=== PATIENT | male | born 1955 | race Caucasian/White ===

== ENCOUNTER 2019-02-07 18:39 | Inpatient (IN) ==
[2019-02-07 19:17] LABS: BASO# 0.02 X1000 (0.0-0.2); BASO% 0.2 % (0.0-0.8); HEMATOCRIT 42.1 % (42.0-52.0); HEMOGLOBIN 15.2 g/dL (14.0-18.0); IMM GRAN# 0.03 X1000 (0.0-0.04); IMM GRAN% 0.3 % (0.0-0.5); LYMPH# 0.82 X1000 (1.2-3.4); LYMPH% 8.9 % (20.5-51.1); MCH 29.1 PG (27-31); MCHC 36.1 g/dL (33-37); MCV 80.7 FL (81-99); MONO# 0.88 X1000 (0.11-0.59); MONO% 9.5 % (1.7-9.3); MPV 10.7 FL (7.4-10.4); NEUT# 7.51 X1000 (1.4-6.5); NEUT% 81.1 % (42.2-75.2); PLT 193 X1000 (130-400); RBC 5.22 XMIL (4.7-6.1); WBC 9.26 X1000 (4.8-10.8)
--- NOTE | 2019-02-07 19:37 | Diag Imaging Result Doc PS360 ---
CHEST-1 VIEW - 02/07/2019 INDICATION: sepsis COMPARISON: None FINDINGS: Heart size is borderline enlarged. No infiltrates or edema. No pneumothorax or pleural effusion. IMPRESSION: Borderline cardiomegaly. Electronically signed by Gordy Mayberry 02/07/2019 7:35 PM
[2019-02-07 19:38] LABS: ALBUMIN 3.9 g/dL (3.5-5.0); CALCIUM 8.1 mg/dL (8.8-10.2); CREATININE 2.3 mg/dL (0.7-1.2); POTASSIUM 3.7 mmol/L (3.5-5.1); TOTAL BILIRUBIN 0.3 mg/dL (0.20-1.00); TOTAL PROTEIN 7.2 g/dL (6.3-8.3)
[2019-02-07 19:43] LABS: PROTIME 13.7 Seconds (11.0-16.0)
[2019-02-07 19:44] LABS: PTT 31.8 Seconds (22.3-41.8)
[2019-02-07] MEDS ORDERED: NS 1,000 ML IV ONE ×2 (19:48→20:49)
[2019-02-07] MEDS ORDERED: TORADOL IV ONE (19:48)
[2019-02-07 20:07] LABS: CK INDEX 0.3 (0.0-2.5); CK-MB 19.73 ng/mL (0.0-5.0)
[2019-02-07 20:37] LABS: BILIRUBIN URINE NEGATIVE (NEGATIVE); BLOOD URINE 4+ (NEGATIVE); CLARITY VERY CLOUDY (CLEAR); COLOR YELLOW; GLUCOSE URINE NEGATIVE (NEGATIVE); KETONE URINE 1+(Small) mg/dL (NEGATIVE); LEUKOCYTES URINE TRACE (NEGATIVE); NITRITE URINE NEGATIVE (NEGATIVE); PROTEIN URINE 2+(100 mg/dL) mg/dL (NEGATIVE); UROBILINOGEN URINE NORMAL
[2019-02-07 20:44] LABS: URINE BACTERIA 3+ /HFP; URINE EPITHELIAL CELLS >10 /HPF (<10)
[2019-02-07 20:45] LABS: URINE CAST GRANULAR PRESENT /LPF; URINE CRYSTAL NONE SEEN /HPF; URINE SOURCE CLEAN CATCH; URINE YEAST NONE SEEN /HPF
[2019-02-07] MEDS ORDERED: MORPHINE IV PRN (20:49)
[2019-02-07] MEDS ORDERED: ZOFRAN IV PRN (20:49)
[2019-02-07] MEDS ORDERED: HEPARIN 25,000 UNITS/D5W 25,000 UNIT/250 ML IV.SOLN IV SCH (21:00)
[2019-02-08] MEDS ORDERED: NS 1,000 ML IV ONE ×2 (00:09→01:15)
[2019-02-08] MEDS: D5 NS 1,000 ML IV SCH ×3 (00:37→10:14)
[2019-02-08] MEDS ORDERED: D50W SYRINGE IV ONE ×2 (00:41→05:21)
[2019-02-08 01:07] LABS: UR PROT RANDOM 156.4 mg/dL
[2019-02-08] MEDS ORDERED: NS 500 ML IV ONE (01:16)
[2019-02-08 01:24] LABS: UR CREAT RANDOM 357.8 mg/dL (14-26)
[2019-02-08] MEDS: ZOSYN 2.25 GM in NS 50 ML IV SCH ×6 (04:54→23:45)
[2019-02-08] MEDS: SYNTHROID PO SCH ×2 (04:54→07:19)
--- NOTE | 2019-02-08 05:00 | HISTORY AND PHYSICAL ---
ADDENDUM 1. Per the patient, patient's he came in with nausea, vomiting. He has not really been able to eat because of nausea, abdominal distention for the last 4 days. No bowel movement either. He has had an appendectomy in the past. The last 24 hours he has developed fever, which he had a fever of 102.9 when he came in, with no clear source. He has a significant amount of abdominal distention. He was initially seen at [facility] and then sent over here because he had positive troponin's. His troponin is up to 1.5. He denies any chest pain, but he is visibly dyspneic and unclear what the etiology is. Again, no evidence of creatinine bump, but he meets criteria for sepsis, and he is tachycardic, he is febrile. He has no white count. Lactate was normal but he has symptoms of hypoperfusion and I am suspicious there may be an underlying infection either in chest and abdomen. We started piperacillin, I do not think he has had anything else, until we can get some more clear information back. He has had a bad tooth that was extracted, so he could be bacteremic, but we will continue to follow. 2. Elevated troponin, which may be related to hypoperfusion. He has no evidence of CAD at this point. We will continue to trend enzymes and get a Cardiology opinion and echo. 3. Hypoglycemia, which is also probably related to poor p.o. intake. We will continue to monitor that. I am going to start some D5 and see if we can try to get blood sugars up because they have been persistently low. Again, I am suspicious that is a combination of infection, sepsis, and poor p.o. intake. He does take diabetic medications, although I do not think he takes insulin. 4. Elevated troponin. Again, as described. 5. Acute kidney injury. Again, would suggest likely related to kidney dysfunction. We are getting CT imaging without contrast of his kidneys and urine electrolytes, and continue hydration and follow. I am going to give him another L of fluids. We will continue to monitor. Ct scans show pneumonia which is likely the cause of his sepsis, also has duodenitis which may explain his gi symptoms. Will start PPI and follow may need gi consult when more stable; pt has developed SVT, will start lopressor; and will also need pulmonary toilet, cardiology has already been consulted. cc: MD Majo Slater CRNP MTDD
[2019-02-08 05:04] LABS: ALLEN TEST YES; BE -2.7 mmoll (-3.0-3.0); BLOOD TYPE ARTERIAL; HCO3-(ACT) 22.7 mmoll (20.0-26.0); METHB 0.5 % (0.0-1.5); MODALITY CANNULA; O2(CT) 16.7 mL/dL (15.0-23.0); O2HB 90.9 % (95.0-99.0); PCO2(98.6) 29 mmHg (35-45); PO2(98.6) 54 mmHg (60-100); SAMPLE BLOOD; SAO2 93.4 % (95.0-100.0); THB 13.1 g/dL (11.5-17.4); pH(98.6) 7.45 (7.35-7.45)
[2019-02-08] MEDS ORDERED: OFIRMEV 1000 MG/ISOTONIC SOLN 1,000 MG/100 ML BOTTLE IV ONE ×2 (05:55→13:30)
[2019-02-08] MEDS ORDERED: CARDIZEM IV ONE (05:56)
[2019-02-08] MEDS ORDERED: CARDIZEM 125 MG/D5W 125 MG/125 ML IVPB IV SCH (06:00)
[2019-02-08 06:01] LABS: BASO# 0.04 X1000 (0.0-0.2); BASO% 0.6 % (0.0-0.8); HEMATOCRIT 38.2 % (42.0-52.0); HEMOGLOBIN 13.4 g/dL (14.0-18.0); LYMPH# 0.87 X1000 (1.2-3.4); LYMPH% 12.7 % (20.5-51.1); MCH 29.3 PG (27-31); MCHC 35.1 g/dL (33-37); MCV 83.6 FL (81-99); MONO# 0.51 X1000 (0.11-0.59); MONO% 7.4 % (1.7-9.3); MPV 10.7 FL (7.4-10.4); NEUT# 5.43 X1000 (1.4-6.5); NEUT% 79.3 % (42.2-75.2); PLT 147 X1000 (130-400); RBC 4.57 XMIL (4.7-6.1); RDW 13.3 % (11.5-14.5); WBC 6.85 X1000 (4.8-10.8)
[2019-02-08 06:16] LABS: ALB/GLOB RATIO 0.9; ALBUMIN 2.7 g/dL (3.5-5.0); CREATININE 1.7 mg/dL (0.7-1.2); MAGNESIUM 1.6 mg/dL (1.5-2.7); POTASSIUM 3.4 mmol/L (3.5-5.1); TOTAL BILIRUBIN 0.3 mg/dL (0.20-1.00); TOTAL PROTEIN 5.6 g/dL (6.3-8.3)
[2019-02-08 06:32] LABS: CALCIUM 6.9 mg/dL (8.8-10.2)
[2019-02-08] MEDS ORDERED: CALCIUM GLUCONATE 1 GM in NS 50 ML IV ONE (06:40)
[2019-02-08 06:48] LABS: CK INDEX 0.3 (0.0-2.5); CK-MB 16.66 ng/mL (0.0-5.0)
[2019-02-08] MEDS ORDERED: NS NEB INH SCH (07:00)
[2019-02-08] MEDS ORDERED: HUMULIN R SUBQ SCH (07:00)
[2019-02-08] MEDS ORDERED: PRILOSEC PO ONE (07:01)
[2019-02-08] MEDS ORDERED: ZANTAC IV SCH (07:15)
[2019-02-08] MEDS ORDERED: KLOR-CON POWDER PACKET PO ONE (07:24)
[2019-02-08] MEDS ORDERED: LEVAQUIN 750 MG/D5W 750 MG/150 ML IVPB IV ONE (08:15)
--- NOTE | 2019-02-08 09:05 | Diag Imaging Result Doc PS360 ---
CT HEAD W/O CONTRAST - 02/08/2019 INDICATION: encephalopathy COMPARISON: None FINDINGS: The ventricles and sulci are normal in size and contour. There is a small old lacunar in the left thalamus and in the right basal ganglia. There is some mild patchy cerebral white matter lucency compatible with chronic microvascular disease. No intracranial mass or hemorrhage. The skull is intact. The sinuses are clear. There is advanced vascular calcification of the carotid siphons bilaterally. The intracranial vertebral arteries are also affected. IMPRESSION: Chronic ischemic changes of the brain. No acute process. This exam was performed using automated exposure control, adjustment of mA or kV according to patient size, and/or use of iterative reconstruction technique Electronically signed by Gordy Mayberry 02/08/2019 9:02 AM
[2019-02-08] MEDS: LOPRESSOR PO SCH ×3 (09:24→19:55)
[2019-02-08] MEDS: ZANTAC 50 MG in NS 50 ML IV SCH ×3 (09:25→23:45)
[2019-02-08] MEDS: ZYVOX 600 MG/D5W 600 MG/300 ML IVPB IV SCH ×2 (09:25→20:52)
--- NOTE | 2019-02-08 10:08 | Diag Imaging Result Doc PS360 ---
CT THORAX W/O CONTRAST - 02/08/2019 INDICATION: pneumonia COMPARISON: Previous chest x-ray FINDINGS: There is borderline cardiomegaly. There is mild diffuse use Tylenol lymphadenopathy. Upper abdominal images are normal. There are dense focal infiltrate in the lower lobes bilaterally compatible with pneumonia. The major airways are clear. No pneumothorax or significant pleural effusion. There are moderate degenerative changes of the spine. No acute or suspicious bony lesion. IMPRESSION: 1. Bilateral lower lobe pneumonia. 2. Cardiomegaly. 3. Mild nonspecific mediastinal lymphadenopathy. This exam was performed using automated exposure control, adjustment of mA or kV according to patient size, and/or use of iterative reconstruction technique Electronically signed by Gordy Mayberry 02/08/2019 10:05 AM
--- NOTE | 2019-02-08 10:13 | Diag Imaging Result Doc PS360 ---
CT NECK W/O CONTRAST - 02/08/2019 INDICATION: SOB,Poss. Sepsis,Recent dental abscess COMPARISON: None FINDINGS: There is opacification versus a mucosal retention cyst in a couple of the posterior right ethmoid sinuses. The other sinuses, mastoids, and middle ears are clear. No significant dental abscess or erosion. No mass or adenopathy. No fluid collections. Moderate spondylosis throughout the cervical spine. IMPRESSION: Minimal ethmoid sinusitis on the right versus a mucosal retention cyst. No substantial abnormality. This exam was performed using automated exposure control, adjustment of mA or kV according to patient size, and/or use of iterative reconstruction technique Electronically signed by Gordy Mayberry 02/08/2019 10:11 AM
[2019-02-08] MEDS ORDERED: DULCOLAX PR ONE (10:21)
--- NOTE | 2019-02-08 10:21 | Diag Imaging Result Doc PS360 ---
CT ABD/PELVIS W/ORAL CONT ONLY - 02/08/2019 INDICATION: pain COMPARISON: None FINDINGS: There is some edema surrounding the descending duodenum as well as mild wall thickening. This may suggest duodenitis. No free air or free fluid. No bowel obstruction. There are two small nonobstructing left renal stones measuring up to 4 mm. No hydronephrosis or hydroureter. Stratton catheter in the urinary bladder. Prostate and rectum are normal. Average quantity of stool. There are moderate degenerative changes of the spine. No acute or suspicious bony lesion. IMPRESSION: 1. Edema about the descending duodenum consistent with duodenitis. No perforation or obstruction. 2. Small nonobstructing left renal stones. This exam was performed using automated exposure control, adjustment of mA or kV according to patient size, and/or use of iterative reconstruction technique Electronically signed by Gordy Mayberry 02/08/2019 10:19 AM
[2019-02-08] MEDS: KCL IV SCH ×2 (11:35→20:54)
[2019-02-08] MEDS: POTASSIUM CHLORIDE IV SCH ×2 (11:35→20:54)
[2019-02-08] MEDS: D5 NS IV SCH ×2 (11:35→20:54)
[2019-02-08] MEDS: XOPENEX NEB INH SCH ×3 (12:04→21:00)
[2019-02-08] MEDS: ATROVENT NEB INH SCH ×4 (12:04→23:31)
--- NOTE | 2019-02-08 12:29 | CARDIOLOGY CONSULTATION ---
DATE: 02/08/2019 REASON FOR CONSULTATION: The patient is admitted with pneumonia, has SVT in sinus rhythm, abnormal cardiac enzymes. HISTORY OF PRESENT ILLNESS: Mr. Demetrius Chavez is a 63-year-old gentleman who has not been feeling well for the last 2 week or so. Has noticed low-grade fevers and significant weakness and shortness of breath. Denies any chest pain or palpitations. He has had shortness of breath and weakness. He was seen by his [employer] inspector who suggested he go to the emergency room. He came to the emergency room and was subsequently admitted. There is no history of palpitations. There is no dysuria. He complains of having nausea and some abdominal distention in the last 4 days as well. REVIEW OF SYSTEMS: A 14-point review of systems was done. Gastrointestinal: As above. Cardiovascular: Denies chest pain. No previous cardiac history. Central nervous system: No focal weakness to suggest a CVA, TIA. PAST MEDICAL HISTORY: Hypertension, diabetes, hyperlipidemia, hypothyroidism. HOME MEDICATIONS: Glyburide 2.5 mg a day, gabapentin 800 mg p.o. t.i.d., metformin 1000 mg p.o. b.i.d., levothyroxine 50 mcg a day, lovastatin 20, lisinopril 20, Zyvox, and levofloxacin, in addition to omeprazole. ALLERGIES: The patient is not known to be allergic to any medication. PHYSICAL EXAMINATION: Vital Signs: Blood pressure was 165/65. At the time of my examination, blood pressure was 129/98. Heart: First and 2nd heart sounds were heard. There was no S3 gallop. Respiratory system: Revealed scattered expiratory wheeze. Abdomen: Soft. Mildly distended. Bowel sounds were heard. There was no obvious tenderness. Central nervous system: Alert, oriented. Was moving all 4 extremities. Extremities: Examination of his extremities revealed mild pedal edema. HEENT: Atraumatic, normocephalic. Pupils were equal and reacting to light. Vital signs: His temperature was 100 degrees. Pulse rate 109. LABORATORY EXAMINATION: WBC 6.85, hemoglobin 13.4, hematocrit 38.2, platelet count of 147,000. Chemistry: Sodium 129, potassium 3.7, BUN 35, creatinine 2.3. Creatine kinase 5922 with a CK-MB of 19.3. Creatine kinase of 0.3. Abnormal troponin at 1.5, 1.3, and last troponin was 1.350. Subsequent laboratory examination revealed improvement in his BUN and creatinine at BUN of 36 and a creatinine of 1.7. He has hypocalcemia of 6.9. Magnesium was 1.6. His liver function tests were abnormal at AST 244, ALT 65. Total bilirubin was normal. Plasma lactate 1.7. IMAGING STUDIES: CT scan of the abdomen with oral contrast revealed edema around the duodenum, consistent with duodenitis. Small, nonobstructive renal stones were noted. CT of the chest revealed bilateral lower lobe pneumonia, cardiomegaly, lymphadenopathy. ASSESSMENT AND PLAN: Mr. Demetrius Chavez is a 63-year-old gentleman with history of hypertension, diabetes, hyperlipidemia, obesity, and hypothyroidism, who comes with complaints of not feeling well, having fevers for the last week or so, with significant weakness. 1. The patient has pneumonia. He is on multiple antibiotics. 2. Diabetes. Continue with his current medications. 3. From a cardiac standpoint, his admission electrocardiogram revealed supraventricular tachycardia. Currently, he is in sinus rhythm. We will get an electrocardiogram. We will get an echocardiogram to assess cardiac and valvular function. As far as his cardiac enzymes are concerned, his troponin is abnormal. That is probably secondary to his acute renal insufficiency, and he is also septic with bilateral pneumonia. His blood cultures are all pending. He has no evidence of coronary artery disease. With IV heparin which was started, he had hematuria which was probably traumatic. IV heparin was discontinued. We would recommend continuing with enteric-coated aspirin 81 mg a day. 4. Acute kidney injury, probably secondary to dehydration. Improved with IV fluids. Thank you for the consult. We will follow hospital course. cc: Toño Brown MD
--- NOTE | 2019-02-08 13:24 | PROGRESS NOTE ---
DATE: 02/08/2019 SUBJECTIVE: This patient is completely alert and oriented x3. As per the patient, he was not able to talk properly last night. He is short of breath. He is not complaining of chest pain. He has also been having abdominal distention for the past few days. I checked his CT scan of the chest and it looks like he has a bilateral infiltrate of the lungs, which is more extensive on the left side. Also, his CT of the abdomen showed a lot of stools at the level of the sigmoid and rectal area. This patient was started on Zosyn but I will add Zyvox and levofloxacin, renally dosed since he has kidney dysfunction. As per the patient, he does not have any past medical history of cardiac issues but x-ray and CT scan showed cardiomegaly. He does have hypertension, diabetes and dyslipidemia, also obesity. He seems to be in respiratory distress, he is septic. He is able to tolerate food by mouth. The patient was evaluated and because of an elevated troponin, Cardiology Department was consulted and he was started on heparin drip which I will hold for now, I do believe this is a troponin leak due to sepsis and acute kidney injury, but again, Cardiology Department will evaluate this patient and they will decide if this patient needs to continue with that or not, but I believe he is not having an acute coronary syndrome at this moment, again he is septic. Also, he has a kidney injury which I do not know if this is new or old. OBJECTIVE: Vital Signs: Temperature 97.8 degrees, pulse 109, respiratory rate 20, blood pressure 129/98, respiratory rate 20, oxygen saturation 95% on 4 L of nasal cannula. HEENT: Head normocephalic, no trauma. PERRLA. Neck: Supple. No JVD. No masses. Central trachea. Chest: Decreased breath sounds with crepitus and rhonchi at the bases, scattered wheezing bilaterally. Abdomen: Soft, distended. Positive bowel sounds but decreased. Slightly tympanic to percussion. Extremities: No edema, no clubbing, no cyanosis. Neurological: At this moment this patient is alert and oriented x3. No focal neurological deficit. LABORATORY DATA: WBC 6.8, hemoglobin 13.4, hematocrit 38.2, platelets 147,000. Sodium 128, potassium 3.4, chloride 93, bicarbonate 19, BUN 36, creatinine 1.7, glucose 58, calcium 6.9, magnesium 1.6. AST 244, ALT 65, alkaline phosphatase 59. CK 6280. Troponin of 1.5. Albumin 2.7. Plasma lactate 1.7. ASSESSMENT AND PLAN: 1. Sepsis, secondary to bilateral pneumonia, lower lobe. We have placed this patient on broad- spectrum antibiotics, Zosyn, Zyvox and levofloxacin, which is renally dosed. Also there is evidence of duodenitis in the CT scan. Will continue with IV fluids. We will continue with breathing treatment and oxygen supplementation, depending on the evolution, we will consult Pulmonary Department to evaluate this patient. 2. Bilateral lower lobe pneumonia, as above, continue with broad spectrum antibiotics, oxygen and breathing treatment. We will continue to monitor this patient closely. 3. Elevated troponin. At this point I do not believe that this patient has an acute coronary syndrome, likely this is related to a troponin leak due to sepsis and also this patient has a kidney injury which probably is acute, I do not have any previous records. So, for now I will hold the heparin drip. Cardiology Department will evaluate this patient. Troponins were elevated but stable, at 1.5, 1.3 and 1.5. He is not complaining of chest pain. He does have a past medical history of hypertension, diabetes, and dyslipidemia, obesity that are a high risk factor for acute coronary syndrome, but at this moment, I believe this is a troponin leak. Again, Cardiology Department will evaluate this patient. 4. Kidney injury, likely this is related to acute tubular necrosis due to dehydration. His creatinine is better compared with yesterday. BUN about the same. Also, this patient has an elevated CK level. We will continue with the IV fluids. He received multiple boluses, more than 3 L of IV fluids upon admission. 5. Hypoglycemia, we will continue with D5 normal saline for now, blood sugar seems to be better at this moment. 6. Hypokalemia. I will add potassium to his IV fluids and I will monitor this closely. 7. Severe dehydration with rhabdomyolysis, continue with IV fluids. We will check the CK level on a daily basis. 8. Hypertension, stable. For now we are holding any kind of blood pressure medication. At home he is on lisinopril. 9. Hypothyroidism. Continue with levothyroxine. We will check a TSH in the morning. 10. Elevated liver enzymes, probably this is related to sepsis, AST greater than ALT. Will monitor for now. 11. Kidney injury. I am not sure if this is new or chronic. Continue with IV fluids. Compared with yesterday, today the creatinine seems to be better. 12. Hematuria, likely traumatic. I will continue with IV fluids. I am holding the heparin drip at this moment. 13. Duodenitis, there is a evidence of duodenitis on the CT scan, no perforation or obstruction. We will continue with the same management. He has been placed on ranitidine, IV fluids and antibiotics. He is not complaining of abdominal pain but the abdomen seems to be distended. 14. Abdominal distention, he is having positive bowel sounds. CT scan showed also the possibility of constipation, there is a lot of stools at the level of the sigmoid and rectal area. I will go ahead and treat this patient with a suppository. 15. Hypoxemic respiratory failure, likely secondary to pneumonia. Initial ABGs showed a PO2 of 54. We will continue with oxygen supplementation. 16. Hypocalcemia. I will ask for ionized calcium and I will replace it if this is low. cc: Harris Guevara MD
--- NOTE | 2019-02-08 13:38 | HISTORY AND PHYSICAL ---
PRIMARY CARE PROVIDER: SARMAD Zaldivar. DATE AND TIME: 02/08/2019 at 0030. CHIEF COMPLAINT: Weakness and shortness of breath. HISTORY OF PRESENT ILLNESS: Mr. Chavez is a 63-year-old, male with a past medical history most notable for hypertension, hyperlipidemia, diabetes mellitus type 2 and hypothyroidism. According to the ER note from [facility] physician, as well as the patient, the patient states that since Sunday he has not been feeling well. He states that he has had fever, body aches, and chills. Throughout the week, he progressively began to feel worse, having worsening weakness, fatigue, as well as shortness of breath and cough. The patient states that he did have an infected tooth with what sounds to be an abscess on the right lower side that he did go ahead and have pulled yesterday on February 06. The patient states that he does feel a little foggy. The patient is altered; he is only oriented to person at this time. It was difficult to obtain a complete history of present illness, as well as past medical history due to this. At the time of my examination, there was not any family present at bedside. He denies any chest pain at present or previously in the ER at [facility] or throughout the week. He is reporting shortness of breath and stating that he feels as though he is have having trouble breathing because his throat feels funny as well. Upon examination, the patient did not have any stridor or respiratory distress noted, though he did appear to be slightly tachypneic and mildly dyspneic. The patient is reporting that his abdomen does feel distended, though he is denying any abdominal pain. He has been reporting some nausea. The patient denied any vomiting to me. He apparently had reported that he had a vomiting episode possibly in the ER at [facility] or prior to his ER arrival. He denies any dysuria or urinary frequency. Extremities have no cyanosis, clubbing or edema noted. Prior to Sunday, the patient denies recently being sick or not feeling well. Upon evaluation in the ER, the patient did not have any leukocytosis. He was noted to have a fever that was documented to be 102.9. He was tachycardic as well and did have a room air oxygen saturation of 92%. The chest x-ray did not reveal any acute abnormality, although there was borderline cardiomegaly. The patient did appear to be in septic appearance. He also does have an acute kidney injury with a creatinine of 2.3, BUN 35, and GFR of 29. He has no previous labs for comparison. He has also been hypoglycemic and is requiring at times D 50 IV push, as well as maintenance fluid of D5 NS. He also has had elevated CK and troponins, though his EKG did not show any acute ST elevation, but there does appear to be some possible ST depression in V 5. We do not have any comparison EKGs. The patient is denying any chest pain. He also did have elevated lactate. He did have some trace white blood cells and some bacteria noted in his urine. The patient is asymptomatic. Once he arrived at [facility], upon further evaluation the patient did have some crackles noted in bilateral lung bases, as well as he did have some diminished lung sounds. He also did have a distended abdomen, reported nausea and vomiting. Given this, we did perform CT of neck, thorax, abdomen and pelvis without IV contrast which did show him to have bilateral consolidations consistent with pneumonia. He also had duodenal wall thickening and adjacent fat stranding with duodenitis, as well as he did have esophageal wall thickening suggestive of esophagitis. We did perform an ABG which did show the patient had a slightly low PO2, though did have O2 saturation of 93 percent. We have increased his oxygen since then. Given these findings, blood cultures have been obtained, as well as sputum culture. We have placed the patient with antibiotic coverage of Zosyn. Given that he does appear to be septic in appearance, we have gone ahead given him the recommended IV fluid resuscitation with normal saline. He did receive a total of 4000 mL of normal saline. The patient has been placed on CIC for close monitoring. The only pending diagnostic study at this time is a CT of the head without contrast. REVIEW OF SYSTEMS: A 14 system complete review of systems was unable to be completely reviewed with the patient. He is confused at this time. He is only alert and oriented to person, but please see above HPI for reported symptoms by the patient. PAST MEDICAL HISTORY: 1. Hypertension. 2. Hyperlipidemia. 3. Diabetes mellitus type 2. 4. Hypothyroidism. PAST SURGICAL HISTORY: 1. Reported possible left lung surgery as a child. The patient could not give an explanation for this. 2. There was questionable appendectomy. It looks on the CT that they did note that the appendix was not visualized, and it may have been surgically absent. SOCIAL HISTORY: The patient denies any tobacco, alcohol or illicit drug use. FAMILY HISTORY: This is unable to be obtained at this time. The patient is confused and only alert and oriented x1. ALLERGIES: Patient has no known allergies. HOME MEDICATION: 1. Gabapentin 800 mg p.o. t.i.d. 2. Glyburide 2.5 mg p.o. daily. 3. Synthroid 50 mcg p.o. daily. 4. Lisinopril 40 mg p.o. daily. 5. Lovastatin 20 mg p.o. at bedtime. 6. Metformin 1000 mg p.o. b.i.d. DIAGNOSTIC DATA: 1. White blood cell count is 9260, hemoglobin 15.2, hematocrit 42.1, platelet count is 193. PT 13.7, INR 152, PTT 31.8. Sodium 129, potassium 3.7, chloride 97, bicarbonate is 23. BUN 35, creatinine 2.3 with a GFR of 29. Glucose is 59, though since initial, he has been given something to eat, as well as D 50 IV and D5 NS infusion, and his glucose has improved. 2. Calcium 8.1. Liver function tests within normal limits, except for AST is elevated at 262, ALT is elevated at 69. CK is 5922, CK index 0.3, CK-MB is 19.73. Troponin is 1.510. Plasma lactate is 1.2. Urinalysis obtained via clean-catch was positive for protein, ketones, trace white blood cells, and bacteria. It was otherwise negative for blood, nitrites or yeast. 1. Initial chest x-ray did not show any acute abnormality, except for borderline cardiomegaly. 2. CT of the neck without contrast showed opacification of the posterior right ethmoid air cell was noted, though the adjacent sphenoid sinus was clear. This is probably a chronic finding. 3. CT thorax without contrast showed bilateral consolidation consistent with pneumonia/pneumonitis. There was a mildly enlarged mediastinal lymph node, which may be reactive, moderate cardiomegaly and esophageal wall thickening suggestive of esophagitis. 4. CT of the abdomen and pelvis with oral contrast only showed duodenal wall thickening and adjacent fat stranding, possible duodenitis. No ulcer specifically identified. No bowel perforation or obstruction. There were small nonobstructing left renal stones. PHYSICAL EXAMINATION: VITAL SIGNS: Temperature 97.7 degrees, heart rate 102, respirations 22, blood pressure is 145/65, oxygen saturation is 94% nasal cannula at 2 L. GENERAL: Mr. Chavez is a pleasantly confused, 63-year-old male resting in the [facility] bed. He was in no acute distress. He was awake and alert, though he was only oriented to person. HEENT: Head is atraumatic, normocephalic. Pupils are equal, round, reactive to light and 3 mm bilaterally and brisk. Oral mucosa moist. Oropharynx is clear. NECK: Supple. Trachea is midline. CARDIOVASCULAR: The patient had S1, S2 present. No murmurs or gallops or rubs appreciated. The patient does have a slightly tachycardic rate that is regular. PULMONARY: The patient has symmetrical chest expansion bilaterally. Lung sounds in bilateral lower lung cook were slightly diminished, and did have some slight crackles noted. ABDOMEN: Soft, non-tender, though does appear to be distended, although the patient has a protuberant abdomen noted. Bowel sounds are present in all 4 quadrants and normoactive. EXTREMITIES: No cyanosis or edema noted. Pulse, motor and sensory were intact in all extremities. Radial pulses and pedal pulses were 2+ bilaterally. INTEGUMENTARY: The patient's skin is pink, warm and dry. NEUROLOGIC: The patient is only alert and oriented to person. He is able to move all extremities and does appear to have some generalized weakness. He does not appear to have any focal neurological deficits noted. ASSESSMENT AND PLAN: 1. Possible sepsis. The patient does appear to be septic. Although he does not have any leukocytosis, he does have fever. He has had reported fever, body aches and chills prior to arrival. He does have an elevated lactate, and now does have a known source of infection which is bilateral pneumonia. We have obtained blood culture, sputum culture. He has been placed on empiric antibiotics. He has also been volume resuscitated with a total of 4000 mL normal saline. There was a possible esophagitis and duodenitis noted on his CT. Also, the patient did report that he recently had a tooth pulled on his right lower side of his mouth secondary to infection. It does not appear at this time the patient has an abscess or anything noted in this area. CT neck was negative for any other abnormalities as well. 2. Bilateral pneumonia. We will continue with treatment as mentioned above for #1. He has been placed on antibiotics of Zosyn. We will continue with scheduled nebulizer treatments, incentive spirometry, frequent turn, cough, deep breathing, and supplemental oxygen. 3. Duodenitis/esophagitis. We have placed the patient on a proton pump inhibitor. 4. Elevated troponins. The patient has had elevated troponins. He is not complaining of any chest pain. His EKG did not show any acute ST elevation. He did appear to have some very, very slight ST depression noted in V 5, though we have no previous EKGs for comparison. We have placed a cardiology consult with . The ER physician did previously speak with Dr. Brown in the ER at [facility]; he is aware of the patient. He has since been placed on a heparin drip. We will continue with the series of cardiac enzymes. We will continue to follow closely. Also, the patient did have a very brief episode of supraventricular tachycardia with a heart rate in the 200s that lasted approximately 10 minutes, though did subside spontaneously without treatment. He is in sinus tachycardia now in the 110s, we have place an order for metoprolol 25 mg p.o. q. 6 hours. We will await Cardiology's evaluation and further recommendations. We will continue to follow closely.. 5. Hypoglycemia. The patient has continued to have problems with hypoglycemia. We will continue to monitor this closely. He has been placed on a q. 4 hour fingerstick blood sugar. He did have to receive some D 50 intravenous, as well as he is on a D 5 normal saline drip at this time. Since that time his glucose levels have begun to improve. We will continue to monitor. 6. Encephalopathy. This could be multifactorial. The patient does appear to be septic. This could be related to infection. He has been hypoglycemic as well. He is slightly hypoxic, though ABGs did not reveal any hypercapnia that could be contributing to his confusion. We are awaiting a CT head without contrast to rule out any further intracranial abnormalities. Unfortunately, at this time the patient is only alert and oriented to person, though is awake and can answer simple questions and follow commands. 7. Deep vein thrombosis prophylaxis being provided with previously mentioned heparin drip. The patient has been placed on CIC with telemetry. He will have vital signs q. 4 hours, do strict intake and output. Further orders and recommendations pending hospital course, diagnostic studies, and physician evaluation. Critical care time with this patient was 80 minutes. Dictated by SARMAD Wolf for Isaiah Cheng MD cc: Isaiah Cheng MD [facility]
[2019-02-08] MEDS ORDERED: ATIVAN IV ONE (13:44)
[2019-02-08] MEDS ORDERED: DIPRIVAN 1% 1,000 MG/100 ML BOTTLE ONE (13:53)
[2019-02-08] MEDS ORDERED: QUELICIN ONE (14:03)
[2019-02-08] MEDS ORDERED: NORCURON ONE (14:15)
[2019-02-08] MEDS ORDERED: STERILE WATER INJ. ONE (14:16)
[2019-02-08] MEDS ORDERED: NORCURON IV ONE (14:20)
[2019-02-08] MEDS ORDERED: XYLOCAINE 2% VISCOUS ONE (14:29)
--- NOTE | 2019-02-08 14:43 | Diag Imaging Result Doc PS360 ---
CHEST-PORTABLE - 02/08/2019 INDICATION: respiratory distress COMPARISON: 02/07/2019 FINDINGS: There is an endotracheal tube in good position at T3-T4. The nasogastric tube extends into the stomach in good position. There is also an esophageal temperature probe in the mid esophagus. There are patchy bibasilar infiltrates that are somewhat difficult to perceive as they're largely obscured by the heart shadow. There is cardiomegaly and pulmonary vascular congestion. IMPRESSION: No complication from support tube placement. Electronically signed by Gordy Mayberry 02/08/2019 2:41 PM
[2019-02-08] MEDS: FENTANYL 1,000 MICROGM in NS 80 ML IV SCH (14:46)
[2019-02-08] MEDS ORDERED: CALCIUM GLUCONATE 4.65 MEQ in NS 50 ML IV ONE (14:53)
[2019-02-08] MEDS: NIMBEX 80 MG in NS 160 ML IV SCH ×2 (15:04→21:24)
[2019-02-08 15:07] LABS: ALLEN TEST YES; BE -9.5 mmoll (-3.0-3.0); BLOOD TYPE ARTERIAL; HCO3-(ACT) 17.5 mmoll (20.0-26.0); METHB 1.1 % (0.0-1.5); O2(CT) 14.9 mL/dL (15.0-23.0); O2HB 94.4 % (95.0-99.0); PCO2(98.6) 20 mmHg (35-45); PO2(98.6) 68 mmHg (60-100); SAMPLE BLOOD; SAO2 96.3 % (95.0-100.0); SRATE 28 BPM; THB 11.2 g/dL (11.5-17.4); TVOL 700 mL; pH(98.6) 7.42 (7.35-7.45)
[2019-02-08 15:08] LABS: MODALITY VENTILATOR
[2019-02-08] MEDS ORDERED: DIPRIVAN 1% IV ONE (15:29)
[2019-02-08 15:44] LABS: BASO# 0.01 X1000 (0.0-0.2); BASO% 0.2 % (0.0-0.8); EOS# 0.01 X1000 (0.0-0.7); EOS% 0.2 % (0.0-10.0); HEMATOCRIT 31.7 % (42.0-52.0); IMM GRAN# 0.02 X1000 (0.0-0.04); IMM GRAN% 0.3 % (0.0-0.5); LYMPH# 0.34 X1000 (1.2-3.4); LYMPH% 5.9 % (20.5-51.1); MCH 28.5 PG (27-31); MCHC 34.7 g/dL (33-37); MCV 82.1 FL (81-99); MONO# 0.14 X1000 (0.11-0.59); MONO% 2.4 % (1.7-9.3); MPV 11.1 FL (7.4-10.4); NEUT# 5.23 X1000 (1.4-6.5); PLT 139 X1000 (130-400); RBC 3.86 XMIL (4.7-6.1); WBC 5.75 X1000 (4.8-10.8)
[2019-02-08 15:52] LABS: ALBUMIN 2.3 g/dL (3.5-5.0); CREATININE 2.1 mg/dL (0.7-1.2); POTASSIUM 3.4 mmol/L (3.5-5.1); TOTAL BILIRUBIN 0.52 mg/dL (0.20-1.00); TOTAL PROTEIN 4.6 g/dL (6.3-8.3)
[2019-02-08 15:55] LABS: CALCIUM 6.1 mg/dL (8.8-10.2)
[2019-02-08] MEDS ORDERED: EPINEPHRINE SYRINGE IV ONE (15:57)
[2019-02-08 16:51] LABS: BANDS 5 % (0-1); LARGE PLATELETS OCCASIONAL; LYMPHS 3 % (21-51); MONO 4 % (1-9); SEGS 87 % (42-75)
[2019-02-08 16:52] LABS: BURR CELLS OCCASIONAL
[2019-02-08] MEDS ORDERED: SODIUM BICARBONATE 8.4% 150 MEQ in D5W 1,000 ML IV SCH (17:00)
--- NOTE | 2019-02-08 17:14 | PROGRESS NOTE ---
DATE: 02/08/2019 The patient has been re-evaluated in the ICU. He was previously transferred from [facility] to the ICU to monitor this patient closely. The patient was feeling a little bit better during the transportation. Once in the ICU, he started having more respiratory distress, elevated temperature up to 104 and hypoxemia. We immediately called the respiratory team, and they were located at the bedside. He was having basically shallow breathing, and he was not moving too much air. During the intubation process, this patient had a TEA that was around 1400. He received a first dose of epinephrine and we started with chest compression immediately. The critical care doctor/information technology program manager at the bedside, and actually intubated the patient. We did continue chest compression, and we supplied this patient with oxygen through the [facility]. We provided high oxygenation to this patient through bagging him. He received a second dose of epinephrine at 14:03, and we regained spontaneous circulation at 14:04. Patient was monitored by the Cardiology Department, Pulmonary Department and myself during the whole process. We are providing more IV fluids. We will continue with antibiotics. Because of the high temperature that it was up to 106, we are giving him some cold measures. He received a dose of acetaminophen as well. I had a large conversation with the family. I showed them some of the results including images. I told the family that he was remarkably seek, but also we will do everything for him. We will continue monitoring this patient in the ICU with aggressive treatment, continue with mechanical ventilation. I discussed the resuscitation status with the family, and they want this patient to be full code. At this moment the oxygen saturation on the monitor is 96 and pulse 121. He seems to be a little bit more stable at this point, but again, he is remarkably sick. CRITICAL CARE TIME: 1-1/2 hours. cc: Harris Guevara MD
[2019-02-08] MEDS ORDERED: DIPRIVAN 1% IV PRN (19:57)
[2019-02-08] MEDS: DULCOLAX PR SCH (20:40)
[2019-02-08] MEDS: MEVACOR PO SCH (20:41)
[2019-02-08] MEDS: DIPRIVAN 1% 1,000 MG/100 ML BOTTLE IV SCH (21:28)
--- NOTE | 2019-02-08 22:31 | PULMONOLOGY CONSULTATION ---
DATE: 02/08/2019 PULMONARY/CRITICAL CARE CONSULTATION: HISTORY OF PRESENT ILLNESS: I was called by the nursing staff that Mr. Chavez had a pneumonia and was being emergently intubated after acute decompensation. Upon my arrival, his oxygen saturation was in the 60s. Sedation was being achieved. Respiratory Therapy was at the bedside and made an initial attempt for intubation, but this was unsuccessful due to the patient's thick neck and lack of full sedation. The patient received additional propofol, and I emergently intubated the patient with a GlideScope on the 1st pass. There was good CO2 retention. The patient was being ventilated when he became pulseless. CPR was initiated, and the patient went through at least 2 rounds of CPR and epinephrine with pulse regained. The patient began making respiratory effort. He was placed on mechanical ventilation. He received additional fluid bolus along with a paralytic to aid in ventilation. PAST MEDICAL HISTORY/PROBLEM LIST: 1. Diabetes mellitus. 2. Hypertension. 3. Dyslipidemia. 4. Hypothyroidism. PAST SURGICAL HISTORY: 1. Remote history of lung surgery as a child for unknown reason. 2. Possible appendectomy. SOCIAL HISTORY: The patient is a never smoker. No alcohol use. He does take multiple supplements, including bovine colostrum. PHYSICAL EXAMINATION: General: Reveals a morbidly obese male on mechanical ventilation. Vital signs: Blood pressure 122/70, heart rate 89, respiratory rate 28, oxygen saturation 98%. HEENT: Pupils are midpoint and weakly reactive. Oropharynx appears clear. Neck: Supple. Chest: Reveals diffuse rhonchi bilaterally. Cardiac Exam: S1, S2. Abdomen: Obese and soft. Extremities: Reveal cyanosis but improving. LABORATORIES AND IMAGING STUDIES: Arterial blood gas following intubation and mechanical ventilation: pH 7.42, pCO2 of 20, pO2 of 68, with a lactate of 3.9. Sodium 129, potassium 3.4, chloride 101, bicarbonate 14, BUN 42, creatinine 2.1. White blood count 5.75, hemoglobin 11.0, platelet count 139,000. CT scan of the abdomen and pelvis early this morning reveals edema of the descending duodenum consistent with duodenitis. CT scan of the chest reveals bibasilar pneumonia with cardiomegaly. CT scan of the neck reveals minimal sinusitis. CT scan of the head reveals chronic ischemic changes. CPK on presentation was elevated along with troponin. IMPRESSION: A 63-year-old with: 1. Pneumonia. 2. Duodenitis. 3. Acute renal insufficiency. 4. Diabetes mellitus. 5. Acute hypoxemic respiratory failure. 6. Lactic acidosis. 7. Status post cardiopulmonary arrest. RECOMMENDATIONS: 1. Continue full ventilatory support. 2. Hydration and vasopressors as needed to support blood pressure. 3. Routine bronchodilators. 4. Gastric acid suppression. 5. Cardiology followup for elevated troponin. 6. Overall prognosis is guarded. The family is aware, and they were at the bedside shortly after his cardiac arrest. Time spent in critical care management: 90 minutes cc: Yury Rodriguez MD MTDD
[2019-02-09] MEDS: DIPRIVAN 1% 1,000 MG/100 ML BOTTLE IV SCH ×11 (00:07→22:55)
[2019-02-09] MEDS ORDERED: HUMULIN R SUBQ ONE (01:53)
[2019-02-09] MEDS: LOPRESSOR PO SCH ×4 (02:10→20:15)
[2019-02-09] MEDS: NS + KCL 20 MEQ 1,000 ML IV SCH ×3 (02:14→22:50)
[2019-02-09] MEDS: LEVOPHED 8 MG in D5 1/2 NS 250 ML IV SCH ×2 (02:35→14:49)
[2019-02-09] MEDS: FENTANYL 1,000 MICROGM in NS 80 ML IV SCH ×3 (02:36→16:10)
[2019-02-09] MEDS: ATROVENT NEB INH SCH ×6 (03:08→23:03)
[2019-02-09] MEDS: NIMBEX 80 MG in NS 160 ML IV SCH (04:01)
[2019-02-09] MEDS: ZOSYN 2.25 GM in NS 50 ML IV SCH ×4 (04:05→22:50)
[2019-02-09 04:51] LABS: ALLEN TEST YES; BE -4.5 mmoll (-3.0-3.0); BLOOD TYPE ARTERIAL; HCO3-(ACT) 21.5 mmoll (20.0-26.0); PCO2(98.6) 23 mmHg (35-45); PO2(98.6) 153 mmHg (60-100); SAMPLE BLOOD; SRATE 25 BPM; TVOL 700 mL; pH(98.6) 7.48 (7.35-7.45)
[2019-02-09 04:53] LABS: MODALITY VENTILATOR
[2019-02-09] MEDS: PRILOSEC PO SCH (06:08)
[2019-02-09] MEDS: SYNTHROID PO SCH (06:09)
[2019-02-09 06:39] LABS: BASO# 0.02 X1000 (0.0-0.2); BASO% 0.2 % (0.0-0.8); HEMATOCRIT 31.7 % (42.0-52.0); HEMOGLOBIN 11.4 g/dL (14.0-18.0); IMM GRAN# 0.03 X1000 (0.0-0.04); IMM GRAN% 0.3 % (0.0-0.5); LYMPH# 0.75 X1000 (1.2-3.4); MCH 29.2 PG (27-31); MCV 81.3 FL (81-99); MONO# 0.29 X1000 (0.11-0.59); MONO% 3.1 % (1.7-9.3); MPV 11.1 FL (7.4-10.4); NEUT% 88.4 % (42.2-75.2); PLT 151 X1000 (130-400); RDW 13.1 % (11.5-14.5); WBC 9.39 X1000 (4.8-10.8)
[2019-02-09 06:50] LABS: MAGNESIUM 1.5 mg/dL (1.5-2.7); PHOSPHORUS 2.6 mg/dL (2.7-4.5)
[2019-02-09 06:52] LABS: HEMOGLOBIN A1C 7.8 % (4.8-6.0)
[2019-02-09 06:56] LABS: ALB/GLOB RATIO 0.9; ALBUMIN 2.1 g/dL (3.5-5.0); CREATININE 2.3 mg/dL (0.7-1.2); POTASSIUM 3.6 mmol/L (3.5-5.1); TOTAL BILIRUBIN 0.37 mg/dL (0.20-1.00); TOTAL PROTEIN 4.4 g/dL (6.3-8.3)
[2019-02-09] MEDS ORDERED: HUMULIN R SUBQ SCH (07:00)
[2019-02-09 07:14] LABS: CALCIUM 6.1 mg/dL (8.8-10.2)
[2019-02-09 07:25] LABS: CK INDEX 0.3 (0.0-2.5)
[2019-02-09] MEDS ORDERED: CALCIUM GLUCONATE 4.65 MEQ in NS 50 ML IV ONE (07:42)
[2019-02-09] MEDS ORDERED: SODIUM PHOSPHATE 15 MMOL in NS 250 ML IV ONE (07:43)
--- NOTE | 2019-02-09 07:45 | Diag Imaging Result Doc PS360 ---
CHEST-PORTABLE - 02/09/2019 INDICATION: respiratory failure COMPARISON: 02/08/2019 FINDINGS: Support lines and tubes are stable. Stable cardiomegaly and pulmonary vascular congestion. There is slight worsening in the ill-defined bibasilar infiltrates, worst at the left hilum. No pneumothorax or large pleural effusion. IMPRESSION: Slight worsening bibasilar infiltrates. Significant cardiomegaly and pulmonary vascular congestion. Electronically signed by Gordy Mayberry 02/09/2019 7:43 AM
[2019-02-09] MEDS ORDERED: LANTUS INSULIN SUBQ ONE (07:46)
[2019-02-09] MEDS: ZYVOX 600 MG/D5W 600 MG/300 ML IVPB IV SCH ×2 (08:16→20:26)
[2019-02-09] MEDS: ZANTAC 50 MG in NS 50 ML IV SCH ×2 (08:16→16:14)
--- NOTE | 2019-02-09 08:20 | PROGRESS NOTE ---
DATE: 02/09/2019 SUBJECTIVE: This patient is still on mechanical ventilation and sedated. No acute events overnight. He is not on pressors. Glucose level is elevated. He will receive a dose of Lantus today. We will continue with sliding scale. The D5 NS has been stopped and placed only on NS. Overall prognosis is guarded but we will continue with aggressive measures. OBJECTIVE: Vital Signs: Temperature 98.2 degrees, pulse 87, respiratory rate 25, blood pressure 122/64, oxygen saturation 99 on mechanical ventilation. HEENT: Head normocephalic. No trauma. PERRLA. Neck: Supple. No JVD. No masses. Central trachea. Chest: Coarse breath sounds bilaterally with rhonchi and crepitus at the bases. Decreased breath sounds globally as well. Abdomen: Soft, protuberant, moderately distended. Positive bowel sounds. Extremities: Trace edema. No clubbing. No cyanosis. Neurological Examination: This patient is on mechanical ventilation and sedated. Laboratory: WBC 9.3, hemoglobin 11.4, hematocrit 31.7, platelets 151,000. Sodium 124, potassium 3.6, chloride 91, bicarbonate 16, BUN 43, creatinine 2.3, glucose 399, calcium 6.1. AST 194, ALT 81, alkaline phosphatase 86. Troponin 1.4. Albumin 2.1. ASSESSMENT AND PLAN: 1. Acute hypoxemic respiratory failure, likely secondary to bilateral pneumonia. This patient has been placed on mechanical ventilation. Continue with broad spectrum antibiotics, breathing treatments. Pulmonary department is following this patient closely. 2. Bilateral lower lobe pneumonia. Pending a sputum culture. Blood culture so far negative. We will continue with broad spectrum antibiotics. We will continue with the same management for now. Continue with ventilatory support. 3. Status post cardiopulmonary arrest. Continue intravenous hydration, full ventilatory support, and vasopressors as needed to support the blood pressure. Cardiology department and pulmonary department on board. No events overnight. 4. Sepsis secondary to bilateral pneumonia. Continue with the same management. Continue with hydration. 5. Elevated troponin, likely secondary to troponin leak and recent cardiopulmonary arrest. For now, we will monitor. Cardiology on board. 6. Acute kidney injury, likely related to acute tubular necrosis due to severe dehydration and now status post cardiopulmonary arrest. BUN and creatinine increased a little bit compared with yesterday. We have a positive balance of 7.3 L and he is still getting fluids. We have a urine output of 670. We will monitor for now but probably, if the kidney function does not improve, we will need to consult nephrology department for evaluation. 7. Hypoglycemia, resolved. Actually, this patient now is hyperglycemic. 8. Hypokalemia, within normal limits today. 9. Hyponatremia. For now, we will continue with fluid resuscitation and monitoring this patient closely. 10. Hypophosphatemia. I will replace. 11. Hypertension. He is not on any blood pressure medication and actually his blood pressure at the beginning was borderline low. We will use vasopressors as needed. 12. Hypothyroidism. TSH level within normal limits. I will switch the levothyroxine by mouth 50 mcg daily to intravenous 25 mcg daily. 13. Hematuria, likely traumatic. 14. Elevated liver enzymes, likely related to sepsis and/or fatty liver. 15. Duodenitis. There is evidence of duodenitis on the CT scan. No perforation or obstruction. We will continue with the same management. He has been placed on ranitidine, intravenous fluids, and antibiotics. He is not complaining of abdominal pain but the abdomen seems to be a little bit distended. 16. Abdominal distention. He is having positive bowel sounds. CT scan showed also the possibility of constipation but he has been having bowel movements after placing him on suppositories. 17. Hypocalcemia. I will replace the calcium. 18. Critical care time, 50 minutes. Resuscitation status has been discussed with the family and for now, this patient is Full Code. 19. Type 2 diabetes. Hemoglobin A1c 7.3. For now, we will continue with the sliding scale insulin and pattern of blood sugar. I will give him a dose of Lantus 15 and I will monitor. Critical care time: 40 minutes cc: Harris Guevara MD MTDD
[2019-02-09] MEDS: XOPENEX NEB INH SCH ×3 (09:42→21:00)
[2019-02-09] MEDS: SODIUM BICARBONATE 8.4% IV PUSH SCH ×3 (10:40→17:36)
--- NOTE | 2019-02-09 11:09 | ECHO REPORT ---
ORDER DATE: 02/08/2019 ECHOCARDIOGRAPHIC MEASUREMENTS: 1. Interventricular septum 1.4 2. Left ventricular posterior wall 1.5. Diastolic diameter 5.5. Left atrium 4.2. 3. Aorta 3.6. Technically suboptimal study. 4. Aortic valve leaflets are sclerosed, trileaflet. 5. Mitral valve leaflets, the anterior mitral leaflet was calcified. There was mitral annular calcification. 6. Tricuspid valve was normal. SUMMARY OF 2-DIMENSIONAL IMAGIN. Pulmonic valve not well visualized. Peak velocity across the aortic valve less than 2 m/sec. There is no aortic stenosis. There is mild aortic regurgitation. 2. Mild tricuspid regurgitation. Peak velocity across the tricuspid valve was less than 2 m/sec. There is mild mitral regurgitation. 3. Definity was used to assess left ventricular systolic function. Normal left ventricular cavity size. Estimated ejection fraction of 55%. There is left ventricular hypertrophy. 4. There is no pericardial effusion. cc: Toño Brown MD MTDD
--- NOTE | 2019-02-09 11:28 | PULMONOLOGY PROGRESS NOTE ---
DATE: 02/09/2019 SUBJECTIVE: The patient is sedated and paralyzed. PHYSICAL EXAMINATION: Maximum temperature in the last 24 hours was 106 degrees, current temperature 100.2 degrees. HEENT: Pupils are midpoint and slightly reactive. Oropharynx appears clear. Neck is supple. Chest reveals coarse rhonchi bilaterally. Cardiac Examination: Regular rate, normal S1, normal S2. Abdomen: Obese and soft. Extremities are cool to the touch. LABORATORIES: Chest x-ray reveals cardiomegaly, pulmonary vascular congestion with increased bibasilar infiltrates. Microbiology reveals no new data. Sputum cultures are pending. White blood count 9.39, hemoglobin 11.4, platelet count 151,000. Sodium 124, potassium 3.6, chloride 91, bicarbonate 16, BUN 43, creatinine 2.3, glucose 345. CPK 4217. Arterial blood gas with pH 7.48, pCO2 of 23, PO2 of 153. IMPRESSION: A 63-year-old with: 1. Pneumonia. 2. Duodenitis. 3. Acute renal failure. 4. Diabetes mellitus. 5. Status post cardiopulmonary arrest. 6. Acute hypoxemic respiratory failure. 7. Resolving lactic acidosis. PLAN: 1. Discontinue paralytic. 2. Ventilatory adjustments for alkalemia. 3. Sodium bicarbonate infusion for acidemia. 4. Continue antibiotics. 5. Prognosis is guarded. TIME SPENT: Critical care 30 plus minutes. cc: Yury Rodriguez MD
[2019-02-09] MEDS: HUMULIN R SUBQ SCH ×3 (11:33→20:46)
[2019-02-09] MEDS ORDERED: OFIRMEV 1000 MG/ISOTONIC SOLN 1,000 MG/100 ML BOTTLE IV ONE (11:45)
[2019-02-09] MEDS: ASPIRIN PO SCH (13:22)
--- NOTE | 2019-02-09 14:20 | Diag Imaging Result Doc PS360 ---
CHEST-PORTABLE - 02/09/2019 1:51 PM INDICATION: central line placement COMPARISON: 5:32 AM FINDINGS: There is a new right internal jugular central line in good position with the catheter tip at the mid SVC. Otherwise no changes from prior. IMPRESSION: No complication from central line placement. Electronically signed by Gordy Mayberry 02/09/2019 2:18 PM
--- NOTE | 2019-02-09 14:43 | OPERATIVE NOTE ---
PROCEDURE DATE: 02/09/2019 TIME: 1:45 p.m. DESCRIPTION OF PROCEDURE: Asked to place a central venous line. Mr. Chavez was placed in Trendelenburg. The right side of the neck was prepped and draped in a sterile fashion. We imaged the internal jugular vein and made a stab incision and accessed the vein under ultrasound guidance. We then passed the guidewire without difficulty. We then dilated the tract and passed the triple-lumen catheter to the extent that it would go. We were able to draw back blood from each lumen and flushed each lumen with saline. We placed a Biostep patch at the exit site and then secured the flange to the skin with silk contained within the tray. A sterile OpSite was applied. He tolerated it well. A chest x-ray was ordered. cc: Jarad Rouse MD
[2019-02-09] MEDS: MORPHINE IV PRN ×2 (15:42→20:38)
[2019-02-09] MEDS: DULCOLAX PR SCH (20:15)
[2019-02-09] MEDS: MEVACOR PO SCH (21:12)
[2019-02-09] MEDS: TYLENOL PO PRN (21:12)
[2019-02-10] MEDS: HUMULIN R SUBQ SCH ×6 (00:47→20:03)
[2019-02-10] MEDS: ZANTAC 50 MG in NS 50 ML IV SCH ×3 (00:48→15:10)
[2019-02-10] MEDS: DIPRIVAN 1% 1,000 MG/100 ML BOTTLE IV SCH ×12 (01:19→23:30)
[2019-02-10] MEDS: LOPRESSOR PO SCH ×4 (02:48→20:04)
[2019-02-10] MEDS: ATROVENT NEB INH SCH ×6 (03:04→23:22)
[2019-02-10] MEDS: ZOSYN 2.25 GM in NS 50 ML IV SCH ×2 (04:01→10:39)
[2019-02-10] MEDS: FENTANYL 1,000 MICROGM in NS 80 ML IV SCH ×3 (04:02→21:40)
[2019-02-10 04:31] LABS: ALLEN TEST YES; BLOOD TYPE ARTERIAL; HCO3-(ACT) 21.8 mmoll (20.0-26.0); METHB 1.3 % (0.0-1.5); O2(CT) 17.1 mL/dL (15.0-23.0); O2HB 96.7 % (95.0-99.0); PCO2(98.6) 24 mmHg (35-45); PO2(98.6) 101 mmHg (60-100); SAMPLE BLOOD; SAO2 99.1 % (95.0-100.0); SRATE 20 BPM; THB 12.5 g/dL (11.5-17.4); TVOL 700 mL; pH(98.6) 7.48 (7.35-7.45)
[2019-02-10 04:32] LABS: MODALITY VENTILATOR
[2019-02-10 05:37] LABS: BASO# 0.04 X1000 (0.0-0.2); BASO% 0.4 % (0.0-0.8); HEMATOCRIT 29.5 % (42.0-52.0); HEMOGLOBIN 10.8 g/dL (14.0-18.0); IMM GRAN# 0.06 X1000 (0.0-0.04); IMM GRAN% 0.7 % (0.0-0.5); LYMPH# 1.02 X1000 (1.2-3.4); LYMPH% 11.1 % (20.5-51.1); MCH 30.3 PG (27-31); MCHC 36.6 g/dL (33-37); MCV 82.9 FL (81-99); MONO# 0.27 X1000 (0.11-0.59); MONO% 2.9 % (1.7-9.3); MPV 11.4 FL (7.4-10.4); NEUT# 7.84 X1000 (1.4-6.5); NEUT% 84.9 % (42.2-75.2); PLT 189 X1000 (130-400); RBC 3.56 XMIL (4.7-6.1); RDW 13.8 % (11.5-14.5); WBC 9.23 X1000 (4.8-10.8)
[2019-02-10 06:28] LABS: ALB/GLOB RATIO 0.5; ALBUMIN 1.5 g/dL (3.5-5.0); CREATININE 2.6 mg/dL (0.7-1.2); POTASSIUM 3.8 mmol/L (3.5-5.1); TOTAL BILIRUBIN 0.43 mg/dL (0.20-1.00); TOTAL PROTEIN 4.4 g/dL (6.3-8.3)
[2019-02-10 06:37] LABS: CALCIUM 6.2 mg/dL (8.8-10.2)
--- NOTE | 2019-02-10 06:55 | Diag Imaging Result Doc PS360 ---
CHEST-PORTABLE - 02/10/2019 INDICATION: respiratory failure COMPARISON: 02/09/2019 FINDINGS: Support lines and tubes are stable. Stable cardiomegaly and pulmonary vascular congestion. There is worsening bilateral central lower lobe infiltrate with loss of the hemidiaphragms. IMPRESSION: Significant worsening airspace consolidation of the central and lower lung zones bilaterally. Cardiomegaly and pulmonary vascular congestion. Electronically signed by Gordy Mayberry 02/10/2019 6:52 AM
--- NOTE | 2019-02-10 06:58 | EKG Report ---
Test Performed on : 02/08/2019 12:20:27 PM Test Reason : rhythm evaluation Blood Pressure : / mmHG Vent. Rate : 104 BPM Atrial Rate : 104 BPM P-R Int : 128 ms QRS Dur : 084 ms QT Int : 338 ms P-R-T Axes : 059 028 119 degrees QTc Int : 444 ms Sinus tachycardia. Cannot rule out Anterior infarct , age undetermined Abnormal ECG When compared with ECG of 08-FEB-2019 05:49, (Unconfirmed) Vent. rate has decreased BY [address] no longer depressed in Anterior leads Confirmed by Columba LEE, Obdulio Bueno ([id number]) on 02/12/2019 9:38:47 AM
--- NOTE | 2019-02-10 06:59 | EKG Report ---
Test Performed on : 02/08/2019 05:49:09 AM Test Reason : possible svt Blood Pressure : / mmHG Vent. Rate : 205 BPM Atrial Rate : 202 BPM P-R Int : 000 ms QRS Dur : 080 ms QT Int : 188 ms P-R-T Axes : 000 -02 239 degrees QTc Int : [address] & T wave abnormality, consider lateral ischemia Abnormal ECG When compared with ECG of 07-FEB-2019 20:01, (Unconfirmed) Vent. rate has increased BY [address] now depressed in Anterior leads Confirmed by Columba LEE, Obdulio Bueno ([id number]) on 02/12/2019 9:37:35 AM
[2019-02-10] MEDS ORDERED: CALCIUM GLUCONATE 4.65 MEQ in NS 50 ML IV ONE (07:11)
[2019-02-10 07:15] LABS: CK INDEX 0.2 (0.0-2.5); CK-MB 5.42 ng/mL (0.0-5.0)
[2019-02-10] MEDS: PRILOSEC PO SCH (07:20)
[2019-02-10] MEDS: SYNTHROID IV SCH (07:21)
[2019-02-10] MEDS: SODIUM CHLORIDE 0.9% INJ PRN (07:22)
[2019-02-10] MEDS: LEVOPHED 8 MG in D5 1/2 NS 250 ML IV SCH ×2 (07:54→20:45)
--- NOTE | 2019-02-10 08:03 | PROGRESS NOTE ---
DATE: 02/10/2019 SUBJECTIVE: This patient is still on mechanical ventilation and sedated. He is on pressors. Glucose level looks better. He received a dose of Lantus yesterday. I will continue with just sliding scale insulin and pattern of blood sugar. I will start nutrition today. I have requested an evaluation by Infectious Disease Department since this patient is still having fever, and Nephrology Department since the BUN and creatinine are slightly worse compared with yesterday, but he is having a decent output through the Stratton catheter. OBJECTIVE: Vital Signs: Temperature 98.2 degrees, pulse 76, respiratory rate 20, blood pressure 100/56, oxygen saturation 98 on the BiPAP machine. HEENT: Head normocephalic. No trauma. PERRLA. Neck: Supple. No JVD. No masses. Central trachea. Chest: Coarse breath sounds bilaterally with rhonchi and crepitus at the bases. Decreased breath sounds globally as well. Abdomen: Soft, protuberant. Positive bowel sounds. Slightly distended. Extremities: Trace edema. No clubbing. No cyanosis. Neurological: This patient is on mechanical ventilation and sedated. LABORATORY DATA: WBC 9.2, hemoglobin 10.8, hematocrit 29.5, platelets 183,000. Sodium 129, potassium 3.8, chloride 99, bicarbonate 16, BUN 44, creatinine 2.6, glucose 86, calcium 6.2. AST 118, ALT 64, alkaline phosphatase 118. CK level 2293. Albumin 1.5. ASSESSMENT AND PLAN: 1. Acute hypoxemic respiratory failure, likely secondary to bilateral pneumonia. This patient has been placed on mechanical ventilation. Continue broad-spectrum antibiotics, breathing treatments. Pulmonary Department following this patient. 2. Septic shock, likely secondary to pneumonia. Also, there is evidence of duodenitis. Continue with vasopressors, intravenous fluids, broad-spectrum antibiotics. I have requested an evaluation by Infectious Disease Department since this patient is still having some fever. 3. Bilateral lower lobe pneumonia. Sputum cultures so far is negative. Continue with broad- spectrum antibiotics. Pulmonary Department on board. 4. Status post cardiopulmonary arrest. Continue with general support, intravenous hydration, ventilatory support, vasopressors. Cardiology Department on board. 5. Elevated troponin, likely secondary to troponin leak and recent cardiopulmonary arrest. For now, will monitor. 6. Acute kidney injury. BUN and creatinine are a little bit worse compared with yesterday, but he is having a decent urine output. I have requested an evaluation by Nephrology Department since this patient is still critically sick. Hopefully, we will not need any kind of intervention. 7. Hypoglycemia, resolved. 8. Hypokalemia. Within normal limits today. 9. Hyponatremia. Continue with intravenous fluids. 10. Hypophosphatemia. That was replaced yesterday. We will monitor. We will get new lab work in the morning. 11. History of hypertension. Aware. 12. Hypothyroidism. Continue with intravenous levothyroxine. 13. Hematuria, likely traumatic, is looking much better today. 14. Elevated liver enzymes, likely secondary to septic shock, shock liver. This is getting better. 15. Duodenitis. There is evidence of duodenitis on the CT scan. No perforation or obstruction. We will continue with the same management. He has been placed on ranitidine, intravenous fluids, and antibiotics. He was distended upon admission. He has been having multiple bowel movements. 16. Hypocalcemia. I will replace the calcium again, and I will recheck the calcium level in the afternoon as well. 17. Type 2 diabetes. Hemoglobin A1c 7.3. For now, will continue with sliding scale insulin and pattern of blood sugar. 18. Nutritional status. Today, I have requested an evaluation by the salt washer. We will start tube feeds on this patient. CRITICAL CARE TIME: 45 minutes. cc: Harris Guevara MD
[2019-02-10] MEDS ORDERED: LEVAQUIN 500 MG/D5W 500 MG/100 ML IVPB IV SCH (08:15)
[2019-02-10] MEDS: ZYVOX 600 MG/D5W 600 MG/300 ML IVPB IV SCH ×2 (08:48→20:04)
[2019-02-10] MEDS: ASPIRIN PO SCH (08:48)
[2019-02-10] MEDS: NS + KCL 20 MEQ 1,000 ML IV SCH ×2 (08:48→17:45)
[2019-02-10] MEDS: ALBUMIN 25% IV SCH ×4 (10:18→21:58)
[2019-02-10] MEDS: SODIUM BICARBONATE 8.4% IV PUSH SCH ×3 (10:18→17:44)
--- NOTE | 2019-02-10 10:33 | NEPHROLOGY CONSULTATION ---
DATE: 02/10/2019 REASON FOR ADMISSION: Nausea, vomiting, abdominal distention, fever, sepsis. REASON FOR CONSULTATION: Acute on chronic kidney disease. HISTORY OF PRESENT ILLNESS: This is a 63-year-old gentleman who came into [facility] ER after not feeling well with general aches and chills, fever, fatigue, shortness of breath, cough. The patient has some abdominal pain, decreased intake. He also had an abscess on the right mandible with a tooth that had to be pulled on 02/06. In the ER, he was found to be febrile with a fever of 102.9. He had a creatinine of 2.3. The patient was transferred over to [facility]. He was found to have pneumonia bilateral bases. Patient then had decreased respiratory status and required emergent intervention in the form of intubation. Again, his initial creatinine was 2.3. He improved slightly with fluid resuscitation to 1.7. However, on the 02/09 and 02/10, he has had multiple episodes of significant hypotension with blood pressures down even into the 60s. He remains on pressor support. Today his creatinine is 2.6. He is slightly hyponatremic with a sodium of 129. He has been pretty much this level since admission. He has a CO2 of 16. His calcium is extremely low at 6.2 and a low albumin of 1.5 today as well. The patient had an elevated CK-MB of 5.4 this morning. Patient currently sedated and mechanically ventilated. Information is obtained from the chart. PAST MEDICAL HISTORY: Hypertension, hyperlipidemia, diabetes type 2, hypothyroidism. PAST SURGICAL HISTORY: Left lung surgery as a child. No further details. Appendectomy. ALLERGIES: None. HOME MEDICATIONS: Listed as glyburide, gabapentin, metformin, Synthroid, lovastatin, lisinopril. FAMILY HISTORY: Noncontributory. SOCIAL HISTORY: Chart indicates no ETOH, tobacco or illicit drug use. REVIEW OF SYSTEMS: Unobtainable. PHYSICAL EXAMINATION: Vital Signs: Temperature 99 degrees, pulse 77, respiratory rate 20, blood pressure 103/61, with pressor support. General: This is an acutely, critically ill-appearing gentleman currently sedated and mechanically ventilated. HEENT: Normocephalic, atraumatic. His pupils are constricted, but reactive. He is orally intubated. Neck: Thick. Unable to determine JVD. Cardiovascular: Tachy rate, regular rhythm. Pulmonary: He has rales bilaterally, he is mechanically ventilated. Abdomen: Obese, with hypoactive bowel sounds. : He has a Stratton catheter. Extremities: He has trace to 1+ edema. Integumentary: Skin is pale, warm, and dry. Neurologic: Sedated. INPUT AND OUTPUT: Intake 5.7 L. Output 1.1 L. LABORATORY DATA: WBC 9.2, hemoglobin 10.8. Sodium 129, potassium 3.8, CO2 16, BUN 44, creatinine 2.6, albumin 1.5, calcium 6.2. He had a urine sodium of 10 and a urine random creatinine of 357. IMAGING: CT of the abdomen on 02/08 indicated no hydronephrosis. ASSESSMENT AND PLAN: Acute kidney injury in the setting of sepsis, hypotension. The patient's urine output remains adequate. His urine electrolyte studies were done on 02/08. He has received fluid resuscitation since that time. The patient has continued with significant episodes of hypotension, even within the last 12 hours systolic in the 80s. Patient does not have an absolute indication for dialysis at this time. We would continue with supportive measures with pressor support. He already has albumin ordered to help mobilize fluid. The patient also has antibiotics, Levaquin, Zyvox, piperacillin, tazobactam all ordered in appropriate doses and no changes are needed. We will continue to follow along. Dictated by SARMAD Moss for Daniel Li MD Face to face encounter, data reviewed, discussed with Alfredo Mckenzie on 02/10/19. I agree with the above assessment and plan of care. cc: Daniel Li MD [facility]
--- NOTE | 2019-02-10 10:44 | EKG Report ---
Test Performed on : 02/07/2019 8:01:33 PM Test Reason : CP Blood Pressure : / mmHG Vent. Rate : 108 BPM Atrial Rate : 108 BPM P-R Int : 130 ms QRS Dur : 086 ms QT Int : 318 ms P-R-T Axes : 050 008 151 degrees QTc Int : 426 ms Sinus tachycardia. Possible Left atrial enlargement Possible Anterior infarct , age undetermined ST & T wave abnormality, consider lateral ischemia Abnormal ECG No previous ECGs available Unconfirmed Result
[2019-02-10] MEDS: MERREM 1 GM in NS 50 ML IV SCH ×2 (11:46→23:30)
[2019-02-10] MEDS: XOPENEX NEB INH SCH ×3 (11:52→23:22)
--- NOTE | 2019-02-10 12:13 | INFECTIOUS DISEASE CONSULT REP ---
DATE: 02/10/2019 CONCLUSION: The patient has a bilateral pneumonia, most likely due to aspiration. RECOMMENDATIONS: I agree with continuing treatment with Levaquin and Zyvox. I have discontinued Zosyn and placed the patient on meropenem. The dose of meropenem has been decreased because he is in acute renal failure. DISCUSSION: The patient is unable provide a history. He is on a ventilator. History came from the patient's . The patient approximately 2 weeks ago started intermittently coughing. He recently has had an abscessed tooth pulled also and then patient has developed about a week ago becoming weak and had an altered mental status. He also had fever and chills. He also did not want to eat. LABORATORY STUDIES: Thus far, show a CBC with a white count of 9230, hemoglobin 10.8, platelet count is 189,000. Blood gases show a pH of 7.48, a PO2 of 101, a pCO2 of 24, creatinine is 2.6. GFR is 25. CK is 2293, AST is 118. Blood and urine cultures are negative. Sputum culture is pending. Swab for influenza was negative. Chest x-ray shows pulmonary venous congestion and worsening airspace consolidation bilaterally for the central and lower lung zones. REVIEW OF SYSTEMS: I was unable to get that from the patient. According to the patient's , her can see and hear okay. He did about 2 weeks ago start having a cough. He was not having chest pain at home. He did not have any nausea, vomiting or diarrhea. He did, however, become anorectic. His vision was decreased because he has cataracts. His hearing according to his is okay. The patient's also told me that the patient was not having any joint pains or muscle aching. 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 The patient since admission had a cardiopulmonary arrest. INFECTIOUS DISEASE HISTORY: Negative for pneumonia and UTI. FAMILY HISTORY: Positive for diabetes mellitus and dementia. SOCIAL HISTORY: The patient is . He lives in [place]. He is a addiction social worker. They have a cat as a pet. He has, according to his , been all over the [place]. ALLERGIES: The patient has no known drug allergies. HOME MEDICATIONS: Include gabapentin, glyburide, Synthroid, lisinopril, lovastatin and metformin. PHYSICAL EXAMINATION: Vital Signs: Temperature was earlier 102, now it is 99, the pulse is 79, respirations 14, blood pressure is 98/59. The patient is 5 feet 7 inches tall, weighs 270 pounds. General: This is an obese, elderly male. He is intubated and sedated. Head, Eyes, Ears, Nose and Throat: As mentioned above, the patient is intubated. He does not have any drainage from his nose or ears. Neck: No meningismus. The patient has bilateral jugular vein catheters in place. Thorax: No increased AP diameter of the chest. Lungs: Clear to auscultation. Cardiovascular: Heart rate is regular. Abdomen: Soft and not tender. Neurologic: The patient is intubated and sedated. He did not follow requests to move his extremities. There is no tremor. Thank you for the consult. cc: Brian Murdock MD [facility]
[2019-02-10] MEDS: MORPHINE IV PRN (12:58)
[2019-02-10 18:58] LABS: ALB/GLOB RATIO 0.8; ALBUMIN 2.2 g/dL (3.5-5.0); CALCIUM 6.5 mg/dL (8.8-10.2); CREATININE 2.7 mg/dL (0.7-1.2); POTASSIUM 3.9 mmol/L (3.5-5.1); TOTAL BILIRUBIN 0.84 mg/dL (0.20-1.00); TOTAL PROTEIN 4.9 g/dL (6.3-8.3)
[2019-02-10] MEDS ORDERED: CALCIUM GLUCONATE 1 GM in NS 50 ML IV ONE (19:01)
--- NOTE | 2019-02-10 19:23 | PULMONOLOGY PROGRESS NOTE ---
DATE: 02/10/2019 SUBJECTIVE: The patient is sedated. With the propofol discontinued, he does raise both his arms toward his endotracheal tube. OBJECTIVE: Vital Signs: Maximum temperature in the last 24 hours 102.1 degrees. Blood pressure 113/65, heart rate 81, respiratory rate 14, oxygen saturation 96%. HEENT: Pupils are equal and reactive. Oropharynx appears clear. Neck: Supple. Chest: Reveals coarse rhonchi bilaterally. Cardiac exam: S1, S2. Abdomen: Mildly distended with diminished bowel sounds. Extremities: Reveal mild coolness with 1+ peripheral edema. LABORATORIES: Chest x-ray reveals increased bilateral infiltrates and cardiomegaly with vascular congestion. Sputum and blood cultures are pending. White blood count 9.23, hemoglobin 10.8, platelet count 189,000. Arterial blood gas reveals a pH 7.48, pCO2 of 24, pO2 of 101. Sodium 129, potassium 3.8, chloride 99, bicarbonate 16, BUN 44, creatinine 2.6, albumin 1.5. IMPRESSION: A 53-year-old with: 1. Pneumonia. 2. Duodenitis. 3. Rhabdomyolysis. 4. Acute renal failure. 5. Diabetes mellitus. 6. Acute hypoxemic respiratory failure. 7. Status post cardiopulmonary arrest. RECOMMENDATIONS: 1. Continue full ventilatory support. 2. Continue antibiotics per Infectious Disease. 3. Additional sodium bicarbonate given metabolic acidosis. 4. Ventilator adjustments for alkalemia. 5. Continue vasopressors for septic shock. 6. Prognosis remains guarded. Time spent in critical care management: 30+ minutes cc: Yury Rodriguez MD [facility]PITALBray[facility]
[2019-02-10] MEDS: MEVACOR PO SCH (20:04)
[2019-02-10] MEDS: DULCOLAX PR SCH (21:40)
[2019-02-11] MEDS: HUMULIN R SUBQ SCH ×6 (00:15→20:10)
[2019-02-11] MEDS: ZANTAC 50 MG in NS 50 ML IV SCH ×3 (00:15→15:27)
[2019-02-11] MEDS: D50W SYRINGE IV PRN ×3 (00:41→07:50)
[2019-02-11] MEDS: DIPRIVAN 1% 1,000 MG/100 ML BOTTLE IV SCH ×12 (01:25→22:59)
[2019-02-11] MEDS: LOPRESSOR PO SCH ×4 (01:27→20:11)
[2019-02-11] MEDS: ATROVENT NEB INH SCH ×6 (04:19→23:09)
[2019-02-11 04:54] LABS: ALLEN TEST YES; BE -6.4 mmoll (-3.0-3.0); BLOOD TYPE ARTERIAL; HCO3-(ACT) 19.9 mmoll (20.0-26.0); METHB 1.4 % (0.0-1.5); O2(CT) 13.1 mL/dL (15.0-23.0); O2HB 95.1 % (95.0-99.0); PCO2(98.6) 37 mmHg (35-45); PO2(98.6) 79 mmHg (60-100); SAMPLE BLOOD; SAO2 97.1 % (95.0-100.0); SRATE 14 BPM; THB 9.7 g/dL (11.5-17.4); TVOL 700 mL; pH(98.6) 7.32 (7.35-7.45)
[2019-02-11 04:55] LABS: MODALITY VENTILATOR
[2019-02-11 05:17] LABS: BASO# 0.05 X1000 (0.0-0.2); BASO% 0.5 % (0.0-0.8); EOS# 0.01 X1000 (0.0-0.7); EOS% 0.1 % (0.0-10.0); HEMATOCRIT 28.5 % (42.0-52.0); HEMOGLOBIN 10.4 g/dL (14.0-18.0); IMM GRAN# 0.09 X1000 (0.0-0.04); LYMPH# 1.35 X1000 (1.2-3.4); LYMPH% 14.8 % (20.5-51.1); MCH 31.2 PG (27-31); MCHC 36.5 g/dL (33-37); MCV 85.6 FL (81-99); MONO# 0.37 X1000 (0.11-0.59); MONO% 4.1 % (1.7-9.3); NEUT# 7.26 X1000 (1.4-6.5); NEUT% 79.5 % (42.2-75.2); PLT 204 X1000 (130-400); RBC 3.33 XMIL (4.7-6.1); RDW 14.3 % (11.5-14.5); WBC 9.13 X1000 (4.8-10.8)
[2019-02-11 05:42] LABS: MAGNESIUM 1.7 mg/dL (1.5-2.7); PHOSPHORUS 4.2 mg/dL (2.7-4.5)
[2019-02-11 06:03] LABS: ALBUMIN 2.4 g/dL (3.5-5.0); CREATININE 3.3 mg/dL (0.7-1.2); TOTAL BILIRUBIN 1.06 mg/dL (0.20-1.00); TOTAL PROTEIN 4.8 g/dL (6.3-8.3)
[2019-02-11 06:04] LABS: CALCIUM 6.5 mg/dL (8.8-10.2)
[2019-02-11] MEDS ORDERED: CALCIUM GLUCONATE 1 GM in NS 50 ML IV ONE (06:13)
[2019-02-11 06:27] LABS: CK INDEX 0.3 (0.0-2.5); CK-MB 2.37 ng/mL (0.0-5.0); PREALBUMIN 10.9 mg/dL (20-40)
[2019-02-11] MEDS: FENTANYL 1,000 MICROGM in NS 80 ML IV SCH ×2 (06:28→18:20)
--- NOTE | 2019-02-11 06:36 | Diag Imaging Result Doc PS360 ---
EXAM: CHEST-PORTABLE HISTORY: respiratory failure TECHNIQUE: Portable chest single view COMPARISON: 02/10/2019 FINDINGS: Endotracheal and nasogastric tubes remain in good position. No change in the right jugular line. Heart is enlarged and there is pulmonary edema. Small pleural effusions. There is basilar atelectasis and there may be underlying infiltrates. The overall appearance is fairly similar to the prior study. IMPRESSION: No interval improvement. Electronically signed by Alex Denney 02/11/2019 6:34 AM
[2019-02-11] MEDS: PRILOSEC PO SCH (07:10)
[2019-02-11] MEDS: SYNTHROID IV SCH (07:11)
[2019-02-11] MEDS ORDERED: LASIX IV SCH (07:15)
[2019-02-11] MEDS: ZYVOX 600 MG/D5W 600 MG/300 ML IVPB IV SCH ×2 (07:50→20:11)
[2019-02-11] MEDS: ASPIRIN PO SCH (08:04)
--- NOTE | 2019-02-11 08:20 | NEPHROLOGY PROGRESS NOTE ---
DATE: 02/11/2019 SUBJECTIVE: Sedated, on the ventilator. OBJECTIVE: Vital Signs: Blood pressure 103/56 on Levophed, heart rate 75, respirations 14, T-max 100.0 degrees. Intake 6 L, output 700 mL, net positive 17 L. Physical Examination: General: Sedated, on the ventilator. Skin: Warm and dry. HEENT: Conjunctivae are pink. Oropharynx is clear, dry. Neck: Supple. Neck veins are not appreciated. Heart: Regular. No gallops. Lungs: Have equal breath sounds, coarse, with scattered crackles. Abdomen: Soft, nontender. Decreased bowel sounds but present. Extremities: There is 2+ edema. No clubbing or cyanosis. IMPRESSION: Acute kidney injury. Urine output is acceptable but low. Creatinine continues to rise. I will begin furosemide 200 mg intravenous every 12 hours and observe his response. If no response, he will likely need sustained low-efficiency dialysis for volume and management of his electrolytes/renal function. cc: Daniel Li MD
[2019-02-11] MEDS: LASIX 200 MG in NS 25 ML IV SCH ×2 (08:31→20:17)
[2019-02-11] MEDS: XOPENEX NEB INH SCH ×3 (09:11→23:09)
[2019-02-11] MEDS: SODIUM BICARBONATE 8.4% IV PUSH SCH ×3 (09:48→17:25)
--- NOTE | 2019-02-11 10:19 | INFECTIOUS DISEASE PROGRESS NO ---
DATE: 02/11/2019 PRESENT ILLNESS: The patient has a bilateral aspiration pneumonia. MEDICATIONS: The patient is on a combination of Levaquin, Zyvox, and meropenem. This is day 3 of treatment with antibiotics for the patient's pneumonia. PHYSICAL EXAMINATION: Vital Signs: Temperature is 99.3 degrees, pulse 73, respirations 14, blood pressure 103/56. General: This is a somewhat ill-appearing, obese, elderly male. He is intubated. He is obtunded. He does not appear to be in any acute distress. HEENT: He has an orotracheal tube in place and a nasogastric tube in place. There is no drainage from the nose or ears. Neck: Supple. The patient also has bilateral jugular vein catheters in place. Lungs: Clear to auscultation. Cardiovascular: Heart rate is regular. Abdomen: Soft and nontender. Neurologic: As mentioned above, the patient is obtunded. He did not respond to verbal stimuli. There was no tremor. IMAGING AND LABORATORY DATA: CBC for today shows a white count of 9130, hemoglobin 10.4, and platelet count 204,000. The patient's blood gases show a pH of 7.32, a PO2 of 79, and a pCO2 of 37. Creatinine is 3.3. GFR is 19. Alkaline phosphatase is 293. Sputum cultures are growing normal divya. Blood and urine cultures are sterile. Chest x-ray shows a bilateral basilar atelectasis/pneumonia. ASSESSMENT AND PLAN: The patient has an aspiration pneumonia. My plan is to continue with his current antibiotics. COMORBIDITIES: Diabetes mellitus, obesity. cc: Brian Murdock MD MTDD
[2019-02-11] MEDS: MERREM 1 GM in NS 50 ML IV SCH (11:12)
--- NOTE | 2019-02-11 17:09 | PROGRESS NOTE ---
DATE: 02/11/2019 INTERVAL HISTORY: Patient remains intubated and sedated. Still requiring pressors, although at slightly lower rate. No glenn fever, but mildly elevated temperature at 100 degrees overnight. No other acute events. REVIEW OF SYSTEMS: Unable to obtain secondary to patient intubation and sedation. LABORATORIES: WBC 9.1, hemoglobin 10.4, hematocrit 28.5, platelets 204,000. ABG with pH 7.3, pCO2 of 37, PO2 of 79, O2 saturation is 95 on ventilator. Sodium 129, potassium 4, bicarbonate 18, BUN 45, creatinine 3.3, glucose 148, calcium 6.5, ionized calcium 1.08, total bilirubin 1.06, AST 177, ALT 95, alkaline phosphatase 293. CK 743. Albumin 2.4, pre-albumin 10.9. IMAGING: Chest x-ray essentially unchanged from previous with basal atelectasis, pulmonary edema. VITALS: Temperature maximum 100.0 degrees, pulse 65, respirations 14, blood pressure 108/60, O2 saturation 98% on ventilator. PHYSICAL EXAMINATION: General: No acute distress, intubated and sedated, ill appearing. Vitals: As above. HEENT: Normocephalic, atraumatic. Moist mucous membranes. No cervical adenopathy. Cardiovascular: Regular rate and rhythm. No murmurs noted. Pulmonary: Diffuse rhonchi. Bibasilar crackles. Mildly decreased air entry throughout. No wheezing noted. Abdomen: Soft, nontender, nondistended. Bowel sounds positive. Obese. Extremities: Peripheral pulses intact. Trace lower extremity edema bilaterally. Neurologic: Exam limited by sedation. Withdraws to noxious stimuli. Pupils equal, round, reactive to light. Psychiatric: Limited by sedation. Responds only to noxious stimuli. Skin: No new rashes or lesions identified. ASSESSMENT AND PLAN: 1. Acute hypoxemic respiratory failure, pneumonia. Patient on antibiotics with Merrem, Zyvox, and Levaquin. Pulmonology following and assisting with ventilator. Oxygen somewhat improved. I have been able to wean oxygen somewhat. Remains critically ill. Continue monitor closely. 2. Septic shock, likely secondary to pneumonia as above. I have been able to wean pressors slightly, but still requiring pressor support. Continue antibiotics as above. 3. Status post cardiopulmonary arrest, likely secondary to septic shock as above. He did have elevated troponin, but this was favored to represent demand ischemia/type 2 [place] from his septic shock. Cardiology was consulted, but no plans for acute intervention at this time. 4. Acute kidney injury. Creatinine continuing to trend up. Still no urgent need for dialysis, but may be required in the next 24 to 48 hours if his creatinine continues to trend up. Continue gentle fluids and supportive care. Nephrology following. 5. Hypoglycemia, resolved. 6. Hyponatremia, slightly improved from previous, but it is fairly stable overall. Continue to monitor, but no need for acute intervention this time. 7. Hypokalemia, improved now, and no need for further replacement at this time. 8. Hypocalcemia. Remains low despite repletion. We will give further calcium IV and monitor. 9. Hypothyroidism. Continue IV Synthroid. 10. Hypertension. Holding home antihypertensives in the setting of septic shock. 11. Diabetes. Overall, reasonable control. 12. Fluids, electrolytes, nutrition. Starting tube feeds. 13. Questionable duodenitis. Possible duodenitis identified on CT scan. No reported nausea/vomiting or diarrhea. May have been an incidental finding. Monitor. CRITICAL CARE TIME SPENT: 40 minutes.
--- NOTE | 2019-02-11 17:52 | PULMONOLOGY PROGRESS NOTE ---
DATE: 02/11/2019 SUBJECTIVE: The patient is sedated but does respond to painful stimuli. OBJECTIVE: The patient remains on Levophed. Blood pressure 108/60, heart rate 65, respiration rate 14, oxygen saturation 98.HEENT: Pupils are equal and reactive. Oropharynx appears clear. Neck is supple. Chest reveals coarse rhonchi bilaterally. Cardiac: Regular rate, normal S1, normal S2. Abdomen: Soft with diminished bowel sounds. Extremities reveal 2+ peripheral edema. DIAGNOSTIC STUDIES: White blood count 9.13, hemoglobin 10.4, platelet count 204,000. Sodium 129, potassium 4.0, chloride 97, bicarbonate 18, BUN 45, creatinine 3.3. Pre-albumin 10.9. Creatine kinase 743. Chest x-ray reveals enlarged heart, small effusions with bibasilar infiltrate. Arterial blood gas reveals a pH of 7.32, pCO2 of 37, PO2 of 79. IMPRESSION: A 53-year-old with: 1. Pneumoniae. 2. Duodenitis on CT scan of the abdomen and pelvis. 3. Resolving rhabdomyolysis. 4. Acute renal failure. 5. Diabetes mellitus. 6. Acute hypoxemic respiratory failure. 7. Status post cardiopulmonary arrest. RECOMMENDATIONS: 1. Continue ventilatory support. He is not yet a candidate for weaning. 2. Continue antibiotics per Infectious Disease. 3. Continue sodium bicarbonate for metabolic acidosis. 4. Continue vasopressors for septic shock. 5. Consider follow-up CT scan of the abdomen and pelvis tomorrow if his vasopressors remain elevated. Time Spent in critical care management: 30+ minutes cc: Yury Rodriguez MD [facility] SYSTEM[facility]raydon
[2019-02-11] MEDS: DULCOLAX PR SCH (20:11)
[2019-02-11] MEDS: MEVACOR PO SCH (20:11)
[2019-02-11] MEDS: LEVOPHED 8 MG in D5 1/2 NS 250 ML IV SCH (20:57)
[2019-02-12] MEDS: DIPRIVAN 1% 1,000 MG/100 ML BOTTLE IV SCH ×5 (00:38→08:33)
[2019-02-12] MEDS: MERREM 1 GM in NS 50 ML IV SCH ×3 (00:41→22:43)
[2019-02-12] MEDS: ZANTAC 50 MG in NS 50 ML IV SCH ×4 (00:43→23:06)
[2019-02-12] MEDS: HUMULIN R SUBQ SCH ×7 (00:44→23:27)
[2019-02-12] MEDS: FENTANYL 1,000 MICROGM in NS 80 ML IV SCH ×2 (01:43→21:55)
[2019-02-12] MEDS: LOPRESSOR PO SCH ×4 (01:51→20:14)
[2019-02-12] MEDS: ATROVENT NEB INH SCH ×6 (03:03→23:37)
[2019-02-12 04:43] LABS: ALLEN TEST YES; BE -5.3 mmoll (-3.0-3.0); BLOOD TYPE ARTERIAL; HCO3-(ACT) 20.8 mmoll (20.0-26.0); METHB 1.2 % (0.0-1.5); O2(CT) 12.6 mL/dL (15.0-23.0); O2HB 96.1 % (95.0-99.0); PCO2(98.6) 41 mmHg (35-45); PO2(98.6) 84 mmHg (60-100); SAMPLE BLOOD; SAO2 98.3 % (95.0-100.0); SRATE 14 BPM; THB 9.2 g/dL (11.5-17.4); TVOL 700 mL; pH(98.6) 7.31 (7.35-7.45)
[2019-02-12 04:44] LABS: MODALITY VENTILATOR
[2019-02-12] MEDS: PRILOSEC PO SCH (06:08)
[2019-02-12] MEDS: SYNTHROID IV SCH (06:08)
[2019-02-12 07:37] LABS: ALB/GLOB RATIO 0.5; ALBUMIN 1.7 g/dL (3.5-5.0); POTASSIUM 4.5 mmol/L (3.5-5.1); TOTAL BILIRUBIN 1.05 mg/dL (0.20-1.00); TOTAL PROTEIN 4.9 g/dL (6.3-8.3)
[2019-02-12 08:06] LABS: CALCIUM 6.5 mg/dL (8.8-10.2)
--- NOTE | 2019-02-12 08:06 | Diag Imaging Result Doc PS360 ---
EXAM: CHEST-PORTABLE INDICATION: respiratory failure TECHNIQUE: One view COMPARISON: 02/11/2019 FINDINGS: Support tubes and lines are in stable positions. Inspiration is suboptimal. Pulmonary edema and pulmonary venous congestion is approximately stable. No new consolidation is identified. Cardiac silhouette is stable. IMPRESSION: Stable chest. Electronically signed by Nitin Godwin 02/12/2019 8:04 AM
[2019-02-12] MEDS: ASPIRIN PO SCH (08:08)
[2019-02-12] MEDS: LASIX 200 MG in NS 25 ML IV SCH (08:08)
[2019-02-12] MEDS: ZYVOX 600 MG/D5W 600 MG/300 ML IVPB IV SCH ×2 (08:35→20:14)
[2019-02-12] MEDS ORDERED: LEVAQUIN 250 MG/D5W 250 MG/50 ML IVPB IV SCH (09:30)
[2019-02-12] MEDS: LEVAQUIN 250 MG/D5W 250 MG/50 ML IVPB IV SCH (09:48)
[2019-02-12] MEDS: XOPENEX NEB INH SCH ×3 (09:52→21:40)
--- NOTE | 2019-02-12 11:44 | INFECTIOUS DISEASE PROGRESS NO ---
DATE: 02/12/2019 PRESENT ILLNESS: Mr. Chavez is being treated for bilateral aspiration pneumonia. He is currently intubated on the mechanical ventilator. MEDICATION: Today is day 4 of treatment of Zyvox 600 mg IV every 12 hours, meropenem 1 g IV every 12 hours, and Levaquin 500 mg IV every 48 hours. PHYSICAL EXAMINATION: Vital Signs: Temperature is 97 degrees, pulse rate 84, respiratory rate 15, blood pressure 150/59, O2 saturation is 93% on a 60% FiO2 on the mechanical ventilator. General: This is an acutely ill-appearing, elderly gentleman. He is lying in the bed, currently off of sedation for the last 30 minutes and unresponsive at this time. HEENT: Atraumatic, normocephalic. Oral mucous membranes are difficult to visualize. Oral ET tube is in place, as well as an NG tube. Cardiovascular: Heart rate and rhythm are regular. Normal sinus rhythm on the monitor. Generalized edema noted. Respiratory: Lungs have coarse ventilator sounds in the upper lobes; diminished bilaterally. He is breathing over the set rate on the ventilator. Abdomen: Firm, obese. Bowel sounds are hypoactive. Integumentary: There is a right intrajugular central line in place, with site free of edema, erythema, or drainage. Neurologic: The patient is not responding to sternal rub or following commands at this time. DIAGNOSTIC STUDIES: No CBC available today. However, his white count has been normal on this admission. Blood gas this morning on a 60% FiO2 on the mechanical ventilator showed a pH of 7.31, pCO2 of 41, PO2 of 84, HCO3 of 20.8. Creatinine 4, GFR 15, total bilirubin 1.05, AST 208, ALT 137, alkaline phosphatase 439. Sputum, urine, and blood cultures have all shown no pathogenic growth on this admission. Chest x-ray today shows stable chest with pulmonary edema and pulmonary venous congestion. No new consolidation. ASSESSMENT AND PLAN: Mr. Chavez is being treated for bilateral aspiration pneumonia. He is receiving Levaquin, Zyvox, and meropenem which we will continue. Unfortunately, his renal function continues to decline, and his GFR is down to 15, so we will decrease the Levaquin to 250 mg IV every 48 hours. Meropenem is appropriately dosed for the patient's GFR. Since white counts are normal, and the patient has been afebrile for the last 24 hours, with pulmonary edema on the chest x-ray, we will go ahead and order a procalcitonin. These plans have been discussed with and recommended by Dr. Murdock. COMORBIDITIES: For Mr. Chavez include morbid obesity and diabetes mellitus. Dictated by SARMAD Montana for Brian Murdock MD cc: Brian Murdock MD [facility]
[2019-02-12] MEDS ORDERED: CALCIUM GLUCONATE 2 GM in NS 100 ML IV ONE (12:00)
--- NOTE | 2019-02-12 12:18 | Diag Imaging Result Doc PS360 ---
EXAM: KUB ABDOMEN 02/12/2019 HISTORY: SBO TECHNIQUE: KUB COMMENT: There is an NG tube with its tip in the left upper quadrant presumably in the stomach. There is some contrast in the colon. There is no definite evidence of bowel obstruction. There is no evidence of organomegaly or mass. IMPRESSION: Nonspecific abdomen. Electronically signed by Abelino Leon 02/12/2019 12:16 PM
--- NOTE | 2019-02-12 16:26 | PROGRESS NOTE ---
DATE: 02/12/2019 INTERVAL HISTORY: The patient remains intubated. Off sedation for the last couple hours, but still essentially unresponsive. Off pressors this morning and appears to be maintaining blood pressure so far. Remains afebrile overnight. Slightly improved urine output. No acute events overnight. REVIEW OF SYSTEMS: Unable to obtain secondary to patient's mental status. LABORATORIES: ABG with pH 7.3, pCO2 of 41, PO2 of 84, O2 saturation is 98 on 68% FiO2 via ventilator. Sodium 126, potassium 4.5, bicarbonate 18, BUN 47, creatinine 4.0, glucose 155, calcium 6.5, phosphorus 4.6, total bilirubin 1.05, AST 208, ALT 137, alkaline phosphatase 439. IMAGING: Abdominal x-ray with no acute process. Chest x-ray essentially stable with edema and venous congestion. VITALS: Temperature maximum 99.1 degrees, pulse 71, respirations 14, blood pressure 156/69, O2 saturation 95% on ventilator. PHYSICAL EXAMINATION: General: No acute distress. Vitals: As above. Remains intubated and sedated. HEENT: Normocephalic, atraumatic. Moist mucous membranes. Neck: No cervical adenopathy. Cardiovascular: Regular rate and rhythm. No murmurs noted. Pulmonary: Still with diffuse rhonchi and bibasilar crackles. Mildly decreased air entry throughout. No wheezing noted. Abdomen: Moderately distended, somewhat tympanic. Bowel sounds decreased, but present. Nontender. Obese. Extremities: Peripheral pulses intact. Trace lower ext bilaterally. Neurological: Exam limited by mental status. Withdraws to noxious stimuli. Pupils equal, round, and reactive to light. No clear focal deficits. Psychiatric: Off sedation for approximately 3 hours, but reactive only to noxious stimuli. Skin: No new rashes or lesions identified. ASSESSMENT AND PLAN: 1. Acute hypoxemic respiratory failure, pneumonia. The patient on antibiotics with Merrem, Zyvox, and Levaquin. Infectious Disease following and plan on continuing these. Pulmonology following and assisting with ventilator. Oxygenation is somewhat improved with some more room to wean. Not waking up well off sedation so far, but early yet. No obvious neurologic deficits. Continue to monitor closely in ICU. 2. Septic shock, likely secondary to pneumonia as above. Pressors weaned off entirely this morning and appears to be maintaining adequate blood pressure since then. Hopefully, essentially resolved at this point. Continuing antibiotics. 3. Status post cardiopulmonary arrest. Likely secondary to septic shock above. Did have elevated troponin, but this was favored to represent demand ischemia/type 2 [place] related to septic shock rather than acute coronary syndrome. Cardiology was consulted, but has no plans for acute intervention at this time. 4. Acute kidney injury. Creatinine continuing to trend up. Urine output slightly improved. No acute need for dialysis, but potassium does appear to be trending up as well, and he does have some upper extremity edema so could need dialysis in the next 24 to 48 hours if he does not began showing signs of recovery. 5. Hypoglycemia, resolved. 6. Hyponatremia, roughly stable over the course of the hospitalization. Monitor for now, but may have to consider decreasing fluids if it worsens. 7. Hypocalcemia, still low. We will further replete and monitor. 8. Hypothyroidism. Continue IV Synthroid. 9. Hypertension. Holding home antihypertensives in the setting of septic shock. Blood pressure is starting to come up. If it continues to elevate, may have to restart some of his home medications in the next 24 hours. 10. Diabetes. Reasonable control overall. Continue to monitor. 11. Fluids, electrolytes, nutrition. Started tube feeds, but patient had markedly elevated residuals and tube feeds had to be stopped. Abdominal x-ray is showing no overt obstruction. Considered Reglan, but this could potentially interact with his Zyvox. We will start on some MiraLAX and monitor closely.
[2019-02-12] MEDS: MORPHINE IV PRN ×2 (17:08→21:05)
--- NOTE | 2019-02-12 17:56 | NEPHROLOGY PROGRESS NOTE ---
DATE: 02/12/2019 SUBJECTIVE: He remains sedated on the ventilator. OBJECTIVE: Vital Signs: Blood pressure 156/69, heart rate 71, respirations 14, afebrile. Intake 3.2 L, output 800 mL. PHYSICAL EXAMINATION: General: Sedated, no distress. Skin: Warm and dry. Conjunctivae are pink. Neck: Neck veins are not appreciated. Heart: Regular. No gallops. Lungs: Equal. No crackles. Abdomen: Soft. Bowel sounds present. Nontender. Extremities: With 3+ edema. No clubbing or cyanosis. IMPRESSION: Acute kidney injury. Will likely need to initiate dialysis tomorrow. He has not responded to diuretic therapy, so I will discontinue this. No other changes. cc: Daniel Li MD
[2019-02-12] MEDS: APRESOLINE IV PRN (19:49)
[2019-02-12] MEDS: MEVACOR PO SCH (20:14)
[2019-02-12] MEDS: DULCOLAX PR SCH (20:14)
[2019-02-12] MEDS: MIRALAX PO SCH (20:14)
--- NOTE | 2019-02-12 21:50 | PULMONOLOGY PROGRESS NOTE ---
DATE: 02/12/2019 SUBJECTIVE: The patient is sedated. He remains on vasopressors, but these are being weaned off. OBJECTIVE: The patient has been afebrile for the last 24 hours, and was actually mildly hypothermic yesterday evening. BP 145/59, heart rate 75, respiratory rate 16, oxygen saturation 96%. HEENT: Pupils are equal and reactive. Oropharynx appears clear. Neck is supple. Chest reveals coarse rhonchi bilaterally. Cardiac exam: S1, S2. Abdomen is obese and soft, with decreased bowel sounds. Extremities reveal 1 to 2+ edema of upper and lower extremities. DIAGNOSTIC DATA: Chest x-ray reveals bilateral pulmonary infiltrate/edema. KUB of the abdomen reveals nonspecific gas pattern. LABORATORY DATA: Arterial blood gas reveals a pH of 7.31, pCO2 of 41, pO2 of 84 on mechanical ventilation. Chemistries: Sodium 126, potassium 4.5, chloride 91, bicarbonate 18, BUN 47, creatinine 4.0, albumin 1.7. IMPRESSION: A 63-year-old with: 1. Bilateral pneumonia. 2. Duodenitis on CT scan of the abdomen. 3. Resolving rhabdomyolysis. 4. Acute renal failure. 5. Diabetes mellitus. 6. Acute hypoxemic respiratory failure. 7. Status post cardiopulmonary arrest. DISCUSSION: A 63-year-old with problems outlined above. His sedation is currently on hold. He is being weaned from vasopressors, but his urine output is inadequate. I will initiate a diuretic, but anticipate the need for dialysis tomorrow. PLAN: 1. Continue ventilatory support. 2. Continue antibiotics. 3. Continue diuretics as tolerated. 4. Wean vasopressors as tolerated. 5. Anticipate the need for dialysis in the next 24-48 hours. Time Spent in Critical Care Management: 30+ minutes cc: Yury Rodriguez MD [facility]
[2019-02-12] MEDS: NS IV SCH (22:06)
[2019-02-12] MEDS: LASIX IV SCH (22:06)
[2019-02-13] MEDS: LOPRESSOR PO SCH ×4 (02:13→20:17)
[2019-02-13] MEDS: LASIX IV SCH ×5 (02:13→23:55)
[2019-02-13] MEDS: NS IV SCH ×5 (02:13→23:55)
[2019-02-13] MEDS: ATROVENT NEB INH SCH ×6 (03:12→23:28)
[2019-02-13] MEDS: HUMULIN R SUBQ SCH ×6 (03:59→23:36)
[2019-02-13 04:21] LABS: ALLEN TEST YES; BE -4.9 mmoll (-3.0-3.0); BLOOD TYPE ARTERIAL; HCO3-(ACT) 21.1 mmoll (20.0-26.0); METHB 1.2 % (0.0-1.5); O2HB 96.9 % (95.0-99.0); PCO2(98.6) 33 mmHg (35-45); PO2(98.6) 119 mmHg (60-100); SAMPLE BLOOD; SAO2 98.6 % (95.0-100.0); SRATE 12 BPM; THB 10.1 g/dL (11.5-17.4); TVOL 700 mL; pH(98.6) 7.38 (7.35-7.45)
[2019-02-13 04:22] LABS: MODALITY VENTILATOR
[2019-02-13 05:38] LABS: BASO# 0.02 X1000 (0.0-0.2); BASO% 0.3 % (0.0-0.8); EOS# 0.09 X1000 (0.0-0.7); EOS% 1.3 % (0.0-10.0); HEMATOCRIT 29.1 % (42.0-52.0); HEMOGLOBIN 10.6 g/dL (14.0-18.0); IMM GRAN# 0.33 X1000 (0.0-0.04); IMM GRAN% 4.6 % (0.0-0.5); LYMPH# 0.65 X1000 (1.2-3.4); LYMPH% 9.1 % (20.5-51.1); MCH 29.9 PG (27-31); MCHC 36.4 g/dL (33-37); MCV 82.2 FL (81-99); MONO# 0.78 X1000 (0.11-0.59); MONO% 10.9 % (1.7-9.3); MPV 10.8 FL (7.4-10.4); NEUT# 5.27 X1000 (1.4-6.5); NEUT% 73.8 % (42.2-75.2); PLT 259 X1000 (130-400); RBC 3.54 XMIL (4.7-6.1); RDW 13.6 % (11.5-14.5); WBC 7.14 X1000 (4.8-10.8)
[2019-02-13] MEDS: SYNTHROID IV SCH (06:05)
[2019-02-13] MEDS: PRILOSEC PO SCH (06:05)
[2019-02-13] MEDS: SODIUM CHLORIDE 0.9% INJ PRN (06:05)
[2019-02-13 06:24] LABS: ALB/GLOB RATIO 0.6; CALCIUM 7.2 mg/dL (8.8-10.2); CREATININE 3.9 mg/dL (0.7-1.2); POTASSIUM 4.5 mmol/L (3.5-5.1); TOTAL BILIRUBIN 0.76 mg/dL (0.20-1.00); TOTAL PROTEIN 5.5 g/dL (6.3-8.3)
[2019-02-13 06:46] LABS: CK INDEX 1.2 (0.0-2.5); CK-MB 3.49 ng/mL (0.0-5.0)
--- NOTE | 2019-02-13 07:11 | Diag Imaging Result Doc PS360 ---
EXAM: CHEST-PORTABLE 02/13/2019 HISTORY: respiratory failure TECHNIQUE: AP portable at 0509 COMMENT: There is an endotracheal tube with its tip at the thoracic inlet. There is hazy pulmonary edema bilaterally. There is cardiomegaly. Compared to 02/12/2019 the inspiration is slightly better but otherwise are has been no significant change. IMPRESSION: Pulmonary edema plus minus pneumonia. Electronically signed by Abelino Leon 02/13/2019 7:08 AM
[2019-02-13] MEDS: ZANTAC 50 MG in NS 50 ML IV SCH ×3 (07:45→23:51)
[2019-02-13] MEDS: ZYVOX 600 MG/D5W 600 MG/300 ML IVPB IV SCH ×2 (07:45→20:17)
[2019-02-13] MEDS: MIRALAX PO SCH ×3 (07:45→20:17)
[2019-02-13] MEDS: ASPIRIN PO SCH ×2 (07:45→08:17)
[2019-02-13] MEDS: XOPENEX NEB INH SCH ×4 (08:20→19:27)
--- NOTE | 2019-02-13 10:24 | INFECTIOUS DISEASE PROGRESS NO ---
DATE: 02/13/2019 PRESENT ILLNESS: The patient is being treated for a bilateral aspiration pneumonia. MEDICATIONS: This is the 5th day of antibiotics. He is currently on Zyvox, meropenem and Levaquin. PHYSICAL EXAMINATION: Vital Signs: Temperature is 98 degrees, pulse 83, respirations 16, blood pressure is 119/45. General: This is an ill-appearing elderly male. He is in no acute distress. He is intubated and sedated. Head/eyes/ears/nose/throat: He has an orotracheal tube in place as well as an NG tube in place. There is no drainage from the nose or ears. Cardiovascular: Heart rate is regular. Lungs: Clear to auscultation. Abdomen: Firm and somewhat protuberant. Neurologic: The patient is obtunded. There is no tremor. LAB AND X-RAY: Chest x-ray shows pulmonary edema plus or minus pneumonia. The patient's sputum grew normal divya and yeast. Alkaline phosphatase is 448. The patient's CBC shows a white count of 7140, hemoglobin 10.6, and platelet count 259,000. The arterial blood gases show a pH of 7.38, a PO2 of 119, pCO2 of 33. Creatinine is 3.9 GFR is 16. ASSESSMENT AND PLAN: The patient has bilateral aspiration pneumonia. I plan to continue with the current antibiotics, the doses of which have been decreased because of the patient's renal failure. COMORBIDITIES: Patient has morbid obesity and diabetes mellitus. cc: Brian Murdock MD
[2019-02-13] MEDS: MERREM 1 GM in NS 50 ML IV SCH ×2 (11:26→23:18)
--- NOTE | 2019-02-13 13:20 | NEPHROLOGY PROGRESS NOTE ---
DATE: 02/13/2019 SUBJECTIVE: He remains sedated on the ventilator. OBJECTIVE: Vital Signs: Blood pressure 157/51, heart rate 88, respirations 17, afebrile. Intake 2 L, output 2.9 L. General: Sedated, unresponsive. Skin: Warm and dry. HEENT: Conjunctivae are pink. Lungs: Poor air movement overall. No crackles. Abdomen: Soft, nontender. Bowel sounds present. Extremities: There is 2+ edema. No clubbing or cyanosis. IMPRESSION: Acute kidney injury. BUN and creatinine have stabilized in the last 24 hours. He remains volume overloaded. Electrolytes and acid-base are acceptable, though not within target. I discussed the case directly with Dr. Rodriguez. Continue Lasix. No dialysis today. cc: Daniel Li MD
[2019-02-13] MEDS: MORPHINE IV PRN ×2 (13:52→23:18)
[2019-02-13] MEDS ORDERED: CALCIUM GLUCONATE 2 GM in NS 100 ML IV ONE (15:53)
--- NOTE | 2019-02-13 16:46 | PROGRESS NOTE ---
DATE: 02/13/2019 INTERVAL HISTORY: The patient remains intubated. Off sedation. Remains responsive only to noxious stimuli, but has occasional nonpurposeful movement which is more than he was doing yesterday. Remains off pressors. Remains afebrile. No acute events overnight. REVIEW OF SYSTEMS: Unable to obtain secondary to patient mental status. LABORATORIES: WBC 7.1, hemoglobin 10.6, hematocrit 29.1, platelets 229,000. ABG with pH 7.3, pCO2 of 33, PO2 of 119. Sodium 132, potassium 4.5, bicarbonate 49, creatinine 0.9, glucose 156, total bilirubin 0.7, AST 55, ALT 53, alkaline phosphatase 448. CK 298. IMAGING: Chest x-ray with largely stable pulmonary edema, plus/minus pneumonia. VITALS: Temperature maximum 98.6 degrees, pulse 82, respirations 17, blood pressure 155/56, O2 saturation is 97% on ventilator. PHYSICAL EXAMINATION: General: No acute distress. Intubated. Vitals: As above. HEENT: Normocephalic, atraumatic. Moist mucous membranes. Neck: No cervical adenopathy. Cardiovascular: Regular rate and rhythm with no murmurs noted. Pulmonary: Diffuse rhonchi, bibasilar crackles, largely unchanged. Abdomen: Soft. Nontender. Distention stable. Bowel sounds decreased, but present. Extremities: Peripheral pulses intact. Trace edema bilaterally. Neurologic: Limited by mental status. Withdraws to noxious stimuli. Resist opening eyes. Occasional nonpurposeful movement. Pupils equal, round, and reactive to light. Psychiatric: Remains off sedation, but reactive mostly to noxious stimuli. Skin: No new rashes or lesions identified. ASSESSMENT AND PLAN: 1. Acute hypoxemic respiratory failure, pneumonia. Patient on antibiotics with Merrem, Zyvox, and Levaquin. Infectious Disease following and plans to continue these. Pulmonology following and assisting with ventilator. Oxygenation improving slowly. Waking up very, very slowly off sedation. No obvious neurologic deficits. Continue to monitor closely in the ICU. 2. Septic shock, likely secondary to pneumonia above. Now resolved. Off pressors greater than 24 hours. 3. Status post cardiopulmonary arrest, likely secondary to septic shock as above. Did have elevated troponin, but favored to represent demand ischemia/type 2 [place]. No acute event intervention at this time. 4. Metabolic encephalopathy. The patient off sedation for almost 48 hours at this point has had very slight improvement in mental status, but less than I would like. If he continues to not come around, then may have to consider brain imaging in the near future. 5. Acute kidney injury. Creatinine essentially unchanged today. This is the first day it has not increased. Kidney function may be starting to turn around, but still may need dialysis in the near future if it does not improve a fair bit. 6. Hypoglycemia, resolved. 7. Hyponatremia, largely stable to slightly improved. Continue to monitor. 8. Hypothyroidism. IV Synthroid. 9. Hypocalcemia, somewhat improved, but still low. We will give further repletion and monitor. 10. Hypertension. Holding home antihypertensives in the setting of recent septic shock. Did have some fairly significant elevations in blood pressure overnight, only modestly elevated now. We will monitor and consider restarting some home antihypertensive if his blood pressure continues to remain consistently elevated. 11. Diabetes. Reasonable control. Continue to monitor. 12. Fluids, electrolytes, nutrition. Started tube feeds a couple days ago, but the patient with markedly elevated residuals and tube feeds had to be stopped. X-ray without any overt obstruction. Considered Reglan, but it could interact with Zyvox. Started on bowel regimen and monitoring, but still with some residuals. May have to consider erythromycin as a prokinetic agent. [facility]
[2019-02-13] MEDS: FENTANYL 1,000 MICROGM in NS 80 ML IV SCH (17:06)
[2019-02-13] MEDS: DULCOLAX PR SCH (20:17)
[2019-02-13] MEDS: MEVACOR PO SCH (20:17)
[2019-02-13] MEDS: PERICOLACE NG PRN (20:17)
--- NOTE | 2019-02-13 23:58 | PULMONOLOGY PROGRESS NOTE ---
DATE: 02/13/2019 SUBJECTIVE: The patient is sedated and responds to pain. OBJECTIVE: The patient remains off vasopressors. He is on a Lasix drip. Vital Signs: Blood pressure 143/54, heart rate 88, respiratory rate 15, oxygen saturation 96 percent. HEENT: Pupils are equal. Oropharynx appears clear. Neck: Supple. Chest: Reveals coarse rhonchi bilaterally. Cardiac: Regular rate with normal S1, normal S2. Abdomen: Soft with diminished bowel sounds. Extremities: Reveal generalized edema. LABORATORIES: Chest x-ray reveals bilateral pulmonary infiltrates with cardiomegaly and no change from 02/12/2019. Sodium 132, potassium 4.5, chloride 94, bicarbonate 17, BUN 49, creatinine 3.9. Glucose 138. White blood count 7.14, hemoglobin 10.6, platelet count 259,000. Arterial blood gas reveals a pH of 7.38, pCO2 of 33, PO2 of 119. IMPRESSION: A 63-year-old with 1. Bilateral pneumonia. 2. Duodenitis on CT scan. 3. Diabetes mellitus. 4. Acute renal failure with resolution of oliguria. 5. Acute hypoxemic respiratory failure. 6. Status post cardiopulmonary arrest. PLAN: 1. Continue ventilatory support. 2. Continue antibiotics. 3. Continue Lasix drip, but I will decrease the dose from 40 mg/h to 20 mg/h given good urine output. 4. Weaning as tolerated. 5. Diuresis if urine output is not maintained. TIME SPENT: Critical care management 30+ minutes. cc: Yury Rodriguez MD
[2019-02-14] MEDS: LOPRESSOR PO SCH ×4 (02:26→20:05)
[2019-02-14] MEDS: MORPHINE IV PRN (03:16)
[2019-02-14] MEDS: HUMULIN R SUBQ SCH ×6 (03:40→23:10)
[2019-02-14 04:30] LABS: ALLEN TEST YES; BE 0.4 mmoll (-3.0-3.0); BLOOD TYPE ARTERIAL; HCO3-(ACT) 25.2 mmoll (20.0-26.0); METHB 1.3 % (0.0-1.5); O2(CT) 11.8 mL/dL (15.0-23.0); O2HB 95.9 % (95.0-99.0); PCO2(98.6) 37 mmHg (35-45); PO2(98.6) 93 mmHg (60-100); SAMPLE BLOOD; SAO2 98.4 % (95.0-100.0); SRATE 12 BPM; THB 8.6 g/dL (11.5-17.4); TVOL 700 mL; pH(98.6) 7.43 (7.35-7.45)
[2019-02-14 04:32] LABS: MODALITY VENTILATOR
[2019-02-14 05:18] LABS: BASO# 0.02 X1000 (0.0-0.2); BASO% 0.3 % (0.0-0.8); EOS# 0.07 X1000 (0.0-0.7); EOS% 1.1 % (0.0-10.0); HEMATOCRIT 28.5 % (42.0-52.0); HEMOGLOBIN 10.1 g/dL (14.0-18.0); IMM GRAN# 0.33 X1000 (0.0-0.04); IMM GRAN% 5.1 % (0.0-0.5); LYMPH# 0.61 X1000 (1.2-3.4); LYMPH% 9.5 % (20.5-51.1); MCH 28.8 PG (27-31); MCHC 35.4 g/dL (33-37); MCV 81.2 FL (81-99); MONO# 0.98 X1000 (0.11-0.59); MONO% 15.2 % (1.7-9.3); MPV 10.3 FL (7.4-10.4); NEUT# 4.42 X1000 (1.4-6.5); NEUT% 68.8 % (42.2-75.2); PLT 309 X1000 (130-400); RBC 3.51 XMIL (4.7-6.1); RDW 13.6 % (11.5-14.5); WBC 6.43 X1000 (4.8-10.8)
[2019-02-14 05:50] LABS: ALB/GLOB RATIO 0.7; ALBUMIN 2.3 g/dL (3.5-5.0); CALCIUM 7.4 mg/dL (8.8-10.2); CREATININE 4.2 mg/dL (0.7-1.2); POTASSIUM 4.4 mmol/L (3.5-5.1); TOTAL BILIRUBIN 0.73 mg/dL (0.20-1.00); TOTAL PROTEIN 5.8 g/dL (6.3-8.3)
[2019-02-14] MEDS: SODIUM CHLORIDE 0.9% INJ PRN (06:05)
[2019-02-14] MEDS: SYNTHROID IV SCH (06:05)
[2019-02-14] MEDS: PRILOSEC PO SCH (06:06)
[2019-02-14 06:11] LABS: MAGNESIUM 1.8 mg/dL (1.5-2.7); PHOSPHORUS 7.9 mg/dL (2.7-4.5)
--- NOTE | 2019-02-14 07:17 | Diag Imaging Result Doc PS360 ---
EXAM: CHEST-PORTABLE 02/14/2019 HISTORY: respiratory failure TECHNIQUE: AP portable at 0519 COMMENT: There is an endotracheal tube with its tip at thoracic inlet and an NG tube which appears to pass below the diaphragm. There is a right internal jugular central venous catheter with its tip just above the right atrium. There is diffuse interstitial and alveolar opacity consistent with pulmonary edema. The hemidiaphragms are less visible on today's study than on the previous examination of 02/13/2019. IMPRESSION: Slightly worsened pulmonary edema. Electronically signed by Abelino Leon 02/14/2019 7:15 AM
[2019-02-14 07:50] LABS: BANDS 4 % (0-1); LYMPHS 6 % (21-51); MONO 4 % (1-9); SEGS 80 % (42-75)
[2019-02-14] MEDS: ATROVENT NEB INH SCH ×6 (08:02→23:30)
[2019-02-14] MEDS: XOPENEX NEB INH SCH ×4 (08:03→19:35)
[2019-02-14] MEDS: ZANTAC 50 MG in NS 50 ML IV SCH ×3 (08:29→23:03)
[2019-02-14] MEDS: ASPIRIN PO SCH (08:29)
[2019-02-14] MEDS: MIRALAX PO SCH ×2 (08:29→20:04)
[2019-02-14] MEDS: LEVAQUIN 250 MG/D5W 250 MG/50 ML IVPB IV SCH (08:29)
[2019-02-14] MEDS: ZYVOX 600 MG/D5W 600 MG/300 ML IVPB IV SCH ×2 (08:29→20:05)
[2019-02-14] MEDS ORDERED: CALCIUM GLUCONATE 2 GM in NS 100 ML IV ONE (09:01)
[2019-02-14] MEDS: LASIX IV SCH ×2 (11:02→18:18)
[2019-02-14] MEDS: NS IV SCH ×2 (11:02→18:18)
[2019-02-14] MEDS: MERREM 1 GM in NS 50 ML IV SCH ×2 (12:30→23:03)
--- NOTE | 2019-02-14 12:55 | NEPHROLOGY PROGRESS NOTE ---
DATE: 02/14/2019 SUBJECTIVE: He has his eyes open today, but minimally interactive. OBJECTIVE: Vital Signs: Blood pressure 163/56, heart rate 89, respirations 13, afebrile. Intake 2.1 L. Output 7.1 L. General: No acute distress. Skin: Warm and dry. HEENT: Oropharynx is dry. Neck: Neck veins are not appreciated. Heart: Regular. No gallops. Lungs: Equal. A few scattered crackles. Abdomen: Soft, nontender. Bowel sounds present. Extremities: 3+ edema. No clubbing or cyanosis. IMPRESSION: Acute kidney injury. BUN and creatinine continue to rise. Polyuric. His diuretic dosing has been decreased by 50% for today. He has no acute indications for dialysis. cc: Daniel Li MD
[2019-02-14] MEDS: FENTANYL 1,000 MICROGM in NS 80 ML IV SCH (13:25)
--- NOTE | 2019-02-14 14:34 | CARDIOLOGY PROGRESS NOTE ---
DATE: 02/14/2019 SUBJECTIVE: Patient remains intubated, off sedation, responding to stimuli. OBJECTIVE: Vital signs: Blood pressure 168/65, patient is afebrile, respiratory rate 16. Cardiovascular: First and second heart sounds were heard. There is a faint murmur. Respiratory: Decreased breath sounds and wheeze at the bases. Abdomen: Soft. Intake and output negative 4985. Prior to that, negative 880. LABORATORY EXAMINATION: Sodium 136, potassium 4.4, BUN 52, creatinine 4.2. PROBLEM LIST: 1. Bilateral pneumonia. 2. Duodenitis. 3. Respiratory failure. 4. Cardiac arrest and supraventricular tachycardia during this hospitalization. 5. Acute hypoxic respiratory failure. 6. Abnormal cardiac enzymes. 7. Preserved left ventricular systolic function. RECOMMENDATIONS: 1. Patient's urine output has significantly improved since IV Lasix was started. He is on a Lasix drip. 2. From a cardiac standpoint, he is on aspirin and beta-blockers. I have not made any changes. 3. He has bilateral pneumonia, he is on multiple antibiotics. Would recommend continuing current management. cc: Toño Brown MD
--- NOTE | 2019-02-14 17:47 | PROGRESS NOTE ---
DATE: 02/14/2019 INTERVAL HISTORY: The patient is largely stable. Remains intubated but off sedation. Mental status with modest improvement but largely stable. No acute events overnight. REVIEW OF SYSTEMS: Unable to obtain secondary to patient mental status. LABORATORY DATA: WBC 6.4, hemoglobin 10.1, hematocrit 28.5, platelets 309. ABG with pH 7.4, pCO2 37, pO2 93 on vent. Sodium 136, potassium 4.4, bicarb 22, BUN 52, creatinine 4.2, glucose 170 to 222. AST 60, ALT 76, alkaline phosphatase 390, bilirubin 0.7. IMAGING: Chest x-ray with largely stable pulmonary edema, possibly slight worsening. OBJECTIVE: Vitals: T-max 98.4 degrees, pulse 83, respirations 18, blood pressure 159/56, O2 saturation 94% on vent. General: No acute distress, intubated off sedation. HEENT: Normocephalic, atraumatic. Moist mucous membranes. ET tube in place. No cervical adenopathy. Nasogastric tube to suction. Cardiovascular: Regular rate and rhythm. A 3/6 right upper sternal border murmur noted. Pulmonary: Diffuse rhonchi, bibasilar crackles, fairly stable. Abdomen: Soft, nontender, slightly less distended. Bowel sounds remain quite decreased. Extremities: Peripheral pulses intact. Trace edema bilaterally. Neurologic: Limited by mental status. Withdraws to noxious stimuli. Opens eyes for a period to gentle stimuli. Tracks with eyes slightly. Does not follow any commands. Pupils are equal, round, reactive to light. Psychiatric: Remains off sedation. Reactivity and arousal slightly improved but still no cooperation. Skin: No new rashes or lesions identified. ASSESSMENT AND PLAN: 1. Acute hypoxemic respiratory failure, pneumonia. Patient on antibiotics with Merrem, Zyvox and Levaquin. Infectious Disease following. Pulmonology following and assisting with ventilator. Oxygenation does appear to be improving slowly. Waking up very, very slowly since sedation was stopped approximately 3 days ago. No obvious focal neurologic deficit. Continue to monitor closely in ICU. 2. Septic shock, likely secondary to pneumonia above, now resolved, off pressors for several days now. 3. Status post cardiopulmonary arrest likely secondary to septic shock as above. Did have elevated troponin, but favored to represent demand ischemia/type 2 myocardial infarction. 4. Metabolic encephalopathy. Patient is off sedation for approximately 3 days with slight but very slow improvement in mental status. 5. Acute kidney injury. Creatinine essentially unchanged over the last couple of days. On Lasix drip and does have some improved urine output with that. No acute indication for dialysis but certainly could need dialysis in the near future if kidney function does not improve. 6. Hyponatremia, hypocalcemia. Hyponatremia resolved, hypocalcemia still present. We will further replete and monitor. 7. Hypertension. Holding home antihypertensives in the setting of recent septic shock. Has been pretty consistently elevated over the last few days. P.r.n.s available. We will see if Lasix drip brings it down any, and if not, we will consider adding some Norvasc by NG tube in the morning. 8. Diabetes, reasonable control. Continue to monitor. 9. Nutrition. Attempted to start tube feeds, but patient had markedly elevated residuals. Tube feeds had to be stopped. X-ray was without any overt obstruction. Consider Reglan but could interact with Zyvox. Placed NG tube to suction with improvement in abdominal distention, but still having fairly significant output. We will try patient on some erythromycin as a prokinetic agent and may try to restart tube feeds tomorrow.
[2019-02-14] MEDS: DULCOLAX PR SCH (20:04)
[2019-02-14] MEDS: PERICOLACE NG PRN (20:05)
[2019-02-14] MEDS: E.E.S. 200 SUSPENSION NG SCH (20:05)
--- NOTE | 2019-02-14 20:26 | INFECTIOUS DISEASE PROGRESS NO ---
DATE: 02/14/2019 PRESENT ILLNESS: The patient is being treated for a presumed bilateral aspiration pneumonia. His procalcitonin of 51 certainly supports that diagnosis. The radiologist has read the most recent chest x-ray as worsening pulmonary edema. MEDICATIONS: This is the 6th day of treatment with Zyvox, meropenem, and Levaquin. PHYSICAL EXAMINATION: Vital Signs: Temperature is 98.4 degrees, pulse 83, respirations 14, blood pressure 159/56. General: This is an ill-appearing male. He is in no acute distress, and he seems to be a little more awake today. Seemed like he was tracking with his eyes. Neck: No meningismus. Lungs: They were clear to auscultation. Cardiovascular: Heart rate is regular. Abdomen: Somewhat protuberant, but it is not tender. Neurologic: As mentioned above, the patient does seem a little more alert today. He was tracking with his eyes. Integument: No rash. LAB AND X-RAY: Chest x-ray, as mentioned above, was read as showing worsening pulmonary edema. However, the procalcitonin level was very high at 51. Sputum grew a normal divya. Blood and urine cultures are pending. Blood gases show a pH of 7.43, a PO2 of 93, a pCO2 of 37. Creatinine is 4.2, GFR is 14. CBC shows a white count of 6430, hemoglobin 10.1, and platelet count 309,000. ASSESSMENT AND PLAN: The patient has bilateral aspiration pneumonia. The patient is being treated for a bilateral aspiration pneumonia. There may be a component of pulmonary venous congestion as well. COMORBIDITIES: He is morbidly obese, and he is a diabetic. cc: Brian Murdock MD
[2019-02-14] MEDS ORDERED: ERYTHROMYCIN 500 MG in NS 250 ML IV SCH (21:00)
[2019-02-15] MEDS: LOPRESSOR PO SCH ×4 (02:55→20:57)
[2019-02-15] MEDS: ATROVENT NEB INH SCH ×6 (03:17→23:30)
[2019-02-15] MEDS: HUMULIN R SUBQ SCH ×5 (03:51→21:00)
[2019-02-15] MEDS: E.E.S. 200 SUSPENSION NG SCH ×3 (04:53→20:58)
[2019-02-15 05:02] LABS: HEMOGLOBIN 10.4 g/dL (14.0-18.0); RBC 3.65 XMIL (4.7-6.1); WBC 6.58 X1000 (4.8-10.8)
[2019-02-15 05:03] LABS: BASO# 0.02 X1000 (0.0-0.2); BASO% 0.3 % (0.0-0.8); EOS# 0.12 X1000 (0.0-0.7); EOS% 1.8 % (0.0-10.0); IMM GRAN# 0.28 X1000 (0.0-0.04); IMM GRAN% 4.3 % (0.0-0.5); LYMPH# 0.64 X1000 (1.2-3.4); LYMPH% 9.7 % (20.5-51.1); MCH 28.5 PG (27-31); MCHC 34.7 g/dL (33-37); MCV 82.2 FL (81-99); MONO# 1.22 X1000 (0.11-0.59); MONO% 18.5 % (1.7-9.3); MPV 9.8 FL (7.4-10.4); NEUT% 65.4 % (42.2-75.2); PLT 321 X1000 (130-400); RDW 13.9 % (11.5-14.5)
[2019-02-15 05:09] LABS: ALLEN TEST YES; BE 1.6 mmoll (-3.0-3.0); BLOOD TYPE ARTERIAL; HCO3-(ACT) 26.1 mmoll (20.0-26.0); METHB 1.3 % (0.0-1.5); O2(CT) 15.6 mL/dL (15.0-23.0); O2HB 95.6 % (95.0-99.0); PCO2(98.6) 38 mmHg (35-45); PO2(98.6) 94 mmHg (60-100); SAMPLE BLOOD; SAO2 98.1 % (95.0-100.0); SRATE 12 BPM; THB 11.5 g/dL (11.5-17.4); TVOL 700 mL; pH(98.6) 7.44 (7.35-7.45)
[2019-02-15 05:11] LABS: MODALITY VENTILATOR
[2019-02-15 05:30] LABS: ALB/GLOB RATIO 0.7; ALBUMIN 2.4 g/dL (3.5-5.0); CALCIUM 7.7 mg/dL (8.8-10.2); CREATININE 3.5 mg/dL (0.7-1.2); POTASSIUM 3.6 mmol/L (3.5-5.1); TOTAL BILIRUBIN 0.75 mg/dL (0.20-1.00); TOTAL PROTEIN 5.8 g/dL (6.3-8.3)
[2019-02-15] MEDS: PRILOSEC PO SCH ×2 (05:55→05:59)
[2019-02-15] MEDS: SODIUM CHLORIDE 0.9% INJ PRN (05:55)
[2019-02-15] MEDS: SYNTHROID IV SCH ×2 (05:55→05:59)
[2019-02-15] MEDS: LASIX IV SCH (07:40)
[2019-02-15] MEDS: NS IV SCH (07:40)
--- NOTE | 2019-02-15 08:05 | Diag Imaging Result Doc PS360 ---
EXAM: CHEST-PORTABLE INDICATION: respiratory failure TECHNIQUE: One view COMPARISON: 02/14/2019 FINDINGS: Support tubes and lines are in stable positions. Bilateral diffuse interstitial and airspace infiltrates with a basilar predominance are approximately stable consistent with pulmonary edema. No new consolidation is identified. Cardiac silhouette is stable. IMPRESSION: Stable chest. Electronically signed by Nitin Godwin 02/15/2019 8:02 AM
[2019-02-15] MEDS: ZANTAC 50 MG in NS 50 ML IV SCH ×2 (08:57→16:29)
[2019-02-15] MEDS: ASPIRIN PO SCH (08:57)
[2019-02-15] MEDS: ZYVOX 600 MG/D5W 600 MG/300 ML IVPB IV SCH ×2 (08:57→20:57)
[2019-02-15] MEDS: MIRALAX PO SCH ×2 (08:57→20:56)
[2019-02-15] MEDS: FENTANYL 1,000 MICROGM in NS 80 ML IV SCH (09:00)
[2019-02-15] MEDS: XOPENEX NEB INH SCH ×3 (09:36→19:14)
--- NOTE | 2019-02-15 10:43 | CARDIOLOGY PROGRESS NOTE ---
DATE: 02/15/2019 CHIEF COMPLAINT: Shortness of breath. Respiratory failure. Tachycardia. SUBJECTIVE: Mr. Chavez remains intubated. There has been no recurrent supraventricular tachycardia. He opens his eyes. He is not following any commands. He is legally blind. OBJECTIVE: Vital Signs: Today blood pressure is 158/56, pulse 84, and respirations 17. Temperature is 98.6. General: As I said, he opens his eyes. He is not following any commands at this time. HEENT: Otherwise, unremarkable. Chest: Symmetrically decreased breath sounds. Cardiac: Heart sounds are not tachycardic but regular and rhythmic. Abdomen: The abdomen is slightly distended. Extremities: The extremities show good pulses. Trace edema. Neurological: He is not following commands. BLOOD WORK: White cell count is 6,580 and hemoglobin 10.4. Sodium is 136, potassium 3.6, BUN 60, and creatinine 3.5. IMPRESSION: 1. Patient who presented chiefly with nausea, vomiting, and acute kidney injury. The patient was very short of breath and has developed pneumonia. The most recent chest x-ray shows bilateral diffuse interstitial and air space infiltrates. 2. Supraventricular tachycardia. There has been no recurrence. 3. Status post cardiopulmonary arrest. 4. Renal insufficiency, acute probably on chronic. 5. Suspected aspiration pneumonia. 6. History of hypertension. 7. History of diabetes mellitus type 2. RECOMMENDATIONS: At this time we will continue the present management. The patient at some point had elevation of troponins. The significance of that is unclear. His rhythm right now is sinus rhythm and he is not requiring any pressors. We will just follow his clinical course. His echocardiogram of note that was done on 02/08/[address] Brown indicated that his ejection fraction was normal. cc: Dung Duckworth MD
[2019-02-15] MEDS: MERREM 1 GM in NS 50 ML IV SCH (13:03)
[2019-02-15 13:38] LABS: BE 2.5 mmoll (-3.0-3.0); BLOOD TYPE ARTERIAL; HCO3-(ACT) 26.9 mmoll (20.0-26.0); METHB 1.2 % (0.0-1.5); O2(CT) 12.7 mL/dL (15.0-23.0); O2HB 95.3 % (95.0-99.0); PCO2(98.6) 36 mmHg (35-45); PO2(98.6) 78 mmHg (60-100); SAMPLE BLOOD; SAO2 97.9 % (95.0-100.0); THB 9.4 g/dL (11.5-17.4); pH(98.6) 7.47 (7.35-7.45)
[2019-02-15 13:40] LABS: MODALITY VENTILATOR
[2019-02-15 13:41] LABS: ALLEN TEST YES
[2019-02-15] MEDS: APRESOLINE NG SCH (16:28)
--- NOTE | 2019-02-15 17:18 | PROGRESS NOTE ---
DATE: 02/15/2019 INTERVAL HISTORY: The patient remains intubated and sedated. Significantly less output from the NG tube. Mental status approximately the same to minimally improved. REVIEW OF SYSTEMS: Unable to obtain secondary to the patient's mental status. LABORATORY DATA: WBC 6.5, hemoglobin 10.4, hematocrit 30.0, platelets 321,000. ABG essentially stable from previous. Sodium 136, potassium 3.6, bicarbonate 24, BUN 60, creatinine 3.5, glucose 176 to 224, calcium 7.7, AST 38, ALT 57, alkaline phosphatase 334. DIAGNOSTIC DATA: Chest x-ray still with diffuse interstitial infiltrates. OBJECTIVE: Vital signs: T-max 99.0 degrees, pulse 86, respirations 15, blood pressure 187/96, O2 saturation 92% on ventilator. General: No acute distress, intubated but off sedation.HEENT: Normocephalic, atraumatic. Moist mucous membranes. ET and NG tubes in place. No cervical adenopathy. Cardiovascular: Regular rate and rhythm, 3/6 right upper sternal border murmur, unchanged. Pulmonary: Still with diffuse rhonchi. Abdomen: Soft, nontender. Distention somewhat improved. Bowel sounds somewhat decreased but improved from previous. Extremities: Peripheral pulses intact. Trace edema bilaterally. Neurologic: Exam limited by mental status, but does open eyes to gentle stimuli. Tracks motion fairly well. Still does not follow any commands. Pupils equal, round and reactive to light. Psychiatric: Remains off sedation, but noncooperative and nonverbal. Skin: No new rashes or lesions identified. ASSESSMENT AND PLAN: 1. Acute hypoxemic respiratory failure, pneumonia, edema. The patient is on antibiotics with Merrem, Zyvox and Levaquin. Infectious Disease following. Pulmonology following and assisting with ventilator. Oxygenation appears to be improving slowly, but his mental status has been very slow to improve. Off sedation for several days. No obvious focal neurologic deficit, but may consider CT head at some point. Continue to monitor closely. 2. Septic shock secondary to pneumonia as above, now resolved. 3. Status post cardiopulmonary arrest secondary to #1. 4. Metabolic encephalopathy. Patient off sedation for approximately 4 days. Has had a very slight improvement in mental status, but remains quite encephalopathic. 5. Acute kidney injury. Mild improvement in creatinine today. Urine output remains reasonable. Some hope that it may beginning of his kidney starting to turn around. He remains on Lasix. 6. Hypertension. We have been holding home antihypertensives in the setting of recent septic shock. It has been pretty consistently elevated for the last few days. Little improvement in blood pressure on Lasix drip. We will add some Norvasc by nasogastric tube and monitor. 7. Diabetes, reasonably controlled. Continue to monitor. 8. Nutrition; possible ileus. Attempted to start tube feeds but the patient had markedly elevated residuals. Tube feeds had to be stopped. No overt obstruction on x-ray. Placed nasogastric tube to suction, with improvement in abdominal distention but continued to have significant output. Started on erythromycin yesterday as a prokinetic agent, and now nasogastric tube output decreased. Bowel sounds improved and abdomen less distended. We will continue erythromycin and attempt to restart tube feeds.
--- NOTE | 2019-02-15 17:32 | NEPHROLOGY PROGRESS NOTE ---
DATE: 02/15/2019 SUBJECTIVE: Eyes are spontaneously open. He did not really follow commands for me. OBJECTIVE: Vital Signs: Blood pressure 158/56, heart rate 81, respirations 16, afebrile. Intake 2 L, output 7 L. No acute distress. Skin: Warm and dry. Neck: Neck veins are not appreciated. Heart: Irregular and mildly tachycardic. Lungs: Equal. No crackles. A few rhonchi. Abdomen: Soft, nontender. Bowel sounds present. Extremities: 2+ edema overall improved. No clubbing or cyanosis. IMPRESSION: Acute kidney injury. Creatinine is trending downward. Polyuric. I will stop his Lasix today. Electrolytes and acid-base are in target. No changes. cc: Daniel Li MD
[2019-02-15] MEDS: DULCOLAX PR SCH (20:53)
[2019-02-15] MEDS: APRESOLINE IV PRN (22:38)
[2019-02-16] MEDS: ZANTAC 50 MG in NS 50 ML IV SCH ×3 (00:50→15:57)
[2019-02-16] MEDS: MERREM 1 GM in NS 50 ML IV SCH ×2 (00:51→11:29)
[2019-02-16] MEDS: LOPRESSOR PO SCH ×4 (01:00→21:04)
[2019-02-16] MEDS: HUMULIN R SUBQ SCH ×6 (01:00→21:04)
[2019-02-16] MEDS: ATROVENT NEB INH SCH ×7 (03:16→23:30)
[2019-02-16] MEDS: E.E.S. 200 SUSPENSION NG SCH ×3 (04:41→21:05)
[2019-02-16 05:16] LABS: ALLEN TEST YES; BE 5.2 mmoll (-3.0-3.0); BLOOD TYPE ARTERIAL; PCO2(98.6) 39 mmHg (35-45); PO2(98.6) 108 mmHg (60-100); SAMPLE BLOOD; pH(98.6) 7.48 (7.35-7.45)
[2019-02-16 05:22] LABS: MODALITY VENTILATOR
[2019-02-16] MEDS: PRILOSEC PO SCH (06:17)
[2019-02-16] MEDS: SYNTHROID IV SCH (06:21)
[2019-02-16] MEDS: SODIUM CHLORIDE 0.9% INJ PRN (06:21)
[2019-02-16 06:49] LABS: ALB/GLOB RATIO 0.8; ALBUMIN 2.7 g/dL (3.5-5.0); CALCIUM 7.8 mg/dL (8.8-10.2); CREATININE 2.7 mg/dL (0.7-1.2); POTASSIUM 3.3 mmol/L (3.5-5.1); TOTAL BILIRUBIN 0.73 mg/dL (0.20-1.00); TOTAL PROTEIN 6.1 g/dL (6.3-8.3)
--- NOTE | 2019-02-16 07:52 | Diag Imaging Result Doc PS360 ---
EXAM: CHEST-PORTABLE INDICATION: respiratory failure TECHNIQUE: One view COMPARISON: 02/15/2019 FINDINGS: There has been interval extubation. The NG tube and right central line are in stable positions. Pulmonary venous congestion and pulmonary edema is probably marginally improved. No new consolidation is identified. Cardiac silhouette is stable. IMPRESSION: Marginal improvement as described. Electronically signed by Nitin Godwin 02/16/2019 7:50 AM
[2019-02-16] MEDS: ASPIRIN PO SCH (08:58)
[2019-02-16] MEDS: APRESOLINE NG SCH ×3 (08:58→16:22)
[2019-02-16] MEDS: MIRALAX PO SCH ×2 (08:59→21:07)
[2019-02-16] MEDS: ZYVOX 600 MG/D5W 600 MG/300 ML IVPB IV SCH ×2 (08:59→21:03)
[2019-02-16] MEDS: LEVAQUIN 250 MG/D5W 250 MG/50 ML IVPB IV SCH (08:59)
[2019-02-16] MEDS: XOPENEX NEB INH SCH ×3 (11:00→19:25)
[2019-02-16] MEDS ORDERED: POTASSIUM CHLORIDE 20% LIQUID PO ONE (14:17)
[2019-02-16] MEDS ORDERED: CALMOSEPTINE OINTMENT TOP PRN (15:40)
--- NOTE | 2019-02-16 16:25 | PROGRESS NOTE ---
DATE: 02/16/2019 INTERVAL HISTORY: The patient remains intubated and sedated. Tolerating tube feeds thus far. Mental status essentially stable. REVIEW OF SYSTEMS: Unable to obtain secondary to patient's mental status. LABS: ABG with pH 7.48, pCO2 39, PO2 108 on 40% FiO2 via ventilator. Sodium 138, potassium 3.3, chloride 95, BUN 66, creatinine 2.7, glucose 208, bilirubin 0.7, AST 32, ALT 44, alkaline phosphatase 295. IMAGING: Chest x-ray with mildly improved edema and pulmonary venous congestion. VITAL SIGNS: T-max 99.2 degrees, pulse 80, respirations 15, blood pressure 181/69, O2 saturation 97% on ventilator. PHYSICAL EXAMINATION: General: No acute distress. Intubated but off sedation. HEENT: Normocephalic, atraumatic. Moist mucous membranes. ET and NG tubes in place. No cervical adenopathy. Cardiovascular: Regular rate and rhythm. Right upper sternal border murmur unchanged. Pulmonary: Diffuse rhonchi, slightly improved. Abdomen: Soft, nontender, now nondistended. Bowel sounds approaching normal. Extremities: Peripheral pulses intact. Trace edema in bilateral legs. No clubbing or cyanosis. Neurologic: Limited by mental status. Patient opens eyes, turns head and tracks with eyes to voice, but does not follow any commands. Occasional nonpurposeful movement. Pupils equal, round, reactive to light. Psychiatric: Remains off sedation, but not cooperative but nonverbal as above. Skin: The patient with a pink macular rash on the posterior forearms up the elbow. No rash on the legs or trunk. No erythema. No blistering. ASSESSMENT AND PLAN: 1. Acute hypoxemic respiratory failure, pneumonia, pulmonary edema. Patient on by antibiotics with Merrem, Zyvox, and Levaquin. Infectious Disease following. Pulmonology following and assisting with ventilator. Oxygenation continues to improve slowly. Mental status has been extremely slow to come around. Off sedation for several days now. We will go ahead and repeat CT head to assess for any obvious causes for his slow improvement in mentation. 2. Septic shock secondary to pneumonia, now resolved. 3. Status post cardiopulmonary arrest secondary to #1. 4. Metabolic encephalopathy. Minimal improvement over the last few days. Will check CT as above. 5. Acute kidney injury. Creatinine with significant improvement today. Kidney injury appears to be turning around. Urine output reasonable. No longer on Lasix drip. Monitor ins and outs closely. 6. Hypertension. Hydralazine added yesterday because of uncontrolled blood pressure with little improvement. Also on scheduled Lopressor. Will increase dose of hydralazine and consider adding clonidine if blood pressure remains significantly elevated. 7. Diabetes, reasonably controlled. Continue to monitor glucoses. 8. Nutrition, likely ileus. Attempted to start tube feeds a few days ago. Patient had markedly elevated residuals. Tube feeds had to be stopped. No overt obstruction on x-ray. Placed NG tube to suction with improvement but had ongoing significant output. Started on erythromycin with improvement in NG tube output. Now restarted on tube feeds and appears to be tolerating so far with improved bowel sounds and less abdominal distention. Continue erythromycin for now. 9. Rash. Uncertain of the etiology. Really just on the posterior forearms. Very strange distribution for drug rash. No blistering to suggest more serious process currently. Will monitor closely and consider stopping erythromycin if it worsens, as that is the most recent medication added. [facility]
[2019-02-16] MEDS: DULCOLAX PR SCH (21:06)
[2019-02-17] MEDS: MERREM 1 GM in NS 50 ML IV SCH (00:14)
[2019-02-17] MEDS: ZANTAC 50 MG in NS 50 ML IV SCH ×4 (00:14→23:47)
[2019-02-17] MEDS: HUMULIN R SUBQ SCH ×7 (00:15→23:48)
[2019-02-17] MEDS: LOPRESSOR PO SCH ×4 (01:00→21:15)
[2019-02-17] MEDS: ATROVENT NEB INH SCH ×6 (03:04→23:30)
[2019-02-17] MEDS: E.E.S. 200 SUSPENSION NG SCH (04:32)
[2019-02-17 04:59] LABS: ALLEN TEST YES; BE 7.4 mmoll (-3.0-3.0); BLOOD TYPE ARTERIAL; HCO3-(ACT) 30.7 mmoll (20.0-26.0); METHB 1.2 % (0.0-1.5); O2(CT) 19.6 mL/dL (15.0-23.0); O2HB 96.3 % (95.0-99.0); PCO2(98.6) 50 mmHg (35-45); PO2(98.6) 119 mmHg (60-100); SAMPLE BLOOD; SAO2 98.9 % (95.0-100.0); THB 14.4 g/dL (11.5-17.4); pH(98.6) 7.43 (7.35-7.45)
[2019-02-17 05:00] LABS: MODALITY COOL AEROSOL
[2019-02-17] MEDS: SYNTHROID IV SCH (06:29)
[2019-02-17] MEDS: PRILOSEC PO SCH (06:30)
[2019-02-17] MEDS: SODIUM CHLORIDE 0.9% INJ PRN (06:30)
--- NOTE | 2019-02-17 07:17 | Diag Imaging Result Doc PS360 ---
EXAM: CHEST-PORTABLE INDICATION: respiratory failure TECHNIQUE: One view COMPARISON: 02/16/2019 FINDINGS: Support tubes and lines are in stable positions. Pulmonary venous congestion and pulmonary edema are approximately stable. No new consolidation is identified. Cardiac silhouette is stable. IMPRESSION: Stable chest. Electronically signed by Nitin Godwin 02/17/2019 7:14 AM
[2019-02-17 07:45] LABS: ALB/GLOB RATIO 0.9; ALBUMIN 2.9 g/dL (3.5-5.0); CALCIUM 8.3 mg/dL (8.8-10.2); POTASSIUM 3.1 mmol/L (3.5-5.1); TOTAL BILIRUBIN 0.67 mg/dL (0.20-1.00); TOTAL PROTEIN 6.2 g/dL (6.3-8.3)
[2019-02-17] MEDS: ASPIRIN PO SCH (08:10)
[2019-02-17] MEDS: APRESOLINE NG SCH ×3 (08:10→15:59)
[2019-02-17] MEDS: ZYVOX 600 MG/D5W 600 MG/300 ML IVPB IV SCH (08:10)
[2019-02-17] MEDS: MIRALAX PO SCH ×2 (08:11→22:27)
[2019-02-17] MEDS: POTASSIUM CHLORIDE 10 MEQ/SWI 10 MEQ/100 ML IVPB IV SCH ×2 (08:54→11:25)
[2019-02-17] MEDS: CATAPRES NG SCH ×3 (08:58→15:59)
[2019-02-17] MEDS: LASIX IV SCH ×2 (09:11→21:14)
[2019-02-17] MEDS: XOPENEX NEB INH SCH ×3 (09:30→19:30)
[2019-02-17 09:36] LABS: ALLEN TEST YES; BLOOD TYPE ARTERIAL; HCO3-(ACT) 30.4 mmoll (20.0-26.0); METHB 1.3 % (0.0-1.5); O2(CT) 16.1 mL/dL (15.0-23.0); O2HB 96.4 % (95.0-99.0); PCO2(98.6) 49 mmHg (35-45); PO2(98.6) 106 mmHg (60-100); SAMPLE BLOOD; SAO2 99.2 % (95.0-100.0); THB 11.8 g/dL (11.5-17.4); pH(98.6) 7.43 (7.35-7.45)
[2019-02-17 09:37] LABS: MODALITY COOL AEROSOL
--- NOTE | 2019-02-17 11:32 | Diag Imaging Result Doc PS360 ---
CT HEAD W/O CONTRAST - 02/17/2019 INDICATION: unresponsiveness COMPARISON: 02/08/2019 FINDINGS: There are stable old lacunae in the right basal ganglia and left thalamus. The ventricles and sulci are normal in size and contour. No intracranial mass or hemorrhage. The skull is intact. There are air-fluid levels in both sphenoid sinuses compatible with sinusitis. There is also a nasogastric tube in place. IMPRESSION: No acute intracranial process. Mild sinusitis. This exam was performed using automated exposure control, adjustment of mA or kV according to patient size, and/or use of iterative reconstruction technique Electronically signed by Gordy Mayberry 02/17/2019 11:30 AM
[2019-02-17] MEDS: HEPARIN SUBQ SCH ×2 (11:59→21:14)
--- NOTE | 2019-02-17 13:30 | INFECTIOUS DISEASE PROGRESS NO ---
DATE: 02/17/2019 PRESENT ILLNESS: The patient had an aspiration pneumonia. I think that has cleared, and I agree with Dr. Mccormick that the patient's current chest x-ray shows pulmonary venous congestion and not pneumonia. MEDICATIONS: This is the 9th day of treatment with a combination of Zyvox, meropenem, and Levaquin. PHYSICAL EXAMINATION: Vital Signs: Temperature is 98 degrees, pulse 76, respirations 14, blood pressure 181/94. General: This is an ill-appearing, elderly male. He seems somewhat delirious now. He does not appear to be in any acute distress. Head, Eyes, Ears, Nose, and Throat: He can hear my spoken words and it appears that he can see near objects. He did not open his mouth for me. Neck: The patient did not appear to have any pain in his neck when he turned his head. Lungs: Clear to auscultation. Cardiovascular: Heart rate is regular. Abdomen: Soft and nontender. Neurologic: The patient did turn his head toward me when I came in the room but he did not follow any requests I made of him such as to open his mouth or move his extremities. Integument: The patient does have a red rash on his arms. It is confluent but not raised and the red is a very light color of red. LAB AND X-RAY: Chest x-ray today shows pulmonary venous congestion. There is no CBC for today. The patient's blood gases show a pH of 7.43, a PO2 of 119, pCO2 of 50. Creatinine is 2. GFR is 34. Alkaline phosphatase is 260. ASSESSMENT AND PLAN: I think the patient's bilateral aspiration pneumonia has cleared and now he has a pulmonary venous congestion. My plan is to discontinue his current antibiotics. Furthermore, I think the rash on the patient's arms could be due to an allergic reaction to one of the antibiotics I am treating the patient with. COMORBIDITIES: The patient is morbidly obese and he is a diabetic. I am going to sign off on the patient now and discontinue his antibiotics. I am available to see the patient again on a p.r.n. basis. cc: Brian Murdock MD
--- NOTE | 2019-02-17 15:30 | NEPHROLOGY PROGRESS NOTE ---
DATE: 02/17/2019 TIME SEEN: 0645. SUBJECTIVE: Mr. Chavez is resting quietly in bed. He is moaning aloud. Does not focus when spoken to. He is now on 40% cool aerosol. OBJECTIVE: Vital Signs: Temperature 98 degrees, blood pressure 188/65, heart rate 75, respirations are 12. He is currently on 40% cool aerosol. His last recorded saturation is 95%. He has had 1,570 in, 1,775 out to Stratton catheter. Labs: Sodium 142, potassium 3.1, chloride 100, CO2 28, BUN 69, creatinine 20, glucose is 240. The patient has an anion gap of 14, calcium of 8.3, magnesium 2.1. He has an albumin of 2.9. Previous hemoglobin of 10.4. PHYSICAL EXAMINATION: General: This is a 63-year-old white male. He is currently resting quietly in bed. He appears chronically ill, though no acute distress. Skin: Warm and dry. HEENT: Normocephalic, atraumatic. Conjunctiva is pale pink. He has DELMI. Mucous membranes are dry. Neck: Supple. Trachea midline. No evidence of JVD. Cardiovascular: Regular rate and rhythm. Lungs: Have coarse rhonchi he remains with O2 support. Abdomen: Soft, nontender. Quiet bowel sounds. Tube feeding remains at 50 mL an hour. Genitourinary: Not inspected. Stratton catheter is in place with adequate urine out. Extremities: Have trace lower extremity edema. He has tight edema to his upper extremities of about 2+. ASSESSMENT AND PLAN: 1. Acute kidney injury. Creatinine continues to trend downward. His creatinine today is 2 with a BUN of 69. Adequate urine output. No indications for intervention. 2. Electrolytes and acid-base balance. Patient's potassium is at 3.1. We will order replacement if this has not been completed this a.m. Acid-base balance this is acceptable. 3. Anemia. This is close to target. 4. Arrest with pneumonia and pulmonary edema. This is followed by the primary care team. He remains on renal-dosed antibiotics. 5. Fluid volume overload. Patient has been ordered Lasix 100 mg IV q.12 hours x2 doses to be given today and this evening. We will re-evaluate his labs in the a.m. I would like to thank you for allowing us to follow with this patient. Dictated by SARMAD Juarez for Daniel Li MD Face to face encounter, data reviewed, discussed with Lui Wagner on 02/17/19. I agree with the above assessment and plan of care. cc: SARMAD Juarez MD [facility]
--- NOTE | 2019-02-17 18:02 | PROGRESS NOTE ---
DATE: 02/17/2019 INTERVAL HISTORY: His respiratory status largely stable. Moaning a lot today, but otherwise no change in mental status. No acute events overnight. REVIEW OF SYSTEMS: Unable to obtain secondary to patient's mental status. LABORATORIES: ABG pH 7.43, pCO2 of 50, PO2 of 119 on 40% Ventimask. Sodium 142, potassium 3.1 with repeat 3.6, BUN 69, creatinine 2.0, glucose 185-283, alkaline phosphatase 260, total bilirubin 0.6, AST 31, ALT 35, albumin 2.9. IMAGING: Head CT no acute process. Possible mild sinusitis. Chest x-ray stable. VITALS: Temperature maximum 98.1 degrees, pulse 79, respirations 20, blood pressure 187/59, O2 saturation 98% on 40% FiO2. PHYSICAL EXAMINATION: General: No acute distress. Occasional moaning. Remains on Ventimask. HEENT: Normocephalic, atraumatic. Moist mucous membranes. Nasogastric tube in place. Neck: No cervical adenopathy. Cardiovascular: Regular rate and rhythm. Right upper sternal border murmur unchanged. Pulmonary: Still with some fairly diffuse rhonchi, largely stable. Abdomen: Soft. Tender. No longer distended. Bowel sounds essentially normal at this point. Extremities: Peripheral pulses intact. Trace edema in bilateral legs. Increased edema in both arms. No clubbing or cyanosis. Neurologic: Limited by mental status. Patient continues to open eyes and turn head and occasionally track with eyes to voice, but does not follow any commands. Occasional nonpurposeful movement. Occasional moans, but no speech. Pupils equal, round, and reactive to light. Psychiatric: Remains off of sedation, but noncooperative and nonverbal, as above. Skin: The patient with continued pink macular rash on the posterior forearms to the elbow and still no involvement of the legs or trunk. No erythema, warmth. Possibly slightly worse than yesterday. ASSESSMENT AND PLAN: 1. Acute hypoxemic respiratory failure, pneumonia, and pulmonary edema. The patient has been on antibiotics with Merrem, Zyvox and Levaquin, but ID plans on discontinuing antibiotics today. Successfully extubated. Oxygenation has improved slowly, but mental status with little change. Repeat CT head unremarkable. If mental status does not improve in the near future, may need neurologic evaluation. 2. Septic shock secondary to pneumonia, now resolved. 3. Status post cardiopulmonary arrest secondary to #1. 4. Metabolic encephalopathy. Minimal improvement over the last few days. Rechecked CT head this morning with no acute process seen. 5. Acute kidney injury. Creatinine was initially slow to improve, but has made significant improvements over the last few days. Creatinine down to 2.0. Urine output good. 6. Hypertension. Has been on hydralazine. Clonidine added yesterday because of ongoing significant hypertension. Blood pressure remains fairly high. Also on varying doses of Lasix, as per Pulmonology and Nephrology, and Lopressor. Holding home Taiwo because of acute kidney injury. We will add isosorbide and monitor. 7. Diabetes. Control not as good since patient started tolerating tube feeds. We will add low- dose basal insulin and monitor. 8. Nutrition, likely ileus. When we initially attempted to start tube feeds, the patient had very high residuals up to 500 or 600. Tube feeds had to be stopped. Placed NG tube with suction with improvement in abdominal distention, but had ongoing significant output. Started on erythromycin with improvement in NG tube output and is now tolerating tube feeds, but stopping erythromycin because of rash as below. Monitor for recurrence of high residuals. Did not use Reglan previously because of possible interaction with Zyvox, but now that ID is stopping antibiotics, Reglan may be an option if patient again develops difficulty tolerating tube feeds. 9. Rash. Uncertain of etiology. Really just on the posterior forearms. Odd distribution for drug rash, but given slight progression, stopping erythromycin. ID also stopping other antibiotics. Continue to monitor. 10. Forearm swelling. Worsening bilateral arm swelling noted today. Ultrasound obtained and showing extensive super superficial venous thromboses of bilateral forearms. Already on aspirin. We will place on low-dose heparin and monitor. 11. acute hypercapnic respiratory failure: patient with ABG this morning showing increasing CO2. oxygenation stable. no respiratory distress but concern for impending respiratory failure. repeat ABG obtained showing stable hypercapnia so looks ok for now but monitor closely. may have to put him on some BIPAP. [facility]
[2019-02-17] MEDS: APRESOLINE IV PRN (20:08)
[2019-02-17] MEDS: ISMO NG SCH (21:15)
--- NOTE | 2019-02-17 21:52 | PULMONOLOGY PROGRESS NOTE ---
DATE: 02/17/2019 SUBJECTIVE: The patient opens his eyes to voice. He has some intermittent soft moaning. He does not follow commands. He has no increased work of breathing. OBJECTIVE: Vital Signs: The patient has been afebrile for the last 24 hours. Current blood pressure 159/61, heart rate 84, respiratory rate 20, oxygen saturation 98% on 40% FiO2. HEENT: Pupils are equal and reactive. Oropharynx appears clear. Neck: Supple. Chest: Diminished breath sounds in both lung bases. Cardiac: S1, S2. Abdomen: Obese and soft with positive bowel sounds. Extremities: Generalized edema. LABORATORIES: Chest x-ray reveals stable pulmonary vascular congestion and pulmonary edema. CT scan of the brain reveals mild sinusitis, but no evidence of acute intracranial disease. Arterial blood gas reveals a pH of 7.43, pCO2 of 49, pO2 of 106 on 40% FiO2. Sodium 142, potassium 3.1, chloride 100, bicarbonate 26, BUN 29, creatinine 2.0. IMPRESSION: A 63-year-old with: 1. Bilateral pneumonia, completing his course of antibiotics. 2. Duodenitis on CT scan of the abdomen and pelvis. 3. Diabetes mellitus. 4. Acute renal failure, with ongoing diuresis. 5. Acute hypoxemic respiratory failure, stable post extubation. 6. Status post cardiopulmonary arrest. PLAN: 1. Continue weaning oxygen as tolerated. 2. Antibiotic management per Infectious Disease. 3. Continue tube feeds. 4. Anticipate the need for physical therapy and rehab. 5. Attempt to balance intake and output. 6. Prognosis remains guarded. cc: Yury Rodriguez MD
[2019-02-17] MEDS: DULCOLAX PR SCH (22:28)
[2019-02-18] MEDS: LOPRESSOR PO SCH ×3 (01:45→20:27)
[2019-02-18] MEDS: HUMULIN R SUBQ SCH ×6 (03:25→23:52)
[2019-02-18] MEDS: ATROVENT NEB INH SCH ×6 (03:38→23:26)
[2019-02-18] MEDS: HEPARIN SUBQ SCH ×3 (04:33→20:27)
[2019-02-18] MEDS: SODIUM CHLORIDE 0.9% INJ PRN (06:28)
[2019-02-18] MEDS: SYNTHROID IV SCH (06:28)
[2019-02-18] MEDS: PRILOSEC PO SCH (06:29)
[2019-02-18 06:43] LABS: HEMATOCRIT 32.1 % (42.0-52.0); HEMOGLOBIN 10.4 g/dL (14.0-18.0); MCHC 32.4 g/dL (33-37); MCV 89.4 FL (81-99); MPV 10.1 FL (7.4-10.4); RBC 3.59 XMIL (4.7-6.1); RDW 14.6 % (11.5-14.5); WBC 8.99 X1000 (4.8-10.8)
[2019-02-18 06:52] LABS: MAGNESIUM 2.1 mg/dL (1.5-2.7); PHOSPHORUS 3.5 mg/dL (2.7-4.5)
[2019-02-18 07:04] LABS: ALB/GLOB RATIO 0.9; ALBUMIN 2.7 g/dL (3.5-5.0); CALCIUM 8.3 mg/dL (8.8-10.2); CREATININE 1.6 mg/dL (0.7-1.2); POTASSIUM 3.2 mmol/L (3.5-5.1); TOTAL BILIRUBIN 0.53 mg/dL (0.20-1.00); TOTAL PROTEIN 5.6 g/dL (6.3-8.3)
--- NOTE | 2019-02-18 07:37 | Diag Imaging Result Doc PS360 ---
CHEST-PORTABLE - 02/18/2019 INDICATION: respiratory failure COMPARISON: 02/17/2019 FINDINGS: Stable nasogastric tube and right central line. Stable significant cardiomegaly and pulmonary vascular congestion. There is decrease in the hazy bibasilar infiltrates/atelectasis. Otherwise stable interstitial pulmonary edema. No large pleural effusion. IMPRESSION: Decrease in the slight bibasilar infiltrate/atelectasis. Otherwise no change from prior. Electronically signed by Gordy Mayberry 02/18/2019 7:35 AM
[2019-02-18] MEDS ORDERED: POTASSIUM CHLORIDE 20% LIQUID NG ONE (07:45)
[2019-02-18] MEDS ORDERED: KLOR-CON PO ONE ×2 (07:45→13:45)
[2019-02-18] MEDS: MIRALAX PO SCH ×2 (08:03→20:29)
[2019-02-18] MEDS: ASPIRIN PO SCH (08:03)
[2019-02-18] MEDS: APRESOLINE NG SCH ×3 (08:03→16:24)
[2019-02-18] MEDS: ISMO NG SCH ×2 (08:03→20:29)
[2019-02-18] MEDS: ZANTAC 50 MG in NS 50 ML IV SCH ×3 (08:04→23:53)
[2019-02-18] MEDS: CATAPRES NG SCH ×3 (08:04→16:24)
[2019-02-18] MEDS ORDERED: LANTUS INSULIN SUBQ SCH (09:15)
[2019-02-18] MEDS: XOPENEX NEB INH SCH ×3 (10:30→23:30)
--- NOTE | 2019-02-18 13:01 | PROGRESS NOTE ---
DATE: 02/18/2019 SUBJECTIVE: Patient is lying comfortably in bed. He is able to open his eyes spontaneously and he withdraws with pain, he followed commands 1 or 2 times for me but he is not consistent. He was able to open his mouth upon command. CT scan done yesterday did not show any acute new abnormality. We have replaced his hypokalemia and I will start this patient on a long-acting insulin. He received around 20 units of sliding scale insulin yesterday. I will give him 10 units of Lantus today and I will re-evaluate this patient in the morning. OBJECTIVE: Vital Signs: Temperature 98.6 degrees, pulse 87, respiratory rate 21, blood pressure 180/58, oxygen saturation 97% on a mask. HEENT: Head normocephalic no trauma. PERRLA. Neck: Supple. No JVD. No masses. Central trachea. Cardiovascular: Regular rate and rhythm. He has a systolic murmur. Chest: Coarse breath sounds bilaterally with some diffuse rhonchi. Abdomen: Soft, nontender, nondistended. No hepatosplenomegaly. Extremities: Trace edema. No clubbing. No cyanosis. Increase edema in both arms. No clubbing. No cyanosis in that area either. Neurological: Limited by his mental status, this patient opened his eyes spontaneously and he sometimes follows the practitioner with his eyes. He follow commands for me just once or twice, but he is not consistent. He opened his mouth upon command today, he is withdrawing with pain. Based on this, I think he is just a little bit better compared with yesterday. LABORATORY DATA: WBC 8.9, hemoglobin 10.4, hematocrit 32.1, platelets 289,000. Sodium 143, potassium 3.2, chloride 100, bicarbonate 31, BUN 72, creatinine 1.6, glucose 287. Calcium 8.3, albumin 2.7. ASSESSMENT AND PLAN: 1. Acute hypoxemic respiratory failure, pneumonia and pulmonary edema, this patient has been on antibiotics. Infectious Disease Department on board. It looks like antibiotics have been stopped already. Chest x-ray showed decrease in the slight bibasilar infiltrate/atelectasis. Otherwise no change from prior, pulmonary Department on board as well as Infectious Disease Department. 2. Septic shock secondary to pneumonia, resolved. 3. Status post cardiopulmonary arrest secondary to #1, aware. We will continue to monitor. 4. Metabolic encephalopathy, minimal improvement over the last few days. CT scan did not show any acute abnormality, I believe, compared with yesterday, he is a little bit better. We will continue to monitor. We will request Neurology Department evaluation the if the mental status is still about the same in a couple days or is worse. 5. Acute kidney injury. He is having a good urine output. BUN and creatinine trending down. We will just continue to monitor. 6. Hypertension. We will continue with clonidine. He has been on hydralazine since a couple days ago, the blood pressure is still high. We have been holding the KRISTYN inhibitor due to acute kidney injury. He was placed yesterday on isosorbide mononitrate recently on hydralazine, clonidine, and metoprolol. Since he is urinating more, and the kidney function is getting better. I will monitor the blood pressure today, he is on as needed hydralazine as well. 7. Uncontrolled type 2 diabetes. I will add a low basal insulin and monitor. I have started with Lantus 10. 8. Nutrition status. We will continue with same management. 9. Forearm swelling. Ultrasound obtained showed extensive superficial venous thrombosis of bilateral forearms, already on aspirin. We will continue with low dose of heparin and monitor. 10. Hypokalemia. We will replace the potassium. CRITICAL CARE TIME SPENT: 40 minutes. cc: Harris Guevara MD
--- NOTE | 2019-02-18 14:07 | NEPHROLOGY PROGRESS NOTE ---
DATE: 02/18/2019 TIME SEEN: 0615. SUBJECTIVE: Mr. Chavez is resting quietly in bed. Head of the bed is elevated. He is currently on nasal cannula O2. OBJECTIVE: Most Recent Vital Signs: Temperature 98.1 degrees, blood pressure 190/61, heart rate 78, respirations 16. He is currently on O2 at 5 L nasal cannula. He had been on 40% cool aerosol all evening. Last recorded saturation 98%. He has had 1520 in. He has had 2955 out to Stratton catheter. Labs: Sodium 143, potassium 3.2, chloride is 100, CO2 31, BUN 72, creatinine 1.6, glucose is 287, his anion gap is 12, calcium 8.3, phosphorus 3.5, magnesium 2.1, albumin is 2.7. White count 8.99, hemoglobin 10.4, hematocrit 32.1, with a platelet count of 289,000. Physical Examination: General: This is a 63-year-old, white male resting quietly in bed. He appears chronically ill. No acute distress. Skin is warm and dry. HEENT: Normocephalic, atraumatic. Conjunctivae pale. He has DELMI. Mucous membranes are dry. Neck: Supple. Trachea midline. Unable to determine JVD. Cardiovascular: Regular rate and rhythm. He appears in sinus rhythm on the monitor. No murmur or gallop appreciated. Lungs: Have coarse rhonchi bilaterally. Equal excursion, on O2 support. Abdomen: Soft, round, large, and nontender. Positive bowel sounds. Genitourinary: Not inspected. Stratton catheter is in place with adequate urine out documented. Extremities: Have trace edema. No clubbing or cyanosis. Neurological: The patient does follow commands to stick his tongue out and turn his head. Otherwise, no verbal response in regards with how he is feeling today. ASSESSMENT AND PLAN: 1. Acute kidney injury. Patient's BUN and creatinine do continue to trend downward. Creatinine is down to 1.6 with a BUN of 72. Adequate urine output at this time. No indications for intervention, for dialysis. He continues to improve. Secondary to these findings, we will sign off and remain available if needed during his hospital stay. 2. Electrolytes, acid-base balance. Potassium is low at 3.2. Magnesium has improved to 2.1. Potassium has been ordered this morning as a supplement per Dr. Quezada. 3. Acid-base balance. This is acceptable. 4. Anemia. This is acceptable. 5. Fluid volume overload status post arrest with pulmonary edema. The patient had received Lasix 100 mg intravenous every 12 hours x2 doses yesterday. Lungs continue with rhonchi. I would like to thank you for allowing us to follow with this patient. Dictated by SARMAD Juarez for Daniel Li MD Face to face encounter, data reviewed, discussed with Lui Wagner on 02/18/19. I agree with the above assessment and plan of care. cc: SARMAD Juarez MD [facility]
[2019-02-18] MEDS ORDERED: POTASSIUM CHLORIDE 20% LIQUID PO ONE (14:15)
--- NOTE | 2019-02-18 15:05 | Extremity Venous Study ---
PROCEDURE NAME: Venous U/S Bilateral Arms - 02/17/2019 REQUESTING PHYSICIAN: Dr. Mccormick. ATHLETIC FIELD CUSTODIAN: Lele. INDICATIONS: 1. Edema and redness of both arms. 2. IV in the right neck. EQUIPMENT: [employer] Vivid E9 ultrasound system with a 9 L-D transducer. FINDINGS: Images of the bilateral upper extremity venous systems were obtained in both sagittal and transverse planes. Doppler was used to evaluate veins for spontaneity, phasicity, respiratory excursion, and digital augmentation. RESULTS: Difficulty seeing the right internal jugular vein secondary to IV, but there appears to be acute clot in the right basilic vein in the proximal to mid forearm. On the left side, there is an acute clot noted in the cephalic vein in the mid upper arm to the elbow, and the median cubital vein and basilic vein in proximal upper arm to the elbow. INTERPRETATION: Bilateral upper extremity clot noted as described above. cc: Peter Arango MD
--- NOTE | 2019-02-18 16:27 | ECHO REPORT ---
ORDER DATE: 02/18/2019 INDICATION: Post cardiac arrest. FINDINGS: 1. This is a limited echo with 2-dimensional images only. The RV systolic function appears to be normal. 2. There is no evidence of mitral valve prolapse. The aortic valve was not well visualized. 3. Normal LV systolic function with an estimated EF greater than 55%. Normal LV size with an end- diastolic dimension of 5.6. Moderate left ventricular hypertrophy with a posterior and interventricular septal wall thickness of 1.5 cm each. 4. No pericardial effusion is identified. cc: MD Carmen Graves PA
[2019-02-18] MEDS: DULCOLAX PR SCH (20:28)
[2019-02-18] MEDS ORDERED: LASIX IV ONE ×2 (20:54→22:00)
--- NOTE | 2019-02-18 21:25 | PULMONOLOGY PROGRESS NOTE ---
DATE: 02/18/2019 SUBJECTIVE: The patient is arousable to alert. He will focus on the examiner, but he will not respond to questions. OBJECTIVE: Vital Signs: The patient has been afebrile for the last 24 hours. Blood pressure 160/58, heart rate 93, respiratory rate 22, oxygen saturation 95% on 40% face mask. HEENT: Pupils are equal and reactive. Oropharynx appears clear. Neck: Supple. Chest: Reveals decreased breath sounds in both lung bases. Cardiac exam: S1, S2. Distant heart sounds. Abdomen: Soft, obese. Extremities: Reveal 1 to 2+ peripheral edema. LABORATORIES: Chest x-ray reveals slight decrease in venous congestion/edema. Sodium 143, potassium 3.2, chloride 100, bicarbonate 31, BUN 72, creatinine 1.6, glucose 287. White blood count 8.99, hemoglobin 10.4, platelet count 289,000. IMPRESSION: A 53-year-old with: 1. Pneumonia. 2. Duodenitis. 3. Diabetes mellitus. 4. Acute renal failure with good urine output. 5. Acute hypoxemic respiratory failure. 6. Status post cardiopulmonary arrest. 7. Encephalopathy. PLAN: 1. Continue antibiotic management per Infectious Disease. 2. Continue to wean oxygen as tolerated. Continue tube feeds pending improvement in ability to take p.o. intake. 3. The patient remains fluid overloaded. Will attempt Lasix this evening. 4. Overall prognosis is guarded, but improving. cc: Yury Rodriguez MD
[2019-02-18] MEDS ORDERED: NS IV ONE (22:00)
[2019-02-19] MEDS: APRESOLINE IV PRN ×4 (03:09→23:33)
[2019-02-19] MEDS: HUMULIN R SUBQ SCH ×7 (04:31→23:42)
[2019-02-19 05:03] LABS: HEMATOCRIT 33.6 % (42.0-52.0); HEMOGLOBIN 10.8 g/dL (14.0-18.0); MCH 28.8 PG (27-31); MCHC 32.1 g/dL (33-37); MCV 89.6 FL (81-99); MPV 9.9 FL (7.4-10.4); RBC 3.75 XMIL (4.7-6.1); RDW 14.7 % (11.5-14.5); WBC 10.76 X1000 (4.8-10.8)
[2019-02-19 05:26] LABS: MAGNESIUM 2.1 mg/dL (1.5-2.7); PHOSPHORUS 3.3 mg/dL (2.7-4.5)
[2019-02-19 05:37] LABS: CALCIUM 8.6 mg/dL (8.8-10.2); CREATININE 1.5 mg/dL (0.7-1.2); POTASSIUM 3.5 mmol/L (3.5-5.1); TOTAL BILIRUBIN 0.53 mg/dL (0.20-1.00); TOTAL PROTEIN 6.2 g/dL (6.3-8.3)
[2019-02-19 05:38] LABS: ALB/GLOB RATIO 0.9
[2019-02-19] MEDS: PRILOSEC PO SCH (06:39)
[2019-02-19] MEDS: SYNTHROID IV SCH (06:39)
[2019-02-19] MEDS ORDERED: LASIX IV ONE ×2 (07:22→20:52)
--- NOTE | 2019-02-19 07:40 | Diag Imaging Result Doc PS360 ---
CHEST-PORTABLE - 02/19/2019 INDICATION: respiratory failure COMPARISON: 02/18/2019 FINDINGS: Support lines and tubes are stable. Stable cardiomegaly and extensive pulmonary vascular congestion. Slight worsening patchy central infiltrates particularly in the right upper lobe. No pneumothorax or large pleural effusion. IMPRESSION: Slight worsening patchy right upper lobe infiltrate. Electronically signed by Gordy Mayberry 02/19/2019 7:38 AM
--- NOTE | 2019-02-19 08:00 | PROGRESS NOTE ---
DATE: 02/19/2019 SUBJECTIVE: The patient is resting in bed. He opens his eyes spontaneously, and he tries to see me when I call his name. He is not following commands for me today. He has hypernatremia. I will increase the water boluses. I will ask the striper to evaluate the patient again today. His blood sugar is high, and I have increased the dose of Lantus today as well. He has bilateral crackles, even though he received Lasix yesterday in the afternoon. I will give him an extra dose today in the morning, kidney function seems to be stable. He is still overloaded. OBJECTIVE: Vital Signs: Temperature 99.1 degrees, pulse on the monitor 102, respiratory rate 26, blood pressure on the monitor 176/75, oxygen saturation 96 on a Venturi mask. HEENT: Head normocephalic. No trauma. PERRLA. Neck: Supple. No JVD. No masses. Central trachea. Chest: Coarse breath sounds bilaterally with diffuse rhonchi and crackles. Abdomen: Soft, nontender, nondistended. No hepatosplenomegaly. Obese. Extremities: Trace pedal edema. No clubbing. No cyanosis. Increased edema in both arms. No clubbing, no cyanosis in that area either. Neurological: Limited by his mental status. This patient is opening his eyes spontaneously, and he tries to see the practitioner when I call his name. He is not following commands today for me. He withdraws with pain. LABORATORY DATA: WBC 10.7, hemoglobin 10.8, hematocrit 33.6, platelets 293,000. Sodium 149, potassium 3.5, chloride 105, bicarbonate 34, BUN 70, creatinine 1.5, glucose 355, calcium 8.6, alkaline phosphatase 229, albumin 3. ASSESSMENT AND PLAN: 1. Acute hypoxemic respiratory failure, pneumonia, and pulmonary edema. Infectious Disease Department on board. Antibiotics have been stopped already. Chest x-ray looks about the same from yesterday for me, pending final report. Pulmonary Department following this patient. I do believe he still has pulmonary edema. I will give him an extra dose of Lasix today. 2. Septic shock secondary to pneumonia, resolved. 3. Status post cardiopulmonary arrest secondary to #1. Aware. Will continue to monitor. This patient's mental status is about the same compared with yesterday. 4. Metabolic encephalopathy. Minimal improvement over the last few days. CT scan did not show any acute issue. Compared with yesterday, for me it is about the same. I will get Neurology Department to evaluate this patient. 5. Acute kidney injury. He is recovering. He is having good urine output. He is tolerating the Lasix. 6. Hypertension. Continue with the same management for now. Cardiology Department monitoring this patient. Blood pressure is still elevated. 7. Uncontrolled type 2 diabetes. I will increase the dose of Lantus from 10 to 25. It looks like he received more than 40 units yesterday, including sliding scale insulin and long-acting insulin. 8. Nutritional status. Continue with nasogastric tube since the kidney function is improving. I think he has been switched to Glucerna. 9. Forearm swelling. Ultrasound obtained showed extensive superficial venous thrombosis of bilateral forearms. Already on aspirin. Will continue with low-dose of heparin, and monitor. 10. Hypokalemia, resolved. 11. Normocytic anemia. We will monitor for now. CRITICAL CARE TIME: 45 minutes. cc: Harris Guevara MD
[2019-02-19] MEDS: ATROVENT NEB INH SCH ×5 (08:11→19:35)
[2019-02-19] MEDS: HEPARIN SUBQ SCH ×3 (08:26→20:19)
[2019-02-19] MEDS: ISMO NG SCH ×2 (08:35→20:18)
[2019-02-19] MEDS: MIRALAX PO SCH ×2 (08:35→20:18)
[2019-02-19] MEDS: ZANTAC 50 MG in NS 50 ML IV SCH ×3 (08:35→23:58)
[2019-02-19] MEDS: APRESOLINE NG SCH ×3 (08:35→16:35)
[2019-02-19] MEDS: LOPRESSOR PO SCH ×2 (08:35→20:18)
[2019-02-19] MEDS: CATAPRES NG SCH ×3 (08:35→16:35)
[2019-02-19] MEDS: ASPIRIN PO SCH (08:41)
[2019-02-19] MEDS ORDERED: LANTUS INSULIN SUBQ SCH ×2 (09:00)
[2019-02-19] MEDS: XOPENEX NEB INH SCH ×3 (09:54→23:59)
[2019-02-19] MEDS: TYLENOL PO PRN (11:48)
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
[2019-02-19] MEDS: DULCOLAX PR SCH (20:19)
--- NOTE | 2019-02-19 21:47 | PULMONOLOGY PROGRESS NOTE ---
DATE: 02/19/2019 SUBJECTIVE: The patient responds to his voice. He has not answered questions. He has some audible rhonchi with incomplete clearing of his airways. OBJECTIVE: Vital Signs: The patient has been afebrile for the last 24 hours. Blood pressure 171/62, heart rate 97, respiratory rate 25, oxygen saturation 92% on 40% FiO2. HEENT: Pupils are equal and reactive. Oropharynx appears dry but clear. Neck: Supple. Chest: Reveals scattered rhonchi bilaterally. Cardiac exam: S1-S2. Abdomen: Soft with positive bowel sounds. Extremities: Revealed decreasing edema. LABORATORIES: Chest x-ray reveals generous cardiac silhouette with vascular congestion. This may be slightly improved from yesterday. White blood count 10.76, hemoglobin 10.8, platelet count 293,000. Sodium 149, potassium 3.5, chloride 105, bicarbonate 34, BUN 70, creatinine 1.5, glucose 287. IMPRESSION: A 63-year-old with: 1. Pneumonia. 2. Diabetes mellitus. 3. Acute renal failure. 4. Acute hypoxemic respiratory failure. 5. Encephalopathy. 6. Status post cardiopulmonary arrest. 7. Duodenitis seen on CT scan of the abdomen. 8. Hypernatremia. PLAN: 1. Agree with neurology evaluation. 2. Continue tube feeds with water replacement. He may need additional D5W for his hypernatremia. 3. The patient remains fluid overloaded with significant peripheral edema and vascular congestion on chest x-ray. We will give 1 additional Lasix dose this evening. 4. Overall prognosis is guarded. cc: Yury Rodriguez MD
[2019-02-20] MEDS: TYLENOL PO PRN (00:23)
[2019-02-20] MEDS: HUMULIN R SUBQ SCH ×6 (01:43→22:33)
[2019-02-20] MEDS: LABETALOL IV PRN (02:04)
[2019-02-20] MEDS: ATROVENT NEB INH SCH ×7 (03:54→23:16)
[2019-02-20] MEDS: HEPARIN SUBQ SCH ×3 (05:02→20:37)
[2019-02-20 05:41] LABS: HEMATOCRIT 37.5 % (42.0-52.0); HEMOGLOBIN 11.7 g/dL (14.0-18.0); MCH 29.2 PG (27-31); MCHC 31.2 g/dL (33-37); MCV 93.5 FL (81-99); MPV 10.5 FL (7.4-10.4); RBC 4.01 XMIL (4.7-6.1); RDW 15.4 % (11.5-14.5); WBC 19.93 X1000 (4.8-10.8)
[2019-02-20] MEDS: SODIUM CHLORIDE 0.9% INJ PRN (06:07)
[2019-02-20] MEDS: SYNTHROID IV SCH (06:07)
[2019-02-20 06:16] LABS: ALBUMIN 3.5 g/dL (3.5-5.0); CREATININE 1.5 mg/dL (0.7-1.2); POTASSIUM 3.5 mmol/L (3.5-5.1); TOTAL BILIRUBIN 0.55 mg/dL (0.20-1.00); TOTAL PROTEIN 7.1 g/dL (6.3-8.3)
[2019-02-20] MEDS: ZANTAC 50 MG in NS 50 ML IV SCH ×4 (07:08→23:14)
[2019-02-20] MEDS: APRESOLINE IV PRN ×2 (07:08→22:46)
--- NOTE | 2019-02-20 07:11 | Diag Imaging Result Doc PS360 ---
EXAM: CHEST-PORTABLE 02/20/2019 HISTORY: respiratory failure TECHNIQUE: AP portable at 0518 COMMENT: There is a right internal jugular central venous catheter with its tip just above the right atrium. There is an NG tube with its tip below the diaphragm. There is slight improvement in the interstitial opacity present over both lungs on 02/19/2019. The heart size remains enlarged. IMPRESSION: Improved pulmonary edema. Electronically signed by Abelino Leon 02/20/2019 7:09 AM
[2019-02-20] MEDS: D5W 1,000 ML IV SCH ×2 (07:25→16:14)
[2019-02-20] MEDS: XOPENEX NEB INH SCH ×3 (07:55→23:16)
--- NOTE | 2019-02-20 08:16 | PROGRESS NOTE ---
DATE: 02/20/2019 SUBJECTIVE: This patient is resting in bed. He is opening his eyes spontaneously. I believe he tried to see the practitioner when I called his name. He is not following commands. His hypernatremia has been getting worse even though I increased the water boluses yesterday so I will put him on D5W today. His pulmonary edema seems to be better. WBC increased to 19.9. Dr. Murdock has been notified. I have increased the dose of Lantus as well due to his hyperglycemia, which probably will get a little bit worse because of the D5W. OBJECTIVE: Vital Signs: Temperature 97.5 degrees, pulse 90, respiratory rate 30, blood pressure 185/87, and oxygen saturation 98 on the BiPAP machine. HEENT: Head normocephalic. No trauma. PERRLA. Neck: Supple. No JVD. No masses. Central trachea. Chest: Coarse breath sounds bilaterally with diffuse rhonchi and crackles. Abdomen: Soft, nontender, and nondistended. No hepatosplenomegaly. Obese. Extremities: Trace pedal edema. No clubbing. No cyanosis. Increase edema in both arms, but no clubbing or cyanosis in that area either. Neurological: Limited by his mental status. This patient is opening his eyes spontaneously, and also when I called his name. He tried to see the practitioner when I called his name and he is moving his head, but he is not following commands. He withdraws with pain. LABORATORY: WBC 19.9, hemoglobin 11.7, hematocrit 37.5, and platelets 304,000. Sodium 157, potassium 3.5, chloride 108, bicarbonate 36, BUN 63, creatinine 1.5, glucose 279, calcium 9, AST 22, ALT 22, alkaline phosphatase 215, and albumin 3.5. ASSESSMENT AND PLAN: 1. Acute hypoxemic respiratory failure, pneumonia, pulmonary edema. Infectious Disease department has been on board and I contacted Dr. Murdock again because of an increase of the WBC. Chest x-ray looks better for me. Pulmonary edema is getting better. 2. Septic shock secondary to pneumonia resolved. He is not on pressors. 3. Status post cardiac arrest secondary to #1. Aware. We will continue to monitor. This patient's mental status is about the same compared with yesterday. 4. Metabolic encephalopathy, worse for anoxic brain injury. CT scan did not show any acute abnormality. Cardiology on board. 5. Acute kidney injury. He has been receiving multiple rounds of Lasix. His urine output is good. We will continue to monitor for now. 6. Hypernatremia. Yesterday, I increased this patient's free water. Today, I will put her on D5W because the sodium level is increasing. 7. Hypertension. Continue with same management for now. Cardiology Department on board. 8. Uncontrolled type 2 diabetes. I have increased the dose of Lantus from 25 to 35, and we will monitor. 9. Nutritional status. Continue with the NG tube and feeding. 10. Forearm swelling. Ultrasound obtained showed extensive superficial venous thrombosis of the bilateral forearms, already on aspirin. We will continue with low dose of heparin and monitor. 11. Hypokalemia resolved. 12. Normocytic anemia. We will monitor for now. CRITICAL CARE TIME: 35 minutes. cc: Harris Guevara MD
[2019-02-20] MEDS: CATAPRES NG SCH ×3 (08:25→16:14)
[2019-02-20] MEDS: LOPRESSOR PO SCH ×2 (08:25→20:37)
[2019-02-20] MEDS: ASPIRIN PO SCH (08:25)
[2019-02-20] MEDS: MIRALAX PO SCH ×2 (08:26→20:36)
[2019-02-20] MEDS: LANTUS INSULIN SUBQ SCH (08:26)
[2019-02-20] MEDS: APRESOLINE NG SCH ×3 (08:26→16:14)
[2019-02-20] MEDS: ISMO NG SCH ×2 (08:27→20:37)
[2019-02-20] MEDS: ZYVOX 600 MG/D5W 600 MG/300 ML IVPB IV SCH ×2 (08:53→20:36)
[2019-02-20] MEDS: MAXIPIME 2 GM in NS 100 ML IV SCH ×2 (09:11→20:35)
[2019-02-20] MEDS ORDERED: ATROPINE SYRINGE IV ONE (10:32)
[2019-02-20] MEDS: LEVOPHED 8 MG in D5 1/2 NS 250 ML IV SCH (10:35)
--- NOTE | 2019-02-20 11:12 | Diag Imaging Result Doc PS360 ---
EXAM: CHEST-PORTABLE 02/20/2019 HISTORY: ETT placement TECHNIQUE: AP portable at 1102 COMMENT: There is an endotracheal tube with its tip at the thoracic inlet and an NG tube below the diaphragm and a right internal jugular central venous catheter in the superior vena cava. There is ill-defined opacity in the left lower lobe behind the heart and apparent platelike opacity in the right middle lobe. Both are worse than on 02/20/2019 at 0518. IMPRESSION: Left lower lobe pneumonia. Right middle lobe atelectasis. Electronically signed by Abelino Leon 02/20/2019 11:10 AM
[2019-02-20 12:21] LABS: BLOOD TYPE ARTERIAL; SAMPLE BLOOD
[2019-02-20 12:32] LABS: ALLEN TEST YES; BE 15.2 mmoll (-3.0-3.0); HCO3-(ACT) 36.8 mmoll (20.0-26.0); METHB 0.9 % (0.0-1.5); MODALITY VENTILATOR; O2(CT) 12.9 mL/dL (15.0-23.0); O2HB 97.8 % (95.0-99.0); PCO2(98.6) 46 mmHg (35-45); PO2(98.6) 156 mmHg (60-100); SAO2 100.1 % (95.0-100.0); SRATE 16 BPM; THB 9.1 g/dL (11.5-17.4); TVOL 600 mL; pH(98.6) 7.54 (7.35-7.45)
--- NOTE | 2019-02-20 12:49 | PROGRESS NOTE ---
DATE: 02/20/2019 ADDENDUM: I evaluated this patient at the bedside. I was called by the nurses because this patient was having more respiratory distress and bradycardia. Prior to my evaluation, he received a dose of atropine, and it looks like it worked properly. Also, the anesthesiologist was at the bedside and already intubated the patient. This patient was placed on a nonrebreathing mask for half an hour or so, and then he started having bradycardia, low respiratory rate, and hypotension. Then immediately, the anesthesiologist was called, and the atropine was given like I mentioned before. Now, the heart rate, blood pressure, and oxygen saturation looks better. I have notified his son, Mr. Obinna Chavez at [phone]. We will continue with the same management. He has been placed on pressors as well. TIME SPENT: Time with the patient and discussing with the family was around 30 minutes. cc: Harris Guevara MD
--- NOTE | 2019-02-20 13:07 | INFECTIOUS DISEASE PROGRESS NO ---
DATE: 02/20/2019 PRESENT ILLNESS: I had signed off the patient's case. Since signing off, the patient has developed leukocytosis and a low-grade fever. Also yesterday, the patient had a slightly loose stool, but this has all cleared up, and today there is no diarrhea. MEDICATIONS: Currently, the patient is on no antibiotics. PHYSICAL EXAMINATION: Vital Signs: Temperature was 100.4, now it is 97.5, pulse 98, respirations 20, blood pressure 180/70. General: This is a ill-appearing, elderly male. He seems to be delirious. HEENT: No drainage noted from the nose or ears. The patient has a BiPAP mask on. Neck: The patient's neck was not stiff. Lungs: Clear to auscultation. Cardiovascular: Heart rate is regular. Abdomen: Soft and nontender. Neurologic: The patient did not respond to verbal stimuli. His eyes are open and he is staring without moving his eyes. There is no tremor. Integument: The rash the patient had on his arms has largely disappeared. IMAGING AND LABORATORY DATA: Chest x-ray shows improvement in the patient's bilateral pulmonary edema. The patient's CBC shows a white count of 19,930, hemoglobin 11.7, and platelet count of 304,000. The patient's sputum earlier grew normal divya and yeast. Creatinine is 1.5. GFR is 47. Alkaline phosphatase is 215. ASSESSMENT AND PLAN: The patient has leukocytosis and low-grade fever, the exact etiology of which is uncertain to me. My plan is to order blood, urine, and sputum cultures, and pending these results, I have started the patient on cefepime and Zyvox. COMORBIDITIES: The patient is morbidly obese and he is a diabetic. cc: Brian Murdock MD
--- NOTE | 2019-02-20 13:24 | PULMONOLOGY PROGRESS NOTE ---
DATE: 02/20/2019 SUBJECTIVE: The patient has some audible rhonchi. He responds to his voice. He does not follow commands. OBJECTIVE: Vital Signs: Maximum temperature in the last 24 hours 100.3 degrees, current temperature 97.5 degrees, BP 156/66, heart rate 99, respiratory rate 25, oxygen saturation 98%. HEENT, pupils are equal and reactive. Oropharynx appears slightly dry. Neck is supple. Chest reveals scattered rhonchi bilaterally. Cardiac exam S1-S2. Abdomen is obese and soft with good bowel sounds. Extremities reveal generalized edema with some decrease over the last 48 hours. LABORATORIES: Chest x-ray reveals slight decrease in pulmonary edema, white blood count 19.9, hemoglobin 11.7, platelet count 304,000. Chemistry: Sodium 157, potassium 3.5, chloride 108, bicarbonate 36, BUN 63, creatinine 1.5, glucose 238. IMPRESSION: A 63-year-old with: 1. Resolving pneumonia. 2. Diabetes mellitus. 3. Resolving renal failure. 4. Acute hypoxemic respiratory failure. 5. Encephalopathy. 6. Duodenitis seen on original CT scan. 7. Increasing hypernatremia. PLAN: 1. Agree with adding D5W/free water given increasing hypernatremia. 2. Attempt to balance intake and output to keep slightly negative if possible. 3. Continue current antibiotic regimen, being managed by Dr. Brian Murdock. 4. His last CT scan of the abdomen and pelvis was 02/08/2019 and was worrisome for duodenitis. CT scan of the abdomen and pelvis will be repeated today given low-grade fever, increasing leukocytosis, and clearing x-ray. cc: Yury Rodriguez MD
--- NOTE | 2019-02-20 14:08 | PROGRESS NOTE ---
DATE: 02/20/2019 Mr. Chavez remains poorly responsive, intubated, mechanically ventilated. There is not family present (they are attending his having surgery today in [place]) but close family friend at the bedside was able to provide some history that Mr. Chavez did not have baseline cognitive impairment, mental difficulties, other neurologic deficit at baseline. EEG showed generalized slowing and was worrisome for rhythmic coma. During my time at the bedside, he occasionally had spontaneous eye opening with some random conjugate eye movement but there was never clear responsiveness or attempt at communication. Extraocular movements are full with passive head turning. Pupils react to light. Corneal reflexes remain symmetric. Neck is supple. Limb tone is symmetric. Plantar response is silent bilaterally. IMPRESSION: Persistent global encephalopathy, some metabolic problems being addressed. I do not see anything new neurologically. In light of history of baseline neurologic status reported, I think we can still have some hope for recovery but timeframe since his event and EEG findings are negative factors. Thanks for asking Neurology to see Mr. Chavez. cc: MD MARIA DEL ROSARIO Davis III
--- NOTE | 2019-02-20 14:59 | Diag Imaging Result Doc PS360 ---
EXAM: CT HEAD W/O CONTRAST HISTORY: AMS/unresponsive TECHNIQUE: CT head without contrast COMPARISON: 02/17/2019 FINDINGS: No parenchymal hemorrhage. No epidural or subdural hematoma. No subarachnoid hemorrhage. Mild atrophy with chronic microvascular ischemic changes. Old right basal ganglia lacunar infarcts. No mass identified on this noncontrasted exam. No hydrocephalus. No sinus opacification. IMPRESSION: No hemorrhage. No change. This exam was performed using automated exposure control, adjustment of mA or kV according to patient size, and/or use of iterative reconstruction technique. Electronically signed by Alex Denney 02/20/2019 2:57 PM
--- NOTE | 2019-02-20 15:02 | Diag Imaging Result Doc PS360 ---
CT ABD/PELVIS W/ORAL CONT ONLY - 02/20/2019 INDICATION: f/u duodenitis COMPARISON: 02/08/2019 FINDINGS: There is worsening consolidation of both lower lobes with air bronchograms concerning for pneumonia. Heart size remains borderline. The pancreas and duodenum now appear normal. There is no inflammation. No mass or fluid collection. There are a couple of tiny stable nonobstructing left renal stones measuring up to 3 mm. Stratton catheter in the urinary bladder is stable from prior. There is mild worsening body wall edema. Bones are intact. IMPRESSION: 1. Resolution of the duodenitis. 2. Stable small nonobstructing left renal stones. 3. Worsening bilateral lower lobe consolidation concerning for pneumonia. 4. Worsening, mild body wall edema. This exam was performed using automated exposure control, adjustment of mA or kV according to patient size, and/or use of iterative reconstruction technique Electronically signed by Gordy Mayberry 02/20/2019 3:00 PM
--- NOTE | 2019-02-20 17:51 | EEG REPORT ---
DATE: 02/19/2019 EEG NUMBER: [id number]. COMMENT: This is a digitally recorded EEG done portably in the ICU on a 63-year-old patient with persistent poor responsiveness. FINDINGS: There is diffuse theta, mostly rhythmic at 6 hertz, with amplitude varying from very low to mid range symmetrically across the hemispheres. Sustained posterior dominant rhythm is not identified. Occasional slowing into the delta range is present frontally. There was no variation to correlate with drowsing or sleep. Photic stimulation did not alter the record. There was no epileptiform discharge or electrographic seizure. INTERPRETATION: Abnormal electroencephalogram because of generalized slowing. CORRELATION: This is indicative of a diffuse encephalopathy and is nonspecific. Metabolic encephalopathy is still possible, but such "rhythmic coma" patterns are often attributed to anoxic brain injury and carry a poor prognosis. There is no evidence of seizure. cc: Sridevi Ward III, MD MTDD
[2019-02-20] MEDS ORDERED: LASIX IV ONE (20:00)
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
[2019-02-20] MEDS: DULCOLAX PR SCH (20:36)
[2019-02-20] MEDS ORDERED: ATROPINE SYRINGE ONE (20:54)
[2019-02-21] MEDS ORDERED: D5W 1,000 ML IV SCH (02:22)
[2019-02-21] MEDS: HUMULIN R SUBQ SCH ×6 (02:32→21:35)
[2019-02-21] MEDS: ATROVENT NEB INH SCH ×6 (03:10→23:32)
[2019-02-21 04:14] LABS: ALLEN TEST YES; BE 15.4 mmoll (-3.0-3.0); BLOOD TYPE ARTERIAL; HCO3-(ACT) 36.9 mmoll (20.0-26.0); METHB 1.3 % (0.0-1.5); O2(CT) 13.5 mL/dL (15.0-23.0); O2HB 94.8 % (95.0-99.0); PCO2(98.6) 39 mmHg (35-45); PO2(98.6) 71 mmHg (60-100); SAMPLE BLOOD; SAO2 97.3 % (95.0-100.0); SRATE 12 BPM; THB 10.1 g/dL (11.5-17.4); TVOL 600 mL
[2019-02-21 04:15] LABS: MODALITY VENTILATOR
[2019-02-21 04:58] LABS: MAGNESIUM 2.2 mg/dL (1.5-2.7); PHOSPHORUS 3.2 mg/dL (2.7-4.5)
[2019-02-21] MEDS: SODIUM CHLORIDE 0.9% INJ PRN (06:01)
[2019-02-21] MEDS: HEPARIN SUBQ SCH ×3 (06:01→20:17)
[2019-02-21 06:12] LABS: ALB/GLOB RATIO 0.9; ALBUMIN 2.7 g/dL (3.5-5.0); CALCIUM 7.8 mg/dL (8.8-10.2); CREATININE 1.8 mg/dL (0.7-1.2); POTASSIUM 3.3 mmol/L (3.5-5.1); TOTAL BILIRUBIN 0.53 mg/dL (0.20-1.00); TOTAL PROTEIN 5.6 g/dL (6.3-8.3)
[2019-02-21] MEDS: SYNTHROID IV SCH (06:34)
--- NOTE | 2019-02-21 06:37 | Diag Imaging Result Doc PS360 ---
EXAM: CHEST-PORTABLE HISTORY: respiratory failure TECHNIQUE: Portable chest single view COMPARISON: 02/20/2019 FINDINGS: No change in the endotracheal tube, nasogastric tube, or right jugular line. The heart is not enlarged. There is a small to moderate left pleural effusion with basilar atelectasis and or infiltrates. There are smaller infiltrates in the lower right lung. Mild pulmonary edema. IMPRESSION: Mild interval worsening. Electronically signed by Alex Denney 02/21/2019 6:34 AM
[2019-02-21 06:49] LABS: HEMATOCRIT 31.2 % (42.0-52.0); HEMOGLOBIN 9.8 g/dL (14.0-18.0); MCH 28.4 PG (27-31); MCHC 31.4 g/dL (33-37); MCV 90.4 FL (81-99); MPV 10.2 FL (7.4-10.4); RBC 3.45 XMIL (4.7-6.1); RDW 15.1 % (11.5-14.5); WBC 12.88 X1000 (4.8-10.8)
[2019-02-21] MEDS: XOPENEX NEB INH SCH ×3 (07:57→23:32)
[2019-02-21] MEDS ORDERED: POTASSIUM CHLORIDE 20% LIQUID PO ONE (08:19)
[2019-02-21] MEDS: ZANTAC 50 MG in NS 50 ML IV SCH ×2 (09:00→16:40)
[2019-02-21] MEDS: ISMO NG SCH ×2 (09:30→20:17)
[2019-02-21] MEDS: APRESOLINE NG SCH ×3 (09:30→16:41)
[2019-02-21] MEDS: MIRALAX PO SCH ×2 (09:30→20:18)
[2019-02-21] MEDS: ZYVOX 600 MG/D5W 600 MG/300 ML IVPB IV SCH ×2 (09:31→20:12)
[2019-02-21] MEDS: LOPRESSOR PO SCH ×2 (09:31→20:17)
[2019-02-21] MEDS: ASPIRIN PO SCH (09:31)
[2019-02-21] MEDS: CATAPRES NG SCH ×3 (09:32→16:41)
[2019-02-21] MEDS: MAXIPIME 2 GM in NS 100 ML IV SCH ×2 (09:32→20:12)
[2019-02-21] MEDS: LANTUS INSULIN SUBQ SCH (09:33)
[2019-02-21] MEDS: D5W 1,000 ML IV SCH ×3 (09:37→22:34)
--- NOTE | 2019-02-21 10:41 | PROGRESS NOTE ---
DATE: 02/21/2019 Mr. Chavez did seem to open his eyes in response to the noise I made at the bedside today. He turned his head slightly and fixed his gaze on me, but then did not follow me to the other side of the bed. When I called him to me on the other side of the bed, he did turn his head and look in that direction. He did not follow commands to open and close eyes, or gaze left and right. Limb tone remains symmetric. There is some withdrawal in the feet. Extraocular movements are full. Neck is supple. Pupils react to light. Corneal reflexes are brisk. CT without contrast was repeated yesterday and showed no changes. IMPRESSION: Persistent global encephalopathy. The EEG is worrisome for anoxic brain injury. We might repeat EEG later to see if there is some progression to a pattern that would be more typical indication of anoxic injury. I do not have any urgent suggestion today. cc: Sridevi Ward III, MD MTDD
--- NOTE | 2019-02-21 11:30 | PROGRESS NOTE ---
DATE: 02/21/2019 SUBJECTIVE: This patient has been placed again on mechanical ventilation, he is not getting any kind of sedation. He is able to move his head toward the practitioner when I call his name, even when I move from my position, but he is not following commands. Yesterday this patient had an episode of bradycardia, hypotension and a low respiratory rate, like I mentioned before, he has been placed back on mechanical ventilation. Because of his leukocytosis, Infectious Disease Department restarted antibiotics again, creatinine increased from 1.5 to 1.8, likely due to this episode of severe hypotension, now seems to be stable and actually the blood pressure is high, I would restart this patient on his nutrition. OBJECTIVE: Vital Signs: Temperature 100.6 degrees, pulse 84, respiratory rate 16, blood pressure 184/71, oxygen saturation 95% on mechanical ventilation. HEENT: Head normocephalic. No trauma. PERRLA. Neck: Supple. No JVD. No masses. Central trachea. Chest: Coarse breath sounds bilaterally with diffuse rhonchi and crackles mostly at the bases. Abdomen: Soft, protuberant, nontender, nondistended. No hepatosplenomegaly. Obese. Extremities: Trace pedal edema. No clubbing. No cyanosis. Increased edema in both arms, but no clubbing or cyanosis in that area either. Neurological: Limited due to his mental status, this patient is opening his eyes spontaneously and also when I call his name. He tries to see the practitioner when I call his name, even when I move from my position, he tried to look at me. He is not following commands and he withdraws a little bit with pain. LABORATORY DATA: WBC 12.8, hemoglobin 9.8, hematocrit 31.2, platelets 235,000 sodium 145, potassium 3.3, chloride 101, bicarbonate 33, BUN 68, creatinine 1.8, glucose 276, calcium 7.8, albumin 2.7. ASSESSMENT AND PLAN: 1. Acute hypoxemic and hypercarbic respiratory failure, pneumonia, pulmonary edema. Infectious Disease Department has been on board and they have restarted this patient on antibiotics. WBC better compared with yesterday. X-ray looks a bit worse today. I will decrease the rate of the IV fluids, continue with mechanical ventilation. Pulmonary Department on board. 2. Septic shock secondary to pneumonia. Yesterday the patient had an episode of low blood pressure. He was placed on pressors for a little bit, then was stopped. At this moment, his blood pressure is actually high. 3. Status post cardiac arrest secondary to #1, aware. We will continue to monitor. 4. Metabolic encephalopathy worrisome for anoxic brain injury. New CT scan did not show any acute abnormality. Neurology Department on board. He is moving his head, looking at me when I call his name, even when I change positions. Hopefully he will recover, but will need time for that. 5. Acute kidney injury. This patient was getting better but yesterday had an episode of severe hypotension, so the creatinine increased a little bit. We will monitor. 6. Hypernatremia, resolved, but I will continue with D5W a little bit more and I will monitor the blood every 4 hours. 7. Hypertension. Continue with same management for now. Cardiology on board. 8. Uncontrolled type 2 diabetes. Continue with same management. 9. Nutritional status. I have restarted this patient on feeding tube. 10. Forearm swelling. Ultrasound obtain showed extensive superficial venous thrombosis of the bilateral forearms, already on aspirin. We will continue with low dose of aspirin and monitor. 11. Hypokalemia. The potassium is a little bit low at 3.3. I will give him a low dose of potassium through his NG tube. 12. Normocytic anemia. We will monitor for now. 13. Overall, this patient prognosis is guarded, hopefully he will recover from his mental status changes but I am not quite sure about it. We need time for this. In the meantime, we will continue with antibiotics, breathing treatment, mechanical ventilation. This patient is full code. CRITICAL CARE TIME: 45 minutes. Case has been discussed with his son by phone. cc: Harris Guevara MD
--- NOTE | 2019-02-21 19:18 | INFECTIOUS DISEASE PROGRESS NO ---
DATE: 02/21/2019 PRESENT ILLNESS: The patient has a bilateral pneumonia. MEDICATIONS: This is the first day of treatment with Zyvox and cefepime. OBJECTIVE: Vital signs: Temperature is 100 degrees, pulse 77, respirations 21, blood pressure 151/64. Generally this is a somewhat ill-appearing elderly male. Head, eyes, ears, nose and throat: The patient is intubated. He has an orotracheal tube in place and a nasogastric feeding tube in place. Neck: No meningismus. The patient does have a right jugular venous catheter in place. Lungs clear to auscultation.Cardiovascular: Heart rate is regular. Abdomen is soft and not tender. Neurologic: The patient at one time did open his eyes, but closed them in a few seconds. Other than that, he did not respond to verbal stimuli. There was no tremor. Integument: No rash noted. DIAGNOSTIC DATA: Chest x-ray shows bilateral infiltrates. LABORATORY DATA: The patient's CBC today shows a white count of 12,880, hemoglobin 9.8, platelet count 235,000. The patient's blood gases show a pH of 7.6, a pO2 of 71, pCO2 of 39. Creatinine is 1.8. GFR is 38. Stool for Clostridium difficile antigen and toxin is negative. Sputum and blood cultures are pending. ASSESSMENT AND PLAN: 1. The patient appears to have developed pneumonia, and I am going to continue cefepime and Zyvox. I am going to send off for a procalcitonin level as well. 2. Comorbidities: Morbid obesity and diabetes mellitus. cc: Brian Murdock MD
[2019-02-21] MEDS: DULCOLAX PR SCH (20:17)
[2019-02-22] MEDS: ZANTAC 50 MG in NS 50 ML IV SCH ×4 (00:46→23:12)
[2019-02-22] MEDS: ATROVENT NEB INH SCH ×6 (03:26→23:33)
[2019-02-22] MEDS: APRESOLINE IV PRN ×2 (03:28→23:12)
[2019-02-22] MEDS: HUMULIN R SUBQ SCH ×6 (04:17→23:31)
[2019-02-22 04:44] LABS: BLOOD TYPE ARTERIAL; SAMPLE BLOOD
[2019-02-22 04:45] LABS: ALLEN TEST YES; BE 10.5 mmoll (-3.0-3.0); HCO3-(ACT) 33.1 mmoll (20.0-26.0); METHB 1.2 % (0.0-1.5); O2(CT) 20.8 mL/dL (15.0-23.0); O2HB 95.5 % (95.0-99.0); PCO2(98.6) 41 mmHg (35-45); PO2(98.6) 83 mmHg (60-100); SRATE 12 BPM; THB 15.5 g/dL (11.5-17.4); TVOL 600 mL; pH(98.6) 7.53 (7.35-7.45)
[2019-02-22 04:47] LABS: MODALITY VENTILATOR
[2019-02-22] MEDS: SYNTHROID IV SCH (06:05)
[2019-02-22] MEDS: HEPARIN SUBQ SCH ×3 (06:05→21:06)
[2019-02-22 06:20] LABS: HEMATOCRIT 29.6 % (42.0-52.0); HEMOGLOBIN 9.4 g/dL (14.0-18.0); MCH 28.7 PG (27-31); MCHC 31.8 g/dL (33-37); MCV 90.2 FL (81-99); RBC 3.28 XMIL (4.7-6.1); WBC 8.09 X1000 (4.8-10.8)
[2019-02-22 06:54] LABS: POTASSIUM 2.8 mmol/L (3.5-5.1)
[2019-02-22 06:55] LABS: ALB/GLOB RATIO 0.8; ALBUMIN 2.6 g/dL (3.5-5.0); CALCIUM 7.7 mg/dL (8.8-10.2); CREATININE 1.7 mg/dL (0.7-1.2); TOTAL BILIRUBIN 0.53 mg/dL (0.20-1.00); TOTAL PROTEIN 5.7 g/dL (6.3-8.3)
[2019-02-22] MEDS ORDERED: POTASSIUM CHLORIDE 20% LIQUID PO ONE ×2 (07:14→12:00)
--- NOTE | 2019-02-22 07:15 | Diag Imaging Result Doc PS360 ---
EXAM: CHEST-PORTABLE HISTORY: respiratory failure TECHNIQUE: Chest single view COMPARISON: 02/21/2019 FINDINGS: No change in the endotracheal tube or in the right jugular line. The heart is enlarged and there is mild pulmonary edema. This is slightly less prominent than on the prior study. Decrease in the size of the left pleural effusion. There is underlying atelectasis or infiltrates in the lung bases. IMPRESSION: Mild interval improvement. Electronically signed by Alex Denney 02/22/2019 7:13 AM
[2019-02-22] MEDS: XOPENEX NEB INH SCH ×4 (07:52→19:20)
[2019-02-22] MEDS: ZYVOX 600 MG/D5W 600 MG/300 ML IVPB IV SCH ×2 (08:13→21:07)
[2019-02-22] MEDS: LANTUS INSULIN SUBQ SCH (08:14)
[2019-02-22] MEDS: MIRALAX PO SCH ×2 (08:14→21:08)
[2019-02-22] MEDS: APRESOLINE NG SCH ×3 (08:15→16:30)
[2019-02-22] MEDS: ISMO NG SCH ×2 (08:15→21:06)
[2019-02-22] MEDS: ASPIRIN PO SCH (08:15)
[2019-02-22] MEDS: CATAPRES PO SCH ×2 (08:15→21:06)
[2019-02-22] MEDS: LOPRESSOR PO SCH ×2 (08:15→21:08)
[2019-02-22] MEDS: MAXIPIME 2 GM in NS 100 ML IV SCH ×2 (08:16→21:07)
[2019-02-22] MEDS: D5W 1,000 ML IV SCH ×2 (08:23→21:07)
--- NOTE | 2019-02-22 09:54 | PROGRESS NOTE ---
DATE: 02/22/2019 SUBJECTIVE: This patient is still on mechanical ventilation. He is not getting any sedation. Today he is showing some improvement. He is still moving his head toward the practitioner when his name is called. He is able to squeeze my hand, open his mouth and wiggle his toes, so, he is following commands now. Creatinine looks a little bit better compared with yesterday decreased from 1.8 to 1.7. Urine output so far stable, so we will continue with the same management. Sodium level has been in the 140s, mostly between 145 and 147, so I will continue with D5W and I will continue with his tube feeding with water boluses. I also increased his dose of Lantus to 50 daily, we will monitor. OBJECTIVE: Vital Signs: Temperature 98.9 degrees, pulse 73, respiratory rate 14, blood pressure 186/68, oxygen saturation 98 on mechanical ventilation. HEENT: Head normocephalic, no trauma. PERRLA. Neck: Supple. No JVD. No masses. Central trachea. Chest: Coarse breath sounds bilaterally with diffuse rhonchi and crackles mostly at the bases. Abdomen: Soft, protuberant, nontender, nondistended. No hepatosplenomegaly. Obese. Extremities: Trace pedal edema. No clubbing. No cyanosis. Decreased edema in the in both arms, but no clubbing or cyanosis in that area either. Neurological: This patient is on mechanical ventilation, not sedated. He is opening his eyes spontaneously and also when I call his name. He tries to follow with the head the practitioner when I call his name and also he is moving his head spontaneously. He does have cataract and apparently is legally blind. He is following commands today for me and apparently he started following commands yesterday night. He is able to squeeze my hand. He is able to wiggle his toes and open his mouth. I think this is a good progress for this patient. LABORATORY: WBC 8, hemoglobin 9.4, hematocrit 29.6, platelets 193,000. Sodium 144, potassium 2.8, chloride 100, bicarbonate 32, BUN 66, creatinine 1.7, glucose 231, and calcium 7.7. AST 23, ALT 17, alkaline phosphatase 134, albumin 2.6. ASSESSMENT AND PLAN: 1. Acute hypoxemic and hypercarbic respiratory failure, pneumonia, pulmonary edema. This patient has been reintubated. Infectious Disease Department has been on board and we restarted this patient on medications. WBC is normal today. X-ray showed a little bit of improvement compared with yesterday. I will continue with the same management for now. 2. Septic shock secondary to pneumonia. He has been rate reintubated 2 days ago on 02/20/2019. We will continue with the same management. He was placed on pressors, but we stopped it already. His blood pressure actually is high. 3. Status post cardiac arrest secondary to #1, aware. We will continue to monitor. 4. Metabolic encephalopathy. Today this patient is following commands for me. It looks like he is legally blind, but he moves his head toward the practitioner when we called his name. He is able to squeeze my hand, wiggle his toes and open his mouth. Hopefully, he will recover, but we need more time for that. 5. Acute kidney injury. Continue with the same management. Stable compared with yesterday. 6. Hypernatremia. Blood sodium has been mostly in the 140s between 144 and 147 in the past 24 hours. I will continue with D5W and I will continue with his tube feeding with water boluses. 7. Hypertension. I have discontinue his clonidine 3 times a day, he was on 0.1 mg 3 times a day and I have placed this patient on 0.2 mg twice a day, let us see how he does. We will continue to monitor. I will continue with medications as needed. 8. Uncontrolled type 2 diabetes. We will continue with same management. I have increased the dose of his Lantus today to 50. 9. Nutritional status. Continue with tube feeding, continue with same management. 10. Forearm swelling. Ultrasound obtained showed extensive superficial venous thrombosis of the bilateral forearms, already on aspirin. We will continue with the same treatment. 11. Hypokalemia. We will replace the potassium. 12. Normocytic anemia. Will monitor. This patient is still critically sick, but today he is following commands, which is really good. I called the family. They are aware of that. We will continue with the same management for now. CRITICAL CARE TIME: 40 minutes. cc: Harris Guevara MD
[2019-02-22] MEDS: DULCOLAX PR SCH (21:08)
[2019-02-23] MEDS: LABETALOL IV PRN ×2 (01:53→05:42)
[2019-02-23] MEDS: APRESOLINE IV PRN ×2 (02:39→06:19)
[2019-02-23] MEDS: ATROVENT NEB INH SCH ×6 (03:20→23:34)
[2019-02-23 04:27] LABS: ALLEN TEST YES; BE 9.1 mmoll (-3.0-3.0); BLOOD TYPE ARTERIAL; METHB 1.1 % (0.0-1.5); O2(CT) 13.9 mL/dL (15.0-23.0); O2HB 96.7 % (95.0-99.0); PCO2(98.6) 40 mmHg (35-45); PO2(98.6) 107 mmHg (60-100); SAMPLE BLOOD; SRATE 12 BPM; THB 10.1 g/dL (11.5-17.4); TVOL 600 mL; pH(98.6) 7.52 (7.35-7.45)
[2019-02-23 04:28] LABS: MODALITY VENTILATOR
[2019-02-23 04:34] LABS: HEMATOCRIT 31.1 % (42.0-52.0); HEMOGLOBIN 10.1 g/dL (14.0-18.0); MCH 28.8 PG (27-31); MCHC 32.5 g/dL (33-37); MCV 88.6 FL (81-99); MPV 10.8 FL (7.4-10.4); RBC 3.51 XMIL (4.7-6.1); RDW 14.9 % (11.5-14.5); WBC 7.78 X1000 (4.8-10.8)
[2019-02-23] MEDS: HEPARIN SUBQ SCH ×3 (04:49→20:34)
[2019-02-23] MEDS: HUMULIN R SUBQ SCH ×6 (04:50→23:47)
[2019-02-23 05:01] LABS: ALB/GLOB RATIO 0.9; ALBUMIN 2.7 g/dL (3.5-5.0); CALCIUM 7.6 mg/dL (8.8-10.2); CREATININE 1.4 mg/dL (0.7-1.2); POTASSIUM 3.6 mmol/L (3.5-5.1); TOTAL BILIRUBIN 0.48 mg/dL (0.20-1.00); TOTAL PROTEIN 5.8 g/dL (6.3-8.3)
[2019-02-23] MEDS: SYNTHROID IV SCH ×2 (05:49→06:27)
[2019-02-23] MEDS ORDERED: LASIX IV SCH ×2 (08:00→21:00)
--- NOTE | 2019-02-23 08:04 | Diag Imaging Result Doc PS360 ---
EXAM: CHEST-PORTABLE - 02/23/2019 HISTORY: respiratory failure TECHNIQUE: Portable chest COMPARISON: 02/22/2019 FINDINGS: There is an endotracheal tube is tip approximately 8.5 cm above the kerry. There is a nasogastric tube which can be followed to the proximal stomach, although the distal most portion of the tube is not visible on the image. Central venous catheter remains in place. There are ill-defined mild basilar infiltrates or edema which appear to have increased. There is no large pleural effusion or pneumothorax identified. Heart size appears borderline enlarged. IMPRESSION: Ill-defined mild basilar infiltrates or edema, increased from prior. Electronically signed by Harvey Suarez 02/23/2019 8:02 AM
[2019-02-23] MEDS: LANTUS INSULIN SUBQ SCH (08:39)
[2019-02-23] MEDS: ZANTAC 50 MG in NS 50 ML IV SCH ×3 (08:39→23:47)
[2019-02-23] MEDS: LASIX IV SCH ×2 (08:39→20:34)
[2019-02-23] MEDS: ISMO NG SCH ×2 (08:40→20:33)
[2019-02-23] MEDS: MAXIPIME 2 GM in NS 100 ML IV SCH ×2 (08:40→20:33)
[2019-02-23] MEDS: CATAPRES PO SCH ×2 (08:40→20:34)
[2019-02-23] MEDS: ZYVOX 600 MG/D5W 600 MG/300 ML IVPB IV SCH ×2 (08:40→20:33)
[2019-02-23] MEDS: MIRALAX PO SCH ×2 (08:40→20:35)
[2019-02-23] MEDS: APRESOLINE PO SCH ×3 (08:40→20:33)
[2019-02-23] MEDS: ASPIRIN PO SCH (08:40)
[2019-02-23] MEDS: LOPRESSOR PO SCH ×2 (08:40→20:34)
--- NOTE | 2019-02-23 09:24 | PROGRESS NOTE ---
DATE: 02/23/2019 SUBJECTIVE: This patient is still on mechanical ventilation. He is not sedated. He is following commands. He is showing improvement compared with yesterday. He is following commands. BUN and creatinine are getting better, as well as the sodium level, so I will stop the D5W and I will continue only with the feeding tube. He has pulmonary edema that looks a little bit worse compared with yesterday so I will give her a dose of Lasix today in the morning and also in the afternoon. He seems to be doing better. OBJECTIVE: Vital Signs: Temperature 97.4 degrees, pulse 72, respiratory rate 15, blood pressure 198/70, oxygen saturation 97% on mechanical ventilation. HEENT: Head normocephalic. No trauma. PERRLA. Neck: Supple. No JVD. No masses. Central trachea. Chest: Coarse breath sounds bilaterally with diffuse rhonchi and crackles, mostly at the bases. Abdomen: Soft, protuberant, nontender, nondistended. No hepatosplenomegaly. Obese. Extremities: Trace edema. No clubbing. No cyanosis. He also has some edema in both arms but no clubbing or cyanosis in that area either. Neurological Examination: This patient is on mechanical ventilation. He is not sedated. He is opening his eyes spontaneously and also when I call his name. He tries to follow with the head, the practitioner when I call his name, even when I change positions. He has cataracts and apparently he is legally blind. He is following commands today for me again. He is able to squeeze my hand, wiggle his toes, open his mouth, and answer questions with a yes or no. He is not in pain right now. Laboratory: WBCs 7.7, hemoglobin 10.1, hematocrit 31.1, platelets 200,000. Sodium 138, potassium 3.6, chloride 100, bicarbonate 29, BUN 60, creatinine 1.4, glucose 249, calcium 7.6, albumin 2.7. ASSESSMENT AND PLAN: 1. Acute hypoxemic and hypercarbic respiratory failure, pneumonia, pulmonary edema. We will continue with the same treatment for now, same antibiotics. WBC improved. X-ray showed more edema compared with yesterday so I will stop the intravenous fluids and I will give him a couple doses of Lasix today. I will continue managing this patient in the intensive care unit for now. He is intubated. 2. Septic shock secondary to pneumonia. He had been reintubated 3 days ago, on 02/20/2019. We will continue with the same management for now. He had been placed on pressors at the beginning but then stopped after a few minutes due to his improvement of the blood pressure and actually, at this moment, his blood pressure has been high. 3. Status post cardiac arrest secondary to #1. Aware. Continue to monitor. 4. Metabolic encephalopathy. This is getting better. We will continue to monitor. 5. Acute kidney injury. Continues to improve. Better compared with yesterday. We will continue to monitor. 6. Hypernatremia, resolved. I will stop the D5W today and I will continue with nutrition with water boluses. 7. Hypertension. I will adjust the pain medication so he can get a dose of blood pressure medication around 9 p.m. or so. Also, I have increased the dose of hydralazine from 75 to 100. Also, I have ordered a renal Doppler ultrasound to rule out renal arterial stenosis. 8. Uncontrolled type 2 diabetes. For now, we will continue with the same management. I will stop the D5W and hopefully, the blood sugar will drop a little bit. Continue with tube feeding. 9. Nutritional status. Continue with the same management. I will stop the D5W. 10. Forearm swelling. Ultrasound obtained showed extensive superficial venous thrombosis of the bilateral forearms. Already on aspirin. We will continue with the same treatment. 11. Hypokalemia, resolved. 12. Normocytic anemia. We will monitor. 13. This patient seems to be better compared with before. I think the metabolic acidosis is much better as well. He is following commands now. I called the family, his son. I discussed the case with him. We will continue with the same treatment. CRITICAL CARE TIME: 40 minutes. cc: Harris Guevara MD
--- NOTE | 2019-02-23 10:57 | Diag Imaging Result Doc PS360 ---
EXAM: US DUPLEX RENAL ARTY/VEIN LMTD - 02/23/2019 HISTORY: R/O renal artery stenosis TECHNIQUE: Attempted ultrasound duplex renal artery limited COMPARISON: None. FINDINGS: The exam is technically limited due to artifacts from the patient's body habitus and bowel gas and inability of the patient to cooperate with positioning. There is insufficient Doppler data at the right kidney and aorta to evaluate for renal artery stenosis. The left kidney is obscured by artifacts. The right kidney measures 12.9 x 6.5 x 5.6 cm in size. There is no discrete right renal mass, stone, or hydronephrosis. The left kidney is obscured by artifacts. IMPRESSION: Technically indeterminate exam. Electronically signed by Harvey Suarez 02/23/2019 10:55 AM
[2019-02-23] MEDS: XOPENEX NEB INH SCH ×4 (11:35→23:35)
--- NOTE | 2019-02-23 14:23 | INFECTIOUS DISEASE PROGRESS NO ---
DATE: 02/23/2019 PRESENT ILLNESS: The patient has bilateral pneumonia. There may be a component of pulmonary venous congestion as well. MEDICATIONS: This is day 3 of treatment with the combination of cefepime and Zyvox. PHYSICAL EXAMINATION: Vital Signs: Temperature is 97.1 degrees, pulse 66, respirations 15, blood pressure 163/59. General: This is an ill-appearing elderly male. He is in no acute distress. Head/eyes/ears/nose/throat: Patient is intubated. Has an orotracheal tube in place. The patient did open his eyes to verbal stimulation. Neck: No meningismus. Lungs: Clear to auscultation. Cardiovascular: Heart rate is regular. Abdomen: Soft and not tender. Neurologic: The patient as mentioned above did open his eyes to verbal stimuli. He followed request to move his arms and legs. Integument: No rash noted. LAB AND X-RAY: Chest x-ray shows bibasilar infiltrates/edema. Stool for Clostridium difficile toxin and antigen is negative. Alkaline phosphatase is 158. Creatinine is 1.4. GFR is 51. Blood gases show a pH of 7.52, a PO2 of 107, and a PCO2 of 40. CBC shows a white count of 7708, hemoglobin 10.1, and platelet count 200,000. ASSESSMENT AND PLAN: The patient has bilateral pneumonia. My plan is to continue with the current antibiotics, namely cefepime and Zyvox. A procalcitonin level has been ordered the results of which are pending. COMORBIDITIES: The patient is morbidly obese and he has diabetes mellitus. cc: Brian Murdock MD
[2019-02-23] MEDS: DULCOLAX PR SCH (20:35)
[2019-02-24] MEDS: APRESOLINE IV PRN ×4 (01:33→16:06)
[2019-02-24] MEDS: ATROVENT NEB INH SCH ×6 (03:47→23:12)
[2019-02-24 04:43] LABS: ALLEN TEST YES; BE 11.8 mmoll (-3.0-3.0); BLOOD TYPE ARTERIAL; HCO3-(ACT) 34.2 mmoll (20.0-26.0); METHB 1.1 % (0.0-1.5); O2(CT) 10.7 mL/dL (15.0-23.0); O2HB 96.9 % (95.0-99.0); PCO2(98.6) 36 mmHg (35-45); PO2(98.6) 112 mmHg (60-100); SAMPLE BLOOD; SAO2 99.2 % (95.0-100.0); SRATE 12 BPM; THB 7.7 g/dL (11.5-17.4); TVOL 600 mL
[2019-02-24 04:45] LABS: MODALITY VENTILATOR; pH(98.6) 7.59 (7.35-7.45)
[2019-02-24] MEDS: HEPARIN SUBQ SCH ×3 (04:50→20:31)
[2019-02-24] MEDS: HUMULIN R SUBQ SCH ×5 (04:50→21:56)
[2019-02-24] MEDS: LABETALOL IV PRN ×3 (05:04→18:20)
[2019-02-24 05:54] LABS: HEMATOCRIT 29.8 % (42.0-52.0); HEMOGLOBIN 9.6 g/dL (14.0-18.0); MCH 29.4 PG (27-31); MCHC 32.2 g/dL (33-37); MCV 91.1 FL (81-99); MPV 13.3 FL (7.4-10.4); RBC 3.27 XMIL (4.7-6.1); RDW 15.1 % (11.5-14.5); WBC 6.06 X1000 (4.8-10.8)
[2019-02-24 06:08] LABS: ALB/GLOB RATIO 0.9; ALBUMIN 2.7 g/dL (3.5-5.0); CALCIUM 7.8 mg/dL (8.8-10.2); CREATININE 1.3 mg/dL (0.7-1.2); POTASSIUM 3.7 mmol/L (3.5-5.1); TOTAL BILIRUBIN 0.4 mg/dL (0.20-1.00); TOTAL PROTEIN 5.7 g/dL (6.3-8.3)
[2019-02-24] MEDS: SYNTHROID IV SCH (06:15)
--- NOTE | 2019-02-24 06:47 | Diag Imaging Result Doc PS360 ---
EXAM: CHEST-PORTABLE HISTORY: respiratory failure TECHNIQUE: Chest single view COMPARISON: 02/23/2019 FINDINGS: No change in the endotracheal tube, nasogastric tube, or right jugular line. The heart is mildly prominent. There is pulmonary edema as well as a small left pleural effusion. There are infiltrates or atelectasis in the left lung base. The overall appearance is similar to the prior exam. IMPRESSION: No interval improvement. Electronically signed by Alex Denney 02/24/2019 6:44 AM
[2019-02-24] MEDS ORDERED: LASIX IV ONE (07:58)
[2019-02-24] MEDS: XOPENEX NEB INH SCH ×3 (08:10→23:12)
--- NOTE | 2019-02-24 08:21 | PROGRESS NOTE ---
DATE: 02/24/2019 SUBJECTIVE: This patient is still on mechanical ventilation. He is not sedated. He is following commands, and I believe he also understands everything I say. BUN and creatinine are better today. Sodium level stable. Urine output around 1.7 L. Hopefully, we are going to be able to extubate this patient today. OBJECTIVE: Vital Signs: Temperature 98.1 degrees, pulse 70, respiratory rate 13, blood pressure 182/64, oxygen saturation 98 on mechanical ventilation. HEENT: Head normocephalic. No trauma. PERRLA. Neck: Supple. No JVD. No masses. Central trachea. Chest: Coarse breath sounds bilaterally with diffuse rhonchi and crackles, mostly at the bases. Abdomen: Soft, protuberant, nontender, nondistended. No hepatosplenomegaly. Obese. Extremities: Trace edema. No clubbing. No cyanosis. He also has edema in both arms, but no clubbing or cyanosis in that area either. Neurological: This patient is on mechanical ventilation. He is not sedated. He is opening his eyes spontaneously and also when I call his name. He is following commands, and it looks like he understands what I am saying. He has cataracts, and apparently he is legally blind. LABORATORY DATA: WBC 6, hemoglobin 9.6, hematocrit 29.8, platelets 132,000. Sodium 138, potassium 3.7, chloride 99, bicarbonate 29, BUN 52, creatinine 1.3, glucose 188, calcium 7.8, albumin 2.7. ASSESSMENT AND PLAN: 1. Acute hypoxemic and hypercarbic respiratory failure, pneumonia, pulmonary edema. We will continue with the same treatment for now. Continue with antibiotics. White blood cell count improved, and it has been normal for the past 3 days. He was hypernatremic, but after treating this patient with D5W, the sodium level is normal. X-ray looks about the same compared with yesterday, even though we gave him some Lasix. I will give him Lasix today again. His kidney function has been stable, actually getting better. 2. Status post cardiac arrest secondary to #1. Aware. 3. Metabolic encephalopathy. This is much better. 4. Acute kidney injury. Continues to improve. Good urine output. 5. Hypernatremia, resolved. 6. Hypertension. Continue to monitor. His blood pressure is still elevated. I ordered a renal Doppler ultrasound to rule out arterial stenosis, but they could not report it due to bad quality of the study and this patient's body size. 7. Uncontrolled type 2 diabetes. For now, will continue with the same management. Blood sugar seems to be better controlled. 8. Nutritional status. Continue with the same management. I will stop the D5W. He is getting tube feeding. 9. Forearm swelling. Ultrasound obtained and showed extensive superficial venous thrombosis of the bilateral forearms. Already on aspirin. Will continue with the same management. 10. Hypokalemia, resolved. 11. Normocytic anemia. Will monitor. This patient seems to be doing a whole lot better compared with before. His acidosis also has resolved, as well as his metabolic encephalopathy. He is now following commands. He is doing better. Probably, we will try to extubate this patient today. CRITICAL CARE TIME: 40 minutes. cc: Harris Guevara MD
[2019-02-24] MEDS: ZANTAC 50 MG in NS 50 ML IV SCH ×2 (08:39→16:06)
[2019-02-24] MEDS: MAXIPIME 2 GM in NS 100 ML IV SCH ×2 (08:40→20:30)
[2019-02-24] MEDS: ZYVOX 600 MG/D5W 600 MG/300 ML IVPB IV SCH ×2 (08:40→20:30)
[2019-02-24] MEDS: LANTUS INSULIN SUBQ SCH (09:14)
[2019-02-24 10:26] LABS: ALLEN TEST YES; BE 10.9 mmoll (-3.0-3.0); BLOOD TYPE ARTERIAL; HCO3-(ACT) 33.4 mmoll (20.0-26.0); METHB 1.5 % (0.0-1.5); MODALITY VENTILATOR; O2(CT) 13.9 mL/dL (15.0-23.0); O2HB 95.8 % (95.0-99.0); PCO2(98.6) 38 mmHg (35-45); PO2(98.6) 95 mmHg (60-100); SAMPLE BLOOD; SAO2 98.6 % (95.0-100.0); THB 10.2 g/dL (11.5-17.4)
[2019-02-24 10:27] LABS: pH(98.6) 7.56 (7.35-7.45)
--- NOTE | 2019-02-24 11:13 | Diag Imaging Result Doc PS360 ---
EXAM: CHEST-PORTABLE HISTORY: OGT placement TECHNIQUE: Chest abdomen single view COMPARISON: 5:39 AM FINDINGS: There is a catheter overlying the esophagus and stomach. No other definite change. Electronically signed by Alex Denney 02/24/2019 11:10 AM
[2019-02-24] MEDS: CATAPRES PO SCH ×2 (11:32→20:31)
[2019-02-24] MEDS: LOPRESSOR PO SCH ×2 (11:32→20:32)
[2019-02-24] MEDS: ASPIRIN PO SCH (11:32)
[2019-02-24] MEDS: MIRALAX PO SCH ×2 (11:32→21:57)
[2019-02-24] MEDS: APRESOLINE PO SCH ×3 (11:32→20:31)
[2019-02-24] MEDS: ISMO NG SCH ×2 (11:33→20:30)
[2019-02-24] MEDS: 1/2 NS 1,000 ML IV SCH (14:14)
[2019-02-24] MEDS: DULCOLAX PR SCH (20:30)
[2019-02-25] MEDS: HUMULIN R SUBQ SCH ×7 (00:15→23:51)
[2019-02-25] MEDS: 1/2 NS 1,000 ML IV SCH ×3 (00:30→19:39)
[2019-02-25] MEDS: APRESOLINE IV PRN ×5 (00:30→17:28)
[2019-02-25] MEDS: ZANTAC 50 MG in NS 50 ML IV SCH ×4 (00:31→23:51)
[2019-02-25] MEDS: ATROVENT NEB INH SCH ×6 (03:07→23:10)
[2019-02-25 04:42] LABS: BLOOD TYPE ARTERIAL; SAMPLE BLOOD
[2019-02-25 04:43] LABS: ALLEN TEST YES; BE 7.1 mmoll (-3.0-3.0); HCO3-(ACT) 30.5 mmoll (20.0-26.0); METHB 0.6 % (0.0-1.5); MODALITY BI PAP; O2(CT) 13.7 mL/dL (15.0-23.0); PCO2(98.6) 42 mmHg (35-45); PO2(98.6) 156 mmHg (60-100); SAO2 100.6 % (95.0-100.0); THB 9.7 g/dL (11.5-17.4); pH(98.6) 7.48 (7.35-7.45)
[2019-02-25] MEDS: SYNTHROID IV SCH ×2 (05:32→06:06)
[2019-02-25] MEDS: HEPARIN SUBQ SCH ×4 (05:33→22:38)
[2019-02-25 05:46] LABS: HEMATOCRIT 29.7 % (42.0-52.0); HEMOGLOBIN 9.4 g/dL (14.0-18.0); RBC 3.22 XMIL (4.7-6.1); WBC 6.99 X1000 (4.8-10.8)
[2019-02-25 05:47] LABS: MCH 29.2 PG (27-31); MCHC 31.6 g/dL (33-37); MCV 92.2 FL (81-99); MPV 11.9 FL (7.4-10.4); RDW 15.3 % (11.5-14.5)
[2019-02-25 05:55] LABS: AGAP 10; ALBUMIN 2.9 g/dL (3.5-5.0); ALKALINE PHOSPHATASE 146 U/L (32-122); BUN 45 mg/dL (8-22); CALCIUM 7.9 mg/dL (8.8-10.2); CHLORIDE 101 mmol/L (98-107); COSMO 292; CREATININE 1.2 mg/dL (0.7-1.2); ESTIMATED GFR > 60; GLUCOSE 146 mg/dL (70-104); GOT 26 U/L (10-34); GPT 20 U/L (10-44); POTASSIUM 3.7 mmol/L (3.5-5.1); SODIUM 139 mmol/L (136-145); TCO2 28 mmol/L (25-35); TOTAL PROTEIN 5.7 g/dL (6.3-8.3)
[2019-02-25 06:04] LABS: INR 0.94; PROTIME 13.3 Seconds (11.0-16.0)
[2019-02-25 06:05] LABS: MAGNESIUM 2.4 mg/dL (1.5-2.7); PHOSPHORUS 3.4 mg/dL (2.7-4.5); PTT 28.3 Seconds (22.3-41.8)
[2019-02-25] MEDS: MAXIPIME 2 GM in NS 100 ML IV SCH (07:49)
[2019-02-25] MEDS: ZYVOX 600 MG/D5W 600 MG/300 ML IVPB IV SCH (07:49)
--- NOTE | 2019-02-25 07:55 | Diag Imaging Result Doc PS360 ---
EXAM: CHEST-PORTABLE INDICATION: respiratory failure TECHNIQUE: One view COMPARISON: 02/24/2019 FINDINGS: There has been interval extubation. Support tubes and lines are in stable positions, otherwise. Bilateral infiltrates with a basilar predominance most likely representing pulmonary edema is again identified. There appears to have been some improvement on the right during the interval. No new consolidation is identified. Cardiac silhouette is stable. IMPRESSION: Interval slight improvement on the right as described. Electronically signed by Nitin Godwin 02/25/2019 7:53 AM
[2019-02-25] MEDS: LABETALOL IV PRN ×3 (07:58→19:29)
[2019-02-25] MEDS: XOPENEX NEB INH SCH ×3 (08:29→23:00)
[2019-02-25] MEDS: MIRALAX PO SCH ×2 (08:36→20:22)
[2019-02-25] MEDS: CATAPRES PO SCH ×2 (08:47→21:51)
[2019-02-25] MEDS: ASPIRIN PO SCH (08:47)
[2019-02-25] MEDS: LOPRESSOR PO SCH ×2 (08:48→21:51)
[2019-02-25] MEDS: ISMO NG SCH ×2 (08:48→21:51)
[2019-02-25] MEDS: LANTUS INSULIN SUBQ SCH (08:48)
[2019-02-25] MEDS: APRESOLINE NG SCH ×2 (12:04→21:51)
[2019-02-25] MEDS: ALDACTONE PO SCH (12:05)
--- NOTE | 2019-02-25 12:36 | Diag Imaging Result Doc PS360 ---
EXAM: CHEST-PORTABLE INDICATION: NGT placement TECHNIQUE: One view COMPARISON: 02/25/2019 FINDINGS: The newly placed NG tube projects below the diaphragm and is assumed to be in the lumen of the stomach in the expected position. The lung bases are essentially stable as compared to the earlier radiograph. IMPRESSION: NG tube below the diaphragm in the expected position. Electronically signed by Nitin Godwin 02/25/2019 12:34 PM
[2019-02-25] MEDS: DULCOLAX PR SCH (20:22)
--- NOTE | 2019-02-25 21:47 | PROGRESS NOTE ---
DATE: 02/24/2019 Mr. Chavez has been extubated. He has been reported awake, alert, following commands. He has been reported to attempt speech and to say some understandable words. I do not have any new suggestions from neurology standpoint. His recovery is very encouraging. I hope we will see continued improvement. cc: Sridevi Ward III, MD [facility]
[2019-02-25] MEDS: TYLENOL PO PRN (21:51)
[2019-02-26] MEDS: ATROVENT NEB INH SCH ×6 (03:22→23:30)
[2019-02-26] MEDS: HUMULIN R SUBQ SCH ×6 (03:48→23:45)
[2019-02-26 04:22] LABS: ALLEN TEST YES; BE 7.9 mmoll (-3.0-3.0); BLOOD TYPE ARTERIAL; HCO3-(ACT) 31.1 mmoll (20.0-26.0); METHB 1.5 % (0.0-1.5); O2(CT) 13.9 mL/dL (15.0-23.0); O2HB 96.5 % (95.0-99.0); PCO2(98.6) 42 mmHg (35-45); PO2(98.6) 165 mmHg (60-100); SAMPLE BLOOD; SAO2 98.9 % (95.0-100.0); pH(98.6) 7.49 (7.35-7.45)
[2019-02-26 04:23] LABS: MODALITY BI PAP
[2019-02-26] MEDS: HEPARIN SUBQ SCH ×4 (04:38→20:03)
[2019-02-26] MEDS: APRESOLINE NG SCH ×4 (04:38→20:11)
[2019-02-26 04:49] LABS: HEMATOCRIT 29.8 % (42.0-52.0); HEMOGLOBIN 9.4 g/dL (14.0-18.0); MCH 28.6 PG (27-31); MCHC 31.5 g/dL (33-37); MCV 90.6 FL (81-99); MPV 11.6 FL (7.4-10.4); RBC 3.29 XMIL (4.7-6.1); WBC 6.23 X1000 (4.8-10.8)
[2019-02-26 05:08] LABS: AGAP 4; ALB/GLOB RATIO 1.1; ALKALINE PHOSPHATASE 140 U/L (32-122); BUN 36 mg/dL (8-22); CHLORIDE 99 mmol/L (98-107); COSMO 282; ESTIMATED GFR > 60; GLUCOSE 132 mg/dL (70-104); GOT 23 U/L (10-34); GPT 18 U/L (10-44); POTASSIUM 3.9 mmol/L (3.5-5.1); SODIUM 136 mmol/L (136-145); TCO2 33 mmol/L (25-35); TOTAL BILIRUBIN 0.34 mg/dL (0.20-1.00); TOTAL PROTEIN 5.7 g/dL (6.3-8.3)
[2019-02-26] MEDS: 1/2 NS 1,000 ML IV SCH ×4 (06:12→19:58)
[2019-02-26] MEDS: SYNTHROID IV SCH (06:26)
[2019-02-26 06:27] LABS: URINE SOURCE CATH
--- NOTE | 2019-02-26 06:47 | Diag Imaging Result Doc PS360 ---
CHEST-PORTABLE - 02/26/2019 INDICATION: respiratory failure COMPARISON: 02/25/2019 FINDINGS: Stable nasogastric tube and right internal jugular central line in good position. Stable cardiomegaly and pulmonary vascular congestion. There is mild ill-defined retrocardiac infiltrate or atelectasis, stable from prior. No large pleural effusion. IMPRESSION: No change from prior. Electronically signed by Gordy Mayberry 02/26/2019 6:45 AM
[2019-02-26 07:06] LABS: BILIRUBIN URINE NEGATIVE (NEGATIVE); BLOOD URINE MODERATE (NEGATIVE); COLOR YELLOW; GLUCOSE URINE NEGATIVE (NEGATIVE); KETONE URINE NEGATIVE (NEGATIVE); LEUKOCYTES URINE NEGATIVE (NEGATIVE); NITRITE URINE NEGATIVE (NEGATIVE); PH URINE 5.5; PROTEIN URINE 50 mg/dL (NEGATIVE); SP GRAVITY URINE 1.018; TURBIDITY URINE TURBID (CLEAR); UROBILINOGEN URINE NORMAL (NORMAL)
[2019-02-26 07:11] LABS: UR EPITHELIAL CELLS <10 /HPF (<10); URINE BACTERIA NEGATIVE /HPF; URINE RBC TNTC /HPF (<10); URINE WBC <10 /HPF (<10)
[2019-02-26 07:36] LABS: URINE CRYSTALS URIC ACID PRESENT
[2019-02-26] MEDS: XOPENEX NEB INH SCH ×4 (07:50→21:05)
[2019-02-26] MEDS: ALDACTONE PO SCH (08:01)
[2019-02-26] MEDS: ISMO NG SCH ×3 (08:01→20:15)
[2019-02-26] MEDS: LANTUS INSULIN SUBQ SCH (08:01)
[2019-02-26] MEDS: LOPRESSOR PO SCH ×3 (08:01→20:12)
[2019-02-26] MEDS: ASPIRIN PO SCH (08:01)
[2019-02-26] MEDS: ZANTAC 50 MG in NS 50 ML IV SCH ×3 (08:01→23:46)
[2019-02-26] MEDS: CATAPRES PO SCH ×3 (08:03→20:15)
[2019-02-26] MEDS: LASIX IV SCH (08:03)
--- NOTE | 2019-02-26 08:57 | PROVIDER DOCUMENTATION ---
This chart was entered by Tabatha Mary Scribe, acting as scribe for Chris Luke MD. HPI-General Adult - General Chief Complaint: SEPSIS ALERT - P Stated Complaint: STROKE LIKE SX Time Seen by Provider: 02/07/19 19:24 Source: patient, family () Allergies/Adverse Reactions: Patient Allergies Allergy/AdvReac Type Severity Reaction Status Date / Time No Known Allergies Allergy Verified 02/07/19 20:09 Home Medications: Home Medication List Medication Instructions Recorded Confirmed Last Taken Type Gabapentin 800 mg PO TID 02/08/19 02/08/19 Unknown History Glyburide 2.5 mg PO DAILY 02/08/19 02/08/19 Unknown History Levothyroxine [Synthroid] 50 mcg PO DAILY 02/08/19 02/08/19 Unknown History Lisinopril 40 mg PO DAILY 02/08/19 02/08/19 Unknown History Lovastatin 20 mg PO HS 02/08/19 02/08/19 Unknown History Metformin [Glucophage] 1,000 mg PO BID 02/08/19 02/08/19 Unknown History - History of Present Illness -Gen Adult Nature of Presenting Problems: 63yom presents to ED cc extreme weakness and fever since Sunday that increased as week went on as well as SOB today. Pt reports he had an infected tooth pulled yesterday. Pt denies N/V/D. Location of Pain/Injury: reports: generalized Pain Radiation: reports: no radiation Quality of Pain: reports: aching Severity: reports: moderate, severe Onset/Duration: reports: 5 days ago Timing: reports: still present, getting worse Context/Activities at Onset: reports: none Modifying Factors: improves with: nothing Associated Symptoms: reports: fatigue, shortness of breath. denies: diarrhea, nausea, vomiting Similar Symptoms Previously?: No Recently seen or treated by another doctor?: No Review of Systems - Adult - REVIEW OF SYSTEMS - ADULT Constitutional: reports: see HPI, fever, fatique. denies: chills Eyes: reports: no symptoms reported Ears, Nose, Mouth & Throat: reports: no symptoms reported Cardiovascular: reports: no symptoms reported Respiratory: reports: see HPI, shortness of breath. denies: cough Gastrointestinal: reports: see HPI. denies: diarrhea, nausea, vomiting Genitourinary: reports: no symptoms reported Musculoskeletal: reports: no symptoms reported Integumentary: reports: no symptoms reported Neurological: reports: no symptoms reported Psychiatric: reports: no symptoms reported Endocrine: reports: no symptoms reported Hematologic/Lymphatic: reports: no symptoms reported Allergic/Immunologic: reports: no symptoms reported All Other Systems: Reviewed and Negative Past History - Adult - PAST MEDICAL HISTORY-ADULT Review of Records: reports: Nursing Assessment Review, Medications Reviewed, Social history reviewed & non-contributory. Major Childhood Illnesses: reports: denies history Cardiovascular: reports: denies history Respiratory: reports: denies history Gastrointestinal: reports: denies history Obstetrical/Gynecological: reports: denies history Genitourinary: reports: denies history Musculoskeletal: reports: denies history Neurological: reports: denies history Endocrine/Immune: reports: denies history Other Conditions: reports: denies history - IMMUNIZATION STATUS Childhood Immunizations: See Nurse Assessment Flu Vaccine: See Nurse Assessment - FAMILY HISTORY Family History: reviewed, not pertinent - SOCIAL HISTORY Smoking: denies Physical Exam-General - PHYSICAL EXAM-ADULT Initial Vital Signs Reviewed: Yes - CONSTITUTIONAL General Appearance: alert. negative: anxious, combative - EYES Eyes: PERRL/EOMI, pink conjunctivae. negative: photophobia - HEAD, EARS, NOSE, MOUTH & THROAT HENMT: normal ENT inspection, TMs normal, pharynx normal. negative: moist mucous membranes, angioedema - NECK Neck: non-tender, full range of motion, supple, normal inspection. negative: Brudzinski's sign, carotid bruit, C-spine tenderness - RESPIRATORY Respiratory: chest non-tender, lungs clear, normal breath sounds, no pleuratic chest pain, no respiratory distress, no accessory muscle use. negative: crackles, rales, rhonchi - CARDIOVASCULAR Cardiovascular: normal peripheral pulses, no edema, no gallop, no JVD, no murmur , tachycardia. negative: regular rate, rhythm, bradycardia - GASTROINTESTINAL (ABDOMEN) Abdominal Exam: normal bowel sounds, non tender, soft, no organomegaly. negative: rigid, rebound, tenderness - LYMPHATIC Lymphatic: no adenopathy. negative: striations - MUSCULOSKELETAL Back Exam: normal inspection. negative: swelling Extremity: normal range of motion, normal inspection. negative: deformity - SKIN Integumentary: normal color, normal turgor. negative: diaphoresis, jaundice - NEUROLOGIC Neurologic: automobile wrecker II-XII nml as tested, grossly normal, no motor/sensory deficits. negative: facial droop, focal weakness - PSYCHIATRIC Psych/Mental Status: normal mood/affect, normal thought content, normal thought process, oriented x 3. negative: anxious Progress - PLAN OF CARE/RESULTS Progress/Plan/Lab Results: Vital Signs - 8 hr 02/07/19 18:47 02/07/19 19:09 02/07/19 19:22 Temperature 102.9 F H Pulse Rate 116 H 113 H 112 H Respiratory Rate 30 H 31 H 22 Blood Pressure 128/85 135/72 147/73 O2 Sat by Pulse Oximetry 93 L 99 99 Laboratory Results - last 24 hr 02/07/19 02/07/19 02/07/19 19:05 19:05 19:05 WBC 9.26 RBC 5.22 Hgb 15.2 Hct 42.1 MCV 80.7 L MCH 29.1 MCHC 36.1 RDW Std Deviation 13.0 Plt Count 193 MPV 10.7 H Immature Gran % (Auto) 0.3 Neut % (Auto) 81.1 H Lymph % (Auto) 8.9 L [place] % (Auto) 9.5 H Eos % (Auto) 0.0 Baso % (Auto) 0.2 Immature Gran # (Auto) 0.03 Neut # (Auto) 7.51 H Lymph # (Auto) 0.82 L [place] # (Auto) 0.88 H Eos # (Auto) 0.00 Baso # (Auto) 0.02 PT INR PTT (Actin FS) Sodium 129 L Potassium 3.7 Chloride 90 L Carbon Dioxide 23 L Anion Gap 16 BUN 35 H Creatinine 2.3 H Estimated GFR/1.73 m2 29 BUN/Creatinine Ratio 15 Glucose 59 L Calculated Osmolality 265 Calcium 8.1 L Total Bilirubin 0.30 AST 262 H ALT 69 H Alkaline Phosphatase 66 Creatine Kinase 5922 H Troponin T Total Protein 7.2 Albumin 3.9 Globulin 3.0 Albumin/Globulin Ratio 1.0 Plasma Lactate 1.2 02/07/19 02/07/19 19:05 19:05 WBC RBC Hgb Hct MCV MCH MCHC RDW Std Deviation Plt Count MPV Immature Gran % (Auto) Neut % (Auto) Lymph % (Auto) [place] % (Auto) Eos % (Auto) Baso % (Auto) Immature Gran # (Auto) Neut # (Auto) Lymph # (Auto) [place] # (Auto) Eos # (Auto) Baso # (Auto) PT 13.7 INR 1.00 PTT (Actin FS) 31.8 Sodium Potassium Chloride Carbon Dioxide Anion Gap BUN Creatinine Estimated GFR/1.73 m2 BUN/Creatinine Ratio Glucose Calculated Osmolality Calcium Total Bilirubin AST ALT Alkaline Phosphatase Creatine Kinase Troponin T 1.510 H* Total Protein Albumin Globulin Albumin/Globulin Ratio Plasma Lactate Orders Category Date Time Status Cardiac Monitoring DIRECTED Care 02/07/19 18:56 Active IV Insertion ORDERED Care 02/07/19 18:56 Completed Notify MD of + Sepsis Screen NOW Care 02/07/19 18:56 Active Notify Physician ORDERED Care 02/07/19 18:56 Active CHEST-1 VIEW [RAD] Stat Exams 02/07/19 18:56 Completed BLOOD CULTURE [BLDCUL] Stat Lab 02/07/19 19:10 Ordered CBC WITH DIFF [HEME] Stat Lab 02/07/19 19:05 Completed CK PROFILE [SP CHEM] Stat Lab 02/07/19 19:05 Results COMPREHENSIVE METABOLIC PANEL [CHEM] Stat Lab 02/07/19 19:05 Results LACTATE, PLASMA [CHEM] Lab 02/07/19 19:05 Completed LACTATE, PLASMA [CHEM] Lab 02/07/19 22:00 Uncollected LACTATE, PLASMA [CHEM] Lab 02/08/19 01:00 Uncollected PROTIME WITH INR [COAG] Stat Lab 02/07/19 19:05 Completed PTT [COAG] Stat Lab 02/07/19 19:05 Completed TROPONIN T Stat Lab 02/07/19 19:[address] W/POSS RFLX CULT [URINALYSIS] Stat Lab 02/07/19 18:56 Uncollected 0.9% Sodium Chloride Inj [Ns] 1,000 ml Med 02/07/19 19:48 Active IV 999 mls/hr Ketorolac [Toradol] Med 02/07/19 19:48 Discontinued 30 mg IV NOW ONE Oxygen Device Stat Oth 02/07/19 18:56 Active Result Diagrams: 02/26/19 04:00 02/26/19 04:00 - EKG 1 Time of EKG reading by physician:: 20:05 EKG Read and Signed by:: Chris Luke EKG Interpretation (*Must complete 3 of following elements*): Abnormal (possible left atrial enlargement possible anterior infarct, age undetermined) Rate: 108 Rhythm: sinus tachycardia QRS: normal ST Wave: non-specific ST changes (consider lateral ischemia) - XRAY 1 XRAY: Bilateral XRAY Study: Chest Impression: See EMR Report (IMPRESSION: Borderline cardiomegaly. Electronically signed by Gordy Mayberry 02/07/2019 7:35 PM) Departure - Departure Date of Disposition Decision: 02/07/19 Time of Disposition Decision: 21:25 DIAGNOSIS: Pneumonia Qualifiers: Pneumonia type: due to unspecified organism Laterality: unspecified laterality Lung location: unspecified part of lung Qualified Code(s): J18.9 - Pneumonia, unspecified organism Disposition: ADMITTED INPATIENT 09 Certified Medical Emergency: Emergent Condition: Stable - Critical Care Note This patient required my direct & personal management of CC.: No Attestation - Physician/ BLANCA Attestation Patient care was provided by Advanced Practice Provider:: No The physician spent face to face time with patient:: Yes Advanced Practice Provider documentation review:: Supervising physician onsite and consulted in the evaluation and care of this patient. The physician did have a face to face encounter with the patient. This chart was documented by the indicated scribe, (Tabatha Mary Scribepi) and accurately reflects the services I performed and decisions made by me, Chris Luke MD, as attested by the provider's signature.
[2019-02-26] MEDS: MIRALAX PO SCH ×2 (09:08→20:11)
--- NOTE | 2019-02-26 14:33 | PROGRESS NOTE ---
DATE: 02/26/2019 Mr. Chavez was asleep as I approached the bedside. He was easily waked and seemed alert and attentive. He did not communicate with me. He did not speak or follow my commands. He moved each arm, but did not move the feet well. He has good lateral eye movement spontaneously. Facial motility is symmetric. Neck is supple. There is report that he has been awake and alert, speaking and carrying on some conversation earlier. He has been noted to move his arms purposefully, but he has not been moving his legs well. IMPRESSION: I do not have any new suggestion from Neurology standpoint. He seems to be recovering from hypoxic event. I hope he will continue to improve. We need to follow clinically to see about recovery of voluntary movement in the legs. Might need nerve conduction study later. Critical illness polyneuropathy, myopathy would be considerations. Regarding encephalopathy and recovery, time will tell. Thanks for asking Neurology to see Mr. Chavez. cc: Sridevi Ward III, MD MTDD
--- NOTE | 2019-02-26 17:55 | INFECTIOUS DISEASE PROGRESS NO ---
DATE: 02/24/2019 PRESENT ILLNESS: Mr. Chavez is being treated for bilateral pneumonia with a component of pulmonary venous congestion as well. MEDICATIONS: Today is day 4 of treatment with Zyvox 600 mg IV every 12 hours and cefepime 2 g IV every 12 hours. PHYSICAL EXAMINATION: Vital Signs: Temperature is 98.3 pulse rate 73, respiratory rate 20, blood pressure 188/68, O2 saturation is 96% on 40% FiO2 on the Venturi mask. General: This is a critically ill-appearing, elderly, obese gentleman. He is lying in the bed, currently in no acute distress. HEENT: Atraumatic, normocephalic. He has been extubated. There is an orogastric tube in place, which is clamped. Oral mucous membranes are pink and moist. Conjunctivae are pale. Cardiovascular: Heart rate and rhythm are regular. Normal sinus rhythm on the monitor. Respiratory: Lungs sounds have rhonchi and wheezes noted bilaterally. Abdomen: Soft, obese, and nontender. Bowel sounds are active. Neurologic: He is awake, alert and responsive, but nonverbal. He will squeeze with both hands upon request. Will open his eyes and nod his head appropriately. DIAGNOSTIC STUDIES: Today his white count is 6.06, hemoglobin 9.6, platelet count 132,000. This morning on 40% FiO2 on the mechanical ventilator, his pH was 7.56. PCO2 of 38, PO2 of 95, HCO3 of 33.42. Creatinine 1.3, GFR 55, total bilirubin 0.40, AST 26, ALT 21, alkaline phosphatase 151. Chest x-ray today shows pulmonary edema with infiltrates or atelectasis in the left lung base with no interval improvement. Procalcitonin level is 0.22, making it is unlikely that there is a respiratory tract infection. ASSESSMENT AND PLAN: Mr. Chavez is being treated for bilateral pneumonia. Infiltrates may be more edema rather than infection. He is receiving cefepime and Zyvox which we will continue for now. The procalcitonin level makes it unlikely that there is a respiratory tract infection. He has been extubated today and is doing better, so we will continue current course. These plans have been discussed with and recommended by Dr. Murdock. COMORBIDITIES: For Mr. Chavez include he is elderly and obese, with diabetes mellitus and acute kidney injury. Dictated by SARMAD [place] for Brian Murdock MD cc: Brian Murdock MD MTDD
[2019-02-26] MEDS: DULCOLAX PR SCH (20:15)
[2019-02-26] MEDS: D50W SYRINGE IV PRN (21:48)
[2019-02-27] MEDS: 1/2 NS 1,000 ML IV SCH ×3 (01:26→17:05)
[2019-02-27] MEDS: ATROVENT NEB INH SCH ×6 (03:30→23:30)
[2019-02-27] MEDS: HEPARIN SUBQ SCH ×4 (03:50→20:12)
[2019-02-27] MEDS: APRESOLINE NG SCH ×4 (03:50→20:12)
[2019-02-27 04:33] LABS: ALLEN TEST YES; BE 6.7 mmoll (-3.0-3.0); BLOOD TYPE ARTERIAL; HCO3-(ACT) 30.2 mmoll (20.0-26.0); METHB 1.5 % (0.0-1.5); O2(CT) 11.5 mL/dL (15.0-23.0); PCO2(98.6) 39 mmHg (35-45); PO2(98.6) 95 mmHg (60-100); SAMPLE BLOOD; SAO2 98.7 % (95.0-100.0); THB 8.4 g/dL (11.5-17.4)
[2019-02-27 04:40] LABS: MODALITY BI PAP
[2019-02-27] MEDS: HUMULIN R SUBQ SCH ×5 (04:45→20:13)
[2019-02-27] MEDS: LABETALOL IV PRN (05:29)
[2019-02-27] MEDS: SYNTHROID IV SCH ×2 (05:29→06:04)
[2019-02-27 05:40] LABS: HEMATOCRIT 28.5 % (42.0-52.0); HEMOGLOBIN 9.1 g/dL (14.0-18.0); MCH 29.4 PG (27-31); MCHC 31.9 g/dL (33-37); MCV 92.2 FL (81-99); MPV 11.9 FL (7.4-10.4); RBC 3.09 XMIL (4.7-6.1); RDW 15.3 % (11.5-14.5); WBC 5.61 X1000 (4.8-10.8)
[2019-02-27 06:04] LABS: AGAP 8; ALB/GLOB RATIO 0.9; ALBUMIN 2.9 g/dL (3.5-5.0); ALKALINE PHOSPHATASE 142 U/L (32-122); BUN 33 mg/dL (8-22); CHLORIDE 101 mmol/L (98-107); COSMO 281; ESTIMATED GFR > 60; GLUCOSE 106 mg/dL (70-104); GOT 20 U/L (10-34); GPT 18 U/L (10-44); POTASSIUM 3.8 mmol/L (3.5-5.1); SODIUM 137 mmol/L (136-145); TCO2 28 mmol/L (25-35); TOTAL BILIRUBIN 0.26 mg/dL (0.20-1.00)
--- NOTE | 2019-02-27 07:17 | Diag Imaging Result Doc PS360 ---
EXAM: CHEST-PORTABLE HISTORY: respiratory failure TECHNIQUE: Portable chest single view COMPARISON: 02/26/2019 FINDINGS: No change in the right jugular line or in the nasogastric tube. The heart is enlarged. There is a small left pleural effusion and there are infiltrates in the lower left lung. The patient is rotated to the right on the current exam. Mild pulmonary edema. The overall appearance is fairly similar to that of the prior exam. IMPRESSION: Stable chest Electronically signed by Alex Denney 02/27/2019 7:15 AM
[2019-02-27] MEDS: MIRALAX PO SCH ×2 (08:40→20:12)
[2019-02-27] MEDS: ZANTAC 50 MG in NS 50 ML IV SCH ×2 (08:40→17:05)
[2019-02-27] MEDS: ASPIRIN PO SCH (08:40)
[2019-02-27] MEDS: ALDACTONE PO SCH (08:40)
[2019-02-27] MEDS: LASIX IV SCH (08:41)
[2019-02-27] MEDS: ISMO NG SCH ×2 (08:41→20:12)
[2019-02-27] MEDS: CATAPRES PO SCH ×2 (08:41→20:12)
[2019-02-27] MEDS: COREG PO SCH ×2 (08:48→20:12)
[2019-02-27] MEDS ORDERED: LANTUS INSULIN SUBQ SCH (09:00)
[2019-02-27] MEDS: XOPENEX NEB INH SCH ×3 (11:38→21:00)
[2019-02-27] MEDS: D50W SYRINGE IV PRN (15:34)
--- NOTE | 2019-02-27 15:39 | PROGRESS NOTE ---
DATE: 02/27/2019 INTERVAL HISTORY: The patient remains on Ventimask. Very slow improvement in mental status. Remains cooperative and verbal, although has some word-finding difficulty and difficulty getting words out. Appears to have some room to wean oxygen. Urine output remains reasonable. No new complaints. No acute events overnight. REVIEW OF SYSTEMS: A 12-point review of systems normal, except as per interval history. LABS: WBC 5.6, hemoglobin 9.1, hematocrit 28.5, platelets 217. ABG with pH 7.5, pCO2 39, PO2 95 on 40% FiO2. Sodium 137, potassium 3.8, BUN 33, creatinine 1.0, glucose 66-145. Large number of red cells on urinalysis yesterday (discussed with nursing) drawn just after Stratton replacement, likely traumatic placement. No gross hematuria noted since. PHYSICAL EXAMINATION: General: No acute distress. Vital Signs: As above. HEENT: Normocephalic, atraumatic. Nasogastric tube in place on Ventimask. Cardiovascular: Regular rate and rhythm. Stable murmur noted. Pulmonary: A few scattered rhonchi, but largely clear to auscultation now. Abdomen: Soft, nontender, nondistended. Bowel sounds positive. Obese. Extremities: Trace lower extremity edema with 1+ to 2+ edema of left upper extremity, which is unchanged from previous. Peripheral pulses intact. Neurologic: Cranial nerves grossly intact aside from speech. Does have a little bit of aphasia with some slight slurring with word-finding difficulty. The patient with significant global weakness, but able to move all extremities without clear focal deficit. Very poor vision, which is chronic. Psychiatric: Awake, alert, following commands. Oriented to person only, however. ASSESSMENT AND PLAN: 1. Acute hypoxemic hypercarbic respiratory failure, pneumonia, pulmonary edema, monitoring off of antibiotics currently. Continue with diuresis as his kidneys appear to be tolerating it quite well. X-ray without any change really. Does appear to have some room to wean oxygen. Discussed with nursing, and we will try and do that. 2. Status post cardiac arrest secondary to #1. Stable at this point. 3. Metabolic encephalopathy. Speech and thought processes still appear slow, but markedly improved from previous. Continue to monitor. 4. Acute kidney injury, essentially resolved at this point. Good urine output. Continue to monitor. 5. Bilateral upper extremities showed extensive superficial venous thromboses on aspirin. Right arm swelling somewhat improved. Left arm still quite swollen, but essentially stable. If it worsens, we will consider repeat ultrasound to make sure that the superficial clots have not extended into the deep system. 6. Diabetes, hypoglycemia. The patient had been well controlled, but some hypoglycemia overnight. We will decrease Lantus and give glucose as needed. Continue to monitor. 7. Nutritional status: Off of fluids. On tube feeds, but possibly awake enough to begin eating some. We will ask speech to evaluate his ability to swallow safely given aphasia. If he does okay with that, we will start him on some liquids, advance as tolerated. 8. Hypertension. Blood pressure has been extraordinarily difficult to control. Still elevated despite max dose of clonidine, hydralazine, spironolactone, Lasix. We will change metoprolol to Coreg at maximum dose. We will also max out spironolactone. Continue Lasix. Continue isosorbide. Continue to monitor. DISPOSITION: Getting PT, OT, speech therapy to see patient. Continue to wean oxygen as possible. Suspect he will need rehab placement at discharge, but has a way to go for that yet.
[2019-02-27] MEDS: DULCOLAX PR SCH (20:13)
--- NOTE | 2019-02-27 21:53 | INFECTIOUS DISEASE PROGRESS NO ---
DATE: 02/25/2019 PRESENT ILLNESS: The patient has bilateral pulmonary infiltrates. The procalcitonin level is 0.22, which translates into the fact that the pulmonary infiltrates are not due to pneumonia, and in this patient's case, it appears to be due to pulmonary vascular congestion. MEDICATIONS: This is the fifth day of treatment with a combination of cefepime and Zyvox. PHYSICAL EXAMINATION: Vital signs: Temperature 99 degrees, pulse 81, respirations 18, blood pressure 189/72. General: Today the patient is more lethargic than he was yesterday. He is in no acute distress. HEENT: No drainage is noted from the nose or ears. Neck: The patient did not have any pain when passively I moved his head. Lungs: Clear to auscultation. Cardiovascular: Heart rate is regular. Abdomen: Soft and did not appear to be tender. Neurologic: As mentioned above, patient was very lethargic. He occasionally opened his eyes a little bit to verbal stimuli but for the most part, his eyes remained closed. Integument: No rash noted. LABS AND X-RAY: CBC shows a white count of 6990, hemoglobin 9.4, platelet count 233,000. Creatinine is 1.2. GFR is greater than 60. Alkaline phosphatase is 146. Blood gases show a pH of 7.48, PO2 of 156 and PCO2 of 42. Chest x-ray shows improvement in the right side; the left side is the same. Radiologist feels that the infiltrates are due to pulmonary venous congestion rather than pneumonia, and I go along with his diagnosis that the patient mainly now has pulmonary venous congestion and not pneumonia. ASSESSMENT AND PLAN: I think the patient's pneumonia has cleared. He now I think has pulmonary venous congestion. My plan is to discontinue the patient's antibiotics, namely Zyvox and cefepime. I am going to be signing off on the patient's case but I am available to see him on a p.r.n. basis. Patient's comorbidities: He is a diabetic and he is morbidly obese. cc: Brian Murdock MD
[2019-02-27] MEDS: APRESOLINE IV PRN (22:11)
[2019-02-28] MEDS: LABETALOL IV PRN (01:00)
[2019-02-28] MEDS: ZANTAC 50 MG in NS 50 ML IV SCH ×3 (01:00→16:09)
[2019-02-28] MEDS: HUMULIN R SUBQ SCH ×6 (01:14→19:39)
[2019-02-28] MEDS ORDERED: LABETALOL IV ONE (01:50)
[2019-02-28] MEDS: APRESOLINE IV PRN (02:13)
[2019-02-28] MEDS: ATROVENT NEB INH SCH ×6 (03:10→23:12)
[2019-02-28] MEDS: 1/2 NS 1,000 ML IV SCH ×3 (03:31→17:04)
[2019-02-28 05:00] LABS: HEMATOCRIT 28.3 % (42.0-52.0); MCH 29.4 PG (27-31); MCHC 31.8 g/dL (33-37); MCV 92.5 FL (81-99); MPV 11.5 FL (7.4-10.4); RBC 3.06 XMIL (4.7-6.1); RDW 15.6 % (11.5-14.5); WBC 7.41 X1000 (4.8-10.8)
[2019-02-28 05:01] LABS: BLOOD TYPE ARTERIAL; SAMPLE BLOOD
[2019-02-28 05:02] LABS: ALLEN TEST YES; BE 4.9 mmoll (-3.0-3.0); HCO3-(ACT) 28.8 mmoll (20.0-26.0); METHB 1.4 % (0.0-1.5); O2(CT) 14.6 mL/dL (15.0-23.0); O2HB 96.9 % (95.0-99.0); PCO2(98.6) 41 mmHg (35-45); PO2(98.6) 156 mmHg (60-100); SAO2 99.7 % (95.0-100.0); THB 10.5 g/dL (11.5-17.4); pH(98.6) 7.46 (7.35-7.45)
[2019-02-28 05:03] LABS: MODALITY BI PAP
[2019-02-28 05:28] LABS: AGAP 10; ALBUMIN 2.9 g/dL (3.5-5.0); ALKALINE PHOSPHATASE 138 U/L (32-122); BUN 27 mg/dL (8-22); CALCIUM 8.2 mg/dL (8.8-10.2); CHLORIDE 102 mmol/L (98-107); COSMO 283; CREATININE 0.9 mg/dL (0.7-1.2); ESTIMATED GFR > 60; GLUCOSE 96 mg/dL (70-104); GOT 22 U/L (10-34); GPT 17 U/L (10-44); POTASSIUM 3.9 mmol/L (3.5-5.1); SODIUM 139 mmol/L (136-145); TCO2 27 mmol/L (25-35); TOTAL BILIRUBIN 0.29 mg/dL (0.20-1.00); TOTAL PROTEIN 5.9 g/dL (6.3-8.3)
[2019-02-28] MEDS: APRESOLINE NG SCH ×3 (05:52→20:36)
[2019-02-28] MEDS: HEPARIN SUBQ SCH ×3 (05:52→20:36)
[2019-02-28] MEDS: SODIUM CHLORIDE 0.9% INJ PRN (06:33)
[2019-02-28] MEDS: SYNTHROID IV SCH (06:33)
--- NOTE | 2019-02-28 06:41 | Diag Imaging Result Doc PS360 ---
CHEST-PORTABLE - 02/28/2019 INDICATION: respiratory failure COMPARISON: 02/27/2019 FINDINGS: Stable right central line and nasogastric tube in good position. Stable significant cardiomegaly and pulmonary vascular congestion. No infiltrates or edema. No large pleural effusion. IMPRESSION: Severe cardiomegaly and pulmonary vascular congestion. Electronically signed by Gordy Mayberry 02/28/2019 6:39 AM
[2019-02-28] MEDS: XOPENEX NEB INH SCH ×3 (07:46→19:12)
--- NOTE | 2019-02-28 08:02 | PROGRESS NOTE ---
DATE: 02/25/2019 INTERVAL HISTORY: Patient successfully extubated yesterday afternoon. Remains confused but able to follow commands and follows some conversation. No other acute events. No new complaints. REVIEW OF SYSTEMS: Unable to fully explore secondary to patient mental status. LABS: WBC 6.9, hemoglobin 9.4, hematocrit 29,7, platelets 233. ABG with pH 7.48, pCO2 42, PO2 156 on 40% with BiPAP. Complete metabolic panel significant only for BUN 45, creatinine 1.2, glucose 128-146, alkaline phosphatase 146, total protein 5.7, albumin 2.9. IMAGING: Chest x-ray with slight improvement in bilateral infiltrates but largely stable. VITALS: T-max 98.3, pulse 77, respirations 13, blood pressure 182/71, O2 sat 99% on Venturi mask. PHYSICAL EXAMINATION: General: No acute distress. Vital Signs: As above. HEENT: Normocephalic, atraumatic. Moist mucous membranes. No cervical adenopathy. Cardiovascular: Regular rate and rhythm. Right upper sternal border murmur, stable. Pulmonary: Still with some course breath sounds and scattered rhonchi, but improved from previous. Abdomen: Soft, nontender, nondistended. Bowel sounds decreased by present. Extremities: Peripheral pulses intact. Mild edema bilateral upper extremities, stable. Trace edema bilateral lower extremities. Neurologic: Cranial nerves grossly intact. Some global weakness but no focal deficits. Psychiatric: Awake, alert, but oriented to person only. Does cooperate intermittently but only some. Answers to questions are appropriate. Skin: No new rashes or lesions identified. ASSESSMENT AND PLAN: 1. Acute hypoxemic and hypercapnic respiratory failure, pneumonia, pulmonary edema. Continue with antibiotics and diuretics. I have been dosing diuretics on a day-to-day basis. Starting some spironolactone for his blood pressure today. Will see what that does. Consider adding additional Lasix tomorrow if need be. 2. Status post cardiac arrest, stable. 3. Metabolic encephalopathy. Still some confusion but markedly improved from previous. Continue to monitor. 4. Acute kidney injury. Continues to improve. Urine output reasonable. May be approaching baseline at this point. 5. Hypernatremia, resolved. Monitor fluids. 6. Hypertension. Blood pressure remains markedly elevated. Will start some spironolactone and monitor. 7. Diabetes mellitus. Reasonable sugar controls so far. Continue to monitor. 8. Nutritional status. Continuing on two feeds but I see he is waking up some, may be able to do a swallow study and start him on some clears in the near future. 9. Bilateral upper extremity superficial venous thromboses. Continue aspirin and monitor. 10.Hypokalemia, stable. Monitor. 11.Anemia, stable. Monitor.
[2019-02-28] MEDS: LASIX IV SCH (08:42)
[2019-02-28] MEDS: LANTUS INSULIN SUBQ SCH (08:42)
[2019-02-28] MEDS: MIRALAX PO SCH ×2 (08:43→20:36)
[2019-02-28] MEDS: COREG PO SCH ×2 (08:43→20:36)
[2019-02-28] MEDS: ISMO NG SCH ×2 (08:43→20:36)
[2019-02-28] MEDS: ASPIRIN PO SCH (08:43)
[2019-02-28] MEDS: CARDENE 40 MG/NS 40 MG/200 ML PIGGYBACK IV SCH ×2 (08:43→17:07)
[2019-02-28] MEDS: CATAPRES PO SCH ×2 (08:43→20:36)
[2019-02-28] MEDS: ALDACTONE PO SCH (08:43)
--- NOTE | 2019-02-28 18:26 | PROGRESS NOTE ---
DATE: 02/28/2019 INTERVAL HISTORY: The patient's oxygen weaned down to nasal cannula. Mental status approximately stable. Remains cooperative and verbal with some word-finding difficulty. Blood pressure markedly and consistently elevated overnight. No other acute events. No new complaints. REVIEW OF SYSTEMS: Twelve point review of systems negative except as per interval history. LABS: WBCs 7.4, hemoglobin 9, hematocrit 28.3, platelets 240,000. Sodium 139, potassium 3.9, BUN 27, creatinine 0.9, calcium 8.2, albumin 2.9, prealbumin 25.8. Chest x-ray essentially stable cardiomegaly and pulmonary vascular congestion. VITALS: T-max 99.0, pulse 76, respirations 16, blood pressure 169/73 up to 238/83, O2 saturation 97% on high-flow nasal cannula. PHYSICAL EXAMINATION: General: No acute distress. Vitals: As above. HEENT: Normocephalic, atraumatic. Nasogastric tube remains in place, on nasal cannula oxygen. Cardiovascular: Regular rate and rhythm. Stable right upper sternal border murmur. Pulmonary: Remains largely clear with only a few scattered rhonchi. Abdomen: Soft, nontender, nondistended. Bowel sounds positive. Obese. Extremities: There is 2+ lower extremity edema bilaterally, slightly improved edema of the left upper extremity. Peripheral pulses intact. Neurologic: Cranial nerves grossly intact aside from some word-finding difficulty and chronic poor vision. 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 Significant global weakness but able to move all extremities. No clear focal motor deficit. Psychiatric: Awake, alert, cooperative. Following commands. Requires repeated questioning sometimes but appears to be oriented to person and place but not time. ASSESSMENT AND PLAN: 1. Acute hypoxemic and hypercarbic respiratory failure, pneumonia, pulmonary edema. Monitoring off all antibiotics, appears to be doing okay so far. Has continued on diuresis with his kidneys appearing to tolerate it but little improvement in chest x-ray and some increase in bilateral leg edema today. We will try increasing Lasix to twice a day and see if we can improve diuresis. 2. Metabolic encephalopathy. Speech and thought process still appear slow but markedly improved from previous. Initially thought to be related to infection but may also have a component of hypoxic brain injury that may or may not improve. Continue to monitor. Neurology has evaluated the patient and has further recommendations. 3. Acute kidney injury, severe at one point but essentially resolved for the last several days. Good urine output. Continue to monitor in the setting of more aggressive diuresis. 4. Bilateral upper extremity superficial venous thromboses. Continue on aspirin. Right arm swelling much improved. Left arm swelling beginning to improve. If it worsens again, we will consider repeating an ultrasound but appears to be stable to improving for now. 5. Diabetes, hypoglycemia. The patient was well-controlled for quite some time but had some hypoglycemia a couple days ago. Lantus decreased and no further glenn hypoglycemia but still riding generally in the 90s and some in the 80s. We will further decrease Lasix and monitor. 6. Nutritional status, off fluids, on tube feeds. Waking up enough to begin eating but given aphasia and speech difficulties, we will ask for speech therapy to evaluate his ability to swallow prior to feeding him any significant amount. 7. Hypertension. Blood pressure has been difficult to control the whole time he has been here but markedly elevated overnight. Already on max doses of clonidine, hydralazine, Coreg, and isosorbide. Also on a fair dose of Lasix and spironolactone. Has had as-needed labetalol and hydralazine, and remains markedly elevated, up to 240 overnight. Given lack of other options, we will start him on a Cardene drip for accelerated hypertension. Ultrasound was obtained which was technically limited but did not show any clear evidence of renal artery stenosis. No tachycardia, diaphoresis, or other sign to suggest a pheochromocytoma but we will go ahead and check plasma free metanephrines. Similarly, little to suggest hyperthyroidism. TSH just a little over a week ago was actually slightly high but we will repeat that as well. 8. Anemia of chronic disease, largely stable.
[2019-02-28] MEDS: DULCOLAX PR SCH (20:36)
[2019-02-28] MEDS ORDERED: LASIX IV SCH (21:00)
--- NOTE | 2019-02-28 22:23 | PULMONOLOGY PROGRESS NOTE ---
DATE: 02/28/2019 SUBJECTIVE: The patient is awake and alert. He does interact with the examiner, but has a component of psychomotor retardation. OBJECTIVE: Vital Signs: BP 174/71, heart rate 77, respiratory rate 17, oxygen saturation 96%. HEENT: Pupils are equal. Oropharynx appears clear. Neck: Supple. Chest: Reveals crackles bilaterally. Cardiac exam: Distant heart sounds. Normal S1, normal S2. Abdomen: Obese and soft with positive bowel sounds. Extremities: Reveal decreased peripheral edema compared to my prior evaluation. LABORATORIES: Arterial blood gas on BiPAP reveals a pH 7.46, pCO2 of 41, pO2 of 156. White blood count 7.41, hemoglobin 9.0, platelet count 240,000. Chest x-ray reveals cardiomegaly with pulmonary vascular congestion. IMPRESSION: A 63-year-old with: 1. Respiratory failure requiring 2 intubations during this hospitalization. 2. Encephalopathy which appears to be improving. 3. Diabetes mellitus. 4. Hypertension. 5. Status post cardiopulmonary arrest. PLAN: 1. Continue tube feeds and advance diet as tolerated. 2. Agree with diuretics as initiated by Dr. Mccormick. 3. Recommend decreasing IV fluids. 4. Continue antihypertensive. 5. Agree with physical therapy. cc: Yury Rodriguez MD
[2019-03-01] MEDS: CARDENE 40 MG/NS 40 MG/200 ML PIGGYBACK IV SCH ×2 (00:28→08:08)
[2019-03-01] MEDS: HUMULIN R SUBQ SCH ×6 (00:30→20:02)
[2019-03-01] MEDS: ZANTAC 50 MG in NS 50 ML IV SCH (01:49)
[2019-03-01] MEDS: ATROVENT NEB INH SCH ×6 (03:40→23:22)
[2019-03-01 04:33] LABS: ALLEN TEST YES; BE 6.4 mmoll (-3.0-3.0); BLOOD TYPE ARTERIAL; HCO3-(ACT) 29.9 mmoll (20.0-26.0); METHB 0.8 % (0.0-1.5); O2(CT) 12.8 mL/dL (15.0-23.0); O2HB 96.8 % (95.0-99.0); PCO2(98.6) 41 mmHg (35-45); PO2(98.6) 86 mmHg (60-100); SAMPLE BLOOD; SAO2 98.9 % (95.0-100.0); THB 9.3 g/dL (11.5-17.4); pH(98.6) 7.48 (7.35-7.45)
[2019-03-01 04:35] LABS: MODALITY BI PAP
[2019-03-01 05:56] LABS: HEMATOCRIT 29.1 % (42.0-52.0); HEMOGLOBIN 9.2 g/dL (14.0-18.0); MCH 29.4 PG (27-31); MCHC 31.6 g/dL (33-37); MPV 12.5 FL (7.4-10.4); RBC 3.13 XMIL (4.7-6.1); WBC 6.47 X1000 (4.8-10.8)
[2019-03-01] MEDS: HEPARIN SUBQ SCH ×3 (06:04→20:02)
[2019-03-01] MEDS: SODIUM CHLORIDE 0.9% INJ PRN (06:04)
[2019-03-01] MEDS: APRESOLINE NG SCH ×3 (06:05→20:01)
[2019-03-01] MEDS: SYNTHROID IV SCH (06:05)
[2019-03-01] MEDS: 1/2 NS 1,000 ML IV SCH (06:08)
[2019-03-01 06:29] LABS: AGAP 8; ALB/GLOB RATIO 1.1; ALKALINE PHOSPHATASE 139 U/L (32-122); BUN 26 mg/dL (8-22); CALCIUM 8.5 mg/dL (8.8-10.2); CHLORIDE 102 mmol/L (98-107); COSMO 283; CREATININE 0.9 mg/dL (0.7-1.2); ESTIMATED GFR > 60; GLUCOSE 136 mg/dL (70-104); GOT 18 U/L (10-34); GPT 14 U/L (10-44); POTASSIUM 4.3 mmol/L (3.5-5.1); SODIUM 138 mmol/L (136-145); TCO2 28 mmol/L (25-35); TOTAL BILIRUBIN 0.33 mg/dL (0.20-1.00); TOTAL PROTEIN 5.8 g/dL (6.3-8.3)
--- NOTE | 2019-03-01 07:11 | Diag Imaging Result Doc PS360 ---
EXAM: CHEST-PORTABLE HISTORY: respiratory failure/NGT placement confimation TECHNIQUE: Chest single view COMPARISON: 02/28/2019 FINDINGS: Nasogastric tube overlies the esophagus. It appears to enter the stomach although the technique renders the distal portion obscured. No change in the right jugular line. Heart is enlarged. There is pulmonary edema. Small left pleural effusion. IMPRESSION: No significant interval improvement. Chest abdomen single view recommended for nasogastric tube positioning. Electronically signed by Alex Denney 03/01/2019 7:09 AM
[2019-03-01] MEDS: XOPENEX NEB INH SCH ×3 (08:01→19:35)
[2019-03-01] MEDS: ZANTAC LIQUID NG SCH ×2 (08:25→20:02)
[2019-03-01] MEDS: LANTUS INSULIN SUBQ SCH (08:26)
[2019-03-01] MEDS: ASPIRIN PO SCH (08:26)
[2019-03-01] MEDS: MIRALAX PO SCH ×2 (08:26→20:02)
[2019-03-01] MEDS: LASIX IV SCH ×3 (08:26→20:01)
[2019-03-01] MEDS: CATAPRES PO SCH ×2 (08:26→20:02)
[2019-03-01] MEDS: ALDACTONE PO SCH (08:26)
[2019-03-01] MEDS: ISMO NG SCH ×2 (08:27→20:02)
[2019-03-01] MEDS: COREG PO SCH ×2 (08:27→20:02)
--- NOTE | 2019-03-01 08:31 | PROGRESS NOTE ---
DATE: 03/01/2019 INTERVAL HISTORY: No acute overnight events. SUBJECTIVE: Patient is alert. He is able to tell me his name. He is able to follow simple commands, however, intermittently speaks something which I could not comprehend. He denies any complaints as such. VITALS: Temperature of 98.3, pulse 87, respiratory rate 18, blood pressure 190/73, and saturating 90 to 94 percent on 75% high-flow nasal cannula. PHYSICAL EXAMINATION: Appears morbidly obese not in any acute distress. Oral cavity is moist. He has decreased air entry bilateral inframammary region. No wheeze or rhonchi. Bilateral inframammary crackles. S1, S2 normal. No murmur, rub, or gallop. Abdomen is soft and nontender. He has anasarca. He has nasogastric tube right-sided neck central line, and urine catheter. Input and output suggests he put out 2.2 L urine yesterday. However, he is still net positive. He had one liquid bowel movement. LABORATORY: Labs suggestive of normocytic anemia, normal platelet count what appears to be slightly metabolic alkalosis. He does have elevated BUN, but otherwise normal kidney function since last 3 or 4 days. His blood sugars have been in acceptable range. He has chronically elevated alkaline phosphatase which is present since about 20 days now, which could be because of prolonged immobility. No new microbiological data. IMAGING: Chest x-ray performed suggests no significant interval improvement. ASSESSMENT AND PLAN: 1. Acute hypoxic hypercarbic respiratory failure, pneumonia, bilateral pulmonary edema, cardiorespiratory arrest requiring intubation twice. Continue oxygenation through nasal cannula as tolerated. Increase Lasix dosing, and follow up Pulmonology recommendation about stopping intravenous fluids. 2. Acute encephalopathy likely metabolic with critical illness as well as suspicion of anoxic brain injury sustained during episode of intubation as well as cardiorespiratory arrest. Neurology has been following the patient. His current mental status is alert and following simple commands without engaging into meaningful conversation for a long time. 3. History of [id number] diabetes mellitus with episodes of hypoglycemia during this hospital admission. Continue current dose of Lantus and sliding scale as tolerated. 4. Hypertensive urgency. Continue maximum doses of clonidine hydralazine, carvedilol, isosorbide, spironolactone, and increase the dose of Lasix. Continue intravenous nicardipine drip. I will consider KRISTYN inhibitors if his kidney function is normal or minoxidil, Workup for pheochromocytoma is in lab. 6. Others: Increase levothyroxine dose for hypothyroidism. Continue aspirin for bilateral upper extremity superficial venous thrombosis; nasogastric tube feeding for nutrition: Frequent speech evaluation to assess swallowing function; anemia of chronic disease stable. 7. Disposition: I will continue to monitor patient in ICU for his hypertensive urgency requiring nicardipine drip and hypoxic respiratory failure. TIME SPENT: More than 30 minutes of critical care time was spent in taking care of this patient. I called patient's to update her about patient's clinical course and left her a voice message. cc: Andrew Zimmerman MD MTDD
[2019-03-01] MEDS: APRESOLINE IV PRN (16:38)
--- NOTE | 2019-03-01 17:36 | PULMONOLOGY PROGRESS NOTE ---
DATE: 03/01/2019 SUBJECTIVE: Patient was sleeping upon arrival. He takes a little time to arouse to orient, but does answer questions slowly. OBJECTIVE: Vital Signs: The patient has been afebrile for the last 24 hours. Blood pressure 179/75, heart rate 86, respiratory rate 16, oxygen saturation 96% on high-flow nasal cannula. HEENT: Pupils are equal and reactive. Oropharynx is clear. Neck: Supple. Chest: Reveals shallow inspiration bilaterally with crackles in the lung bases. Cardiac: S1 and S2. Abdomen: Obese and soft. Extremities: Without edema. LABORATORIES: Chest x-ray reveals no change. White blood count 6.47, hemoglobin 9.2, platelet count 196,000. Sodium 138, potassium 4.3, chloride 102, bicarbonate 28, BUN 26, creatinine 0.9. IMPRESSION: A 63-year-old with 1. Respiratory failure requiring 2 intubations during this hospitalization. 2. Encephalopathy with improvement following cardiopulmonary arrest. 3. Cardiopulmonary arrest. 4. Diabetes mellitus. 5. Hypertension. PLAN: 1. Continue to advance diet as tolerated. I agree with diuretic trial as initiated by Dr. Zimmerman. 2. Continue antihypertensive medications. 3. Continue physical therapy. 4. Overall prognosis appears to be guarded, but improving. cc: Yury Rodriguez MD
[2019-03-01] MEDS: DULCOLAX PR SCH (20:02)
[2019-03-02] MEDS: HUMULIN R SUBQ SCH ×6 (00:24→21:25)
[2019-03-02] MEDS: APRESOLINE IV PRN (00:46)
[2019-03-02] MEDS: LASIX IV SCH ×2 (00:47→07:54)
[2019-03-02] MEDS: LABETALOL IV PRN (01:50)
[2019-03-02] MEDS: ATROVENT NEB INH SCH ×3 (03:02→12:03)
[2019-03-02 04:20] LABS: ALLEN TEST YES; BLOOD TYPE ARTERIAL; METHB 0.8 % (0.0-1.5); O2(CT) 16.9 mL/dL (15.0-23.0); O2HB 91.9 % (95.0-99.0); PCO2(98.6) 45 mmHg (35-45); PO2(98.6) 58 mmHg (60-100); SAMPLE BLOOD; SAO2 94.2 % (95.0-100.0); THB 13.1 g/dL (11.5-17.4); pH(98.6) 7.47 (7.35-7.45)
[2019-03-02 04:30] LABS: MODALITY HIGH FLOW NASAL CAN
[2019-03-02] MEDS: HEPARIN SUBQ SCH ×3 (05:52→21:14)
[2019-03-02] MEDS: APRESOLINE NG SCH ×3 (05:52→21:14)
[2019-03-02] MEDS: CARDENE 40 MG/NS 40 MG/200 ML PIGGYBACK IV SCH ×4 (05:56→17:15)
[2019-03-02] MEDS: SYNTHROID NG SCH (06:00)
[2019-03-02 06:42] LABS: HEMATOCRIT 29.6 % (42.0-52.0); HEMOGLOBIN 9.4 g/dL (14.0-18.0); MCH 29.6 PG (27-31); MCHC 31.8 g/dL (33-37); MCV 93.1 FL (81-99); MPV 12.6 FL (7.4-10.4); RBC 3.18 XMIL (4.7-6.1); RDW 16.3 % (11.5-14.5); WBC 6.97 X1000 (4.8-10.8)
[2019-03-02 07:07] LABS: AGAP 11; ALBUMIN 3.1 g/dL (3.5-5.0); ALKALINE PHOSPHATASE 148 U/L (32-122); BUN 28 mg/dL (8-22); CALCIUM 8.4 mg/dL (8.8-10.2); CHLORIDE 99 mmol/L (98-107); COSMO 286; CREATININE 0.9 mg/dL (0.7-1.2); ESTIMATED GFR > 60; GLUCOSE 144 mg/dL (70-104); GOT 17 U/L (10-34); GPT 14 U/L (10-44); POTASSIUM 4.1 mmol/L (3.5-5.1); SODIUM 139 mmol/L (136-145); TCO2 29 mmol/L (25-35); TOTAL PROTEIN 6.2 g/dL (6.3-8.3)
[2019-03-02] MEDS: XOPENEX NEB INH SCH (07:45)
[2019-03-02] MEDS: CATAPRES PO SCH ×2 (08:01→21:14)
[2019-03-02] MEDS: ASPIRIN PO SCH (08:01)
[2019-03-02] MEDS: COREG PO SCH ×2 (08:01→21:14)
[2019-03-02] MEDS: ALDACTONE PO SCH (08:02)
[2019-03-02] MEDS: MIRALAX PO SCH ×2 (08:02→21:15)
[2019-03-02] MEDS: LANTUS INSULIN SUBQ SCH (08:03)
[2019-03-02] MEDS: ISMO NG SCH ×2 (08:20→21:14)
--- NOTE | 2019-03-02 08:32 | Diag Imaging Result Doc PS360 ---
EXAM: CHEST-PORTABLE - 03/02/2019 HISTORY: respiratory failure/NGT placement confirmation TECHNIQUE: Portable chest COMPARISON: 02/27/2019 FINDINGS: There is complete opacification of the left hemithorax. The right lung appears essentially clear. There is no pneumothorax identified. Central venous catheter remains in place. There is a nasogastric tube present which is partially obscured by overlying EKG wires. The nasogastric tube appears to extend to at least the distal esophagus, but the distal end of the tube is not visible on the image. IMPRESSION: Development of complete opacification of left hemithorax. The nasogastric tube can be followed to the distal esophagus, but the tip of the tube is not discretely visible on the image. If clinically indicated, dedicated nasogastric tube placement radiograph is recommended. Electronically signed by Harvey Suarez 03/02/2019 8:29 AM
[2019-03-02] MEDS: ZANTAC LIQUID NG SCH ×2 (09:00→21:25)
--- NOTE | 2019-03-02 10:32 | Diag Imaging Result Doc PS360 ---
EXAM: KUB ABDOMEN - 03/02/2019 HISTORY: ngt placement TECHNIQUE: Portable exam for nasogastric tube placement COMPARISON: Prior 03/02/2019 portable chest FINDINGS: The tip of the nasogastric tube is at the expected location of the mid stomach. There has been apparent improvement in aeration at the upper left chest compared to prior. The lower left chest remains opacified. IMPRESSION: Nasogastric tube extending to mid stomach. Electronically signed by Harvey Suarez 03/02/2019 10:30 AM
--- NOTE | 2019-03-02 13:25 | PROGRESS NOTE ---
DATE: 03/02/2019 SUBJECTIVE: The patient states he is feeling okay. Denies any chest pains or palpitations currently. OBJECTIVE: Vital Signs: He is afebrile, pulse 79, respiratory rate 30, BP 184/68. General: The patient is lying in the bed. He does answer questions appropriately. HEENT: Normocephalic. Neck: Supple. Cardiovascular: Regular rate. No appreciable murmurs. Chest: Decreased breath sounds bilaterally. No current wheezing. No current crackles. Abdomen: Soft, nondistended. Extremities: Moves all extremities. Does have edema, although appears better than yesterday. ASSESSMENT: 1. Acute hypoxic and hypercapnic respiratory failure. 2. Pneumonia. 3. Bilateral pulmonary edema. 4. Cardiorespiratory arrest requiring intubation, although currently is extubated. 5. Acute metabolic encephalopathy due to critical illness and hypoxia, appears to be improving. 6. Insulin-dependent diabetes. 7. Hypertension. PLAN: Will continue the patient in the hospital ICU. Continue high-flow oxygen. Continue symptomatic care. Further orders as needed. cc: Laci Gonzalez MD
--- NOTE | 2019-03-02 14:16 | PULMONOLOGY PROGRESS NOTE ---
DATE: 03/02/2019 SUBJECTIVE: The patient is asleep. He requires a significant amount of stimulation, but he then does wake up. He responds to questions, but there is a component of psychomotor retardation. He has a poor cough effort. OBJECTIVE: Vital Signs: The patient has been afebrile for the last 24 hours. Blood pressure 153/60, heart rate 67, respiratory rate 14, oxygen saturation 92% on high-flow nasal cannula. HEENT: Pupils are equal and reactive. Oropharynx appears clear. Neck: Supple. Chest: Reveals diminished breath sounds in the left hemithorax. Cardiac exam: S1, S2. Abdomen: Soft without hepatosplenomegaly. Extremities: Without edema. LABORATORIES: Arterial blood gas reveals a pH 7.47, pCO2 of 45, pO2 of 58. Chest x-ray reveals atelectasis of the left lung. Subsequent KUB reveals partial reexpansion of the left lung with a nasogastric tube in good position. Chemistry: Sodium 139, potassium 4.1, chloride 99, bicarbonate 29, BUN 28, creatinine 0.9. White blood count 6.97, hemoglobin 9.4, platelet count 204,000. IMPRESSION: A 63-year-old with: 1. Atelectasis of the left lung due to poor cough effort. 2. Respiratory failure with 2 intubations and subsequent 2 extubations. 3. Encephalopathy with marginal improvement over the last 7 days. 4. Status post cardiopulmonary arrest. 5. Diabetes mellitus. 6. Hypertension. RECOMMENDATIONS: 1. Reinitiate BiPAP pending improvement in chest radiograph. 2. Increase nebulizer therapy to q.4 hours. 3. Add Mucomyst to current regimen. 4. Attempt to mobilize patient as soon as possible. If he remains in the bed and continues to have a poor cough effort, atelectasis will be an ongoing issue. 5. Continue physical therapy. 6. Overall prognosis is guarded. cc: Yury Rodriguez MD
[2019-03-02] MEDS: DUONEB (A & A) INH SCH ×3 (15:48→23:36)
[2019-03-02] MEDS: MUCOMYST 20% INH SCH (19:30)
[2019-03-02] MEDS: DULCOLAX PR SCH (21:15)
[2019-03-02] MEDS: 1/2 NS 1,000 ML IV SCH (21:51)
[2019-03-02] MEDS: D50W SYRINGE IV PRN (21:55)
[2019-03-03] MEDS: HUMULIN R SUBQ SCH ×5 (01:37→20:22)
[2019-03-03] MEDS: DUONEB (A & A) INH SCH ×6 (03:38→23:35)
[2019-03-03 04:33] LABS: ALLEN TEST YES; BE 8.2 mmoll (-3.0-3.0); BLOOD TYPE ARTERIAL; HCO3-(ACT) 31.3 mmoll (20.0-26.0); METHB 1.2 % (0.0-1.5); O2(CT) 14.5 mL/dL (15.0-23.0); O2HB 96.7 % (95.0-99.0); PCO2(98.6) 40 mmHg (35-45); PO2(98.6) 127 mmHg (60-100); SAMPLE BLOOD; THB 10.5 g/dL (11.5-17.4); pH(98.6) 7.51 (7.35-7.45)
[2019-03-03 04:36] LABS: MODALITY BI PAP
[2019-03-03] MEDS: CARDENE 40 MG/NS 40 MG/200 ML PIGGYBACK IV SCH (05:30)
[2019-03-03] MEDS: APRESOLINE NG SCH (05:55)
[2019-03-03] MEDS: HEPARIN SUBQ SCH ×3 (05:55→20:21)
[2019-03-03] MEDS: SYNTHROID NG SCH (06:06)
--- NOTE | 2019-03-03 07:26 | Diag Imaging Result Doc PS360 ---
EXAM: CHEST-PORTABLE INDICATION: respiratory failure/NGT placement confirmation TECHNIQUE: One view COMPARISON: 03/02/2019 FINDINGS: The right central line is in stable position. The NG tube projects well below the diaphragm and is assumed to be in the lumen of the stomach in the expected position. There has been marked improvement of the aeration of the left lung, which was completely opacified on the previous study. There has been reaeration of a majority of the left lung. There is still some atelectasis and/or infiltrate at the left lung base. There is interstitial thickening consistent suggesting some degree of edema and pulmonary venous congestion bilaterally that is similar to the previous study. Cardiac silhouette is stable. IMPRESSION: 1.NG tube projecting below the diaphragm in the expected position. 2.Marked improvement of the aeration of the left lung. Electronically signed by Nitin Godwin 03/03/2019 7:24 AM
[2019-03-03] MEDS: MUCOMYST 20% INH SCH ×2 (07:39→19:35)
[2019-03-03 08:18] LABS: HEMATOCRIT 26.7 % (42.0-52.0); HEMOGLOBIN 8.5 g/dL (14.0-18.0); MCH 29.2 PG (27-31); MCHC 31.8 g/dL (33-37); MCV 91.8 FL (81-99); RBC 2.91 XMIL (4.7-6.1); RDW 16.5 % (11.5-14.5); WBC 5.92 X1000 (4.8-10.8)
[2019-03-03] MEDS: MIRALAX PO SCH ×2 (08:26→20:23)
[2019-03-03] MEDS: COREG PO SCH ×2 (08:27→20:29)
[2019-03-03] MEDS: ZANTAC LIQUID NG SCH (08:27)
[2019-03-03] MEDS: ASPIRIN PO SCH (08:27)
[2019-03-03] MEDS: ALDACTONE PO SCH (08:27)
[2019-03-03] MEDS: ISMO NG SCH (08:27)
[2019-03-03] MEDS: CATAPRES PO SCH ×2 (08:27→20:22)
[2019-03-03 08:47] LABS: AGAP 10; ALB/GLOB RATIO 1.1; ALKALINE PHOSPHATASE 148 U/L (32-122); BUN 37 mg/dL (8-22); CALCIUM 8.4 mg/dL (8.8-10.2); CHLORIDE 99 mmol/L (98-107); COSMO 284; CREATININE 1.1 mg/dL (0.7-1.2); ESTIMATED GFR > 60; GLUCOSE 100 mg/dL (70-104); GOT 19 U/L (10-34); GPT 14 U/L (10-44); POTASSIUM 4.7 mmol/L (3.5-5.1); SODIUM 138 mmol/L (136-145); TCO2 29 mmol/L (25-35); TOTAL BILIRUBIN 0.31 mg/dL (0.20-1.00); TOTAL PROTEIN 5.7 g/dL (6.3-8.3)
--- NOTE | 2019-03-03 11:17 | PROGRESS NOTE ---
DATE: 03/03/2019 Mr. Chavez is awake, alert, attentive. He answered questions much more briskly than when I examined him last week. His answers were appropriate. He has good visual cook tested grossly by confrontational finger counting monocularly and binocularly. There is good lateral eye movement. At rest, I thought there might be amblyopia, but that was not consistent. Facial motility is symmetric. Limb tone is symmetric. He demonstrated good power on brief testing in all limbs. IMPRESSION: Global encephalopathy. I do not know his baseline, but recent encephalopathy may be nearly resolved. I do not have any new suggestion from a Neurology standpoint. Thanks for asking Neurology to see Mr. Chavez. cc: MD MARIA DEL ROSARIO Davis III
--- NOTE | 2019-03-03 11:52 | PROGRESS NOTE ---
DATE: 03/03/2019 SUBJECTIVE: The patient is sitting up. He seems to be doing okay. No major complaints. OBJECTIVE: Blood pressure is 186/87, heart rate 70, respiratory rate 20, temperature 97.7 degrees, 98% on 5 L.Cardiovascular: Regular rate and rhythm. Pulmonary: Bilateral breath sounds. Clear to auscultation. GI: Soft, nontender, nondistended. Bowel sounds are positive. LABORATORY DATA: White count 5, hemoglobin and hematocrit 8 and 26, platelets 260,000. The pH is 7.51, pCO2 40, PO2 127. Basic was normal. PROBLEM LIST: 1. Acute hypoxic hypercapnic failure. He has been extubated. Pulmonary is following, appreciate their treatment. He is on BiPAP. His left lung aeration is much improved and likely a mucous plug. He is on Mucomyst breathing treatments. 2. Encephalopathy is persistent. He is able to be awake. He probably has some hypoxic injury unfortunately. 3. Type 2 diabetes, appears to be relatively controlled. We will switch him to oral medications and because we are going to take his NG tube out and see how he does. 4. Hypertension is still not well controlled. I am going to add lisinopril. He is already on Coreg, clonidine, hydralazine, and still not completely better. I am going to give him a little bit of Lasix today too because he looked a little edematous. DISPOSITION: I think if he continues to improve, he should be a good candidate for step-down tomorrow. cc: Isaiah Cheng MD
[2019-03-03] MEDS: PRINIVIL PO SCH (11:53)
[2019-03-03] MEDS: LANTUS INSULIN SUBQ SCH (11:53)
[2019-03-03] MEDS: LASIX IV SCH (11:53)
[2019-03-03] MEDS: APRESOLINE PO SCH ×2 (12:00→20:22)
[2019-03-03] MEDS: APRESOLINE IV PRN ×3 (13:54→22:17)
[2019-03-03] MEDS: DULCOLAX PR SCH (20:21)
[2019-03-03] MEDS: ISMO PO SCH (20:21)
[2019-03-03] MEDS: ZANTAC PO SCH (20:22)
--- NOTE | 2019-03-03 20:32 | PULMONOLOGY PROGRESS NOTE ---
DATE: 03/03/2019 SUBJECTIVE: The patient is sleeping on arrival. With stimulation he does arouse. He has a marginal cough ability. OBJECTIVE: The patient has been afebrile for the last 24 hours. Blood pressure 188/85, heart rate 71, respiratory rate 16, oxygen saturation 98%. HEENT: Pupils are equal and reactive. Oropharynx appears clear. Neck: Supple. Chest: Reveals crackles in both lung bases with bilateral rhonchi. Cardiac: S1-S2. Abdomen: Obese and soft. Extremities: Reveal decreasing edema. LABORATORIES: Chest x-ray reveals significant increase in aeration in the left lung, which was completely opacified yesterday morning. He continues to have atelectasis at the left base. White blood count 5.92, hemoglobin 8.5, platelet count 260,000. Sodium 138, potassium 4.7, chloride 99, bicarbonate 29, BUN 37, creatinine 1.1, glucose 100. IMPRESSION: A 63-year-old with 1. Atelectatic left lung with improvement with BiPAP and mucolytic therapy. 2. Respiratory failure. 3. Encephalopathy with slow improvement. 4. Diabetes mellitus. 5. Hypertension. 6. Status post cardiopulmonary arrest. PLAN: 1. Continue to cycle BiPAP at bedtime and p.r.n. 2. Continue bronchodilators. 3. Continue physical therapy. 4. Anticipate need for LTAC or a rehab facility. cc: Yury Rodriguez MD
[2019-03-04] MEDS: DUONEB (A & A) INH SCH ×6 (03:44→23:07)
[2019-03-04] MEDS: HEPARIN SUBQ SCH ×3 (04:28→20:10)
[2019-03-04] MEDS: APRESOLINE PO SCH ×3 (04:28→20:09)
[2019-03-04 05:39] LABS: ALLEN TEST YES; BE 8.3 mmoll (-3.0-3.0); BLOOD TYPE ARTERIAL; HCO3-(ACT) 31.4 mmoll (20.0-26.0); METHB 0.8 % (0.0-1.5); O2(CT) 12.6 mL/dL (15.0-23.0); O2HB 97.4 % (95.0-99.0); PCO2(98.6) 39 mmHg (35-45); PO2(98.6) 167 mmHg (60-100); SAMPLE BLOOD; SAO2 99.7 % (95.0-100.0); THB 8.9 g/dL (11.5-17.4); pH(98.6) 7.52 (7.35-7.45)
[2019-03-04 05:40] LABS: MODALITY BI PAP
[2019-03-04] MEDS: HUMULIN R SUBQ SCH ×4 (05:59→22:50)
[2019-03-04] MEDS: APRESOLINE IV PRN (06:00)
[2019-03-04] MEDS: SYNTHROID NG SCH (06:00)
[2019-03-04 06:42] LABS: AGAP 8; ALBUMIN 3.1 g/dL (3.5-5.0); ALKALINE PHOSPHATASE 146 U/L (32-122); BUN 35 mg/dL (8-22); CALCIUM 8.7 mg/dL (8.8-10.2); CHLORIDE 100 mmol/L (98-107); COSMO 283; CREATININE 0.9 mg/dL (0.7-1.2); ESTIMATED GFR > 60; GLUCOSE 121 mg/dL (70-104); GOT 16 U/L (10-34); GPT 15 U/L (10-44); POTASSIUM 4.2 mmol/L (3.5-5.1); SODIUM 137 mmol/L (136-145); TCO2 29 mmol/L (25-35); TOTAL BILIRUBIN 0.36 mg/dL (0.20-1.00); TOTAL PROTEIN 6.2 g/dL (6.3-8.3)
--- NOTE | 2019-03-04 06:49 | Diag Imaging Result Doc PS360 ---
CHEST-PORTABLE - 03/04/2019 INDICATION: respiratory failure/NGT placement confirmation COMPARISON: 03/03/2019 FINDINGS: The nasogastric tube has been removed. Stable right central line in good position. There has been improvement in the central pulmonary vascular congestion and central infiltrates. There is some residual hazy infiltrate in the left lower lobe. There are small bilateral pleural effusions. IMPRESSION: Improved aeration of the lungs. Nasogastric tube has been removed. Electronically signed by Gordy Mayberry 03/04/2019 6:46 AM
[2019-03-04 06:59] LABS: HEMATOCRIT 28.8 % (42.0-52.0); HEMOGLOBIN 9.2 g/dL (14.0-18.0); MCH 29.4 PG (27-31); MCHC 31.9 g/dL (33-37); MPV 12.3 FL (7.4-10.4); RBC 3.13 XMIL (4.7-6.1); RDW 16.6 % (11.5-14.5); WBC 5.97 X1000 (4.8-10.8)
[2019-03-04] MEDS: MUCOMYST 20% INH SCH ×2 (07:43→19:03)
[2019-03-04] MEDS: ALDACTONE PO SCH (08:55)
[2019-03-04] MEDS: LASIX IV SCH ×3 (08:55→23:10)
[2019-03-04] MEDS: COREG PO SCH ×2 (08:55→20:10)
[2019-03-04] MEDS: ASPIRIN PO SCH (08:55)
[2019-03-04] MEDS: PRINIVIL PO SCH (08:55)
[2019-03-04] MEDS: LANTUS INSULIN SUBQ SCH (08:56)
[2019-03-04] MEDS: CATAPRES PO SCH ×2 (08:56→20:10)
[2019-03-04] MEDS: ZANTAC PO SCH ×2 (08:56→20:09)
[2019-03-04] MEDS: ISMO PO SCH ×2 (08:56→20:10)
[2019-03-04] MEDS: MIRALAX PO SCH ×2 (09:18→20:10)
[2019-03-04] MEDS ORDERED: PRINIVIL PO ONE (11:47)
--- NOTE | 2019-03-04 12:18 | PROGRESS NOTE ---
DATE: 03/04/2019 SUBJECTIVE: Patient has no major complaints except he feels cold. OBJECTIVE: Blood pressure, the last one I saw was 160s/70s, but his blood pressure this morning was in the 190s/70s. He is still not very well controlled as far as his blood pressure. Heart rate in the 70s, afebrile, respiratory rate of 12. Cardiovascular: Regular rate and rhythm. Pulmonary: Bilateral breath sounds. Clear to auscultation. GI: Soft, nontender, and nondistended. Bowel sounds are positive. LABORATORY DATA: White count 5, hemoglobin and hematocrit 9 and 28, and platelets 172,000. Basic was normal. PROBLEM LIST: 1. Acute hypoxic and hypercapnic respiratory failure secondary to pneumonia and obstructive sleep apnea. He is on intermittent BiPAP. He seems to be doing better. Continue pulmonary toilet. Mucomyst breathing treatment. 2. Encephalopathy likely related to hypoxia. It is persistent obviously, and not going to be able to manage his own self at this time. 3. Type 2 diabetes. We will continue medications and follow. 4. Protein calorie malnutrition. We will continue to advance diet and follow. 5. Hypertension is still not controlled. I am going to increase his lisinopril. He is on Coreg, clonidine, and hydralazine, and, still not controlled. DISPOSITION: I think his blood pressure is better. He is off the drip. I think he could possibly go to step-down and progress with that. We will continue PT. We are looking at LTAC evaluation, and we will continue to follow. cc: Isaiah Cheng MD
[2019-03-04] MEDS: D50W SYRINGE IV PRN (15:58)
--- NOTE | 2019-03-04 19:15 | PULMONOLOGY PROGRESS NOTE ---
DATE: 03/04/2019 SUBJECTIVE: The patient is more responsive to questions today. He does smile. He continues to have difficulty forming an adequate cough. OBJECTIVE: Vital Signs: The patient has been afebrile for the last 24 hours. Blood pressure 163/75, heart rate 64, respiratory rate 16, oxygen saturation 98%. HEENT: Pupils are equal and reactive. Oropharynx appears clear. Neck: Is supple. Chest: Reveals better breath sounds bilaterally. Cardiac exam: S1-S2. Abdomen: Is soft. Extremities: Reveal decreasing peripheral edema. LABORATORIES: Chest x-ray reveals continued improvement in aeration in the left lung base. Sodium 137, potassium 4.2, chloride 100, bicarbonate 29, BUN 35, creatinine 0.9. Arterial blood gas reveals a pH 7.52, pCO2 of 39, pO2 of 167. IMPRESSION: A 63-year-old with: 1. Acute hypoxemic respiratory failure. 2. Atelectasis of the left lung with continued improvement. 3. Encephalopathy with slow improvement. 4. Diabetes mellitus. 5. Hypertension. 6. Status post cardiopulmonary arrest. RECOMMENDATION: 1. Continue to cycle BiPAP at bedtime and p.r.n. 2. Continue bronchodilators. 3. Continue physical therapy. cc: Yury Rodriguez MD
[2019-03-04] MEDS: DULCOLAX PR SCH (20:10)
[2019-03-05] MEDS: DUONEB (A & A) INH SCH ×6 (02:53→22:58)
[2019-03-05] MEDS: APRESOLINE PO SCH ×3 (05:45→21:21)
[2019-03-05] MEDS: HEPARIN SUBQ SCH ×3 (05:45→21:21)
[2019-03-05] MEDS: HUMULIN R SUBQ SCH ×4 (06:02→21:22)
[2019-03-05] MEDS: SYNTHROID NG SCH (06:02)
--- NOTE | 2019-03-05 06:37 | Diag Imaging Result Doc PS360 ---
CHEST-PORTABLE - 03/05/2019 INDICATION: respiratory failure/NGT placement confimation COMPARISON: 03/04/2019 FINDINGS: Stable right central line in good position. Stable partial opacification of the left lower lobe. No new infiltrates. Heart size and pulmonary vascularity remain distended. IMPRESSION: No change from prior. Electronically signed by Gordy Mayberry 03/05/2019 6:35 AM
[2019-03-05] MEDS: MUCOMYST 20% INH SCH ×2 (07:48→19:32)
[2019-03-05] MEDS: ASPIRIN PO SCH (08:49)
[2019-03-05] MEDS: ISMO PO SCH ×2 (08:49→21:22)
[2019-03-05] MEDS: MIRALAX PO SCH ×2 (08:50→21:22)
[2019-03-05] MEDS: COREG PO SCH ×2 (08:50→21:21)
[2019-03-05] MEDS: ZANTAC PO SCH ×2 (08:50→21:23)
[2019-03-05] MEDS: CATAPRES PO SCH ×2 (08:50→21:21)
[2019-03-05] MEDS: ALDACTONE PO SCH (08:50)
[2019-03-05] MEDS ORDERED: PRINIVIL PO SCH (09:00)
[2019-03-05 09:19] LABS: AGAP 12; ALBUMIN 3.2 g/dL (3.5-5.0); ALKALINE PHOSPHATASE 140 U/L (32-122); BUN 32 mg/dL (8-22); CALCIUM 8.7 mg/dL (8.8-10.2); CHLORIDE 99 mmol/L (98-107); COSMO 284; GLUCOSE 60 mg/dL (70-104); GOT 15 U/L (10-34); GPT 14 U/L (10-44); SODIUM 140 mmol/L (136-145); TCO2 29 mmol/L (25-35); TOTAL BILIRUBIN 0.36 mg/dL (0.20-1.00); TOTAL PROTEIN 6.4 g/dL (6.3-8.3)
[2019-03-05 10:03] LABS: RDW 16.3 % (11.5-14.5)
[2019-03-05 11:00] LABS: HEMATOCRIT 28.1 % (42.0-52.0); HEMOGLOBIN 8.9 g/dL (14.0-18.0); MCHC 31.7 g/dL (33-37); MCV 91.5 FL (81-99); MPV 10.4 FL (7.4-10.4); RBC 3.07 XMIL (4.7-6.1); WBC 4.84 X1000 (4.8-10.8)
[2019-03-05] MEDS: LASIX IV SCH ×2 (11:40→23:14)
[2019-03-05] MEDS ORDERED: PRINIVIL PO ONE (12:12)
--- NOTE | 2019-03-05 12:31 | PROGRESS NOTE ---
DATE: 03/05/2019 SUBJECTIVE: The patient has no focal complaints. He is pleasantly confused. He is eating a bit, but not a whole bunch. Nurse is concerned about him not eating, and his sugars have been dropping with the amount of Lantus he has been getting. LABORATORY DATA: White count is 4, hemoglobin and hematocrit 8.9 and 28, platelets 252,000. His sugar this morning was 60, but it dropped to 53, but he was in the 200s yesterday. Basic was normal. OBJECTIVE: Vital Signs: His blood pressure is a little bit better at 163/66, heart rate 64, respiratory rate of 20, he has been afebrile at 97.6. Cardiovascular: Regular rate and rhythm. Pulmonary: Bilateral breath sounds. Clear to auscultation. GI: Soft, nontender, nondistended. Bowel sounds are positive. PROBLEM LIST: 1. Acute on chronic respiratory failure, still requiring bilevel positive airway pressure intermittently. He is on Mucomyst. 2. Encephalopathy is improving. We think he is most likely at a new baseline, which I do not think, at this point, he can manage self-care, so we may be looking at long-term care, but right now we will consider rehab options. 3. Type 2 diabetes. I am going to lower his Lantus. Will just start off at 10. He may require more, and see how he does. 4. Moderate protein calorie malnutrition. Continue diet, and follow. 5. Hypertension has overall improved slowly. It is still not completely at goal, especially for a diabetic. I am going to increase his Prinivil even further to 30, and see how he does. 6. Disposition. I think we are looking at long-term acute care. I think he is stable for step- down, so we will progress there. Please note, for oncoming physician, he is on intravenous Lasix because he appears to be fairly edematous. We may need to adjust that in the next day or two. cc: Isaiah Cheng MD
--- NOTE | 2019-03-05 20:30 | PULMONOLOGY PROGRESS NOTE ---
DATE: 03/05/2019 SUBJECTIVE: The patient is easily arousable. He does follow commands. He has less psychomotor retardation. He continues to have a marginal cough effort. OBJECTIVE: The patient has been afebrile for the last 24 hours. Blood pressure 183/70, heart rate 67, respiratory rate 17, oxygen saturation 99% on 3 L per nasal cannula. HEENT: Pupils are equal and reactive. Oropharynx is clear. Neck is supple. Chest reveals crackles in both lung bases. Cardiac exam: S1, S2. Abdomen is soft. Extremities are without edema. DIAGNOSTIC DATA: Chest x-ray reveals mild infiltrate at the left base. LABORATORY DATA: White blood count 4.84, hemoglobin 8.9, platelet count 252,000. Arterial blood gas on BiPAP: PH 7.52, pCO2 of 39, pO2 of 167. Chemistry: Sodium 140, potassium 4.0, chloride 99, bicarbonate 29, BUN 32, creatinine 1.0. IMPRESSION: A 63-year-old with: 1. Acute hypoxemic respiratory failure. 2. Atelectasis of the left lung. He has had significant improvement, although his chest x-ray is not significantly changed in the last 24 hours. 3. Encephalopathy with continued slow improvement. 4. Diabetes mellitus. 5. Hypertension. 6. Status post cardiopulmonary arrest. PLAN: 1. Agree with plans to transfer to the floor. 2. Continue to cycle BiPAP at bedtime and p.r.n. 3. Continue bronchodilators. 4. Continue physical therapy. 5. Agree with plans for placement and rehab. cc: Yury Rodriguez MD
[2019-03-05] MEDS: DULCOLAX PR SCH (21:21)
[2019-03-06] MEDS: DUONEB (A & A) INH SCH ×6 (03:12→23:16)
[2019-03-06] MEDS: HEPARIN SUBQ SCH ×3 (04:02→20:54)
[2019-03-06] MEDS: APRESOLINE PO SCH ×3 (04:02→20:53)
[2019-03-06] MEDS: SYNTHROID NG SCH ×2 (04:02→06:06)
[2019-03-06 05:32] LABS: HEMATOCRIT 29.2 % (42.0-52.0); HEMOGLOBIN 9.4 g/dL (14.0-18.0); MCH 29.8 PG (27-31); MCHC 32.2 g/dL (33-37); MCV 92.7 FL (81-99); MPV 10.5 FL (7.4-10.4); RBC 3.15 XMIL (4.7-6.1); RDW 16.1 % (11.5-14.5); WBC 4.26 X1000 (4.8-10.8)
[2019-03-06 05:47] LABS: MAGNESIUM 1.9 mg/dL (1.5-2.7); PHOSPHORUS 3.9 mg/dL (2.7-4.5)
[2019-03-06 05:50] LABS: AGAP 12; BUN 30 mg/dL (8-22); CHLORIDE 95 mmol/L (98-107); COSMO 282; ESTIMATED GFR > 60; GLUCOSE 176 mg/dL (70-104); POTASSIUM 4.6 mmol/L (3.5-5.1); SODIUM 136 mmol/L (136-145); TCO2 29 mmol/L (25-35)
[2019-03-06 05:51] LABS: ALBUMIN 3.2 g/dL (3.5-5.0); ALKALINE PHOSPHATASE 135 U/L (32-122); GOT 16 U/L (10-34); GPT 12 U/L (10-44); TOTAL BILIRUBIN 0.45 mg/dL (0.20-1.00); TOTAL PROTEIN 6.3 g/dL (6.3-8.3)
[2019-03-06] MEDS: HUMULIN R SUBQ SCH ×4 (06:05→20:54)
--- NOTE | 2019-03-06 07:18 | Diag Imaging Result Doc PS360 ---
EXAM: CHEST-PORTABLE INDICATION: respiratory failure/NGT placement confirmation TECHNIQUE: One view COMPARISON: 03/05/2019 FINDINGS: The right central line is in stable position. No NG tube is identified. Mild consolidation at the left lung base is stable to marginally improved. No new consolidation is identified. Cardiac silhouette is stable. IMPRESSION: Stable to marginal improvement of mild consolidation on the left. Electronically signed by Nitin Godwin 03/06/2019 7:16 AM
[2019-03-06] MEDS: MUCOMYST 20% INH SCH ×2 (07:45→20:30)
[2019-03-06] MEDS: ZANTAC PO SCH ×2 (08:33→20:53)
[2019-03-06] MEDS: CATAPRES PO SCH ×2 (08:36→20:55)
[2019-03-06] MEDS: COREG PO SCH ×2 (08:36→20:53)
[2019-03-06] MEDS: MIRALAX PO SCH ×2 (08:37→21:30)
[2019-03-06] MEDS: ASPIRIN PO SCH (08:37)
[2019-03-06] MEDS ORDERED: PRINIVIL PO SCH (09:00)
[2019-03-06] MEDS: ALDACTONE PO SCH (09:19)
[2019-03-06] MEDS: ISMO PO SCH ×2 (09:19→20:54)
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
[2019-03-06] MEDS: LASIX IV SCH ×2 (12:08→23:48)
[2019-03-06] MEDS: DULCOLAX PR SCH (20:55)
[2019-03-07] MEDS: APRESOLINE IV PRN (02:02)
[2019-03-07] MEDS: DUONEB (A & A) INH SCH ×6 (03:28→23:39)
[2019-03-07] MEDS: APRESOLINE PO SCH ×3 (05:04→21:45)
[2019-03-07] MEDS: HEPARIN SUBQ SCH ×3 (05:04→21:46)
[2019-03-07 05:57] LABS: HEMATOCRIT 29.3 % (42.0-52.0); HEMOGLOBIN 9.4 g/dL (14.0-18.0); MCH 29.6 PG (27-31); MCHC 32.1 g/dL (33-37); MCV 92.1 FL (81-99); MPV 10.5 FL (7.4-10.4); RBC 3.18 XMIL (4.7-6.1); RDW 15.8 % (11.5-14.5); WBC 3.97 X1000 (4.8-10.8)
[2019-03-07] MEDS: HUMULIN R SUBQ SCH ×4 (06:01→21:47)
[2019-03-07] MEDS: SYNTHROID PO SCH (06:01)
[2019-03-07 06:24] LABS: AGAP 11; ALB/GLOB RATIO 1.1; ALBUMIN 3.3 g/dL (3.5-5.0); ALKALINE PHOSPHATASE 126 U/L (32-122); BUN 26 mg/dL (8-22); CALCIUM 9.7 mg/dL (8.8-10.2); CHLORIDE 97 mmol/L (98-107); COSMO 286; CREATININE 0.9 mg/dL (0.7-1.2); ESTIMATED GFR > 60; GLUCOSE 206 mg/dL (70-104); GOT 12 U/L (10-34); GPT 11 U/L (10-44); POTASSIUM 3.9 mmol/L (3.5-5.1); SODIUM 138 mmol/L (136-145); TCO2 30 mmol/L (25-35); TOTAL BILIRUBIN 0.37 mg/dL (0.20-1.00); TOTAL PROTEIN 6.4 g/dL (6.3-8.3)
--- NOTE | 2019-03-07 06:46 | EKG Report ---
Test Performed on : 03/06/2019 9:33:52 PM Test Reason : rhythm change Blood Pressure : / mmHG Vent. Rate : 067 BPM Atrial Rate : 067 BPM P-R Int : 144 ms QRS Dur : 092 ms QT Int : 396 ms P-R-T Axes : 029 -01 081 degrees QTc Int : 418 ms Normal sinus rhythm. Minimal voltage criteria for LVH, may be normal variant Cannot rule out Anterior infarct (cited on or before 08-FEB-2019) Abnormal ECG When compared with ECG of 08-FEB-2019 12:20, Vent. rate has decreased BY 37 BPM Nonspecific T wave abnormality no longer evident in Inferior leads Confirmed by Columba LEE, Obdulio Bueno ([id number]) on 03/07/2019 12:30:15 PM
--- NOTE | 2019-03-07 07:36 | Diag Imaging Result Doc PS360 ---
EXAM: CHEST-PORTABLE 03/07/2019 HISTORY: respiratory failure/NGT placement confirmation TECHNIQUE: AP portable at 0606 COMMENT: There is cardiomegaly and increased pulmonary vascularity. The lungs are not as well-expanded as on 03/06/2019. There is a right internal jugular central venous catheter with its tip just above the right atrium. The possibility of pulmonary edema cannot be excluded. There is no visible NG tube. IMPRESSION: Poor inspiration. Pulmonary edema and cardiomegaly. Electronically signed by Abelino Leon 03/07/2019 7:34 AM
[2019-03-07] MEDS: MUCOMYST 20% INH SCH ×2 (07:55→19:38)
[2019-03-07] MEDS: COREG PO SCH ×2 (08:11→21:45)
[2019-03-07] MEDS: ZANTAC PO SCH ×2 (08:11→21:45)
[2019-03-07] MEDS: ASPIRIN PO SCH (08:11)
[2019-03-07] MEDS: CATAPRES PO SCH ×2 (08:11→21:45)
[2019-03-07] MEDS: MIRALAX PO SCH ×2 (08:11→21:47)
[2019-03-07] MEDS: ISMO PO SCH ×2 (08:40→21:45)
[2019-03-07] MEDS ORDERED: ALDACTONE PO ONE (08:52)
[2019-03-07] MEDS: ALDACTONE PO SCH (09:05)
--- NOTE | 2019-03-07 09:51 | PROGRESS NOTE ---
DATE: 03/07/2019 INTERVAL HISTORY: No acute overnight events except his blood pressure which remained on 180 - 200 and his blood pressure has been measured over his lower extremity. His EKG had normal sinus rhythm with left ventricular hypertrophy. I have increased his spironolactone and have advised to get blood pressure in all extremities. SUBJECTIVE: Patient denies any complaints. Denies any chest pain or shortness of breath. Input and output suggests he did have a bowel movement on . VITALS: Temperature 98.1 degrees, pulse 66 respiratory 17, blood pressure 180/70, and it has been measured in the legs only. He is saturating 94% on 2 L nasal cannula. PHYSICAL EXAMINATION: Morbidly obese, not in any acute distress. Oral cavity is moist. Air entry bilaterally equal no wheeze or rhonchi. Mild crackles bilateral inframammary region. S1, S2 normal. Systolic crescendo-decrescendo murmur best heard at right second intercostal space. No rub or gallop. Abdomen is obese, soft, nontender. He has bilateral upper and lower extremity edema. He is alert. He is oriented to himself. He can recognize me as his doctor. He is not oriented with the place or situation. He remembers his date. He is following simple commands like raising both upper extremity above ground level and both lower extremity flickering. He was net negative output yesterday. LABS: Suggestive of WBC of 3.9, hemoglobin 9.4, platelet of 245,000. He does have normal kidney function. Microbiology no data. IMAGING: Chest x-ray suggests bilateral pulmonary vascular congestion. ASSESSMENT AND PLAN: 1. Hypoxic hypercarbic respiratory failure due to pneumonia, bilateral pulmonary edema and cardiorespiratory arrest requiring intubation twice. Currently saturating well on nasal cannula. Continue Lasix and change the dose to oral. Pulmonology on board. Continue Bipap at night time and PRN. 2. Acute persistent encephalopathy with slow recovery, likely in the setting of hypoxic brain injury, which he may have sustained at the time of cardiorespiratory arrest episodes and mechanical ventilation. Neurology had seen him and they did not have any further recommendation. Electroencephalogram on February 19 had generalized slowing. I will appreciate neurology recommendation if he would need any EEG testing further. 3. Hypertensive urgency. Continues to have systolic blood pressure more than 180. However, his blood pressures have been taken in his legs. I discussed with the nursing team about getting all extremities blood pressure and I will follow up with renin aldosterone level. Continue current regimen of clonidine, carvedilol, isosorbide, hydralazine, increase the dose of lisinopril and spironolactone. 4. History of [id number] diabetes mellitus with episodes of hypoglycemia during this hospital admission, now well controlled on sliding scale insulin. I will continue current regimen. 5. Physical deconditioning, which could be in the setting of prolonged hospital admission and suspected critical illness induced polyneuropathy and weakness. Physical therapy is on board. He would benefit from intensive physical therapy regimen. 6. Continue levothyroxine for hypothyroidism; aspirin for bilateral upper extremity superficial venous thrombosis; pureed diet for his dysphagia with aspiration precautions and heparin for deep venous thrombosis prophylaxis. DISPOSITION: I am awaiting bed availability at [facility]. Plan of care was discussed with the patient's son on phone. All of his questions were extensively answered. cc: Andrew Zimmerman MD MTDD
[2019-03-07] MEDS: LASIX IV SCH (11:27)
--- NOTE | 2019-03-07 20:45 | PULMONOLOGY PROGRESS NOTE ---
DATE: 03/07/2019 SUBJECTIVE: The patient is arousable to alert. He is without specific complaints. OBJECTIVE: Vital Signs: Blood pressure 164/60, heart rate 64, respiratory rate 22, oxygen saturation 98% on nasal cannula. HEENT: Pupils are equal and reactive. Oropharynx is clear. Neck: Supple. Chest: Chest reveals good air entry bilaterally without wheezing or rhonchi. Cardiac: S1, S2. Abdomen: Obese and soft. Extremities: Generalized edema, but has decreased over the last several days. LABORATORIES: Chest x-ray reveals shallow inspiration, but no evidence of acute infiltrates. Heart size is generous. White blood count 3.97, hemoglobin 9.4, platelet count 245,000. Sodium 138, potassium 3.9, chloride 97, bicarbonate 30, BUN 26, creatinine 0.9, glucose 206. IMPRESSION: A 63-year-old with: 1. Status post cardiopulmonary arrest. 2. Acute hypoxemic respiratory failure. 3. Encephalopathy with slow improvement. 4. Hypertension with improving control. 5. Diabetes mellitus. 6. Generalized deconditioning associated with hospital course. PLAN: 1. Continue BiPAP q.h.s. and p.r.n. 2. Continue bronchodilators. 3. Continue physical therapy. 4. Anticipate the need for placement/rehab. cc: Yury Rodriguez MD
[2019-03-07] MEDS: DULCOLAX PR SCH ×2 (21:45→21:57)
[2019-03-07] MEDS: PRINIVIL PO SCH (21:47)
[2019-03-08] MEDS: LASIX IV SCH (00:54)
[2019-03-08] MEDS: DUONEB (A & A) INH SCH ×6 (03:11→23:06)
[2019-03-08] MEDS: HEPARIN SUBQ SCH ×4 (06:19→22:08)
[2019-03-08] MEDS: SYNTHROID PO SCH (06:20)
[2019-03-08] MEDS: APRESOLINE PO SCH ×4 (06:20→22:07)
[2019-03-08] MEDS: HUMULIN R SUBQ SCH ×4 (06:25→21:36)
[2019-03-08] MEDS: COREG PO SCH ×2 (08:11→22:08)
[2019-03-08] MEDS: ASPIRIN PO SCH (08:11)
[2019-03-08] MEDS: ALDACTONE PO SCH (08:11)
[2019-03-08] MEDS: CATAPRES PO SCH ×2 (08:11→22:06)
[2019-03-08] MEDS: MIRALAX PO SCH ×2 (08:11→22:06)
[2019-03-08] MEDS: ZANTAC PO SCH ×2 (08:11→22:07)
[2019-03-08] MEDS: ISMO PO SCH ×2 (08:12→22:06)
[2019-03-08] MEDS: MUCOMYST 20% INH SCH ×2 (08:26→19:29)
--- NOTE | 2019-03-08 12:29 | PROGRESS NOTE ---
DATE: 03/08/2019 INTERVAL HISTORY: Blood pressures were taken in all of his extremities, and the pressures are significantly higher in the lower extremities as compared to upper extremities. The patient did not have any other acute events. I was not informed by the public health social worker team if the patient had a bed; so likely patient did not have a bed, yet still waiting approval at [facility]. SUBJECTIVE: Patient denies any complaints. I discussed with him about his physical exam findings and the plan for transferring him to rehab as soon as possible. I answered all of his questions. I would also change his Lasix to p.o. and place order to discontinue his Stratton catheter. I conveyed to the nurse to take blood pressure in right forearm. VITALS: Temperature 98 degrees, pulse 68, respiratory rate 18, blood pressure 200/74, saturating 98% on room air. PHYSICAL EXAMINATION: General: Obese. Not in any acute distress. Mouth: Oral cavity is moist. Lungs: Air entry bilaterally equal. No wheeze or rhonchi. Mild inframammary crackles. Heart: S1, S2 normal. Systolic crescendo-decrescendo murmur affecting right second intercostal space. No rub or gallop. Abdomen: Obese, soft, nontender. Extremities: He has bilateral upper and lower extremity edema, which is decreasing. Neurologic: He is alert. He is oriented to himself, to this hospital, and he states he wants to go to rehab. He follows simple commands like opening mouth, raising his arms and legs. He does have significant weakness in the bilateral lower extremities where he is just able to flicker the legs slightly above ground level, but not he is not able to lift them all the way. LABS: Suggestive of no CBC or BMP today. ASSESSMENT AND PLAN: 1. Acute Hypoxic respiratory failure. Currently saturating well on nasal cannula. Continue oral Lasix. We will continue BiPAP as needed. 2. Acute encephalopathy with slow recovery in the setting of hypoxic brain injury sustained at the time of cardiorespiratory arrest and prolonged mechanical ventilation. No further neurologic recommendations. He has been recovering at a rather slow pace. 3. Hypertensive urgency. He does have significantly high blood pressure in the lower extremities as compared to upper extremities. On my review of CAT scan images, he did not have any significant atherosclerosis affecting common iliac veins, so the reason for this discrepancy is unclear. I discussed with nurse about checking blood pressure in right wrist. Continue current regimen of clonidine, carvedilol, isosorbide, hydralazine, lisinopril and spironolactone and titrate down as tolerated. 4. History of [id number] diabetes mellitus. His hypoglycemia episodes have resolved. Continue current dose of sliding scale insulin. His hemoglobin A1c was 7.8. 5. Physical deconditioning in the setting of prolonged hospital admission. Continue physical therapy. 6. Others. His bilateral pulmonary edema, pneumonia, hypercarbic respiratory failure, cardiorespiratory arrest have resolved. Continue levothyroxine for hypothyroidism; aspirin for bilateral upper extremity superficial venous thrombosis and cardiac arrest; pureed diet for dysphagia with aspiration precautions; heparin for deep vein thrombosis prophylaxis. 7. Disposition: I am awaiting bed availability at [facility]. Possible discharge on Sunday. I discussed the plan of care with the patient's son extensively yesterday. I explained to him about patient's clinical condition, recovery. I also told him that electroencephalogram may not be of any additional value in his situation. All of his questions were answered. cc: Andrew Zimmerman MD MTDD
--- NOTE | 2019-03-08 15:59 | PULMONOLOGY PROGRESS NOTE ---
DATE: 03/08/2019 SUBJECTIVE: The patient is easily arousable and conversant. His cough effort continues to improve. He is without specific complaints. He did outline his plans for going to rehab early next week. OBJECTIVE: Vital Signs: Blood pressure 148/59, heart rate 70, respiratory rate 18, oxygen saturation 96% on 1 L per nasal cannula. HEENT: Pupils are equal and reactive. Oropharynx appears clear. Neck: Supple. Chest: Reveals faint crackles in the lung bases. Cardiac: S1, S2. Abdomen: Obese and soft. Extremities: Reveal trace edema. IMPRESSION: A 63-year-old with 1. Acute hypoxemic respiratory failure with continued improvement. 2. Encephalopathy with continued improvement. 3. Hypertension. 4. Diabetes mellitus. 5. Generalized deconditioning due to prolonged hospital course. 6. Status post cardiopulmonary arrest. PLAN: 1. Continue bronchial hygiene. 2. Continue BiPAP as needed. 3. Continue physical therapy. 4. Anticipate rehab stay soon. cc: Yury Rodriguez MD
[2019-03-08] MEDS: LASIX PO SCH ×2 (16:56→17:11)
[2019-03-08] MEDS: TYLENOL PO PRN (17:46)
[2019-03-08] MEDS: PRINIVIL PO SCH (22:08)
[2019-03-08] MEDS: DULCOLAX PR SCH (22:09)
[2019-03-09] MEDS: DUONEB (A & A) INH SCH ×6 (03:34→22:40)
[2019-03-09 05:33] LABS: URINE SOURCE CATH
[2019-03-09 05:37] LABS: BILIRUBIN URINE NEGATIVE (NEGATIVE); COLOR YELLOW; GLUCOSE URINE NEGATIVE (NEGATIVE); KETONE URINE NEGATIVE (NEGATIVE); TURBIDITY URINE CLEAR (CLEAR)
[2019-03-09 05:38] LABS: BLOOD URINE SMALL (NEGATIVE); LEUKOCYTES URINE NEGATIVE (NEGATIVE); NITRITE URINE NEGATIVE (NEGATIVE); PH URINE 7.5; PROTEIN URINE NEGATIVE (NEGATIVE); SP GRAVITY URINE 1.005; UROBILINOGEN URINE NORMAL (NORMAL)
[2019-03-09 05:39] LABS: UR EPITHELIAL CELLS <10 /HPF (<10); URINE BACTERIA NEGATIVE /HPF; URINE RBC 20-40 /HPF (<10); URINE WBC <10 /HPF (<10)
[2019-03-09] MEDS: HUMULIN R SUBQ SCH ×4 (06:13→21:36)
[2019-03-09] MEDS: APRESOLINE PO SCH ×3 (06:13→21:36)
[2019-03-09] MEDS: HEPARIN SUBQ SCH ×3 (06:13→21:36)
[2019-03-09] MEDS: LASIX PO SCH ×2 (06:13→17:00)
[2019-03-09] MEDS: SYNTHROID PO SCH (06:13)
[2019-03-09 06:28] LABS: BASO# 0.09 X1000 (0.0-0.2); BASO% 2.2 % (0.0-0.8); EOS# 0.26 X1000 (0.0-0.7); EOS% 6.4 % (0.0-10.0); HEMATOCRIT 30.7 % (42.0-52.0); HEMOGLOBIN 9.9 g/dL (14.0-18.0); LYMPH% 41.6 % (20.5-51.1); MCHC 32.2 g/dL (33-37); MONO% 17.1 % (1.7-9.3); MPV 11.1 FL (7.4-10.4); NEUT# 1.34 X1000 (1.4-6.5); NEUT% 32.7 % (42.2-75.2); PLT 233 X1000 (130-400); RBC 3.41 XMIL (4.7-6.1); RDW 15.7 % (11.5-14.5); WBC 4.09 X1000 (4.8-10.8)
[2019-03-09 07:11] LABS: AGAP 4; BUN 21 mg/dL (8-22); CALCIUM 8.6 mg/dL (8.8-10.2); CHLORIDE 95 mmol/L (98-107); COSMO 278; CREATININE 0.9 mg/dL (0.7-1.2); ESTIMATED GFR > 60; GLUCOSE 223 mg/dL (70-104); MAGNESIUM 1.9 mg/dL (1.5-2.7); POTASSIUM 4.1 mmol/L (3.5-5.1); SODIUM 134 mmol/L (136-145); TCO2 35 mmol/L (25-35)
--- NOTE | 2019-03-09 07:40 | Diag Imaging Result Doc PS360 ---
CHEST-PORTABLE - 03/09/2019 INDICATION: Evaluate for pulmonary congestion COMPARISON: 03/07/2019 FINDINGS: Stable right central line. Lung volumes are improved. There has been significant improvement in the background interstitial pulmonary edema. Stable cardiomegaly. No pneumothorax or large pleural effusion. IMPRESSION: Improvement from prior. Electronically signed by Gordy Mayberry 03/09/2019 7:38 AM
[2019-03-09] MEDS: MUCOMYST 20% INH SCH ×2 (07:49→19:30)
[2019-03-09] MEDS: ASPIRIN PO SCH (08:06)
[2019-03-09] MEDS: COREG PO SCH ×2 (08:06→21:35)
[2019-03-09] MEDS: CATAPRES PO SCH ×2 (08:06→21:35)
[2019-03-09] MEDS: ZANTAC PO SCH ×2 (08:06→21:36)
[2019-03-09] MEDS: ISMO PO SCH ×2 (08:07→21:36)
[2019-03-09] MEDS: ALDACTONE PO SCH (08:07)
[2019-03-09] MEDS: MIRALAX PO SCH ×2 (08:07→21:38)
[2019-03-09] MEDS: TYLENOL PO PRN ×2 (08:37→18:07)
--- NOTE | 2019-03-09 10:11 | PROGRESS NOTE ---
DATE: 03/09/2019 INTERVAL HISTORY: No acute events overnight. His urine catheter was removed. However, he had to be straight cath twice and so a Stratton was reintroduced. SUBJECTIVE: He is feeling fine. He says he is eating okay. He had one bowel movement this morning. He is denying any complaints. He is denying any chest pain or shortness of breath. I discussed about possible discharge tomorrow. I answered all of his questions. OBJECTIVE: Vital Signs: Temperature 97.7 degrees, pulse 65, respiratory rate 18, blood pressure 140/50, saturating 99% on 2 L nasal cannula. General: Obese, not in any acute distress. HEENT: Oral cavity is moist. Lungs: Air entry bilaterally equal. No wheeze, rhonchi. Mild bilateral infrascapular crackles. Cardiovascular: S1, S2 normal. Systolic murmur affecting second intercostal space, crescendo/decrescendo, with obscuring S2. No rub or gallop. Abdomen: Obese, soft, nontender. Extremities: Bilateral upper and lower extremity edema, which is decreasing. Neurologic: He is alert. He is oriented to himself, to this hospital, and he recognizes me as his doctor. He asked me questions about his altered speech, and I told him about the hypoxic brain injury. He is able to lift both upper extremities above ground level, though appears a little shaky. He is able to flicker both lower extremities. He still has urine catheter, which I have ordered to be removed. LABORATORY DATA: Suggestive of normal WBC, normocytic anemia, normal platelet count, hyponatremia, hypochloremia, normal kidney function. MICROBIOLOGY: No new data. IMAGING: Chest x-ray suggests decreasing pulmonary vascular congestion. ASSESSMENT AND PLAN: 1. Acute hypoxic respiratory failure. Currently saturating well on nasal cannula. Continue oral Lasix and use bilevel positive airway pressure as needed. 2. Acute encephalopathy with protracted course and slowed recovery, likely hypoxic encephalopathy because of cardiorespiratory arrest x3 and mechanical ventilation. He does have residual memory impairment and some speech difficulty with that. 3. Essential hypertension. Currently in acceptable range. However, he is needing clonidine, carvedilol, isosorbide, hydralazine, lisinopril, and spironolactone. Will keep a close eye over his blood pressure, and titrate his medication down as tolerated. His plasma renin aldosterone is in lab, though he was already on spironolactone. 4. Urinary retention: I will again consider giving a voiding trial to him tomorrow AM. 4. History of noninsulin-dependent diabetes mellitus with episodes of hypoglycemia, which are resolved. Continue sliding scale insulin. 5. Others. His pulmonary edema, pneumonia, hypercarbic respiratory failure, cardiorespiratory arrest episodes have resolved. Continue levothyroxine for hypothyroidism; aspirin for bilateral upper extremity superficial venous thrombosis; pureed diet for dysphagia with aspiration precautions; heparin for deep venous thrombosis prophylaxis. 6. Disposition. The patient is awaiting a bed at [facility]. He would need continued physical therapy, speech therapy, and occupational therapy. Plan of care was discussed with the patient's son the day before yesterday. All of his questions had been answered. cc: Andrew Zimmerman MD MTDD
[2019-03-09] MEDS: ZOSTRIX TOP PRN ×3 (12:12→23:25)
--- NOTE | 2019-03-09 18:43 | PULMONOLOGY PROGRESS NOTE ---
DATE: 03/09/2019 SUBJECTIVE: Patient is awake, alert, and conversant. He is without specific complaints. He is anxious to go to rehabilitation tomorrow. OBJECTIVE: Vital Signs: The patient has been afebrile for the last 24 hours. BP 153/57, heart rate 68, oxygen saturation 98% on 1 L per nasal cannula. HEENT: Pupils are equal and reactive. Oropharynx appears clear. Neck: Supple. Chest: Faint crackles in the lung bases. Cardiac: S1, S2. Abdomen: Soft. Extremities: Continued decrease in edema. LABORATORIES: Chest x-ray revealed good lung volumes bilaterally. Minimal interstitial edema with cardiomegaly. Significant improvement over the last 48 hours. IMPRESSION: A 63-year-old with: 1. Acute hypoxemic respiratory failure. He is now on 1 L per nasal cannula. 2. Encephalopathy, status post cardiopulmonary arrest with slow continued improvement. 3. Hypertension. 4. Diabetes mellitus. 5. Significant deconditioning. PLAN: 1. Continue bronchial hygiene. 2. Wean oxygen as tolerated. 3. Continue physical therapy. 4. Agree with plans for rehabilitation. cc: Yury Rodriguez MD
[2019-03-09] MEDS: PRINIVIL PO SCH (21:35)
[2019-03-09] MEDS: DULCOLAX PR SCH ×2 (21:36→21:45)
[2019-03-10] MEDS: TYLENOL PO PRN ×2 (00:11→08:35)
[2019-03-10] MEDS: DUONEB (A & A) INH SCH ×3 (03:48→11:20)
[2019-03-10] MEDS: APRESOLINE PO SCH ×2 (06:08→14:01)
[2019-03-10] MEDS: SYNTHROID PO SCH (06:08)
[2019-03-10] MEDS: HEPARIN SUBQ SCH (06:08)
[2019-03-10] MEDS: LASIX PO SCH (06:08)
[2019-03-10] MEDS: HUMULIN R SUBQ SCH ×2 (06:09→12:00)
[2019-03-10] MEDS: MUCOMYST 20% INH SCH (07:32)
[2019-03-10] MEDS: ISMO PO SCH (08:03)
[2019-03-10] MEDS: ZANTAC PO SCH (08:04)
[2019-03-10] MEDS: CATAPRES PO SCH (08:04)
[2019-03-10] MEDS: ASPIRIN PO SCH (08:04)
[2019-03-10] MEDS: MIRALAX PO SCH (08:04)
[2019-03-10] MEDS: COREG PO SCH (08:04)
[2019-03-10] MEDS: ALDACTONE PO SCH (08:13)
--- NOTE | 2019-03-10 09:50 | PROGRESS NOTE ---
DATE: 03/10/2019 INTERVAL HISTORY: No acute overnight events. His urine catheter was discontinued in the morning time. The patient states that he has peed and there was one incontinent void measured at nighttime lab. SUBJECTIVE: He is denying any chest pain or shortness of breath. He is emotional about his hospital course and he is thanking the entire medical team who have helped him get better. VITALS: Temperature 97.8 degrees, pulse 68, respiratory rate 15, blood pressure 140/48, saturating 98% on 1 L by nasal cannula. PHYSICAL EXAMINATION: Morbidly obese. Not in any acute distress. Oral cavity is moist. Lungs: Air entry bilaterally equal. No wheeze or rhonchi. Inspiratory crackles at bilateral inframammary region. S1, S2 normal. Systolic murmur affecting second intercostal space, crescendo-decrescendo with obscuring S2. No rub or gallop. Abdomen: Obese, soft, nontender. Bilateral upper and lower extremity edema which is significantly decreasing. Neurologic: He is alert. He remembers his date. He is able to recognize me as his doctor. He does not remember the events that happened inside the ICU but he states he wants to go to rehab as soon as possible to get better. LABS: No CBC or BMP today. No new microbiological data. No new imaging data. ASSESSMENT AND PLAN: 1. Acute hypoxic respiratory failure, saturating well on nasal cannula. Continue oral Lasix. 2. Acute encephalopathy, likely hypoxic encephalopathy because of cardiorespiratory arrest and intubation with slow recovery. He would need outpatient speech therapy. 3. Essential hypertension, currently in acceptable range on clonidine, carvedilol, isosorbide, hydralazine, lisinopril, and spironolactone. His aldosterone and renin levels are in lab. 4. Urine retention. Stratton catheter has been removed and he is getting voiding trial. We will get a bladder scan every 3 to 4 hours to make sure he does not retain again. 5. Vzw-elmpkhr-jwilpecql diabetes mellitus. His hypoglycemia episodes have resolved and his blood sugars are currently in acceptable range. I will add Lantus today. 6. His pulmonary edema, pneumonia, hypercarbic respiratory failure, cardiorespiratory arrest x2 have resolved; continue levothyroxine for hypothyroidism; aspirin for bilateral upper extremity superficial venous thrombosis; pureed diet for dysphagia with aspiration precautions; heparin for deep venous thrombosis prophylaxis. 7. Disposition. Pending bed availability at [facility]. Plan of care discussed with him. cc: Andrew Zimmerman MD
--- NOTE | 2019-03-10 12:34 | DISCHARGE SUMMARY ---
ADMISSION DATE: 02/07/2019 DISCHARGE DATE: ADDENDUM REPORT Addendum to previously dictated discharge summary on Mr. Chavez. HOSPITAL COURSE: The patient had developed cardiorespiratory arrest twice during this hospital admission and was intubated twice because of that. It was thought to be because of septic shock due to pneumonia as well as pulmonary edema, and then he required intubation for a long time. He was eventually extubated; however, he continues to have persistent encephalopathy, so Neurology team was consulted. The patient underwent EEG study on 02/19/2019, and the EEG was suggestive of possible anoxic brain injury and was getting a poor prognosis; however, during the later part of the hospitalization, patient improved. Since last 2 weeks, patient has been treated with multiple antihypertensive medication and oral Lasix for his pulmonary edema and has shown a significant improvement in his blood pressure as well as respiratory status. His mental alertness and responses have also been improved. Neurology team has signed off, and it was thought that this could be his new baseline with a slow protracted recovery. At the time of discharge patient is advised to follow up with Cardiology for essential hypertension management, Urology if he develops urinary retention, and his regular doctor. COORDINATION TIME: More than 30 minutes were spent in discharging this patient. cc: Andrew Zimmerman MD
[2019-03-10 12:59] VITALS: BP 142/50
--- NOTE | 2019-03-10 13:51 | DISCHARGE SUMMARY ---
ADMISSION DATE: 02/07/2019 DISCHARGE DATE: 03/10/2019 DISCHARGE DISPOSITION: The patient is going to [facility]. DISCHARGE CONDITION: The patient is hemodynamically stable. He is alert. He is able to recognize me as his doctor. He knows his date. He does have some vision impairment, and perception to light is present. He is on 1 L nasal cannula. DISCHARGE DIAGNOSES: 1. Septic shock due to bilateral pneumonia. 2. Cardiorespiratory arrest x2, requiring multiple intubations. 3. Acute kidney injury because of septic shock. 4. Persistent hypoxic brain injury which could possibly be new baseline. 5. Hypertensive urgency requiring multiple antihypertensive medications. 6. Hypoglycemia. 7. Acute bilateral pulmonary edema. 8. Acute Hypoxic hypercarbic respiratory failure. 9. Acute duodenitis. 10. Bilateral upper extremity superficial venous thrombosis. 11. Critical illness acquired neuropathy and physical deconditioning. OTHER DIAGNOSES: 1. History of essential hypertension. 2. History of noninsulin dependent diabetes mellitus. 3. History of hypothyroidism. 4. History of peripheral neuropathy. DISCHARGE MEDICATIONS: 1. Metformin 1000 mg b.i.d. 2. Glyburide 2.5 mg daily. 3. Lovastatin 20 mg at nighttime. 4. Levothyroxine 50 mcg daily. 5. Bisacodyl 10 mg per rectal every nighttime. 6. Lisinopril 40 mg at nighttime. 7. Hydralazine 100 mg t.i.d. 8. Heparin subcu 5000 units every 8 hours as if he is not ambulatory. 9. Spironolactone 100 mg daily. 10. Aspirin 81 mg daily. 11. Clonidine 0.3 mg b.i.d. 12. Carvedilol 25 mg b.i.d. 13. Albuterol ipratropium nebulization every 4 hours as needed for shortness of breath. 14. Insulin human Regular as per sliding scale insulin with meals and at nighttime. 15. Isosorbide mononitrate 20 mg b.i.d. 16. Furosemide 40 mg every 12 hours. 17. Polyethylene glycol 17 g b.i.d. 18. Acetaminophen 650 mg every 6 hours as needed for pain. 19. [id number] mg b.i.d. 20. Capsaicin 0.075% cream as needed for back pain. 21. He is discharging on 1 L nasal cannula oxygen. 22. For urine retention, he may need a Stratton catheterization. VITALS AT TIME OF DISCHARGE: Temperature 97.5 degrees, pulse 72, respiratory 15, blood pressure 142/50 saturating 97% on 1 L nasal cannula. PHYSICAL EXAMINATION: Morbidly obese not in acute distress. Oral cavity is moist. Air entry bilaterally equal. No wheeze or rhonchi. Inspiratory crackles bilateral infrascapular region which is mild. Cardiovascular: S1, S2 normal. Systolic crescendo-decrescendo murmur affecting right second intercostal space with occasionally obscuring S2. No rub or gallop. Abdomen: Obese. Soft. Nontender. Extremities: Bilateral lower extremity edema. Neurologic: He is alert. He is oriented to himself. He could recognize his doctor. He wants to go to rehab. He is able to follow all commands. Able to raise both upper extremities above ground level. He does have significant weakness in the left bilateral lower extremities. He does have significant weakness in bilateral lower extremities, though he is able to flex his knees, but not able to lift them above ground level. LABORATORY: At the time of discharge, WBC 4.09, hemoglobin 9.9, and platelet 233,000. Sodium 134, potassium 4.1, chloride 95, BUN 21, creatinine 0.9, and blood sugar 228. MICROBIOLOGY: During hospital admission, blood culture, sputum culture. Urine culture did not have any growth multiple times. C. Difficile toxin and antigen were negative. IMAGING: Significant imaging during hospital admission. On admission, chest x- ray had borderline cardiomegaly on 02/08/2019. Abdomen and pelvis CT had evidence of duodenitis without perforation or obstruction. There was a small nonobstructing left renal stone. On chest CT on 02/08/2019, he had bilateral lower lobe pneumonia, cardiomegaly, mediastinal lymphadenopathy. On 02/08/2019, neck CT had minimal ethmoid sinusitis on the right versus mucosal cyst without any acute abnormality. On 02/08/2019, head CT had detected chronic ischemic changes of the brain without any acute pathology, which was performed for his acute encephalopathy. On chest x-ray 02/08/2019, did not have any acute pathology. Extremity venous study on 02/17/2019 had suggested bilateral upper extremity superficial venous thrombosis. Abdomen and pelvis CT as a follow-up on 03/09/2019 had suggested resolution of duodenitis, small nonobstructing left renal stone, worsening bilateral lower lobe consolidation concerning for pneumonia, and worsening body wall edema. Chest x-ray on 03/09/2019 had suggested oral improvement in bilateral pulmonary edema. EEG on 02/19/2019 had suggested diffuse encephalopathy likely metabolic. However, anoxic brain injury was likely possibility and had a poor prognosis, though he clinically improved. HOSPITAL COURSE SUMMARY: Mr. Chavez is a 63 year old man who had presented initially on 02/07/2019 nighttime with chief complaints of worsening shortness of breath, acute encephalopathy, and he was admitted for sepsis from bilateral lower lobe pneumonia, duodenitis and hypoglycemia. The next day his respiratory status got worse, and he went into PEA cardio respiratory arrest and was emergently intubated. Pulmonology was consulted, and he was managed in ICU for septic shock from bilateral pneumonia and acute kidney injury. His hospital course has been prolonged and he had a total of 2 cardiac respiratory arrests requiring intubations twice, prolonged mechanical ventilation. He was treated with intravenous diuretics, intravenous antibiotics for bilateral pneumonia, pulmonary edema and respiratory arrest. He was also treated with intravenous proton pump inhibitors for his duodenitis. After several days of intubation, he was able to be extubated and since then has been weaned off from BiPAP to non-rebreather to nasal cannula and currently breathing well on some nasal cannula. He does have persistent confusion and some speech abnormality with vision problem, which was thought to be secondary to residual hypoxic brain injury. EEG was performed which was indicative of hypoxic brain injury. However, it was done on 02/19/2019 and since then, patient has significantly improved. Neurology had been following the patient. No further recommendations were made. Next, his hospital course was also challenged by essential hypertension and multiple medications were added. His renin aldosterone levels are still in lab, though the ultrasound of abdomen was not indicative of renal artery stenosis. The patient also developed urinary retention, and he is currently getting voiding trial. He should follow up with tap builder as an outpatient for hypertension management, urologist if he develops urinary retention. Plan of care discussed with the patient, and patient's son was also kept informed. TIME SPENT: More than 30 minutes spent in discharging this patient. cc: Andrew Zimmerman MD [facility] CENTERBraydon
== END 2019-03-10 14:58 | DRG 870 ==
LOC: P.ED 18:39 → 3S 21:20 → SUATTDRO 21:20 → 3S 22:12 → ICU 02-08 12:49 → 3S 03-05 17:28
PROVIDERS: ATTEND Internal Medicine
CPT/HCPCS: 31500; 70450; 70490; 71010; 71045; 71250; 74000; 74018; 74176; 80048; 80053; 81001; 82088; 82330; 82550; 82553; 82570; 82805; 82947; 82948; 83036; 83605; 83735; 83835; 83935; 84100; 84132; 84134; 84145; 84156; 84244; 84295; 84300; 84439; 84443; 84484; 85025; 85027; 85610; 85730; 87040; 87070; 87088; 87205; 87275; 87276; 87324; 87449; 87804; 92526; 92950; 93005; 93010; 93306; 93308; 93970; 93976; 94002; 94003; 94640; 94660; 94761; 94762; 95816; 96365; 96375; 97110; 97161; 97166; 97530; 97535; 99285; A9270; C8924; C8929; J0131; J0171; J0330; J0360; J0461; J0610; J0692; J1644; J1815; J1885; J1940; J1956; J2020; J2185; J2270; J2405; J2543; J2780; J3010; J3480; J7030; J7040; J7042; J7050; J7070; P9047; Q9957; XXXXX

== ENCOUNTER 2019-04-11 14:02 | Inpatient (IN) ==
[2019-04-11] MEDS ORDERED: LABETALOL IV ONE (14:42)
--- NOTE | 2019-04-11 14:59 | Diag Imaging Result Doc PS360 ---
EXAM: CHEST-PORTABLE HISTORY: hypertensive accleration TECHNIQUE: Chest single view COMPARISON: 03/09/2019 FINDINGS: The lungs are well expanded. The heart is not enlarged. The vessels are not distended. There are no infiltrates. No effusion identified. Interval removal of the right jugular line. IMPRESSION: Negative exam. Electronically signed by Alex Denney 04/11/2019 2:57 PM
[2019-04-11 15:10] LABS: BASO# 0.03 X1000 (0.0-0.2); BASO% 0.2 % (0.0-0.8); HEMATOCRIT 39.4 % (42.0-52.0); HEMOGLOBIN 13.7 g/dL (14.0-18.0); IMM GRAN# 0.04 X1000 (0.0-0.04); IMM GRAN% 0.3 % (0.0-0.5); LYMPH# 1.76 X1000 (1.2-3.4); LYMPH% 14.2 % (20.5-51.1); MCH 29.5 PG (27-31); MCHC 34.8 g/dL (33-37); MCV 84.9 FL (81-99); MONO# 0.57 X1000 (0.11-0.59); MONO% 4.6 % (1.7-9.3); MPV 9.6 FL (7.4-10.4); NEUT# 9.99 X1000 (1.4-6.5); NEUT% 80.7 % (42.2-75.2); PLT 370 X1000 (130-400); RBC 4.64 XMIL (4.7-6.1); RDW 13.7 % (11.5-14.5); WBC 12.39 X1000 (4.8-10.8)
[2019-04-11 15:26] LABS: AGAP 22; ALB/GLOB RATIO 1.7; ALBUMIN 4.9 g/dL (3.5-5.0); ALKALINE PHOSPHATASE 62 U/L (32-122); BUN 29 mg/dL (8-22); CALCIUM 10.2 mg/dL (8.8-10.2); CHLORIDE 99 mmol/L (98-107); COSMO 295; ESTIMATED GFR > 60; GLUCOSE 269 mg/dL (70-104); GOT 12 U/L (10-34); GPT 10 U/L (10-44); POTASSIUM 5.5 mmol/L (3.5-5.1); SODIUM 140 mmol/L (136-145); TCO2 19 mmol/L (25-35); TOTAL BILIRUBIN 0.41 mg/dL (0.20-1.00); TOTAL PROTEIN 7.8 g/dL (6.3-8.3)
[2019-04-11] MEDS ORDERED: ZOFRAN IV ONE (15:51)
[2019-04-11] MEDS ORDERED: NS 500 ML IV ONE (15:51)
--- NOTE | 2019-04-11 16:14 | PROVIDER DOCUMENTATION ---
This chart was entered by Rowena Khalil Scribe, acting as scribe for Debra Bunch MD. HPI-General Adult - General Chief Complaint: B/P Problems Stated Complaint: HIGH BP,VOMITING,FEVER Time Seen by Provider: 04/11/19 14:45 Source: patient, family, old records Allergies/Adverse Reactions: Patient Allergies Allergy/AdvReac Type Severity Reaction Status Date / Time No Known Allergies Allergy Verified 02/07/19 20:09 Home Medications: Home Medication List Medication Instructions Recorded Confirmed Last Taken Type Levothyroxine [Synthroid] 50 mcg PO DAILY 02/08/19 04/11/19 04/10/19 History Lovastatin 20 mg PO HS 02/08/19 04/11/19 04/10/19 History Metformin [Glucophage] 1,000 mg PO BID 02/08/19 04/11/19 04/10/19 History Aspirin 81 mg PO DAILY chewtab 03/10/19 04/11/19 04/10/19 Rx Bisacodyl [Dulcolax] 10 mg FL QHS supp 03/10/19 04/11/19 Unknown Rx Clonidine [Catapres] 0.3 mg PO BID tab 03/10/19 04/11/19 04/10/19 Rx Hydralazine [Apresoline] 100 mg PO Q8HR tab 03/10/19 04/11/19 04/10/19 Rx Insulin Human Regular [Humulin R] 0 unit SUBQ AC + HS ml 03/10/19 04/11/19 04/10/19 Rx Isosorbide Mononitrate [Ismo] 20 mg PO BID tab 03/10/19 04/11/19 04/10/19 Rx Lisinopril 40 mg PO QHS #0 03/10/19 04/11/19 04/10/19 Rx Polyethylene Glycol 3350 [Miralax] 17 gm PO BID powder, packet 03/10/19 04/11/19 Unknown Rx - History of Present Illness -Gen Adult Nature of Presenting Problems: 63 y/o male presents to ED with N/V and HTN onset last night. Pt reports he has not been able to take his normal medications today due to his symptoms. Family of pt states he was admitted last month for hypoglycemia, [place], and CVA. Family reports he coded twice while he was admitted. Pt is alert and oriented. Location of Pain/Injury: reports: none Pain Radiation: reports: no radiation Quality of Pain: reports: none Severity: reports: mild Onset/Duration: reports: last night Timing: reports: still present Context/Activities at Onset: reports: none Modifying Factors: improves with: nothing Associated Symptoms: reports: nausea, vomiting, other (HTN) Similar Symptoms Previously?: No Recently seen or treated by another doctor?: Yes Review of Systems - Adult - REVIEW OF SYSTEMS - ADULT Constitutional: reports: other (HTN). denies: chills, fever Eyes: reports: no symptoms reported Ears, Nose, Mouth & Throat: reports: no symptoms reported Cardiovascular: reports: other (HTN). denies: chest pain, palpitations Respiratory: denies: cough, shortness of breath Gastrointestinal: reports: nausea, vomiting. denies: abdominal pain, diarrhea Genitourinary: reports: no symptoms reported Musculoskeletal: denies: back pain, joint pain Integumentary: reports: no symptoms reported Neurological: denies: dizziness/vertigo, seizure Psychiatric: reports: no symptoms reported Endocrine: reports: no symptoms reported Hematologic/Lymphatic: reports: no symptoms reported Allergic/Immunologic: reports: no symptoms reported All Other Systems: Reviewed and Negative Past History - Adult - PAST MEDICAL HISTORY-ADULT Review of Records: reports: Old Records Reviewed, Nursing Assessment Review, Medications Reviewed Major Childhood Illnesses: reports: denies history Cardiovascular: reports: HTN Endocrine/Immune: reports: Diabetes, thyroid disorder - PRIOR SURGERIES/PROCEDURES Surgical/Procedure History: reports: appendectomy, other (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; nose) - IMMUNIZATION STATUS Childhood Immunizations: See Nurse Assessment Flu Vaccine: See Nurse Assessment - FAMILY HISTORY Family History: reviewed, not pertinent - SOCIAL HISTORY Smoking: non-smoker Substance Use: none/never Alcohol Use Frequency: never Living Situation: family Physical Exam-General - PHYSICAL EXAM-ADULT Initial Vital Signs Reviewed: Yes (blood pressure 238/94) - CONSTITUTIONAL General Appearance: appears well, alert, no apparent distress - EYES Eyes: PERRL/EOMI, pink conjunctivae - HEAD, EARS, NOSE, MOUTH & THROAT HENMT: normocephalic/atraumatic, moist mucous membranes, normal ENT inspection - NECK Neck: non-tender, full range of motion - RESPIRATORY Respiratory: chest non-tender, lungs clear, normal breath sounds - CARDIOVASCULAR Cardiovascular: tachycardia, other (murmur) - GASTROINTESTINAL (ABDOMEN) Abdominal Exam: normal bowel sounds, non tender, soft - MUSCULOSKELETAL Back Exam: normal inspection, no CVA tenderness, no vertebral tenderness Extremity: normal range of motion - SKIN Integumentary: normal color, warm/dry - NEUROLOGIC Neurologic: grossly normal - PSYCHIATRIC Psych/Mental Status: normal mood/affect, normal thought content, normal thought process, oriented x 3 Progress - PLAN OF CARE/RESULTS Progress/Plan/Lab Results: Vital Signs - 8 hr 04/11/19 14:14 Temperature 98.2 F Pulse Rate 108 H Respiratory Rate 18 Blood Pressure 185/80 O2 Sat by Pulse Oximetry 98 Orders Category Date Time Status Saline Loc NOW Care 04/11/19 14:44 Active CHEST-PORTABLE [RAD] Stat Exams 04/11/19 14:44 Ordered CBC WITH DIFF [HEME] Stat Lab 04/11/19 14:44 Uncollected COMPREHENSIVE METABOLIC PANEL [CHEM] Stat Lab 04/11/19 14:44 Uncollected TROPONIN T Stat Lab 04/11/19 14:44 Uncollected Labetalol Med 04/11/19 14:42 Discontinued 10 mg IV NOW ONE Laboratory Tests 04/11/19 04/11/19 04/11/19 14:56 14:56 14:56 WBC 12.39 H RBC 4.64 L Hgb 13.7 L Hct 39.4 L MCV 84.9 MCH 29.5 MCHC 34.8 RDW Std Deviation 13.7 Plt Count 370 MPV 9.6 Immature Gran % (Auto) 0.3 Neut % (Auto) 80.7 H Lymph % (Auto) 14.2 L [place] % (Auto) 4.6 Eos % (Auto) 0.0 Baso % (Auto) 0.2 Immature Gran # (Auto) 0.04 Neut # (Auto) 9.99 H Lymph # (Auto) 1.76 [place] # (Auto) 0.57 Eos # (Auto) 0.00 Baso # (Auto) 0.03 Sodium 140 Potassium 5.5 H Chloride 99 Carbon Dioxide 19 L Anion Gap 22 BUN 29 H Creatinine 1.0 Estimated GFR/1.73 m2 > 60 BUN/Creatinine Ratio 29 Glucose 269 H Calculated Osmolality 295 Calcium 10.2 Total Bilirubin 0.41 AST 12 ALT 10 Alkaline Phosphatase 62 Troponin T < 0.010 Qeg-N-Evxutujerqx Pept Total Protein 7.8 Albumin 4.9 Globulin 2.9 Albumin/Globulin Ratio 1.7 04/11/19 14:56 WBC RBC Hgb Hct MCV MCH MCHC RDW Std Deviation Plt Count MPV Immature Gran % (Auto) Neut % (Auto) Lymph % (Auto) [place] % (Auto) Eos % (Auto) Baso % (Auto) Immature Gran # (Auto) Neut # (Auto) Lymph # (Auto) [place] # (Auto) Eos # (Auto) Baso # (Auto) Sodium Potassium Chloride Carbon Dioxide Anion Gap BUN Creatinine Estimated GFR/1.73 m2 BUN/Creatinine Ratio Glucose Calculated Osmolality Calcium Total Bilirubin AST ALT Alkaline Phosphatase Troponin T Hbe-D-Iwhlvpntghm Pept 4550 H Total Protein Albumin Globulin Albumin/Globulin Ratio Result Diagrams: 04/11/19 14:56 04/11/19 14:56 - EKG 1 Time of EKG reading by physician:: 14:14 EKG Read and Signed by:: Debra Bunch EKG Interpretation (*Must complete 3 of following elements*): Abnormal Rate: 107 Rhythm: Sinus tach [place]: normal QRS: normal [place] Interval: normal ST Wave: non-specific ST changes (consider lateral ischemia) - XRAY 1 XRAY Study: Chest Impression: See EMR Report ([facility] - [address] [place] [address], [address] [address] [facility] - [address] [place] [address] Department of Imaging Patient: SHAN FRIEDMAN [facility] Date: 04/11/19#: [id number] : 1955DM Status: PRE ERAcct#: [id number] Age/Sex: 63/MRoom/Bed: Loc: ED Ordering Physician: Debra Bunch MD Family Physician: MAJO TALAMANTES Reason for Procedure: hypertensive acc leration ___ Signed EXAM: CHEST-PORTABLE HISTORY: hypertensive accleration TECHNIQUE: Chest single view COMPARISON: 03/09/2019 FINDINGS: The lungs are well expanded. The heart is not enlarged. The vessels are not distended. There are no infiltrates. No effusion identified. Interval removal of the right jugular line. IMPRESSION: Negative exam. Electronically signed by Alex Denney 04/11/2019 2:57 PM 04/11/19 1457 Interpreting Physician: Alex Denney MD Dictated Date/Time: 04/11/19 1457 cc: Debra Bunch MD; Majo Talamantes) - CONSULTS/PCP/HOSPITALIST Notification #1 *Consult/PCP/Hospitalist*: SARMAD Flores for hospitalist Time Discussed: 15:56 Reason/Comments: Dehydration, N/V, HTN urgency Consult Disposition: Admit Departure - Departure Date of Disposition Decision: 04/11/19 Time of Disposition Decision: 15:59 DIAGNOSIS: Dehydration, Hypertensive urgency Nausea and vomiting Qualifiers: Vomiting type: unspecified Vomiting Intractability: unspecified Qualified Code(s): R11.2 - Nausea with vomiting, unspecified Disposition: ADMITTED INPATIENT 09 Certified Medical Emergency: Emergent Condition: Stable - Critical Care Note This patient required my direct & personal management of CC.: No Attestation - Physician/ BLANCA Attestation Patient care was provided by Advanced Practice Provider:: No The physician spent face to face time with patient:: Yes Advanced Practice Provider documentation review:: Supervising physician onsite and consulted in the evaluation and care of this patient. The physician did have a face to face encounter with the patient. This chart was documented by the indicated scribe, (Rowena Khalil Scribe) and accurately reflects the services I performed and decisions made by me, Debra Bunch MD, as attested by the provider's signature.
--- NOTE | 2019-04-11 16:32 | EKG Report ---
Test Performed on : 04/11/2019 2:14:22 PM Test Reason : ED. No order in [place] Blood Pressure : / mmHG Vent. Rate : 107 BPM Atrial Rate : 107 BPM P-R Int : 126 ms QRS Dur : 078 ms QT Int : 332 ms P-R-T Axes : 063 012 125 degrees QTc Int : [address] & T wave abnormality, consider lateral ischemia Abnormal ECG When compared with ECG of 06-MAR-2019 21:33, Vent. rate has increased BY 40 BPM Unconfirmed Result
[2019-04-11] MEDS ORDERED: NS 1,000 ML IV ONE (17:19)
[2019-04-11] MEDS: APRESOLINE IV PRN ×2 (17:42→23:48)
[2019-04-11] MEDS: ZOFRAN IV PRN (17:42)
[2019-04-11] MEDS: NS 1,000 ML IV SCH (18:41)
[2019-04-11] MEDS: SODIUM CHLORIDE 0.9% INJ PRN (18:57)
[2019-04-11] MEDS: PHENERGAN IV PRN ×2 (18:57→23:44)
[2019-04-11] MEDS: LABETALOL IV PRN (20:48)
[2019-04-11] MEDS: HUMALOG SUBQ SCH (20:48)
[2019-04-11] MEDS: NITROGLYCERIN TOP SCH (20:48)
--- NOTE | 2019-04-11 21:33 | Diag Imaging Result Doc PS360 ---
EXAM: ABDOMEN FLAT/UPRIGHT HISTORY: pain TECHNIQUE: Flat and upright, two views COMPARISON: 03/02/2019 FINDINGS: No free air beneath the diaphragm. No organomegaly. No bowel obstruction. There is stool throughout the colon. There are surgical clips overlying the right lower quadrant. There are several pelvic phleboliths. IMPRESSION: Mild constipation. Electronically signed by Alex Denney 04/11/2019 9:31 PM
--- NOTE | 2019-04-11 23:54 | HISTORY AND PHYSICAL ---
ADDENDUM: This is an unfortunate gentleman, [id number], very complicated history recently of CVA with brain injury, CAD, and hypoglycemia, presenting with nausea and vomiting, and persistent hypertension because he cannot keep anything down. His laboratory data is really not too remarkable. White count is a little bit elevated. Blood sugar is up. ProBNP up. The rest of his data looks okay. He came in for nausea, vomiting, diarrhea, kind of process. He had septic shock, too, and he has cardiac arrest requiring intubation, but he survived with very minimal problems. Now, he is throwing up and cannot keep anything down, and his blood pressure maintains high. His physical exam is really unremarkable. His abdominal exam is benign. PLAN: He will be admitted for treatment and we will initiate at this point, intravenous medications, and we will see how he does. DISPOSITION: Pending his clinical status. Once he can take blood pressure medicines; he should be able to be discharged. Continue to follow closely. cc: Isaiah Cheng MD MTDD
--- NOTE | 2019-04-12 01:07 | HISTORY AND PHYSICAL ---
CHIEF COMPLAINT: Hypertension, vomiting. 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 He presents to the emergency room complaining of vomiting that started yesterday evening. He was not able to take his home medications and blood pressures have increased secondary to this. He was found to have a white count of 12.3 with intravascular volume depletion. He was given a liter of saline in the emergency room. Blood pressures in the emergency room were between 220s to 230s over 90s to 100s. He was given labetalol and blood pressures did decrease to the 190s over 70s. He was then given hydralazine. Mr. Chavez was hospitalized from 02/07/2019 to 03/10/2019. He had a very complicated course coming in septic shock. He did cardiac arrest twice. He required multiple intubations. He did have a hypoxic brain injury. He is also known to have bilateral upper extremity superficial venous thrombosis. He was discharged to rehab and just came home from [facility] approximately 48 hours ago. PAST MEDICAL HISTORY: 1. Persistent hypoxic brain injury. 2. Hypertension. 3. Bilateral upper extremity superficial venous thrombosis. 4. Essential hypertension. 5. [id number] diabetes mellitus. 6. Hypothyroid. 7. Peripheral neuropathy. PAST SURGICAL HISTORY: Left lung surgery as a young child, questionable appendectomy. SOCIAL HISTORY: He lives with his and son. There is no alcohol tobacco, or illicit drug use. ALLERGIES: No known drug allergies. HOME MEDICATIONS: A list will be obtained by the nursing staff and once verified we will review and restart as appropriate. REVIEW OF SYSTEMS: Discussed with patient and family members with pertinent positives stated in the HPI. They denied any syncope, dizziness, chest pain, palpitations, shortness of breath, cough, fever, chills, any night sweats, any black or bloody vomitus or stools, any hematuria, dysuria, frequency, urgency. PHYSICAL EXAMINATION: GENERAL: This is a very pleasant 63-year-old gentleman who is lying on the stretcher in the emergency room in no distress. VITAL SIGNS: Blood pressure is 197/70 with a heart rate of 110, respirations are 20 to 22, temperature is 98 degrees oral with room air sat 98%-100%. EYES: Pupils equal, round, react to light. EOMs are intact. Sclerae anicteric. HEENT: Head is normocephalic, atraumatic. Mucous membranes are dry. NECK: Supple. Trachea midline. CARDIOVASCULAR: Regular rate and rhythm. He is tachycardic. S1 and S2 appreciated. He has no lower extremity edema. Calves are nontender bilateral. Peripheral pulses palpable x4 extremities. PULMONARY: Breath sounds are clear. No increased work of breathing noted. GASTROINTESTINAL: Abdomen soft, nontender, nondistended with bowel sounds in all 4 quadrants. GENITOURINARY: No CVA or suprapubic tenderness. NEUROLOGIC: He is alert and oriented x3. SKIN: Warm and dry. LABORATORIES: WBC is 12.3 with hemoglobin 13.7, hematocrit 39.4, platelets of 370,000. Sodium is 140, potassium 5.5, BUN is 29, creatinine 1 with a glucose of 269. Chest x-ray revealed a negative exam. ASSESSMENT AND PLAN: 1. Nausea and vomiting. The patient was given a liter of fluids. We will repeat and then continue fluids at 125 an hour. We will use Zofran as needed for nausea and remain NPO at present. 2. Hyperkalemia. We will hydrate and trend his labs. Hold any medications as appropriate. 3. Diabetes mellitus with pattern blood glucose with sliding scale insulin. 4. Hypothyroid. We will continue his levothyroxine. 5. Hypertension. As he is not able to hold medications down, we will give labetalol p.r.n. along with Nitrol ointment every 6 hours. 6. Recent cerebrovascular accident and myocardial infarction with a recent discharge from rehab. The patient has not started walking yet. He was home for home physical therapy. We will consult Physical Therapy in the morning. 7. We will repeat a CBC and renal profile in the morning. 8. Plan was discussed with Dr. Cheng. Further treatments pending hospital course. Dictated by SARMAD Correa for Isaiah Cheng MD cc: SARMAD Correa MD
[2019-04-12] MEDS: NS 1,000 ML IV SCH ×3 (03:13→20:32)
[2019-04-12] MEDS: NITROGLYCERIN TOP SCH ×2 (03:13→09:13)
[2019-04-12] MEDS: LABETALOL IV PRN ×2 (04:58→15:57)
[2019-04-12] MEDS: HUMALOG SUBQ SCH ×4 (06:12→20:33)
[2019-04-12 06:33] LABS: BASO# 0.01 X1000 (0.0-0.2); BASO% 0.1 % (0.0-0.8); HEMATOCRIT 35.6 % (42.0-52.0); HEMOGLOBIN 12.3 g/dL (14.0-18.0); IMM GRAN# 0.07 X1000 (0.0-0.04); IMM GRAN% 0.6 % (0.0-0.5); LYMPH# 2.07 X1000 (1.2-3.4); LYMPH% 17.5 % (20.5-51.1); MCH 30.1 PG (27-31); MCHC 34.6 g/dL (33-37); MCV 87.3 FL (81-99); MONO# 0.99 X1000 (0.11-0.59); MONO% 8.4 % (1.7-9.3); MPV 9.3 FL (7.4-10.4); NEUT# 8.66 X1000 (1.4-6.5); NEUT% 73.4 % (42.2-75.2); PLT 337 X1000 (130-400); RBC 4.08 XMIL (4.7-6.1); RDW 13.7 % (11.5-14.5)
[2019-04-12 06:59] LABS: AGAP 18; ALBUMIN 4.3 g/dL (3.5-5.0); BUN 24 mg/dL (8-22); CALCIUM 9.4 mg/dL (8.8-10.2); CHLORIDE 103 mmol/L (98-107); COSMO 292; CREATININE 0.9 mg/dL (0.7-1.2); ESTIMATED GFR > 60; GLUCOSE 221 mg/dL (70-104); PHOSPHORUS 3.2 mg/dL (2.7-4.5); POTASSIUM 4.6 mmol/L (3.5-5.1); SODIUM 141 mmol/L (136-145); TCO2 20 mmol/L (25-35)
[2019-04-12] MEDS: ZOFRAN IV PRN (09:12)
[2019-04-12] MEDS: APRESOLINE IV PRN ×2 (09:13→17:53)
[2019-04-12] MEDS: VASOTEC IV SCH ×2 (11:53→23:12)
[2019-04-12] MEDS ORDERED: CATAPRES PO ONE (15:08)
--- NOTE | 2019-04-12 15:33 | PROGRESS NOTE ---
DATE: 04/12/2019 SUBJECTIVE: The patient states he has no further nausea, vomiting. No major complaints. OBJECTIVE: Blood pressure is still elevated and he is still somewhat tachycardic. Vitals: Blood pressure 194/71, heart rate 123, respiratory 15, temperature 99.2 degrees, 99 percent on room air. Cardiovascular: Tachy. Pulmonary: Clear to auscultation. GI: Was soft, nontender. He has not had any more diarrhea by report. LABORATORY DATA: White count 11, hemoglobin and hematocrit 12 and 35, platelets 337,000, BUN creatinine 24.9, glucose 282. Abdominal x-ray shows some mild constipation. ASSESSMENT AND PLAN: This is a 63-year-old gentleman presenting with nausea, vomiting, diarrhea, most consistent with gastroenteritis, but he has malignant hypertension because he has not been able to keep anything down. PROBLEM LIST: 1. Nausea, vomiting, diarrhea seems to have improved. We will continue to follow. I am going to advance his diet and we will continue to monitor. 2. Hyperkalemia that has resolved. He is on an KRISTYN inhibitor. We will resume that. 3. Uncontrolled hypertension secondary to poor p.o. intake. We will resume his medications and follow. I think if he is stable and blood pressures are under control, he can likely go home tomorrow. cc: Isaiah Cheng MD
[2019-04-12] MEDS: SODIUM CHLORIDE 0.9% INJ PRN (16:06)
[2019-04-12] MEDS: PHENERGAN IV PRN (16:06)
[2019-04-12] MEDS: ISMO PO SCH (20:33)
[2019-04-12] MEDS: APRESOLINE PO SCH (20:33)
[2019-04-12] MEDS: CATAPRES PO SCH (20:33)
[2019-04-12] MEDS: MIRALAX PO SCH (20:33)
[2019-04-12] MEDS ORDERED: MEVACOR PO SCH (21:00)
[2019-04-12] MEDS ORDERED: DULCOLAX PR SCH (21:00)
[2019-04-13] MEDS: NS 1,000 ML IV SCH ×2 (06:08→11:40)
[2019-04-13] MEDS: HUMALOG SUBQ SCH ×2 (06:08→11:37)
[2019-04-13] MEDS: APRESOLINE PO SCH ×2 (06:08→12:25)
[2019-04-13 07:00] LABS: BASO# 0.04 X1000 (0.0-0.2); BASO% 0.5 % (0.0-0.8); EOS# 0.13 X1000 (0.0-0.7); EOS% 1.7 % (0.0-10.0); HEMATOCRIT 33.1 % (42.0-52.0); HEMOGLOBIN 11.1 g/dL (14.0-18.0); IMM GRAN# 0.03 X1000 (0.0-0.04); IMM GRAN% 0.4 % (0.0-0.5); LYMPH# 2.49 X1000 (1.2-3.4); LYMPH% 33.5 % (20.5-51.1); MCH 29.7 PG (27-31); MCHC 33.5 g/dL (33-37); MCV 88.5 FL (81-99); MONO# 0.91 X1000 (0.11-0.59); MONO% 12.2 % (1.7-9.3); MPV 9.4 FL (7.4-10.4); NEUT# 3.83 X1000 (1.4-6.5); NEUT% 51.7 % (42.2-75.2); PLT 321 X1000 (130-400); RBC 3.74 XMIL (4.7-6.1); RDW 13.8 % (11.5-14.5); WBC 7.43 X1000 (4.8-10.8)
[2019-04-13] MEDS ORDERED: SYNTHROID PO SCH (07:00)
[2019-04-13 07:14] LABS: AGAP 12; ALBUMIN 3.6 g/dL (3.5-5.0); BUN 21 mg/dL (8-22); CALCIUM 8.5 mg/dL (8.8-10.2); CHLORIDE 106 mmol/L (98-107); COSMO 282; CREATININE 0.9 mg/dL (0.7-1.2); ESTIMATED GFR > 60; GLUCOSE 97 mg/dL (70-104); SODIUM 140 mmol/L (136-145); TCO2 22 mmol/L (25-35)
[2019-04-13] MEDS ORDERED: ASPIRIN PO SCH (09:00)
[2019-04-13] MEDS: MIRALAX PO SCH (09:30)
[2019-04-13] MEDS: ISMO PO SCH (09:30)
[2019-04-13] MEDS: CATAPRES PO SCH (09:30)
[2019-04-13 13:11] VITALS: BP 127/56
--- NOTE | 2019-04-13 15:16 | DISCHARGE SUMMARY ---
ADMISSION DATE: 04/11/2019 DISCHARGE DATE: 04/13/2019 DISCHARGE DIAGNOSES: 1. Nausea, vomiting, diarrhea. Likely a gastroenteritis type syndrome. 2. Hyperkalemia due to dehydration. 3. Uncontrolled malignant hypertension due to inability to keep p.o. down. Briefly, this is a 63-year-old gentleman, who has had a very prolonged course, cardiac arrest, but he is home now. Came in with intravascular depletion, nausea, vomiting, diarrhea. Blood pressures systolic in the 220s. He could not keep anything down. His blood pressure continued to escalate, so he had to be admitted. He is home with physical therapy. He is still very weak. In any case, all his testing was really unremarkable. By the following day after hydration, his blood pressure stabilized. He was tolerating p.o. We were able to resume his blood pressure medications because they were still elevated. At discharge, his blood pressures have been 120s to 150s over 50s systolic. DISCHARGE MEDICATIONS: As follows: 1. Metformin 1 g b.i.d. His creatinine had been stable. 2. Lovastatin 20. 3. Synthroid 50 daily. 4. Dulcolax 10 at bedtime. 5. Lisinopril 40 daily. 6. Hydralazine 100 q.8. 7. Aspirin 81 daily. 8. Clonidine 0.3 b.i.d. 9. Regular insulin sliding scale. 10. Isosorbide mononitrate 20 b.i.d. 11. MiraLAX 17 b.i.d. Discharge condition is stable. Resume home PT. Follow up with his PCP who is Majo Talamantes. 32 minute discharge. He was tolerating p.o. without difficulty at discharge. cc: Isaiah Cheng MD
[2019-04-13] MEDS ORDERED: PRINIVIL PO SCH (21:00)
== END 2019-04-13 14:05 | disposition home health service (06) | DRG 305 ==
LOC: ED 14:02 → 3N 17:36
PROVIDERS: ATTEND Internal Medicine

== ENCOUNTER 2019-04-16 12:13 | Inpatient (IN) ==
[2019-04-16] MEDS ORDERED: NS 1,000 ML IV ONE ×2 (12:27→15:13)
--- NOTE | 2019-04-16 12:43 | Diag Imaging Result Doc PS360 ---
EXAM: CHEST-PORTABLE 04/16/2019 HISTORY: ams TECHNIQUE: AP portable at 1233 COMMENT: There is no evidence of acute cardiac or pulmonary disease. Compared to 04/11/2019 considering differences in technique there has been no significant change. IMPRESSION: Stable chest. Electronically signed by Abelino Leon 04/16/2019 12:40 PM
--- NOTE | 2019-04-16 12:43 | EKG Report ---
Test Performed on : 04/16/2019 12:15:56 PM Test Reason : ams Blood Pressure : / mmHG Vent. Rate : 085 BPM Atrial Rate : 085 BPM P-R Int : 126 ms QRS Dur : 082 ms QT Int : 430 ms P-R-T Axes : 005 009 007 degrees QTc Int : 511 ms Normal sinus rhythm. Nonspecific ST and T wave abnormality Abnormal ECG When compared with ECG of 11-APR-2019 14:14, (Unconfirmed) Nonspecific T wave abnormality now evident in Inferior leads Nonspecific T wave abnormality has replaced inverted T waves in Lateral leads QT has lengthened Unconfirmed Result
[2019-04-16] MEDS ORDERED: REGLAN IV ONE (12:46)
[2019-04-16] MEDS ORDERED: PROTONIX 80 MG in NS 80 ML IV ONE (12:46)
[2019-04-16] MEDS ORDERED: BENADRYL IV ONE (12:46)
[2019-04-16 12:50] LABS: BASO# 0.03 X1000 (0.0-0.2); BASO% 0.2 % (0.0-0.8); EOS# 0.03 X1000 (0.0-0.7); EOS% 0.2 % (0.0-10.0); HEMATOCRIT 34.3 % (42.0-52.0); IMM GRAN# 0.05 X1000 (0.0-0.04); IMM GRAN% 0.4 % (0.0-0.5); LYMPH# 2.45 X1000 (1.2-3.4); LYMPH% 19.1 % (20.5-51.1); MCH 29.7 PG (27-31); MCV 84.9 FL (81-99); MONO# 1.13 X1000 (0.11-0.59); MONO% 8.8 % (1.7-9.3); MPV 9.4 FL (7.4-10.4); NEUT# 9.16 X1000 (1.4-6.5); NEUT% 71.3 % (42.2-75.2); PLT 380 X1000 (130-400); RBC 4.04 XMIL (4.7-6.1); RDW 13.3 % (11.5-14.5); WBC 12.85 X1000 (4.8-10.8)
[2019-04-16 12:59] LABS: INR 1.03; PROTIME 13.6 Seconds (11.0-16.0)
[2019-04-16 13:03] LABS: BE -1.3 mmoll (-3.0-3.0); BLOOD TYPE ARTERIAL; HCO3-(ACT) 23.9 mmoll (20.0-26.0); O2(CT) 16.2 mL/dL (15.0-23.0); O2HB 97.1 % (95.0-99.0); PCO2(98.6) 24 mmHg (35-45); PO2(98.6) 121 mmHg (60-100); SAMPLE BLOOD; SAO2 99.5 % (95.0-100.0); THB 11.7 g/dL (11.5-17.4); pH(98.6) 7.53 (7.35-7.45)
[2019-04-16 13:04] LABS: ALLEN TEST YES; MODALITY CANNULA
[2019-04-16 13:20] LABS: AGAP 18; ALB/GLOB RATIO 1.8; ALBUMIN 3.9 g/dL (3.5-5.0); ALKALINE PHOSPHATASE 50 U/L (32-122); BUN 19 mg/dL (8-22); CALCIUM 8.8 mg/dL (8.8-10.2); CHLORIDE 99 mmol/L (98-107); CK PROFILE 27 U/L (24-204); COSMO 283; CREATININE 1.1 mg/dL (0.7-1.2); ESTIMATED GFR > 60; GLUCOSE 224 mg/dL (70-104); GOT 13 U/L (10-34); GPT 8 U/L (10-44); MAGNESIUM 1.7 mg/dL (1.5-2.7); POTASSIUM 4.5 mmol/L (3.5-5.1); SODIUM 137 mmol/L (136-145); TCO2 20 mmol/L (25-35); TOTAL BILIRUBIN 0.39 mg/dL (0.20-1.00); TOTAL PROTEIN 6.1 g/dL (6.3-8.3)
[2019-04-16 13:23] LABS: URINE SOURCE CATH
[2019-04-16 13:25] LABS: BILIRUBIN URINE SMALL (NEGATIVE); BLOOD URINE NEGATIVE (NEGATIVE); COLOR ORANGE; GLUCOSE URINE 100 mg/dL (NEGATIVE); KETONE URINE NEGATIVE (NEGATIVE); LEUKOCYTES URINE TRACE (NEGATIVE); NITRITE URINE POSITIVE (NEGATIVE); PH URINE 5.5; PROTEIN URINE 50 mg/dL (NEGATIVE); SP GRAVITY URINE 1.017; TURBIDITY URINE CLEAR (CLEAR); UR EPITHELIAL CELLS <10 /HPF (<10); URINE BACTERIA 2+ /HPF; URINE RBC <10 /HPF (<10); URINE WBC 20-40 /HPF (<10); UROBILINOGEN URINE 4 mg/dL (NORMAL)
[2019-04-16] MEDS ORDERED: MERREM 1 GM in NS 50 ML IV ONE (13:53)
--- NOTE | 2019-04-16 13:57 | PROVIDER DOCUMENTATION ---
This chart was entered by Rowena Khalil Scribe, acting as scribe for Deo Esteves MD. HPI-General Adult - General Stated Complaint: BLOD PRESSURE PROBLEMS Time Seen by Provider: 04/16/19 12:16 Source: patient, family Allergies/Adverse Reactions: Patient Allergies Allergy/AdvReac Type Severity Reaction Status Date / Time No Known Allergies Allergy Verified 04/16/19 12:59 Home Medications: Home Medication List Medication Instructions Recorded Confirmed Last Taken Type Levothyroxine [Synthroid] 50 mcg PO DAILY 02/08/19 04/16/19 04/16/19 07:00 History Lovastatin 20 mg PO HS 02/08/19 04/16/19 04/15/19 19:00 History Metformin [Glucophage] 1,000 mg PO BID 02/08/19 04/16/19 04/16/19 07:00 History Aspirin 81 mg PO DAILY chewtab 03/10/19 04/16/19 04/16/19 07:00 Rx Clonidine [Catapres] 0.3 mg PO BID tab 03/10/19 04/16/19 04/16/19 07:00 Rx Hydralazine [Apresoline] 100 mg PO Q8HR tab 03/10/19 04/16/19 04/16/19 07:00 Rx Isosorbide Mononitrate [Ismo] 20 mg PO BID tab 03/10/19 04/16/19 04/16/19 07:00 Rx Lisinopril 40 mg PO QHS #0 03/10/19 04/16/19 04/15/19 19:00 Rx Polyethylene Glycol 3350 [Miralax] 17 gm PO BID powder, packet 03/10/19 04/16/19 04/15/19 19:00 Rx Amlodipine Besylate [Norvasc] 10 mg PO QHS 04/16/19 04/16/19 04/15/19 19:00 His tory Carvedilol [Coreg] 25 mg PO BID 04/16/19 04/16/19 04/16/19 07:00 History Spironolactone 100 mg PO DAILY 04/16/19 04/16/19 04/16/19 07:00 History - History of Present Illness -Gen Adult Nature of Presenting Problems: 63 y/o male presents to ED with N/V and hematemesis onset 5 days ago. of pt reports bright red emesis. EMS placed IO to L tibia en route to ED and started fluid bolus. EMS states blood pressure 60/40 upon their arrival at the scene. Pt denies abdominal pain, chest pain, or SOB. Pt was admitted for similar symptoms on 04/11/19 and reports his nausea has been present since his rehab admission in February. Pt is alert and oriented. Location of Pain/Injury: reports: none Pain Radiation: reports: no radiation Quality of Pain: reports: none Severity: reports: moderate Onset/Duration: reports: 5 days ago Timing: reports: still present Context/Activities at Onset: reports: none Modifying Factors: improves with: nothing Associated Symptoms: reports: nausea, vomiting, other (hematemesis) Similar Symptoms Previously?: Yes Recently seen or treated by another doctor?: Yes Review of Systems - Adult - REVIEW OF SYSTEMS - ADULT Constitutional: denies: chills, fever Eyes: reports: no symptoms reported Ears, Nose, Mouth & Throat: reports: no symptoms reported Cardiovascular: denies: chest pain, palpitations Respiratory: denies: cough, shortness of breath Gastrointestinal: reports: hematemesis, nausea, vomiting. denies: abdominal pain, diarrhea Genitourinary: reports: no symptoms reported Musculoskeletal: denies: back pain, joint pain Integumentary: reports: no symptoms reported Neurological: denies: dizziness/vertigo, seizure Psychiatric: reports: no symptoms reported Endocrine: reports: no symptoms reported Hematologic/Lymphatic: reports: no symptoms reported Allergic/Immunologic: reports: no symptoms reported All Other Systems: Reviewed and Negative Past History - Adult - PAST MEDICAL HISTORY-ADULT Review of Records: reports: Old Records Reviewed, Nursing Assessment Review, Medications Reviewed Major Childhood Illnesses: reports: denies history Cardiovascular: reports: HTN, CT, other (cardiac arrest) Neurological: reports: CVA, Seizures/Epilepsy Endocrine/Immune: reports: Diabetes, thyroid disorder - PRIOR SURGERIES/PROCEDURES Surgical/Procedure History: reports: appendectomy, other (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 negative: moist mucous membranes (dry) - NECK Neck: non-tender, full range of motion - RESPIRATORY Respiratory: chest non-tender, lungs clear, normal breath sounds - CARDIOVASCULAR Cardiovascular: normal peripheral pulses, regular rate, rhythm - GASTROINTESTINAL (ABDOMEN) Abdominal Exam: normal bowel sounds, non tender, soft, other (nausea with pa lpation of abdomen) - MUSCULOSKELETAL Back Exam: normal inspection, no CVA tenderness, no vertebral tenderness Extremity: normal range of motion, non-tender - SKIN Integumentary: warm/dry, pallor. negative: normal turgor (poor skin turgor) - NEUROLOGIC Neurologic: grossly normal, other (residual slurred speech/generalized weakness) - PSYCHIATRIC Psych/Mental Status: normal mood/affect, normal thought content, normal thought process, oriented x 3 Progress - PLAN OF CARE/RESULTS Progress/Plan/Lab Results: Vital Signs - 8 hr 04/16/19 12:33 Temperature 97.6 F Pulse Rate 81 Respiratory Rate 14 Blood Pressure 110/50 O2 Sat by Pulse Oximetry 99 Laboratory Results - last 24 hr 04/16/19 12:44 POC Glucose 222 H Orders Category Date Time Status Finger Stick Blood Sugar (ED) DIRECTED Care 04/16/19 12:25 Active Nursing- Obtain EKG once Care 04/16/19 12:25 Active Saline Loc NOW Care 04/16/19 12:26 Active CHEST-PORTABLE [RAD] Stat Exams 04/16/19 12:[address] HEAD W/O CONTRAST [CT] Stat Exams 04/16/19 12:30 Ordered ABG [RESP] Routine Lab 04/16/19 12:28 Ordered ACETONE SERUM [CHEM] Stat Lab 04/16/19 12:25 Received BLOOD CULTURE [BLDCUL] Stat Lab 04/16/19 12:27 Received CBC WITH ELECTRONIC DIFF [HEME] Stat Lab 04/16/19 12:25 Results CK PROFILE [SP CHEM] Stat Lab 04/16/19 12:25 Received COMPREHENSIVE METABOLIC PANEL [CHEM] Stat Lab 04/16/19 12:25 Received LACTATE, PLASMA [CHEM] Stat Lab 04/16/19 12:35 Ordered MAGNESIUM [CHEM] Stat Lab 04/16/19 12:25 Received PRO B-NATRIURETIC PEPTIDE Stat Lab 04/16/19 12:25 Received PROTIME WITH INR [COAG] Stat Lab 04/16/19 12:25 Received PTT [COAG] Stat Lab 04/16/19 12:25 Received TROPONIN T Stat Lab 04/16/19 12:25 Received URINALYSIS W/POSS RFLX CULT [URINALYSIS] Stat Lab 04/16/19 12:27 Uncollected 0.9% Sodium Chloride Inj [Ns] 1,000 ml Med 04/16/19 12:27 Active IV 999 mls/hr EKG [EKG] Stat Ther 04/16/19 12:26 Draft Laboratory Tests 04/16/19 04/16/19 04/16/19 12:25 12:25 12:25 WBC 12.85 H RBC 4.04 L Hgb 12.0 L Hct 34.3 L MCV 84.9 MCH 29.7 MCHC 35.0 RDW Std Deviation 13.3 Plt Count 380 MPV 9.4 Immature Gran % (Auto) 0.4 Neut % (Auto) 71.3 Lymph % (Auto) 19.1 L Pershing % (Auto) 8.8 Eos % (Auto) 0.2 Baso % (Auto) 0.2 Immature Gran # (Auto) 0.05 H Neut # (Auto) 9.16 H Lymph # (Auto) 2.45 Pershing # (Auto) 1.13 H Eos # (Auto) 0.03 Baso # (Auto) 0.03 PT INR PTT (Actin FS) Specimen Type Sample Site pH pCO2 pO2 HCO3 Base Excess Oxyhemoglobin ABG O2 Sat (Calculated) ABG O2 Saturation ABG Carboxyhemoglobin ABG Methemoglobin Obdulio Test A-a O2 Difference Total Hemoglobin Lactate Liter Flow Blood Gas Modality FiO2 % Sodium 137 Potassium 4.5 Chloride 99 Carbon Dioxide 20 L Anion Gap 18 BUN 19 Creatinine 1.1 Estimated GFR/1.73 m2 > 60 BUN/Creatinine Ratio 17 Glucose 224 H POC Glucose Calculated Osmolality 283 Calcium 8.8 Magnesium 1.7 Total Bilirubin 0.39 AST 13 ALT 8 L Alkaline Phosphatase 50 Creatine Kinase 27 Troponin T Xtc-L-Pemmbrrlexc Pept 6812 H Total Protein 6.1 L Albumin 3.9 Globulin 2.2 Albumin/Globulin Ratio 1.8 Plasma Lactate Urine Source Urine Color Urine Turbidity Urine pH Ur Specific [place] Urine Protein Ur Glucose (Stick) Ur Ketones (Stick) Urine Blood Urine Nitrite Urine Bilirubin Urobilinogen Dipstick Urine Leukocytes Urine WBC (Auto) Urine RBC (Auto) U Epithel Cells (Auto) Urine Bacteria (Auto) Acetone Level 04/16/19 04/16/19 04/16/19 12:25 12:25 12:25 WBC RBC Hgb Hct MCV MCH MCHC RDW Std Deviation Plt Count MPV Immature Gran % (Auto) Neut % (Auto) Lymph % (Auto) Pershing % (Auto) Eos % (Auto) Baso % (Auto) Immature Gran # (Auto) Neut # (Auto) Lymph # (Auto) Pershing # (Auto) Eos # (Auto) Baso # (Auto) PT 13.6 INR 1.03 PTT (Actin FS) 27.0 Specimen Type Sample Site pH pCO2 pO2 HCO3 Base Excess Oxyhemoglobin ABG O2 Sat (Calculated) ABG O2 Saturation ABG Carboxyhemoglobin ABG Methemoglobin Obdulio Test A-a O2 Difference Total Hemoglobin Lactate Liter Flow Blood Gas Modality FiO2 % Sodium Potassium Chloride Carbon Dioxide Anion Gap BUN Creatinine Estimated GFR/1.73 m2 BUN/Creatinine Ratio Glucose POC Glucose Calculated Osmolality Calcium Magnesium Total Bilirubin AST ALT Alkaline Phosphatase Creatine Kinase Troponin T 0.023 Ohw-F-Eihoghpshcp Pept Total Protein Albumin Globulin Albumin/Globulin Ratio Plasma Lactate Urine Source Urine Color Urine Turbidity Urine pH Ur Specific [place] Urine Protein Ur Glucose (Stick) Ur Ketones (Stick) Urine Blood Urine Nitrite Urine Bilirubin Urobilinogen Dipstick Urine Leukocytes Urine WBC (Auto) Urine RBC (Auto) U Epithel Cells (Auto) Urine Bacteria (Auto) Acetone Level SMALL A 04/16/19 04/16/19 04/16/19 12:44 12:52 12:55 WBC RBC Hgb Hct MCV MCH MCHC RDW Std Deviation Plt Count MPV Immature Gran % (Auto) Neut % (Auto) Lymph % (Auto) Pershing % (Auto) Eos % (Auto) Baso % (Auto) Immature Gran # (Auto) Neut # (Auto) Lymph # (Auto) Pershing # (Auto) Eos # (Auto) Baso # (Auto) PT INR PTT (Actin FS) Specimen Type ARTERIAL Sample Site L RADIAL pH 7.53 H pCO2 24 L pO2 121 H HCO3 23.9 Base Excess -1.3 Oxyhemoglobin 97.1 ABG O2 Sat (Calculated) 16.2 ABG O2 Saturation 99.5 ABG Carboxyhemoglobin 1.40 ABG Methemoglobin 1.0 Obdulio Test YES A-a O2 Difference 49.0 Total Hemoglobin 11.7 Lactate 1.40 Liter Flow 2.0 Blood Gas Modality CANNULA FiO2 % 28.0 Sodium Potassium Chloride Carbon Dioxide Anion Gap BUN Creatinine Estimated GFR/1.73 m2 BUN/Creatinine Ratio Glucose POC Glucose 222 H Calculated Osmolality Calcium Magnesium Total Bilirubin AST ALT Alkaline Phosphatase Creatine Kinase Troponin T Dve-T-Vmwlhnsetog Pept Total Protein Albumin Globulin Albumin/Globulin Ratio Plasma Lactate Urine Source CATH Urine Color ORANGE Urine Turbidity CLEAR Urine pH 5.5 Ur Specific [place] 1.017 Urine Protein 50 A Ur Glucose (Stick) 100 A Ur Ketones (Stick) NEGATIVE Urine Blood NEGATIVE Urine Nitrite POSITIVE A Urine Bilirubin SMALL A Urobilinogen Dipstick 4 A Urine Leukocytes TRACE A Urine WBC (Auto) 20-40 A Urine RBC (Auto) <10 U Epithel Cells (Auto) <10 Urine Bacteria (Auto) 2+ Acetone Level 04/16/19 13:12 WBC RBC Hgb Hct MCV MCH MCHC RDW Std Deviation Plt Count MPV Immature Gran % (Auto) Neut % (Auto) Lymph % (Auto) Pershing % (Auto) Eos % (Auto) Baso % (Auto) Immature Gran # (Auto) Neut # (Auto) Lymph # (Auto) Pershing # (Auto) Eos # (Auto) Baso # (Auto) PT INR PTT (Actin FS) Specimen Type Sample Site pH pCO2 pO2 HCO3 Base Excess Oxyhemoglobin ABG O2 Sat (Calculated) ABG O2 Saturation ABG Carboxyhemoglobin ABG Methemoglobin Obdulio Test A-a O2 Difference Total Hemoglobin Lactate Liter Flow Blood Gas Modality FiO2 % Sodium Potassium Chloride Carbon Dioxide Anion Gap BUN Creatinine Estimated GFR/1.73 m2 BUN/Creatinine Ratio Glucose POC Glucose Calculated Osmolality Calcium Magnesium Total Bilirubin AST ALT Alkaline Phosphatase Creatine Kinase Troponin T Xoi-A-Pqptzykvvfo Pept Total Protein Albumin Globulin Albumin/Globulin Ratio Plasma Lactate 1.4 Urine Source Urine Color Urine Turbidity Urine pH Ur Specific [place] Urine Protein Ur Glucose (Stick) Ur Ketones (Stick) Urine Blood Urine Nitrite Urine Bilirubin Urobilinogen Dipstick Urine Leukocytes Urine WBC (Auto) Urine RBC (Auto) U Epithel Cells (Auto) Urine Bacteria (Auto) Acetone Level Result Diagrams: 04/16/19 12:25 04/16/19 12:25 - REASSESSMENT Reassessment #1 Time Reassessed: 13:54 Status: improving (Given IVF bolus, benadryl/reglan/zofran for vomiting/nausea, IV protonix for possible PUD, IV Merrem for complicated UTI) - EKG 1 Time of EKG reading by physician:: 12:20 EKG Read and Signed by:: Deo Esteves EKG Interpretation (*Must complete 3 of following elements*): Abnormal Rate: 85 Rhythm: NSR [place]: normal QRS: normal MT Interval: prolonged ST Wave: non-specific ST changes Comments: Artifact present. -Dr. Esteves - XRAY 1 XRAY Study: Chest Impression: Normal, See EMR Report ( EXAM: CHEST-PORTABLE 04/16/2019 HISTORY: ams TECHNIQUE: AP portable at 1233 COMMENT: There is no evidence of acute cardiac or pulmonary disease. Compared to 04/11/2019 considering differences in technique there has been no significant change. IMPRESSION: Stable chest. Electronically signed by Abelino Leon 04/16/2019 12:40 PM 04/16/19 1240 Interpreting Physician: Abelino Leon MD Dictated Date/Time: 04/16/19 1240 cc: Deo Esteves MD; Majo Talamantes) - CT/MRI 1 CT Study: Head Impression: Normal (EXAM: CT HEAD W/O CONTRAST 04/16/2019 HISTORY: ams, vomiting TECHNIQUE: This exam was performed using automated exposure control, adjustment of mA or kV according to patient size, and/or use of iterative reconstruction technique. COMMENT: There is no evidence of mass effect, bleed, or abnormal extra-axial fluid collection. There are patchy lucencies in the periventricular white matter of both hemispheres and there is a lacune in the basal ganglia on the right. There are calcifications present in the vertebral and internal carotid arteries bilaterally. The calvarium is intact. The visualized paranasal sinuses are clear. Compared to 02/20/2019 the appearance the brain has not changed significantly. IMPRESSION: Chronic ischemic changes. No evidence of acute disease. Electronically signed by Abelino Leon 04/16/2019 1:54 PM 04/16/19 1354 Interpreting Physician: Abelino Leon MD Dictated Date/Time: 04/16/19 1353 cc: Deo Esteves MD; Majo Talamantes), See EMR Report ([facility] - [address], [address], [place] [address] [facility] - [address] [place] [address] Department of Imaging Patient: SHAN FRIEDMAN Date: 04/16/19MR#: [id number] : 4ADM Status: REG [facility]#: [id number] Age/Sex: 63/MRoom/Bed: Loc: ED Ordering Physician: Deo Esteves MD Family Physician: MAJO TALAMANTES Reason for Procedure: ams, vomiting Signed EXAM: CT HEAD W/O CONTRAST 04/16/2019 HISTORY: ams, vomiting TECHNIQUE: This exam was performed using automated exposure control, adjustment of mA or kV according to patient size, and/or use of iterative reconstruction technique. COMMENT: There is no evidence of mass effect, bleed, or abnormal extra-axial fluid collection. There are patchy lucencies in the periventricular white matter of both hemispheres and there is a lacune in the basal ganglia on the right. There are calcifications present in the vertebral and internal carotid arteries bilaterally. The calvarium is intact. The visualized paranasal sinuses are clear. Compared to 02/20/2019 the appearance the brain has not changed significantly. IMPRESSION: Chronic ischemic changes. No evidence of acute disease. Electronically signed by Abelino Leon 04/16/2019 1:54 PM 04/16/19 1354 Interpreting Physician: Abelino Leon MD Dictated Date/Time: 04/16/19 1353 cc: Deo Esteves MD; Majo Talamantes) - CONSULTS/PCP/HOSPITALIST Notification #1 *Consult/PCP/Hospitalist*: SARMAD Aquino Time Discussed: 13:54 Consult Disposition: Will see in ED Departure - Departure Date of Disposition Decision: 04/16/19 Time of Disposition Decision: 13:55 DIAGNOSIS: Diabetic ketosis without coma, Complicated UTI (urinary tract infection), Type 2 diabetes mellitus with hyperglycemia, with long-term current use of insulin Intractable vomiting with nausea Qualifiers: Vomiting type: cyclical vomiting Qualified Code(s): G43.A1 - Cyclical vomiting, intractable Disposition: ADMITTED INPATIENT 09 Certified Medical Emergency: Emergent Condition: Fair Referrals and Follow-Ups: Majo Talamantes CRNP [Primary Care Provider] - - Critical Care Note This patient required my direct & personal management of CC.: No Attestation - Physician/ BLANCA Attestation Patient care was provided by Advanced Practice Provider:: No The physician spent face to face time with patient:: Yes Advanced Practice Provider documentation review:: Supervising physician onsite and consulted in the evaluation and care of this patient. The physician did have a face to face encounter with the patient. This chart was documented by the indicated scribe, (Rowena Khalil, Reji) and accurately reflects the services I performed and decisions made by , eDo Esteves MD, as attested by the provider's signature.
[2019-04-16] MEDS ORDERED: ZOFRAN IV PRN (14:07)
[2019-04-16] MEDS: PROTONIX IV SCH (14:15)
[2019-04-16] MEDS: REGLAN IV SCH ×2 (14:29→21:01)
[2019-04-16] MEDS ORDERED: HUMULIN R 100 UNIT in NS 100 ML IV SCH (14:30)
[2019-04-16] MEDS: MERREM 1 GM in NS 50 ML IV SCH ×2 (16:30→23:57)
[2019-04-16 17:15] LABS: ALB/GLOB RATIO 1.5; ALBUMIN 3.6 g/dL (3.5-5.0); CALCIUM 8.4 mg/dL (8.8-10.2); CREATININE 1.3 mg/dL (0.7-1.2); POTASSIUM 3.8 mmol/L (3.5-5.1); TOTAL BILIRUBIN 0.3 mg/dL (0.20-1.00)
[2019-04-16] MEDS: MORPHINE IV PRN ×2 (18:05→22:24)
[2019-04-16] MEDS: NS 1,000 ML IV SCH (18:36)
[2019-04-16] MEDS: VESICARE PO SCH (18:50)
--- NOTE | 2019-04-16 19:56 | HISTORY AND PHYSICAL ---
ADDENDUM: I have seen and examined Mr. Chavez today, who presented to the emergency department because of low blood pressure with related symptoms, as well as some nausea and vomiting. Upon presenting to the emergency department, patient was found to have a blood pressure of 60/40. He was adequately fluid resuscitated over there. Briefly, Mr. Chavez was recently discharged from this hospital about 3 days ago, because of nausea, vomiting, diarrhea, which was resolved. He also suffered a cardiac arrest somewhere in the later part of January to early February, was admitted here, too. CURRENT PHYSICAL EXAMINATION: He has a scanning type of dysarthric speech. He looks quite wasted with some rigidity on physical exams. LABORATORY: Also, have been reviewed. He he has a slight leukocytosis. His chemistry showed creatinine is up to 1.3, glucose is 184. DIAGNOSTIC STUDIES: A chest x-ray showed stable with no new acute changes. CT scan of the head shows chronic ischemic changes. ASSESSMENT/PLAN: 1. Hypotension. Presumably, a combination of sepsis and volume depletion. Will continue with adequate fluid resuscitation. Patient has already been started on antimicrobial therapy. Cultures have been done, will be pending the results, and titrate accordingly. 2. Suspected urinary tract infection as the source of the infection. 3. Clinical volume depletion. 4. History of diabetes mellitus. We will start the patient on insulin regimen. 5. History of previous cardiac arrest with baseline neurological sequela. 6. Deconditioning. cc: Vincent Tovar MD
--- NOTE | 2019-04-16 19:59 | HISTORY AND PHYSICAL ---
CHIEF COMPLAINT: Seizure. HISTORY OF PRESENT ILLNESS: This is a 63-year-old gentleman who presents to the emergency room via EMS with family members. The reports hematemesis that started about 5 days ago. It began as dark vomitus and has turned to bright red blood during the night last night. T his morning the patient had some generalized weakness. The son and were getting the patient ready to come to the emergency room. He became weak, started tremoring. They laid him down. They described tonic-colonic movements of all 4 extremities. EMS was called. On their arrival, blood pressure was 60/40. An I/O was started in his left tibia. He was given a fluid bolus and brought to the emergency room. He has had no further nausea or vomiting, nor seizure activity. CT of the head revealed chronic ischemic changes with no evidence of acute disease. He was noted to have a white count of 12.8. Mr. Chavez reports having difficulty emptying his bladder since he came home from rehab about a week ago. He does state that he always feels like he has to go, that when he does go, he has to push hard and he can only get out a few drops at a time. He has noticed over the last 2 to 3 days that it bee when he urinates. PAST MEDICAL HISTORY: 1. Persistent hypoxic brain injury. 2. Hypertension. 3. Bilateral superficial upper extremity venous thrombosis. 4. Rko-lfloghe-qtwsezcjb diabetes mellitus. 5. Hypothyroid. 6. Peripheral neuropathy. PAST SURGICAL HISTORY: Left lung surgery as a child, questionable appendectomy. SOCIAL HISTORY: He lives with his and son. No alcohol or tobacco use. No illicit drug use. ALLERGIES: No known drug allergies. HOME MEDICATIONS: A list will be obtained by the nursing staff once verified will be restarted as appropriate. REVIEW OF SYSTEMS: Discussed with patient and family members with pertinent positives stated in the HPI. He denied any syncope or dizziness, any chest pain, palpitations, any diarrhea, constipation, black or bloody stools, any hematuria. Physical PHYSICAL EXAMINATION: GENERAL: This is a 63-year-old gentleman who is lying on the bed in the emergency room in no distress. VITAL SIGNS: Blood pressure is 110/50, with a heart rate of 81, respirations 16, temperature 97.6 degrees with room air saturations 98 to 99%. HEENT: Head is normocephalic, atraumatic. Mucous membranes are dry. NECK: Supple with trachea midline. He has no lower extremity edema with calves nontender. PULMONARY: Breath sounds are clear with no increased work of breathing noted. Chest rises and falls symmetric with respiration. GASTROINTESTINAL: Soft, nontender, nondistended. Bowel sounds in all 4 quadrants. GENITOURINARY: [place] is patent, draining to bedside bag. SKIN: Warm and dry. NEUROLOGIC: He is alert. He is oriented. He moves all extremities. He does have some slight slurred speech, which is chronic secondary to his prior cardiac arrest and stroke. LABS: WBC is 12.8 with hemoglobin 12, hematocrit 34.3, and platelets of 380,000. INR is 1.03. ABGs, pH is 7.53 with a pCO2 of 24, PO2 121, a bicarb of 23.9. Chemistry: Sodium 137, potassium 4.5, BUN 19, creatinine 1 with a glucose of 224. Urinalysis: Nitrites are positive. He does have 20 to 40 microscopic white blood cells with 2+ bacteria. Acetone is small. Blood culture and urine culture pending. ASSESSMENT/PLAN: 1. Hypotension. Presumably, a combination of sepsis and volume depletion. Will continue with adequate fluid resuscitation. Patient has already been started on antimicrobial therapy. Cultures have been done, will be pending the results, and titrate accordingly. 2. Suspected urinary tract infection as the source of the infection. 3. Clinical volume depletion. 4. History of diabetes mellitus. insulin regimen. 5. History of previous cardiac arrest with baseline neurological sequela. 6. Deconditioning. Plan discussed with Dr Tovar Dictated by SARMAD Correa for Vincent Tovar MD cc: SARMAD Correa MD [facility]
[2019-04-16] MEDS ORDERED: B & O 16A SUPP PR ONE (20:52)
[2019-04-16] MEDS: CARAFATE LIQUID PO SCH (21:01)
[2019-04-16] MEDS: HUMALOG SUBQ SCH (21:13)
[2019-04-16] MEDS: LANTUS INSULIN SUBQ SCH (21:15)
[2019-04-17] MEDS: MORPHINE IV PRN ×3 (02:11→21:51)
[2019-04-17] MEDS: NS 1,000 ML IV SCH ×4 (02:12→23:25)
[2019-04-17] MEDS: REGLAN IV SCH ×4 (02:12→21:51)
[2019-04-17] MEDS: CARAFATE LIQUID PO SCH ×4 (02:12→21:50)
[2019-04-17] MEDS: SODIUM CHLORIDE 0.9% INJ SCH ×2 (02:20→13:41)
[2019-04-17] MEDS: PROTONIX IV SCH ×2 (02:20→13:41)
[2019-04-17 05:37] LABS: BASO# 0.08 X1000 (0.0-0.2); BASO% 0.7 % (0.0-0.8); EOS# 0.31 X1000 (0.0-0.7); EOS% 2.6 % (0.0-10.0); HEMATOCRIT 34.6 % (42.0-52.0); HEMOGLOBIN 11.9 g/dL (14.0-18.0); IMM GRAN# 0.03 X1000 (0.0-0.04); IMM GRAN% 0.3 % (0.0-0.5); LYMPH# 1.53 X1000 (1.2-3.4); MCH 29.5 PG (27-31); MCHC 34.4 g/dL (33-37); MCV 85.6 FL (81-99); MONO# 1.37 X1000 (0.11-0.59); MONO% 11.7 % (1.7-9.3); MPV 9.7 FL (7.4-10.4); NEUT# 8.41 X1000 (1.4-6.5); NEUT% 71.7 % (42.2-75.2); PLT 307 X1000 (130-400); RBC 4.04 XMIL (4.7-6.1); RDW 13.3 % (11.5-14.5); WBC 11.73 X1000 (4.8-10.8)
[2019-04-17 05:45] LABS: AGAP 11; ALB/GLOB RATIO 1.5; ALBUMIN 3.7 g/dL (3.5-5.0); ALKALINE PHOSPHATASE 50 U/L (32-122); BUN 16 mg/dL (8-22); CALCIUM 8.7 mg/dL (8.8-10.2); CHLORIDE 102 mmol/L (98-107); COSMO 275; ESTIMATED GFR > 60; GLUCOSE 99 mg/dL (70-104); GOT 9 U/L (10-34); GPT 5 U/L (10-44); MAGNESIUM 1.6 mg/dL (1.5-2.7); PHOSPHORUS 3.2 mg/dL (2.7-4.5); POTASSIUM 3.5 mmol/L (3.5-5.1); SODIUM 137 mmol/L (136-145); TCO2 24 mmol/L (25-35); TOTAL BILIRUBIN 0.34 mg/dL (0.20-1.00); TOTAL PROTEIN 6.2 g/dL (6.3-8.3)
[2019-04-17] MEDS: HUMALOG SUBQ SCH ×4 (08:21→21:52)
[2019-04-17] MEDS: MERREM 1 GM in NS 50 ML IV SCH ×2 (08:32→15:46)
[2019-04-17] MEDS: LOVENOX SUBQ SCH (08:32)
[2019-04-17] MEDS: VESICARE PO SCH (08:32)
--- NOTE | 2019-04-17 10:50 | PROGRESS NOTE ---
DATE: 04/17/2019 SUBJECTIVE: This morning Mr. Chavez refers to be doing a whole lot better. Denies any new complaint. OBJECTIVE: Vital signs: His vitals, blood pressure is up to 180/75, pulse of 90, respiration is 15, temperature is 97.6. General: On general exam, Mr. Chavez is a 63-year-old male. He is in bed. He is not any cardiopulmonary distress. HEENT: Mucosa is pink and moist. Anicteric. Acyanotic. Neck: Supple. Chest: Good air entry bilateral, no crepitations, no rhonchi. Cardiovascular: Regular rate and rhythm. Abdomen: Soft, nontender. Bowel sounds present. Extremities: No pedal edema. CAN COVERER: The patient is awake, alert, oriented, follows basic command. He has scanning dysarthric speech but comprehensible and slightly hypertonic generalized. ASSESSMENT: 1. Hypotension on presentation presumed to be combination of sepsis, volume depletion, and antihypertensive medications. Blood pressure is a lot better now, is actually trending up, so we are going to start him back on some of his p.o. medications. 2. Suspected urinary tract infection. The patient is on antimicrobial therapy with still pending urine culture. 3. Clinical volume depletion improved. 4. History of diabetes mellitus controlled on insulin regimen. 5. History of previous cardiac arrest with baseline neurological sequela. 6. Deconditioning secondary to previous neurological insult. 7. Hematemesis. So far hemoglobin and hematocrit is stable. 8. Acute kidney injury resolved. At this point, Mr. Chavez is doing a whole lot better. Blood pressures are actually in the higher end and will need to restart him on his p.o. medications. We are going to take out the Stratton catheter. Will transfer Mr. Chavez to the Medical floor, get Physical Therapy to start working with him. Will be pending the final culture results to titrate the antibiotic accordingly. cc: Vincent Tovar MD
[2019-04-17] MEDS: LANTUS INSULIN SUBQ SCH (21:49)
[2019-04-17] MEDS: COREG PO SCH (21:50)
[2019-04-17] MEDS: NORVASC PO SCH (21:50)
[2019-04-17] MEDS: PRINIVIL PO SCH (21:50)
[2019-04-17] MEDS: MEVACOR PO SCH (21:50)
[2019-04-17] MEDS: CATAPRES PO SCH (21:50)
[2019-04-17] MEDS: MIRALAX PO SCH (21:51)
[2019-04-17] MEDS: ISMO PO SCH (23:26)
[2019-04-18] MEDS: MERREM 1 GM in NS 50 ML IV SCH ×2 (00:50→08:35)
[2019-04-18] MEDS: CARAFATE LIQUID PO SCH ×4 (01:29→21:07)
[2019-04-18] MEDS: REGLAN IV SCH ×3 (01:29→14:23)
[2019-04-18] MEDS: SODIUM CHLORIDE 0.9% INJ SCH ×2 (01:29→14:23)
[2019-04-18] MEDS: PROTONIX IV SCH ×2 (01:29→14:23)
[2019-04-18] MEDS ORDERED: CALMOSEPTINE OINTMENT TOP PRN (01:30)
[2019-04-18] MEDS: MORPHINE IV PRN ×2 (02:01→22:02)
[2019-04-18] MEDS: HUMALOG SUBQ SCH ×4 (06:44→22:14)
[2019-04-18 07:20] LABS: BASO# 0.08 X1000 (0.0-0.2); BASO% 1.1 % (0.0-0.8); EOS% 5.7 % (0.0-10.0); HEMATOCRIT 28.7 % (42.0-52.0); HEMOGLOBIN 9.9 g/dL (14.0-18.0); IMM GRAN# 0.03 X1000 (0.0-0.04); IMM GRAN% 0.4 % (0.0-0.5); LYMPH# 1.86 X1000 (1.2-3.4); LYMPH% 26.7 % (20.5-51.1); MCH 29.7 PG (27-31); MCHC 34.5 g/dL (33-37); MCV 86.2 FL (81-99); MONO# 0.85 X1000 (0.11-0.59); MONO% 12.2 % (1.7-9.3); MPV 9.3 FL (7.4-10.4); NEUT# 3.74 X1000 (1.4-6.5); NEUT% 53.9 % (42.2-75.2); PLT 286 X1000 (130-400); RBC 3.33 XMIL (4.7-6.1); RDW 13.3 % (11.5-14.5); WBC 6.96 X1000 (4.8-10.8)
[2019-04-18] MEDS: MIRALAX PO SCH ×2 (08:35→22:07)
[2019-04-18] MEDS: VESICARE PO SCH (08:36)
[2019-04-18] MEDS: ASPIRIN PO SCH (08:37)
[2019-04-18] MEDS: CATAPRES PO SCH ×2 (08:37→22:08)
[2019-04-18] MEDS: SYNTHROID PO SCH (08:37)
[2019-04-18] MEDS: COREG PO SCH ×2 (08:38→22:08)
[2019-04-18] MEDS: LOVENOX SUBQ SCH (08:38)
[2019-04-18] MEDS: ISMO PO SCH ×2 (09:46→22:07)
[2019-04-18] MEDS: NS 1,000 ML IV SCH (09:47)
--- NOTE | 2019-04-18 15:33 | PROGRESS NOTE ---
DATE: 04/18/2019 SUBJECTIVE: This morning, Mr. Chavez refers to be doing fairly okay. He was actually sitting up in a chair. OBJECTIVE: Vital signs: His vitals, blood pressure was 100/35, pulse of 74, respiration is 16, temperature is 97.9. General: On general exam, Mr. Chavez is a 63-year-old elderly male. He is sitting up in a chair. No distress. HEENT: Mucosa is pink and moist. Anicteric. Acyanotic. Neck: Supple. Chest: Good air entry bilaterally. There was no crepitations, no rhonchi. Cardiovascular: Regular rate and rhythm. GI: Abdomen was soft, nontender. Bowel sounds present. Extremities: No pedal edema. CAFETERIA OR LUNCHROOM CHECKER: The patient is awake, alert, follows basic commands. His speech is distorted, dysarthric. 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 LABORATORY DATA: Has been reviewed. WBC is down to 6.95, hemoglobin is 9.9, platelet count of 286. Chemistry is also reviewed. Glucose was 103 earlier on today. So far, urine culture is growing Pseudomonas aeruginosa. Blood culture is 48 hours negative. ASSESSMENT: 1. Hypotension on presentation secondary to combination of sepsis, volume depletion, and antihypertensive medications. Blood pressure is now back to normal. 2. Pseudomonas aeruginosa urinary tract infection. The patient was initially started on meropenem, we transitioned this to cefepime. 3. Clinical volume depletion improved. 4. Diabetes mellitus on insulin regimen. 5. Previous cardiac arrest with neurological hypertonicity sequela. 6. Hematemesis on presentation resolved. 7. Acute kidney injury resolved. So in general, Mr. Chavez is doing a lot better. He is more alert. Looks well-hydrated. We are going to switch his antimicrobial to cefepime for the Pseudomonas in the urine. We will also consult Physical Therapy to start working with him. There is a plan for rehab placement for Mr. Chavez hopefully on Sunday. cc: Vincent Tovar MD
[2019-04-18] MEDS: MAXIPIME 1 GM in NS 50 ML IV SCH (15:35)
[2019-04-18] MEDS: PRINIVIL PO SCH (22:07)
[2019-04-18] MEDS: MEVACOR PO SCH (22:07)
[2019-04-18] MEDS: NORVASC PO SCH (22:07)
[2019-04-18] MEDS: LANTUS INSULIN SUBQ SCH (22:08)
[2019-04-19] MEDS: MORPHINE IV PRN ×3 (02:42→21:58)
[2019-04-19] MEDS: MAXIPIME 1 GM in NS 50 ML IV SCH ×2 (03:17→16:12)
[2019-04-19] MEDS: SODIUM CHLORIDE 0.9% INJ SCH ×2 (03:17→16:13)
[2019-04-19] MEDS: CARAFATE LIQUID PO SCH ×4 (03:17→22:00)
[2019-04-19] MEDS: PROTONIX IV SCH ×2 (03:17→16:13)
[2019-04-19 06:25] LABS: BASO# 0.08 X1000 (0.0-0.2); BASO% 1.5 % (0.0-0.8); EOS# 0.33 X1000 (0.0-0.7); EOS% 6.1 % (0.0-10.0); HEMATOCRIT 27.1 % (42.0-52.0); HEMOGLOBIN 9.3 g/dL (14.0-18.0); IMM GRAN# 0.02 X1000 (0.0-0.04); IMM GRAN% 0.4 % (0.0-0.5); LYMPH# 2.05 X1000 (1.2-3.4); LYMPH% 37.9 % (20.5-51.1); MCH 29.3 PG (27-31); MCHC 34.3 g/dL (33-37); MCV 85.5 FL (81-99); MONO# 0.82 X1000 (0.11-0.59); MONO% 15.2 % (1.7-9.3); MPV 9.3 FL (7.4-10.4); NEUT# 2.11 X1000 (1.4-6.5); NEUT% 38.9 % (42.2-75.2); PLT 252 X1000 (130-400); RBC 3.17 XMIL (4.7-6.1); RDW 13.1 % (11.5-14.5); WBC 5.41 X1000 (4.8-10.8)
[2019-04-19] MEDS: HUMALOG SUBQ SCH ×4 (06:58→22:30)
[2019-04-19 07:22] LABS: AGAP 13; ALB/GLOB RATIO 1.3; ALKALINE PHOSPHATASE 42 U/L (32-122); BUN 11 mg/dL (8-22); CALCIUM 8.1 mg/dL (8.8-10.2); CHLORIDE 103 mmol/L (98-107); COSMO 278; CREATININE 0.5 mg/dL (0.7-1.2); ESTIMATED GFR > 60; GLUCOSE 118 mg/dL (70-104); GOT 7 U/L (10-34); GPT 5 U/L (10-44); SODIUM 139 mmol/L (136-145); TCO2 23 mmol/L (25-35); TOTAL BILIRUBIN 0.24 mg/dL (0.20-1.00); TOTAL PROTEIN 5.4 g/dL (6.3-8.3)
[2019-04-19] MEDS ORDERED: KLOR-CON PO ONE (08:12)
[2019-04-19] MEDS: CATAPRES PO SCH ×2 (10:32→22:00)
[2019-04-19] MEDS: ASPIRIN PO SCH (10:32)
[2019-04-19] MEDS: COREG PO SCH ×2 (10:33→22:00)
[2019-04-19] MEDS: SYNTHROID PO SCH (10:33)
[2019-04-19] MEDS: VESICARE PO SCH (10:33)
[2019-04-19] MEDS: ISMO PO SCH ×2 (10:33→22:00)
[2019-04-19] MEDS: LOVENOX SUBQ SCH (10:34)
[2019-04-19] MEDS: MIRALAX PO SCH ×2 (10:34→22:00)
--- NOTE | 2019-04-19 13:54 | PROGRESS NOTE ---
DATE: 04/19/2019 SUBJECTIVE: This morning, Mr. Chavez refers to be doing a whole lot better, no new complaints. He has been tolerating his diet. Stratton catheter was removed and he is passing normal urine. OBJECTIVE: Vitals: Blood pressure is 181/57, pulse of 71, respirations 18, temperature is 97.5 degrees. The patient is saturating 96%. General: Mr. Chavez is a 63-year-old male. He is in bed, in no distress. HEENT: Mucosa is pink and moist. Anicteric. Acyanotic. Neck: Supple. Chest: Good air entry bilaterally. No crepitations. No rhonchi. No accessory muscle use. Cardiovascular: Regular rate and rhythm. No murmurs, no rubs, no gallops. GI: The abdomen is soft, globally distended, but nontender. Bowel sounds present. Extremities: No pedal edema. CHAIRMAN AND CEO: The patient is awake, alert, and oriented, follows basic commands. He is still dysarthric, and has generalized hypertonia from previous neurological injury from anoxic brain injury. ASSESSMENT AND PLAN: 1. Hypotension on presentation, resolved. 2. Pseudomonas aeruginosa UTI. 3. Septic shock, improved. 4. Clinical volume depletion, improved. 5. Diabetes mellitus. The patient is on insulin regimen. 6. Status post previous cardiac arrest resulting in mild anoxic brain injury, with hypertonicity sequelae. 7. Acute kidney injury, resolved. 8. Hematemesis, stable. 9. Mild hypokalemia. We will replace this. The patient is pending a placement to rehab, hopefully at [facility] and [facility], Sunday. cc: Vincent Tovar MD [facility]
[2019-04-19] MEDS: PRINIVIL PO SCH (22:00)
[2019-04-19] MEDS: MEVACOR PO SCH (22:00)
[2019-04-19] MEDS: NORVASC PO SCH (22:00)
[2019-04-19] MEDS: LANTUS INSULIN SUBQ SCH (22:30)
[2019-04-20] MEDS: MORPHINE IV PRN ×2 (02:45→20:36)
[2019-04-20] MEDS: MAXIPIME 1 GM in NS 50 ML IV SCH ×2 (02:50→15:47)
[2019-04-20] MEDS: SODIUM CHLORIDE 0.9% INJ SCH ×2 (02:50→13:58)
[2019-04-20] MEDS: PROTONIX IV SCH ×2 (02:50→13:57)
[2019-04-20] MEDS: CARAFATE LIQUID PO SCH ×4 (02:50→20:33)
[2019-04-20] MEDS: HUMALOG SUBQ SCH ×4 (06:59→22:03)
[2019-04-20] MEDS: LOVENOX SUBQ SCH (08:16)
[2019-04-20] MEDS: ASPIRIN PO SCH (08:16)
[2019-04-20] MEDS: MIRALAX PO SCH ×2 (08:16→20:34)
[2019-04-20] MEDS: VESICARE PO SCH (08:16)
[2019-04-20] MEDS: CATAPRES PO SCH ×2 (08:16→20:33)
[2019-04-20] MEDS: SYNTHROID PO SCH (08:17)
[2019-04-20] MEDS: ISMO PO SCH ×2 (08:17→20:33)
[2019-04-20] MEDS: COREG PO SCH ×2 (08:17→20:33)
[2019-04-20] MEDS ORDERED: MILK OF MAGNESIA PO ONE (10:21)
[2019-04-20] MEDS ORDERED: DULCOLAX PR ONE (10:30)
--- NOTE | 2019-04-20 10:40 | PROGRESS NOTE ---
DATE: 04/20/2019 SUBJECTIVE: This morning, Mr. Chavez refers to be doing a lot better but has not had any bowel movement. OBJECTIVE: Vital Signs: Blood pressure is 165/54, pulse is 71, respirations 16, temperature 98.4 degrees. Patient is saturating 96% on room air. General: Mr. Chavez is a 63-year-old male. He is in bed in no distress. HEENT: Mucosa is pink and moist. Anicteric. Acyanotic. Neck: Supple. Chest: Good air entry bilaterally. No crepitations. No rhonchi. No accessory muscle use. Cardiovascular: Regular rate and rhythm. Abdomen: Soft. Globally distended but nontender. Bowel sounds present, but hypoactive. Extremities: No pedal edema. Central nervous system: Patient is sleepy but easily arousable and follows basic commands. LABORATORY DATA: None for today. The glucose is 141. ASSESSMENT: 1. Hypotension on presentation, resolved. 2. Septic shock, resolved. 3. Pseudomonas aeruginosa urinary tract infection. Patient is on cefepime. Today is day 2. We plan to treat for a total of 5 days. This will be able to be transitioned to oral Levaquin for discharge. 4. Diabetes mellitus, controlled. 5. History of cardiac arrest resulting in mild anoxic brain injury. 6. Acute kidney injury, resolved. 7. Hematemesis, resolved. 8. Mild hypokalemia, replaced. 9. Constipation. The patient is already on MiraLAX. We will add milk of magnesia and one-time dose of Dulcolax. Disposition. Mr. Chavez is a potential discharge to a rehab tomorrow. cc: Vincent Tovar MD [facility]
[2019-04-20] MEDS: NORVASC PO SCH (20:33)
[2019-04-20] MEDS: PRINIVIL PO SCH (20:33)
[2019-04-20] MEDS: MEVACOR PO SCH (20:33)
[2019-04-20] MEDS: LANTUS INSULIN SUBQ SCH (22:15)
[2019-04-21] MEDS: MORPHINE IV PRN (01:13)
[2019-04-21] MEDS: PROTONIX IV SCH (03:14)
[2019-04-21] MEDS: CARAFATE LIQUID PO SCH ×2 (03:14→09:51)
[2019-04-21] MEDS: SODIUM CHLORIDE 0.9% INJ SCH (03:14)
[2019-04-21] MEDS: MAXIPIME 1 GM in NS 50 ML IV SCH (03:14)
[2019-04-21] MEDS: HUMALOG SUBQ SCH ×2 (07:32→11:47)
[2019-04-21] MEDS ORDERED: DULCOLAX PR ONE (09:40)
[2019-04-21] MEDS: LOVENOX SUBQ SCH (09:51)
[2019-04-21] MEDS: COREG PO SCH (09:51)
[2019-04-21] MEDS: CATAPRES PO SCH (09:52)
[2019-04-21] MEDS: ASPIRIN PO SCH (09:52)
[2019-04-21] MEDS: SYNTHROID PO SCH (09:52)
[2019-04-21] MEDS: MIRALAX PO SCH (09:52)
[2019-04-21] MEDS: VESICARE PO SCH (09:52)
[2019-04-21] MEDS: ISMO PO SCH (10:26)
--- NOTE | 2019-04-21 10:36 | DISCHARGE SUMMARY ---
ADMISSION DATE: 04/16/2019 DISCHARGE DATE: 04/21/2019 DISPOSITION: [facility]. FOLLOW-UP: 1. SARMAD Zaldivar 2. Geoff Glynn MD CONSULTATION DURING THIS ADMISSION: None. INVASIVE PROCEDURES DURING THIS ADMISSION: None. IMAGING STUDIES OF SIGNIFICANCE: A chest x-ray was stable. A head CT scan showed chronic ischemic changes. MICROBIOLOGICAL DATA OF SIGNIFICANCE: Urine culture was positive for Pseudomonas aeruginosa. ADMISSION DIAGNOSES: 1. Hypotension. 2. Suspected urinary tract infection. 3. Clinical volume depletion. 4. History of cardiac arrest with baseline neurological sequelae. DIAGNOSES AT THE TIME OF DISCHARGE: 1. Septic shock with hypotension needing pressor on admission, resolved. 2. Pseudomonas aeruginosa urinary tract infection. 3. Diabetes mellitus. 4. History of cardiac arrest resulting in mild anoxic brain injury. 5. Acute kidney injury on presentation, resolved. 6. Hematemesis, resolved. 7. Constipation. Will continue with bowel regimen. DISCHARGE MEDICATIONS: 1. Metformin 1000 b.i.d. 2. Levothyroxine 50 mcg p.o. daily. 3. Lovastatin 20 mg at bedtime. 4. Hydralazine 100 mg p.o. q.8 h. 5. Aspirin 81 mg daily. 6. Klonopin 0.3 p.o. b.i.d. 7. Isordil 20 mg b.i.d. 8. MiraLAX. 9. Lisinopril 10 mg p.o. at bedtime. 10. Carvedilol 25 mg b.i.d. 11. Amlodipine 10 mg p.o. at bedtime. 12. Carafate 1 g 4 times per day. 13. Spironolactone 25 mg p.o. daily. PRESENTING COMPLAINT: Seizures. HISTORY OF PRESENT COMPLAINT: Mr. Chavez is a 63-year-old male, who presented to the emergency department because of hematemesis for about 4 days, generalized weakness, and tremors, questionable tonic-clonic movement of all 4 extremities. Upon presenting to the emergency department, patient was found to be remarkably hypotensive with a blood pressure of 60/40. He was fluid resuscitated and was admitted to the ICU for close critical care management. HOSPITAL COURSE: Mr. Chavez was admitted to the ICU and was fluid resuscitated. He did need pressor for a short period of time. He was found to have dirty urine. He was started on broad- spectrum IV antibiotics. Mr. Chavez did not have any more tonic-clonic movement during the hospital course. He did not have any more hematemesis, either. During the hospital course, his blood culture came back negative. His urine culture was positive for Pseudomonas aeruginosa, which we thought was the source of the septic shock. He was on cefepime. This will be transitioned to oral Levaquin for a total of 5 days. This morning, Mr. Chavez refers to be doing a whole lot better. Denies any new complaints. Blood pressure is a little bit on the higher end, which his blood pressures will be titrated on an outpatient basis to get an ideal blood pressure control. All his vitals are stable, and his physical exam is currently unchanged from his baseline. He is in stable condition for discharge. All the discharge instructions have been discussed with him and he voiced understanding. COORDINATION TIME: Time spent for discharge is 36 minutes. cc: Vincent Tovar MD
[2019-04-21 11:53] VITALS: BP 148/57
== END 2019-04-21 13:19 | DRG 871 ==
LOC: SUPCPDRO → ED 12:13 → SUATTDRO 14:57 → ICU 14:57 → 4N 04-17 14:14
PROVIDERS: ATTEND Internal Medicine

== ENCOUNTER 2019-06-17 14:44 | Inpatient (IN) ==
[2019-06-17 15:11] LABS: ALLEN TEST YES; BE -0.5 mmoll (-3.0-3.0); BLOOD TYPE ARTERIAL; HCO3-(ACT) 24.5 mmoll (20.0-26.0); PCO2(98.6) 34 mmHg (35-45); PO2(98.6) 92 mmHg (60-100); SAMPLE BLOOD; pH(98.6) 7.44 (7.35-7.45)
[2019-06-17 15:12] LABS: MODALITY ROOM AIR
--- NOTE | 2019-06-17 15:25 | Diag Imaging Result Doc PS360 ---
EXAM: CHEST-1 VIEW HISTORY: sepsis protocol/ams TECHNIQUE: Chest COMPARISON: 04/16/2019 FINDINGS: The lungs are well expanded. The heart is not enlarged. The vessels are not distended. There are no infiltrates. No effusion identified. IMPRESSION: No pneumonia Electronically signed by Alex Denney 06/17/2019 3:23 PM
[2019-06-17 15:26] LABS: BASO# 0.03 X1000 (0.0-0.2); BASO% 0.4 % (0.0-0.8); EOS# 0.19 X1000 (0.0-0.7); EOS% 2.3 % (0.0-10.0); HEMATOCRIT 33.3 % (42.0-52.0); HEMOGLOBIN 11.1 g/dL (14.0-18.0); IMM GRAN# 0.05 X1000 (0.0-0.04); IMM GRAN% 0.6 % (0.0-0.5); LYMPH# 1.86 X1000 (1.2-3.4); LYMPH% 22.1 % (20.5-51.1); MCH 28.1 PG (27-31); MCHC 33.3 g/dL (33-37); MCV 84.3 FL (81-99); MONO# 0.85 X1000 (0.11-0.59); MONO% 10.1 % (1.7-9.3); MPV 10.1 FL (7.4-10.4); NEUT# 5.45 X1000 (1.4-6.5); NEUT% 64.5 % (42.2-75.2); PLT 315 X1000 (130-400); RBC 3.95 XMIL (4.7-6.1); RDW 13.4 % (11.5-14.5); WBC 8.43 X1000 (4.8-10.8)
--- NOTE | 2019-06-17 15:27 | PROVIDER DOCUMENTATION ---
HPI-Neurological Disorder - General Chief Complaint: Altered Mental Status Stated Complaint: hypotension Time Seen by Provider: 06/17/19 14:45 Source: family, EMS Allergies/Adverse Reactions: Patient Allergies Allergy/AdvReac Type Severity Reaction Status Date / Time No Known Allergies Allergy Verified 06/17/19 16:39 Home Medications: Home Medication List Medication Instructions Recorded Confirmed Last Taken Type Carvedilol 25 mg PO BID 06/17/19 06/17/19 Unknown History Clonidine [Catapres] 0.3 mg PO BID 06/17/19 06/17/19 Unknown History Duloxetine [Cymbalta] 30 mg PO QHS 06/17/19 06/17/19 Unknown History Hydralazine HCl 100 mg PO TID 06/17/19 06/17/19 Unknown History Isosorbide Dinitrate 20 mg PO BID 06/17/19 06/17/19 Unknown History Levothyroxine [Synthroid] 50 microgm PO DAILY 06/17/19 06/17/19 Unknown History Lisinopril 10 mg PO HS 06/17/19 06/17/19 Unknown History Lovastatin 20 mg PO DAILY 06/17/19 06/17/19 Unknown History Metformin [Glucophage] 1,000 mg PO BID CC 06/17/19 06/17/19 Unknown History Metoclopramide [Reglan] 10 mg PO AC + HS 06/17/19 06/17/19 Unknown History Ondansetron [Ondansetron Odt] 4 mg PO DIRECTED 06/17/19 06/17/19 Unknown History Spironolactone 25 mg PO DAILY 06/17/19 06/17/19 Unknown History Sucralfate 1,000 mg PO 4XDAY 06/17/19 06/17/19 Unknown History - History of Present Illness-Neuro Nature of Presenting Problem: 63 yr old M, hx of HTN, previous CVA, presents today with a sudden onset altered mental status. The pt's hx is complex and begins with an AR, extended hospital course and CVA back in January 2019. Th pt has has ongoing stints in rehab. He had just been discharged from the hospital on 06/11, was at home with his family, and doing relatively well. The patient's notes that he woke up this morning, had breakfast in bed, and was moved out to the living room. The notes that shortly after, he seemed a little tired and quite, and the thought he was just sleepy. The home health nurse came to evaluate him and he was unable to be woken. BP was taken and found to be low systolic in the 80s. The pt was transported via EMS to the ED, with persistent hypotension. Onset/Duration: reports: 4-6 hours ago Character of Altered Mental Status: reports: decreased responsiveness Cognitive Baseline: other (AOx1) Review of Systems - Adult - REVIEW OF SYSTEMS - ADULT ROS:: ROS per family Constitutional: reports: no symptoms reported Eyes: reports: other (faily reports cataracts) Ears, Nose, Mouth & Throat: reports: no symptoms reported Cardiovascular: reports: no symptoms reported Respiratory: reports: no symptoms reported Gastrointestinal: reports: no symptoms reported Genitourinary: reports: no symptoms reported Musculoskeletal: reports: no symptoms reported Integumentary: reports: no symptoms reported Neurological: reports: slurred speech (at baseline, since CVA in January), other (n ear syncope) Past History - Adult - PAST MEDICAL HISTORY-ADULT Review of Records: reports: Nursing Assessment Review Major Childhood Illnesses: reports: denies history Cardiovascular: reports: HTN, AR Neurological: reports: CVA, stroke deficits Endocrine/Immune: reports: Diabetes, thyroid disorder - PRIOR SURGERIES/PROCEDURES Surgical/Procedure History: reports: appendectomy, other (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; nose) - IMMUNIZATION STATUS Childhood Immunizations: See Nurse Assessment Flu Vaccine: See Nurse Assessment - FAMILY HISTORY Family History: reviewed, not pertinent Physical Exam- Neurological - Physical Exam-Neuro Initial Vital Signs Reviewed: Yes General Appearance: alert, no apparent distress Eye Exam: bilateral eye: PERRL (minimally responsive to light), EOMI HENMT: normocephalic/atraumatic, moist mucous membranes Head Injury: no evidence of injury Neck: full range of motion Respiratory: lungs clear, normal breath sounds Cardiovascular: regular rate, rhythm Abdominal Exam: normal bowel sounds, non tender, soft talent acquisition coordinator Exam: abnormal speech (per family, this is baseline for the patient) Motor/Sensory: other (3/5 motor strength in upper ext b/l) Neurologic: other (speech is difficult to understand; pt otherwise has some deficits at baseline that make it difficult to completely assess neuro exam; no obvious facial droop noted) Integumentary: warm/dry Psych/Mental Status: other (oriented to self) Progress - PLAN OF CARE/RESULTS Progress/Plan/Lab Results: Vital Signs - 8 hr 06/17/19 14:46 06/17/19 15:24 06/17/19 15:30 Pulse Rate 76 80 81 Respiratory Rate 17 26 H Blood Pressure 93/48 O2 Sat by Pulse Oximetry 92 L 99 94 L 06/17/19 15:45 06/17/19 16:00 06/17/19 16:01 Pulse Rate 78 78 78 Respiratory Rate 23 14 21 Blood Pressure 121/61 O2 Sat by Pulse Oximetry 97 98 98 06/17/19 16:15 06/17/19 16:30 06/17/19 16:31 Pulse Rate 79 79 79 Respiratory Rate 21 19 9 L Blood Pressure 101/56 O2 Sat by Pulse Oximetry 98 95 94 L 06/17/19 16:45 06/17/19 16:47 Pulse Rate 76 77 Respiratory Rate 18 25 H Blood Pressure 114/56 O2 Sat by Pulse Oximetry 97 97 Laboratory Results - last 24 hr 06/17/19 06/17/19 06/17/19 15:00 15:02 15:02 WBC 8.43 RBC 3.95 L Hgb 11.1 L Hct 33.3 L MCV 84.3 MCH 28.1 MCHC 33.3 RDW Std Deviation 13.4 Plt Count 315 MPV 10.1 Immature Gran % (Auto) 0.6 H Neut % (Auto) 64.5 Lymph % (Auto) 22.1 [place] % (Auto) 10.1 H Eos % (Auto) 2.3 Baso % (Auto) 0.4 Immature Gran # (Auto) 0.05 H Neut # (Auto) 5.45 Lymph # (Auto) 1.86 [place] # (Auto) 0.85 H Eos # (Auto) 0.19 Baso # (Auto) 0.03 PT INR PTT (Actin FS) Specimen Type ARTERIAL Sample Site R RADIAL pH 7.44 pCO2 34 L pO2 92 HCO3 24.5 Base Excess -0.5 Obdulio Test YES A-a O2 Difference 15.0 Lactate 1.10 Blood Gas Modality ROOM AIR FiO2 % 21.0 Sodium 137 Potassium 4.9 Chloride 102 Carbon Dioxide 22 L Anion Gap 13 BUN 31 H Creatinine 1.5 H Estimated GFR/1.73 m2 47 BUN/Creatinine Ratio 21 Glucose 149 H POC Glucose Calculated Osmolality 283 Calcium 9.1 Total Bilirubin 0.25 AST 12 ALT 7 L Alkaline Phosphatase 45 Creatine Kinase 23 L Troponin T Total Protein 5.8 L Albumin 3.5 Globulin 2.3 Albumin/Globulin Ratio 1.5 Plasma Lactate Urine Source Urine Color Urine Turbidity Urine pH Ur Specific [place] Urine Protein Ur Glucose (Stick) Ur Ketones (Stick) Urine Blood Urine Nitrite Urine Bilirubin Urobilinogen Dipstick Urine Leukocytes Urine WBC (Auto) Urine RBC (Auto) U Epithel Cells (Auto) Urine Bacteria (Auto) Urine Crystals Small Round Cells Urine Casts Urine Yeast-like Cells 06/17/19 06/17/19 06/17/19 15:02 15:02 15:02 WBC RBC Hgb Hct MCV MCH MCHC RDW Std Deviation Plt Count MPV Immature Gran % (Auto) Neut % (Auto) Lymph % (Auto) [place] % (Auto) Eos % (Auto) Baso % (Auto) Immature Gran # (Auto) Neut # (Auto) Lymph # (Auto) [place] # (Auto) Eos # (Auto) Baso # (Auto) PT 13.7 INR 1.04 PTT (Actin FS) 29.4 Specimen Type Sample Site pH pCO2 pO2 HCO3 Base Excess Obdulio Test A-a O2 Difference Lactate Blood Gas Modality FiO2 % Sodium Potassium Chloride Carbon Dioxide Anion Gap BUN Creatinine Estimated GFR/1.73 m2 BUN/Creatinine Ratio Glucose POC Glucose Calculated Osmolality Calcium Total Bilirubin AST ALT Alkaline Phosphatase Creatine Kinase Troponin T 0.028 Total Protein Albumin Globulin Albumin/Globulin Ratio Plasma Lactate 1.4 Urine Source Urine Color Urine Turbidity Urine pH Ur Specific [place] Urine Protein Ur Glucose (Stick) Ur Ketones (Stick) Urine Blood Urine Nitrite Urine Bilirubin Urobilinogen Dipstick Urine Leukocytes Urine WBC (Auto) Urine RBC (Auto) U Epithel Cells (Auto) Urine Bacteria (Auto) Urine Crystals Small Round Cells Urine Casts Urine Yeast-like Cells 06/17/19 06/17/19 15:42 16:16 WBC RBC Hgb Hct MCV MCH MCHC RDW Std Deviation Plt Count MPV Immature Gran % (Auto) Neut % (Auto) Lymph % (Auto) [place] % (Auto) Eos % (Auto) Baso % (Auto) Immature Gran # (Auto) Neut # (Auto) Lymph # (Auto) [place] # (Auto) Eos # (Auto) Baso # (Auto) PT INR PTT (Actin FS) Specimen Type Sample Site pH pCO2 pO2 HCO3 Base Excess Obdulio Test A-a O2 Difference Lactate Blood Gas Modality FiO2 % Sodium Potassium Chloride Carbon Dioxide Anion Gap BUN Creatinine Estimated GFR/1.73 m2 BUN/Creatinine Ratio Glucose POC Glucose 117 H Calculated Osmolality Calcium Total Bilirubin AST ALT Alkaline Phosphatase Creatine Kinase Troponin T Total Protein Albumin Globulin Albumin/Globulin Ratio Plasma Lactate Urine Source CATH Urine Color YELLOW Urine Turbidity TURBID Urine pH 5.5 Ur Specific [place] 1.013 Urine Protein 30 A Ur Glucose (Stick) 200 A Ur Ketones (Stick) TRACE A Urine Blood SMALL A Urine Nitrite POSITIVE A Urine Bilirubin NEGATIVE Urobilinogen Dipstick NORMAL Urine Leukocytes SMALL A Urine WBC (Auto) 10-20 A Urine RBC (Auto) <10 U Epithel Cells (Auto) <10 Urine Bacteria (Auto) NEGATIVE Urine Crystals URIC ACID PRESENT Small Round Cells Not Reportable Urine Casts NONE SEEN Urine Yeast-like Cells NONE SEEN Orders Category Date Time Status Cardiac Monitoring DIRECTED Care 06/17/19 15:12 Active IV Insertion ORDERED Care 06/17/19 15:12 Completed Notify MD of + Sepsis Screen NOW Care 06/17/19 15:12 Active Notify Physician As Ordered Care 06/17/19 15:12 Active Update & Confirm Home Medicati ROUTINE Care 06/17/19 16:45 Active CHEST-1 VIEW [RAD] Stat Exams 06/17/19 15:[address] HEAD W/O CONTRAST [CT] Stat Exams 06/17/19 14:53 Completed ABG [RESP] Routine Lab 06/17/19 15:00 Completed BLOOD CULTURE [BLDCUL] Stat Lab 06/17/19 15:02 Results CBC WITH DIFF [HEME] Stat Lab 06/17/19 15:02 Completed CK PROFILE [SP CHEM] Stat Lab 06/17/19 15:02 Completed COMPREHENSIVE METABOLIC PANEL [CHEM] Stat Lab 06/17/19 15:02 Completed LACTATE, PLASMA [CHEM] Lab 06/17/19 18:15 Uncollected LACTATE, PLASMA [CHEM] Lab 06/17/19 21:15 Uncollected LACTATE, PLASMA [CHEM] Q3H Lab 06/17/19 15:02 Completed PROTIME WITH INR [COAG] Stat Lab 06/17/19 15:02 Completed PTT [COAG] Stat Lab 06/17/19 15:02 Completed TROPONIN T Stat Lab 06/17/19 15:02 Completed URINALYSIS W/POSS RFLX CULT [URINALYSIS] Stat Lab 06/17/19 15:42 Completed URINE CULTURE [RM] Routine Lab 06/17/19 17:17 Received URINE MANUAL MICROSCOPIC [URINALYSIS] Stat Lab 06/17/19 15:42 Completed 0.9% Sodium Chloride Inj [Ns] 1,000 ml Med 06/17/19 16:15 Discontinued IV 999 mls/hr Lactated Ringers Inj [Lr] 1,000 ml Med 06/17/19 17:07 Active IV 70 mls/hr Oxygen Device Stat Oth 06/17/19 15:12 Active EKG [EKG] Stat Ther 06/17/19 14:46 Draft Spoke with hospitalist team - they agree to accept for overnight observation. Pt and his family made aware at bedside. Head CT negative for acute findings. Labs are stable within patient's baseline (when compared to previous lab work-up on chart review). Result Diagrams: 06/17/19 15:02 06/17/19 15:02 - EKG 1 Time of EKG reading by physician:: 16:19 EKG Read and Signed by:: Mendel Dhillon EKG Interpretation (*Must complete 3 of following elements*): Abnormal Rate: 80 Rhythm: sinus [place]: normal ND Interval: normal ST Wave: normal Comments: age undetermined inferior infarct - CT/MRI 1 CT Study: Head Impression: See EMR Report - CONSULTS/PCP/HOSPITALIST Notification #1 *Consult/PCP/Hospitalist*: [place] for Dr. Mccormick Time Discussed: 16:45 Consult Disposition: Admit Departure - Departure Date of Disposition Decision: 06/17/19 Time of Disposition Decision: 16:51 DIAGNOSIS: Altered mental status, Hypotension Disposition: ADMITTED INPATIENT 09 Certified Medical Emergency: Emergent Condition: Fair Referrals and Follow-Ups: Majo Talamantes CRNP [Primary Care Provider] - - Critical Care Note This patient required my direct & personal management of CC.: No Attestation - Physician/ BLANCA Attestation Patient care was provided by Advanced Practice Provider:: No The physician spent face to face time with patient:: Yes Advanced Practice Provider documentation review:: Supervising physician onsite and consulted in the evaluation and care of this patient. The physician did have a face to face encounter with the patient.
--- NOTE | 2019-06-17 15:31 | Diag Imaging Result Doc PS360 ---
EXAM: CT HEAD W/O CONTRAST HISTORY: ams TECHNIQUE: CT head without contrast COMPARISON: 03/29/2019 FINDINGS: No parenchymal hemorrhage. No epidural or subdural hematoma. No subarachnoid hemorrhage. Chronic ischemic changes with old lacunar infarcts. No mass identified on this noncontrasted exam. No hydrocephalus. No sinus opacification. IMPRESSION: 1.No hemorrhage 2.Chronic microvascular ischemic changes with old lacunar infarcts This exam was performed using automated exposure control, adjustment of mA or kV according to patient size, and/or use of iterative reconstruction technique. Electronically signed by Alex Denney 06/17/2019 3:28 PM
[2019-06-17 15:37] LABS: INR 1.04; PROTIME 13.7 Seconds (11.0-16.0); PTT 29.4 Seconds (22.3-41.8)
[2019-06-17 15:41] LABS: ALB/GLOB RATIO 1.5; ALBUMIN 3.5 g/dL (3.5-5.0); CALCIUM 9.1 mg/dL (8.8-10.2); CREATININE 1.5 mg/dL (0.7-1.2); POTASSIUM 4.9 mmol/L (3.5-5.1); TOTAL BILIRUBIN 0.25 mg/dL (0.20-1.00); TOTAL PROTEIN 5.8 g/dL (6.3-8.3)
[2019-06-17] MEDS ORDERED: NS 1,000 ML IV ONE (16:15)
[2019-06-17 16:30] LABS: URINE SOURCE CATH
--- NOTE | 2019-06-17 16:30 | EKG Report ---
Test Performed on : 06/17/2019 2:46:50 PM Test Reason : ED. No order in [place] Blood Pressure : / mmHG Vent. Rate : 075 BPM Atrial Rate : 075 BPM P-R Int : 132 ms QRS Dur : 086 ms QT Int : 402 ms P-R-T Axes : 042 003 111 degrees QTc Int : 448 ms Normal sinus rhythm. T wave abnormality, consider lateral ischemia Abnormal ECG When compared with ECG of 16-APR-2019 12:15, (Unconfirmed) Nonspecific T wave abnormality, improved in Inferior leads Inverted T waves have replaced nonspecific T wave abnormality in Lateral leads QT has shortened Unconfirmed Result
[2019-06-17 16:46] LABS: BILIRUBIN URINE NEGATIVE (NEGATIVE); BLOOD URINE SMALL (NEGATIVE); COLOR YELLOW; GLUCOSE URINE 200 mg/dL (NEGATIVE); KETONE URINE TRACE mg/dL (NEGATIVE); LEUKOCYTES URINE SMALL (NEGATIVE); NITRITE URINE POSITIVE (NEGATIVE); PH URINE 5.5; PROTEIN URINE 30 mg/dL (NEGATIVE); SP GRAVITY URINE 1.013; TURBIDITY URINE TURBID (CLEAR); UROBILINOGEN URINE NORMAL (NORMAL)
[2019-06-17 16:51] LABS: UR EPITHELIAL CELLS <10 /HPF (<10); URINE BACTERIA NEGATIVE /HPF; URINE RBC <10 /HPF (<10)
[2019-06-17 16:57] LABS: URINE CASTS NONE SEEN; URINE CRYSTALS URIC ACID PRESENT; URINE YEAST NONE SEEN
[2019-06-17] MEDS ORDERED: LR 1,000 ML IV ONE (17:07)
[2019-06-17] MEDS ORDERED: ZOFRAN IV PRN (18:17)
[2019-06-17] MEDS ORDERED: TYLENOL PO PRN (18:17)
[2019-06-17] MEDS: MAXIPIME 1 GM in NS 50 ML IV SCH (19:30)
--- NOTE | 2019-06-17 20:55 | HISTORY AND PHYSICAL ---
CHIEF COMPLAINT: Hypotension and decreased responsiveness. HISTORY OF PRESENT ILLNESS: Mr. Chavez is a 63-year-old, man, with past medical history of cardiorespiratory arrest and a complicated medical course in December 2018, status post residual speech abnormality due to hypoxic brain injury, malignant hypertension with episodes of hypotension, who has been back and forth between home, hospital, and rehab since January 2019. He comes in with chief complaints of decreased responsiveness and hypotension. Since his first discharge from the hospital in March 2019, he has been in the hospital twice, initially for malignant hypertension, and the second time for likely septic shock from urinary tract infection. The patient was recently at the rehab and was discharged just three days ago, and he was in his normal state of health until morning time, when he was interacting with his family and they were helping him exercise. However, his responsiveness had slowly decreased. When the home health nurse arrived and checked his blood pressure, it was 80 systolic, so EMS was called in. When EMS arrived, he patient's eyes were open. However, he was not really responding well. He did not know what was going on, so EMS placed a right-sided intraosseous line and he was brought to the emergency room, where he was found to have systolic blood pressure of 90, so the Hospitalist team was consulted for further management. At the time of my evaluation, looks like patient has come to his baseline, and he is alert and is answering questions appropriately. He keeps his mouth open. Most of the history was obtained from patient's and daughter at bedside. The patient has not had any specific burning during micturition or increased frequency. However, he does not verbalize his complaints well and he has been incontinent often times. He has not been able to establish care with a regular physician or gastroenterologists since he has been back and forth between the hospital, rehab, and home. REVIEW OF SYSTEMS: The patient did not complain of any chest pain, shortness of breath, palpitation. He did not have any nausea or vomiting. He did not have any seizure-like activity. Review of systems negative for constipation or diarrhea. Negative for abdominal pain. PAST MEDICAL HISTORY: 1. 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 2. Anvxkbkbz-xc-upcrttw hypertension. 3. Essential hypertension. 4. Noninsulin-dependent diabetes mellitus. 5. Hypothyroidism. 6. Peripheral neuropathy. PAST SURGICAL HISTORY: 1. Left lung surgery as a child. 2. Questionable appendectomy. SOCIAL HISTORY: He lives with his . No alcohol or tobacco. No illicit drug use. ALLERGIES: No known drug allergies. FAMILY HISTORY: Noncontributory. HOME MEDICATION: He is listed to be taking: Carvedilol 25 mg b.i.d., clonidine 0.3 mg b.i.d., hydralazine 100 mg t.i.d., isosorbide dinitrate 20 mg b.i.d., lisinopril 10 mg at nighttime, spironolactone 25 mg daily, levothyroxine 50 mcg daily, metformin 1000 mg b.i.d. with meals, metoclopramide 10 mg with meals and at nighttime, duloxetine 30 mg at nighttime, lovastatin 20 mg daily. VITAL SIGNS: Temperature is currently afebrile to touch. Pulse of 77, respiratory rate 18, blood pressure 129/60 on monitor, saturating 97% room air. PHYSICAL EXAMINATION: Not in acute distress. He does have significant visual impairment and prominent cataract, especially right eye. He has perception to light present. His oral cavity is dry. Air entry bilaterally equal. No wheeze, rhonchi, or crackles. S1, S2 normal. No murmur or gallop. ABDOMEN: Soft, nontender. No lower extremity edema. He has an intraosseous line in right talbert. LABORATORY: Hemoglobin of 11.1, platelet of 315,000. His ABG is unremarkable. He does have acute kidney injury. He does have a degree of pyuria. Microbiology, blood culture, urine culture in lab. IMAGING: Head CT did not have any acute hemorrhage. He did have chronic microvascular ischemic changes with old lacunar infarct. Chest x-ray had no pneumonia. Cardiovascular, EKG had normal sinus rhythm, T-wave abnormality which is at baseline. ASSESSMENT: 1. Acute encephalopathy likely related to hypotension. 2. Hypotension, likely iatrogenic because of use of multiple antihypertensive medications versus sepsis. 3. Acute kidney injury. 4. Uncontrolled and labile hypertension. 5. Hypothyroidism. 6. Noninsulin-dependent diabetes mellitus. 7. History of cardiac arrest and anoxic brain injury with baseline speech abnormality. PLAN: It is possible that his current hypotension episode is because of iatrogenic hypotension because of use of multiple antihypertensive medications. He does have pyuria. However, it is not significant to really indicate sepsis. However, since he has not been able to verbalize his symptoms, I will treat it with intravenous antibiotics and intravenous fluids. I will hold most of his home medications, except clonidine, since I do believe his uncontrolled hypertension is through central mechanism mediated considering his anoxic brain injury. I will also follow up with BMP for his acute kidney injury and monitor him in PVC unit. I will continue physical therapy. Plan of care was discussed with the patient and his family at bedside. In future, I may consider getting an EEG if mental status does not improve. All of their questions have been answered. cc: Andrew Zimmerman MD
[2019-06-17] MEDS ORDERED: PRINIVIL PO SCH (21:00)
[2019-06-17] MEDS ORDERED: CATAPRES PO SCH ×2 (21:00)
[2019-06-17] MEDS: HUMALOG SUBQ SCH (21:00)
[2019-06-17] MEDS: CYMBALTA PO SCH (21:33)
[2019-06-18] MEDS ORDERED: LR 1,000 ML ONE (04:40)
[2019-06-18] MEDS: APRESOLINE IV PRN ×2 (04:50→11:26)
[2019-06-18] MEDS: MAXIPIME 1 GM in NS 50 ML IV SCH ×2 (06:15→17:53)
[2019-06-18] MEDS: HUMALOG SUBQ SCH ×4 (07:00→22:25)
[2019-06-18 07:46] LABS: BASO# 0.06 X1000 (0.0-0.2); EOS% 8.1 % (0.0-10.0); HEMATOCRIT 32.6 % (42.0-52.0); HEMOGLOBIN 10.9 g/dL (14.0-18.0); IMM GRAN# 0.03 X1000 (0.0-0.04); IMM GRAN% 0.5 % (0.0-0.5); LYMPH# 1.43 X1000 (1.2-3.4); LYMPH% 23.3 % (20.5-51.1); MCHC 33.4 g/dL (33-37); MCV 83.8 FL (81-99); MONO# 0.58 X1000 (0.11-0.59); MONO% 9.4 % (1.7-9.3); MPV 9.5 FL (7.4-10.4); NEUT# 3.55 X1000 (1.4-6.5); NEUT% 57.7 % (42.2-75.2); PLT 276 X1000 (130-400); RBC 3.89 XMIL (4.7-6.1); RDW 13.4 % (11.5-14.5); WBC 6.15 X1000 (4.8-10.8)
--- NOTE | 2019-06-18 08:11 | PROGRESS NOTE ---
DATE: 06/18/2019 INTERVAL HISTORY: No acute events overnight. He states he did not get any meal to eat. He is hungry. He did not receive his nighttime clonidine, though he did receive his lisinopril. VITALS: Currently, temperature of 97.5 degrees, pulse 81, respiratory rate 14, blood pressure 150/60. He is saturating 96% on room air. SUBJECTIVE: He denies any new complaints. Denies any chest pain, shortness of breath, abdominal pain, nausea, or vomiting. PHYSICAL EXAM: Oral cavity: Dry. He has mouth-breathing. Lungs: Air entry bilaterally equal. No wheeze, rhonchi, crackles. Cardiovascular: S1, S2 normal. No murmur, rub, or gallop. Abdomen: Soft, nontender. Extremity: No lower extremity edema. Neurologic: He is alert and oriented. He is able to move all of his extremities above ground level. LABS: His CBC and BMP are pending. His TSH and urine culture is also pending. ASSESSMENT AND PLAN: 1. Acute encephalopathy likely related to hypotension, now resolved. 2. Presumed sepsis from urinary tract infection with prior history of Pseudomonas urinary tract infection. Continue intravenous fluids and intravenous cefepime, and follow up urine culture and blood culture results. 3. Acute kidney injury, likely because of hypotension. He was also listed to be taking diuretics and KRISTYN inhibitors for hypertension at home, which could have contributed to it. I will continue intravenous fluids and follow up basic metabolic panel. 4. Uncontrolled and often times labile essential hypertension. His workup for aldosterone- producing tumor, renin-producing tumor, adrenal medullary tumor, pheochromocytoma have been unremarkable in the past. I will resume his clonidine and lisinopril and titrate as per his course. 5. Hypothyroidism. Continue his home levothyroxine and follow up thyroid stimulating hormone. 6. Non insulin-dependent diabetes mellitus. Continue sliding scale insulin. 7. History of cardiac arrest and anoxic brain injury with baseline speech abnormality in January 2019. Since then, he has been in and out of hospital, home and rehabilitation. I will continue physical therapy. DISPOSITION: I will continue to monitor patient in telemetry unit. Plan of care discussed with the patient. His questions were answered. cc: Andrew Zimmerman MD
[2019-06-18 08:34] LABS: AGAP 14; BUN 24 mg/dL (8-22); CALCIUM 9.1 mg/dL (8.8-10.2); CHLORIDE 105 mmol/L (98-107); COSMO 279; ESTIMATED GFR > 60; GLUCOSE 91 mg/dL (70-104); POTASSIUM 3.7 mmol/L (3.5-5.1); SODIUM 138 mmol/L (136-145); TCO2 19 mmol/L (25-35)
--- NOTE | 2019-06-18 09:09 | EKG Report ---
Test Performed on : 06/17/2019 4:19:59 PM Test Reason : chest pain Blood Pressure : / mmHG Vent. Rate : 080 BPM Atrial Rate : 080 BPM P-R Int : 132 ms QRS Dur : 084 ms QT Int : 382 ms P-R-T Axes : 010 -05 039 degrees QTc Int : 440 ms Normal sinus rhythm. Inferior infarct , age undetermined Abnormal ECG When compared with ECG of 17-JUN-2019 14:46, (Unconfirmed) Inferior infarct is now present Unconfirmed Result
[2019-06-18] MEDS: CATAPRES PO SCH ×2 (09:50→21:23)
[2019-06-18] MEDS: LOVENOX SUBQ SCH (10:09)
[2019-06-18] MEDS: SYNTHROID PO SCH (10:09)
[2019-06-18] MEDS: MEVACOR PO SCH (10:09)
[2019-06-18] MEDS: PRINIVIL PO SCH (21:23)
[2019-06-18] MEDS: CYMBALTA PO SCH (21:23)
[2019-06-19] MEDS: MAXIPIME 1 GM in NS 50 ML IV SCH ×2 (05:42→21:08)
[2019-06-19] MEDS: HUMALOG SUBQ SCH ×4 (06:40→21:23)
[2019-06-19] MEDS: MEVACOR PO SCH (08:24)
[2019-06-19] MEDS: CATAPRES PO SCH ×2 (08:24→21:07)
[2019-06-19] MEDS: SYNTHROID PO SCH (08:25)
[2019-06-19] MEDS: LOVENOX SUBQ SCH (08:28)
--- NOTE | 2019-06-19 09:10 | PROGRESS NOTE ---
DATE: 06/19/2019 INTERVAL HISTORY: No acute events overnight. He has been eating a little bit. Denies new complaints. VITAL SIGNS: He has been afebrile. Temperature 98.7 degrees, pulse 78, respiratory rate 19, blood pressure 160/70, saturating 98% on room air. PHYSICAL EXAMINATION: General: He has dry oral cavity. No pallor, cyanosis, clubbing or icterus. Lungs: Air entry bilaterally equal. No wheeze rhonchi or crackles. Heart: S1 normal. No murmur, rub or gallop. Abdomen: Soft, nontender. Extremities: No lower extremity edema. He does appear to have some suprapubic dullness, so I ordered a bladder scan. He is able to move all extremities above ground level. LABS: He does not have any CBC or BMP. His BMP was normal. ASSESSMENT AND PLAN: 1. Acute encephalopathy likely related to hypotension, now resolved. 2. Hypotension because of multiple antihypertensive medication use, now resolved. 3. Presumed sepsis from urinary tract infection with prior history of Pseudomonas urinary tract infection. Urine culture did not have any growth. I stopped the intravenous antibiotics. 4. Acute kidney injury because of hypotension and use of diuretics at home, as well as KRISTYN inhibitors, now resolved. 5. Uncontrolled and often times labile essential hypertension. I will continue to address it with lisinopril, clonidine , and add hydralazine. 6. URINE RETENTION: I will straight cath him once and then repeat bladder scan again. If he retains again, I will insert Stratton catheter. Considering his labile blood pressure, he may not be ideal candidate for Tamsulosin. I will consult urology in future. 6. Hypothyroidism. Continue home levothyroxine. 7. Non insulin-dependent diabetes mellitus, currently well controlled. 8. History of cardiac arrest and anoxic brain injury with baseline speech abnormality in January 2019. Continue physical therapy. DISPOSITION: I will monitor him inside the hospital for 24 hours. Plan of care discussed with him, all questions have been answered. cc: Andrew Zimmerman MD [facility]
[2019-06-19] MEDS: APRESOLINE PO SCH ×4 (10:55→21:07)
[2019-06-19] MEDS: CYMBALTA PO SCH (21:07)
[2019-06-19] MEDS: PRINIVIL PO SCH (21:07)
[2019-06-20] MEDS: APRESOLINE PO SCH ×2 (04:35→13:27)
[2019-06-20] MEDS: HUMALOG SUBQ SCH ×3 (07:25→16:39)
[2019-06-20] MEDS: CATAPRES PO SCH (08:44)
[2019-06-20] MEDS: SYNTHROID PO SCH (08:44)
[2019-06-20] MEDS: MEVACOR PO SCH (08:44)
[2019-06-20] MEDS: MAXIPIME 1 GM in NS 50 ML IV SCH (08:45)
[2019-06-20] MEDS: LOVENOX SUBQ SCH (08:46)
[2019-06-20 15:32] VITALS: BP 143/67
--- NOTE | 2019-06-20 18:14 | CONSULTATION ---
DATE OF CONSULTATION: 06/20/2019 CHIEF COMPLAINT: Urinary retention and urinary tract infection. HISTORY OF PRESENT ILLNESS: Mr. Chavez is a 63-year-old with a history of cardiopulmonary arrest with a complicated medical course in December 2018 due to hypoxic brain injury and changes in speech, malignant hypertension and recurrent infection and type 2 diabetes, hypothyroidism, and peripheral neuropathy presents in consultation regarding urinary retention. The patient was admitted to the hospital on 06/17/2019 when he presented with hypotension and altered mental status. He was not responding to evaluation and had a low blood pressure with systolics in the 80s per report. The patient was admitted for fluid resuscitation and possible sepsis. He was started on antibiotics and seems to have improved. The patient has had multiple admissions to the hospital due to urinary tract infection with positive urine cultures as well as appearance of being septic on arrival. He has been in and out of rehab several times and was recently admitted to the hospital in April for similar presentation. The patient has been monitored in the hospital and was found to have urinary retention yesterday. Bladder scan showed elevated PVR of 443cc yesterday. He was straight catheterized and a repeat PVR was performed later, which again showed elevated PVR. The decision was made to place an indwelling catheter and Urology was consulted for evaluation. The patient is not on any medication for his bladder or prostate at this time. The patient has no one at bedside with him. Unfortunately, he is a slightly poor historian, which I think is limited by his change in speech. Review of the records, it sounds like the patient has been incontinent at home both from a bowel and bladder standpoint. The patient states that he has regular bowel movements daily and he does not feel like he is constipated. He has not seen a urologist previously. Denies any hematuria or dysuria. Urine culture was obtained on arrival, which returned growing Pseudomonas. The patient had several urine cultures recently both growing Pseudomonas. He denies having recurrent infections prior to hypoxic event in December. PAST MEDICAL HISTORY: 1. Cardiorespiratory arrest in February 2019 with baseline hypoxic brain injury and speech changes. 2. Malignant hypertension. 3. Diabetes mellitus number. 4. Hypothyroidism. 5. Peripheral neuropathy. PAST SURGICAL HISTORY: 1. Left lung surgery as a child. 2. Appendectomy. ALLERGIES: No known drug allergies. HOME MEDICATIONS: 1. Carvedilol 25 mg b.i.d. 2. Clonidine 0.3 mg b.i.d. 3. Hydralazine 100 mg t.i.d. 4. Isosorbide nitrite 20 mg b.i.d. 5. Lisinopril 10 mg at nighttime. 6. Spironolactone 25 mg daily. 7. Levothyroxine 50 mcg daily. 8. Metformin 100 mg b.i.d. 9. Reglan 10 mg with meals. 10. Duloxetine 30 mg at night. 11. Lovastatin 20 mg daily. SOCIAL HISTORY: Patient lives at home with his . He denies alcohol, tobacco, or illicit drug use. REVIEW OF SYSTEMS: A 12-point review of systems performed with pertinent positives and negatives in HPI. PHYSICAL EXAMINATION: Vital Signs: Temperature 98.2, heart rate 75, blood pressure 143/67, oxygenation 100% on room air. General: No acute distress. Resting comfortably in bed, alert, oriented x3. Slight speech deficit. HEENT: Normocephalic, atraumatic. Pupils equal, round, reactive to light. Respiratory: Good respiratory effort without audible wheezing or rales. Cardiovascular: S1, S2 heart sounds, regular rate and rhythm. Abdomen: Soft, nontender, nondistended. No palpable masses or hepatosplenomegaly. Genitourinary: No suprapubic tenderness. No CVA tenderness. Urethral catheter in place draining clear yellow urine. Normal phallus with bilateral testicles palpated without masses or asymmetry. Digital rectal exam shows a 20 g prostate with no nodules or asymmetry. No palpable rectal masses. Slightly decreased rectal tone. Skin: No obvious skin lesions or rashes. Neurologic: Limited upper and lower extremity function. The patient is unable to turn himself. The patient is alert and oriented, but a poor historian. LABORATORY DATA: White blood cell count 6.2, hemoglobin 10.9, hematocrit 32.6, platelets 276,000. Sodium 138, potassium 3.7, chloride 105, bicarbonate 29, BUN 24, creatinine 1.0, glucose 91. Microbiology: Pseudomonas which is sensitive to all medications tested. IMAGING STUDIES: CT scan was performed in February 2019 which showed several small stones in the lower pole of the left kidney with no evidence of obstruction. No hydronephrosis, renal masses or renal cyst. ASSESSMENT AND PLAN: Mr. Chavez is a 63-year-old with history of diabetes, hypothyroidism, significant cardiopulmonary respiratory arrest event leading to hypoxic brain injury with essential hypertension, who presents in consultation regarding urinary retention and concern for urinary tract infection. The patient has been diagnosed with Pseudomonas urinary tract infection several times now. The patient had elevated post void residuals multiple times during admission and had indwelling catheter inserted yesterday. Concern arises that the patient is having retention at home leading to some of the incontinence that is described in his prior notes. The patient's postvoid residuals were elevated yesterday and catheter was inserted at that time. Urology is consulted for further recommendations. I talked with the patient. Unfortunately, he is a poor historian but I think he may benefit from Flomax. The patient has had several episodes of hypotension, which I think are related to infections. I think the patient's infections likely led to not emptying his bladder well. I told him if he was emptying his bladder better, he may not have infections. Recommended keeping indwelling catheter in for at least 3 days and starting on Flomax. I think Flomax may help him urinate better and may prevent him from having to keep indwelling catheter. If the patient continues to have an elevated postvoid residual, may have to consider urodynamics versus cystoscopy to assess for etiologies. The patient's prostate is small on exam today. He likely is having urinary retention related to prior hypoxic injuries and likely will either need to be clean intermittent catheterized or consideration for indwelling catheter. The patient is very hesitant to have indwelling catheter in for any period of time. We will plan for close followup and try to remove his catheter if tolerates. cc: Raulito Gutiérrez MD [facility] CENTERBraydon
--- NOTE | 2019-06-20 22:17 | DISCHARGE SUMMARY ---
ADMISSION DATE: 06/17/2019 DISCHARGE DATE: 06/20/2019 DISCHARGE DISPOSITION: Home with family. Home care will be continued. DISCHARGE CONDITION: He is hemodynamically stable. His blood pressure is well controlled. Stratton catheter has been placed. Urology has recommended that he be discharged on the Stratton catheter for his urine retention and multiple UTIs. DISCHARGE DIAGNOSES: 1. Acute encephalopathy due to hypotension. 2. Hypotension due to use of multiple antihypertensive medications. 3. Presumed sepsis from Pseudomonas urinary tract infection. 4. Acute kidney injury due to hypotension and urinary retention. 5. Uncontrolled and oftentimes labile essential hypertension. 6. Acute urinary retention. 7. Recurrent Pseudomonas urinary tract infection. OTHER DIAGNOSES: 1. Malignant hypertension. 2. Hypothyroidism. 3. Szh-xbfjbvd-lhtlxzzjc diabetes mellitus. 4. History of cardiac arrest and anoxic brain injury in January 2019, status post residual speech abnormality as well as visual impairment. DISCHARGE MEDICATIONS: Duloxetine 30 mg at nighttime, clonidine 0.2 mg b.i.d., metformin 1000 mg b.i.d. with meals, lisinopril 40 mg at nighttime, lovastatin 20 mg daily, ondansetron 4 mg as needed for nausea and vomiting, levothyroxine 50 mcg daily, hydralazine 25 mg every 8 hours, tamsulosin 0.4 mg daily, levofloxacin 500 mg daily, lisinopril 40 mg at nighttime. VITALS AT THE TIME OF DISCHARGE: Temperature 97.9 degrees, pulse 77, respiratory rate 15, blood pressure 150/70, saturating 99% on 2 L nasal cannula. PHYSICAL EXAMINATION: General: The patient does not appear in any acute distress. Keeps his mouth open. Dry oral cavity. Air entry bilaterally equal. No wheeze or crackles. Cardiovascular: Heart sounds are normal. No murmur or gallop. Abdomen: Soft, nontender. Extremities: No lower extremity edema. Genitourinary: He has a urine catheter which is draining clear urine. Neurologic: He is alert. He could remember his date. He does have baseline visual impairment and speech abnormality, but he is able to follow all commands and answer questions appropriately. SIGNIFICANT LABS DURING HOSPITAL ADMISSION: WBCs 6.1, hemoglobin 10.9, platelets 276. Sodium 138, potassium 3.7 carbon dioxide 19, BUN 24, creatinine 1, blood glucose 171. His TSH was 2.4. Plasma lactate 0.6. Urinalysis had 10 to 12 WBCs and positive urine nitrite. SIGNIFICANT MICROBIOLOGY: One of the 2 blood cultures was positive for coagulase-negative Staphylococcus was which was likely a contaminant. Pseudomonas aeruginosa was growing in the urine culture, which was sensitive to levofloxacin. He was given 10 tablets of levofloxacin. SIGNIFICANT IMAGING DURING HOSPITAL ADMISSION.: Head CT on admission had no hemorrhage, chronic microvascular ischemic changes with old lacunar infarct. Chest x-ray on admission did not have any pneumonia. Cardiovascular: Electrocardiogram on presentation had normal sinus rhythm and T- wave abnormality in lateral leads which was chronic HOSPITAL COURSE SUMMARY: Mr. Chavez is a 63-year-old man who presented on 06/17/2019 with chief complaints of hypotension and decreased responsiveness. Apparently, the patient had been in and out of the hospital since January 2019, and he had been in the hospital, rehab, and home intermittently. He had a prolonged hospital admission in January and February 2019 for multiple cardiac arrests and anoxic brain injury, from where he was discharged to rehab. Since then, he has been in the hospital for urinary tract infection and intractable nausea and vomiting and uncontrolled hypertension. The patient was just discharged from rehab to home, and he was doing okay at home; however on the day of presentation he had suddenly started becoming less responsive and was sleeping a lot, and the home care agency when they came by performed a blood pressure measurement where he was found to have a systolic blood pressure of 80, diastolic of 40. He was advised to come to the emergency room. EMS had placed an intraosseous line on arrival. In the emergency room, his presentation blood pressure was 90 systolic. He was started on intravenous fluid resuscitation, and the hospitalist team was consulted for further management. It was thought that his hypotension was because of use of several antihypertensive medications as well as suspected sepsis from urine infection. He was started on 3 of his oral medications and was monitored in the PVC unit. He was also kept on antibiotics for suspected urine infection. At the time of discharge, his blood pressure has consistently been in acceptable range on oral medications for 3 consecutive days, and his urinalysis showed Pseudomonas which is sensitive to levofloxacin, so he will be discharged on current regimen of antihypertensive medication including lisinopril clonidine, and hydralazine. He did developed urine retention twice during the hospital admission, so a Stratton catheter was placed, and Urology was consulted, who recommended keeping Stratton at the time of discharge and have outpatient followup. I called patient's and informed her about discharge instructions. TIME SPENT: More than 30 minutes spent discharging this patient. cc: Andrew Zimmerman MD
== END 2019-06-20 17:52 | disposition home health service (06) | DRG 872 ==
LOC: SUPCPDRO → ED 14:44 → EDIPHOLD 19:02 → 2N 06-18 10:26
PROVIDERS: ATTEND Internal Medicine